=== PATIENT | female | born 1940 | race Caucasian/White ===

== ENCOUNTER 2023-03-16 21:27 | Emergency (ER) | payer MEDICARE, MEDICAID, SELFPAY ==
[2023-03-16] VITALS (7 sets, daily range): BP systolic 130–179; BP diastolic 75–108; PULSE 56–80; RESP 18–20; TEMP 36.8; O2SAT 93–97; BMI 26.4
--- NOTE | 2023-03-16 21:28 | ECG_ITS ---
APPROVED REPORT Exam: Resting ECG HR:82 bpm ECG Measurements Heart Rate 82 AXES QRSd 76 QRS 35 QT 356 T 69 QTc 394 Conclusion ATRIAL FIBRILLATION LOW QRS VOLTAGE IN PRECORDIAL LEADS [QRS DEFLECTION < 1.0 mV IN CHEST LEADS] ABNORMAL RHYTHM ECG UNCONFIRMED REPORT Electronically signed by : Miller Mcbride MD 03/17/2023 06:47:05
--- NOTE | 2023-03-16 21:43 | XR_ITS ---
PROCEDURE INFORMATION: Exam: XR Chest Exam date and time: 03/16/2023 10:01 PM Age: 82 years old Clinical indication: Pain; Chest pressure; Additional info: Chest pain TECHNIQUE: Imaging protocol: Radiologic exam of the chest. Views: 1 view. COMPARISON: No relevant prior studies available. FINDINGS: Lungs: Unremarkable. No consolidation. Pleural spaces: Unremarkable. No pleural effusion. No pneumothorax. Heart/Mediastinum: Unremarkable. No cardiomegaly. Vasculature: There are calcifications of the aortic arch. Bones/joints: There is diffuse degenerative disease of the visualized osseous structures. IMPRESSION: No dense parenchymal consolidation, pleural effusion, or pneumothorax.
[2023-03-16 21:53] LABS: Basophils # 0.1 K/mm3 (0-0.2); Basophils % 0.8 % (0.1-2.0); Eosinophils # 0.3 K/mm3 (0.0-0.4); Eosinophils % 4.7 % (0.1-12.0); Hematocrit 46.3 % (37.0-47.0); Hemoglobin 14.5 g/dL (12.2-16.2); Lymphocytes # 2.5 K/mm3 (0.7-4.5); Lymphocytes % 42.2 % (10-50); Mean Corpuscular HGB Conc 31.4 g/dL (31.8-35.4); Mean Corpuscular Hemoglobin 29.5 pg (27.0-31.2); Mean Platelet Volume 7.9 fl (7.4-10.4); Monocytes # 0.4 K/mm3 (0.1-1.0); Monocytes % 6.4 % (1.7-9.3); Neutrophils # 2.8 K/mm3 (1.8-7.8); Platelet Count 189 K/mm3 (142-424); Red Blood Count 4.93 M/mm3 (4.20-5.40)
[2023-03-16 21:54] LABS: Chloride 104 mmol/L (98-107); Sodium 139 mmol/L (136-145)
[2023-03-16 21:55] LABS: Potassium 4.2 mmoL/L (3.5-5.1)
[2023-03-16 21:57] LABS: Alanine Aminotransferase 24 U/L (12-78); Alkaline Phosphatase 106 U/L (38-126); Aspartate Amino Transferase 29 U/L (14-36); Bilirubin,Total 0.3 mg/dl (0.2-1.3); Blood Urea Nitrogen 21 mg/dl (7-17); Creatinine Clearance Estimated 49 mL/min (50-200); Estimated Glomerular Filt Rate 60 ml/min (>60); GFR (African American) 73 ML/MIN (>60)
[2023-03-16 21:58] LABS: Albumin Level 3.9 g/dl (3.5-5.0); Albumin/Globulin Ratio 1.3 (1.1-1.8); Anion Gap 12.2 mEq/L (5-15); Calcium 10.1 mg/dl (8.4-10.2); Carbon Dioxide 27 mmol/L (22.0-30.0); Globulin 2.9 g/dL (1.3-3.2); Glucose 81 mg/dl (74-100); Total Protein,Serum 6.8 g/dl (6.3-8.2)
[2023-03-16 22:11] LABS: Troponin I < 0.01 ng/ml (0.00-0.034)
--- NOTE | 2023-03-16 23:13 | PC.NURSE ---
Rounded on patient no issues at this time
--- NOTE | 2023-03-16 23:14 | HMH.EDGENADL ---
Discharge Plan Disposition Patient Disposition: Xfer SNF Condition: Good Prescriptions Prescriptions: No Action gabapentin 400 mg capsule 400 mg PO QID Qty: 120 2RF Referrals Follow up/Referrals: Yehuda Marcial MD [Primary Care Provider] - See instructions Activity Restrictions/Add. Instructions Additional Instructions/Restrictions: Please follow-up with your primary care provider. Please return to the emergency department if you develop any new or worsening symptoms or become concerned for your health. Clinical Impressions Clinical Impression: Chest pain Discharge ED Provider: Huan Dugan General Adult HPI <Huan Dugan MD - Last Filed: 03/17/23 00:43> General Chief complaint: Chest Pain Stated complaint: CP Time Seen by Provider: 03/16/23 22:55 Mode of Arrival: EMS Source of Information: Patient and EMS Limitations: No Limitations Description of Symptoms (Recalled from ER Triage Doc. by RN): Patient reports chest pain, epigastric pain, and jaw pain. Patient states hands and knees feel weak. patient has history of CVA and afib per care home this is patients baseline mentation. History of Present Illness HPI narrative: Patient presents for evaluation of epigastric, chest, substernal, nonradiating, nonpleuritic nonexertional chest pain in the history of CVA with expressive aphasia and known history of atrial fibrillation. Symptoms were gradual in onset starting today. No previous therapies. No head injury, no weakness or numbness. No sick contacts. No recent travel, no leg pain or leg swelling. No presyncope or syncope. History is, however, markedly limited by history of expressive aphasia after CVA. Patient is able to answer yes or no questions. Related Data Previous Rx's Medication Instructions Recorded gabapentin 400 mg capsule 400 mg PO QID #120 caps 12/19/22 Allergies Allergy/AdvReac Type Severity Reaction Status Date / Time Unable to Assess Allergy Verified 12/22/22 08:19 PFS <Huan Dugan MD - Last Filed: 03/17/23 00:43> [facility] Disclaimer: The information contained in this section may have been updated after the patient was seen, as this information can be updated by other users. Social History (Updated 01/05/23 @ 05:50 by Johnnie Penn APRN) Smoking Status: Never smoker alcohol intake: former substance use type: denies use current occupational status: retired Travel in the last 8 weeks: None household members: caregiver housing: care home lives independently: No <Huan Dugan MD - Last Filed: 03/17/23 00:43> ROS Obtained: Yes Systems reviewed as appropriate & no additional complaints except as documented Physical Exam <Huan Dugan MD - Last Filed: 03/17/23 00:43> General General appearance: alert and in no apparent distress Head Head exam: atraumatic and normocephalic Eye Eye exam: Present normal appearance Neck Neck exam: Present normal inspection and other (No appreciable neck pain) Chest Chest inspection: Present normal inspection and symmetric chest wall rise; Absent tenderness Respiratory Respiratory exam: Present normal lung sounds bilaterally; Absent respiratory distress or wheezes Cardiovascular Cardiovascular exam: Present other (Irregularly irregular rhythm) Abdominal Exam Abdominal exam: Present soft; Absent distention, tenderness or guarding Extremities Exam Extremities exam: Present normal inspection and normal capillary refill; Absent tenderness Neurological Exam Neurological exam: Present alert and other (At baseline with history of expressive aphasia after CVA, able to answer yes or no questions) Psychiatric Psychiatric exam: Present normal affect and normal mood Skin Skin exam: Present warm and dry Medical Decision Making <Huan Dugan MD - Last Filed: 03/17/23 00:43> Medical Records Medical records reviewed: Yes I reviewed the patient's medical records. Bal Almodovar Pt receiving controlled substance: No Vital Signs: 03/16/23 21:27 03/16/23 21:39 03/16/23 21:31 Temperature 98.2 F Temperature Source Oral Pulse Rate 71 80 Pulse Rate [Right Radial] 71 Respiratory Rate 20 Blood Pressure 139/88 Blood Pressure [Right Arm] 179/106 H Blood Pressure Mean [Right Arm] 130 Blood Pressure Source Blood Pressure Source [Right Arm] Automatic Cuff 02 Sat by Pulse Oximetry 97 96 Oxygen Delivery Method Room Air 03/16/23 22:01 03/16/23 22:30 03/16/23 23:01 Temperature Temperature Source Pulse Rate 67 56 L 77 Pulse Rate [Right Radial] Respiratory Rate Blood Pressure 134/75 130/83 167/92 H Blood Pressure [Right Arm] Blood Pressure Mean [Right Arm] Blood Pressure Source Blood Pressure Source [Right Arm] 02 Sat by Pulse Oximetry 95 93 L 96 Oxygen Delivery Method 03/16/23 23:54 03/17/23 02:12 Temperature 97.9 F Temperature Source Oral Pulse Rate 70 68 Pulse Rate [Right Radial] Respiratory Rate 18 16 Blood Pressure 156/108 H 147/87 H Blood Pressure [Right Arm] Blood Pressure Mean [Right Arm] Blood Pressure Source Manual Cuff/ Auscultation Blood Pressure Source [Right Arm] 02 Sat by Pulse Oximetry 97 Oxygen Delivery Method Room Air Lab Data Lab Results 03/16/23 21:31: WBC 6.0, RBC 4.93, Hgb 14.5, Hct 46.3, MCV 94.0, MCH 29.5, MCHC 31.4 L, RDW 13.0, Plt Count 189, MPV 7.9, Neut % (Auto) 46.0, Lymph % (Auto) 42.2, Anson % (Auto) 6.4, Eos % (Auto) 4.7, Baso % (Auto) 0.8, Neut # (Auto) 2.8, Lymph # (Auto) 2.5, Anson # (Auto) 0.4, Eos # (Auto) 0.3, Baso # (Auto) 0.1, Sodium 139, Potassium 4.2, Chloride 104, Carbon Dioxide 27, Anion Gap 12.2, BUN 21 H, Creatinine 0.90, Estimated Creat Clear 49, Estimated GFR 60, Est GFR ( Amer) 73, Glucose 81, Calcium 10.1, Total Bilirubin 0.3, AST 29, ALT 24, Alkaline Phosphatase 106, Troponin I < 0.01, Total Protein 6.8, Albumin 3.9, Globulin 2.9, Albumin/Globulin Ratio 1.3 03/17/23 00:31: Troponin I < 0.01 03/16/23 21:31 03/16/23 21:31 Orders (Tests/Meds): ED MEDICATIONS Discontinued Medications Generic Name Dose Route Start Last Admin Trade Name Freq PRN Reason Stop Dose Admin Belladonna Alkaloids 60 ml 03/17/23 00:43 03/17/23 01:31 Belladonna Alkaloids 60 Ml Ml PO 03/17/23 00:44 60 ml ONCE ONE Administration ORDERS Category Date Time Status XR chest portable Stat Exams 03/16/23 21:43 Completed Complete Blood Count Auto Diff Stat Lab 03/16/23 21:31 Completed Comprehensive Metabolic Panel Stat Lab 03/16/23 21:31 Completed Troponin I Q3H Lab 03/17/23 00:31 Completed Troponin I Stat Lab 03/16/23 21:31 Completed ECG initial Besson Routine Y 03/16/23 21:28 Completed Medical Decision Narrative: Patient with history and exam per above presenting for evaluation of chest pain, with known history of atrial fibrillation, as well as hiatal hernia per chart review HEART score is 4. Diagnoses considered include ACS, aortic dissection, pericarditis, PE, pneumothorax, pneumonia, GERD, costochondritis, referred pain ED workup included: CBC, CMP, chest x-ray, serial troponins Patient was treated with: GI cocktail x1 Labs were independently interpreted by me, significant for CBC with no anemia, creatinine within normal limits, no acute electrolyte abnormality, initial troponin undetectable, delta troponin pending Imaging was independently visualized and interpreted by me, significant for no acute finding. Care was transferred to Dr. Walton who will follow-up delta troponin, likely discharge if no significant delta <Deondre Walton MD - Last Filed: 03/17/23 04:44> Vital Signs: 03/16/23 21:27 03/16/23 21:39 03/16/23 21:31 Temperature 98.2 F Temperature Source Oral Pulse Rate 71 80 Pulse Rate [Right Radial] 71 Respiratory Rate 20 Blood Pressure 139/88 Blood Pressure [Right Arm] 179/106 H Blood Pressure Mean [Right Arm] 130 Blood Pressure Source Blood Pressure Source [Right Arm] Automatic Cuff 02 Sat by Pulse Oximetry 97 96 Oxygen Delivery Method Room Air 03/16/23 22:01 03/16/23 22:30 03/16/23 23:01 Temperature Temperature Source Pulse Rate 67 56 L 77 Pulse Rate [Right Radial] Respiratory Rate Blood Pressure 134/75 130/83 167/92 H Blood Pressure [Right Arm] Blood Pressure Mean [Right Arm] Blood Pressure Source Blood Pressure Source [Right Arm] 02 Sat by Pulse Oximetry 95 93 L 96 Oxygen Delivery Method 03/16/23 23:54 03/17/23 02:12 Temperature 97.9 F Temperature Source Oral Pulse Rate 70 68 Pulse Rate [Right Radial] Respiratory Rate 18 16 Blood Pressure 156/108 H 147/87 H Blood Pressure [Right Arm] Blood Pressure Mean [Right Arm] Blood Pressure Source Manual Cuff/ Auscultation Blood Pressure Source [Right Arm] 02 Sat by Pulse Oximetry 97 Oxygen Delivery Method Room Air Lab Data Lab Results 03/16/23 21:31: WBC 6.0, RBC 4.93, Hgb 14.5, Hct 46.3, MCV 94.0, MCH 29.5, MCHC 31.4 L, RDW 13.0, Plt Count 189, MPV 7.9, Neut % (Auto) 46.0, Lymph % (Auto) 42.2, Anson % (Auto) 6.4, Eos % (Auto) 4.7, Baso % (Auto) 0.8, Neut # (Auto) 2.8, Lymph # (Auto) 2.5, Anson # (Auto) 0.4, Eos # (Auto) 0.3, Baso # (Auto) 0.1, Sodium 139, Potassium 4.2, Chloride 104, Carbon Dioxide 27, Anion Gap 12.2, BUN 21 H, Creatinine 0.90, Estimated Creat Clear 49, Estimated GFR 60, Est GFR ( Amer) 73, Glucose 81, Calcium 10.1, Total Bilirubin 0.3, AST 29, ALT 24, Alkaline Phosphatase 106, Troponin I < 0.01, Total Protein 6.8, Albumin 3.9, Globulin 2.9, Albumin/Globulin Ratio 1.3 03/17/23 00:31: Troponin I < 0.01 Orders (Tests/Meds): ED MEDICATIONS Discontinued Medications Generic Name Dose Route Start Last Admin Trade Name Freq PRN Reason Stop Dose Admin Belladonna Alkaloids 60 ml 03/17/23 00:43 03/17/23 01:31 Belladonna Alkaloids 60 Ml Ml PO 03/17/23 00:44 60 ml ONCE ONE Administration ORDERS Category Date Time Status XR chest portable Stat Exams 03/16/23 21:43 Completed Complete Blood Count Auto Diff Stat Lab 03/16/23 21:31 Completed Comprehensive Metabolic Panel Stat Lab 03/16/23 21:31 Completed Troponin I Q3H Lab 03/17/23 00:31 Completed Troponin I Stat Lab 03/16/23 21:31 Completed ECG initial Besson Routine Y 03/16/23 21:28 Completed Medical Decision Narrative: Patient with history and exam per above presenting for evaluation of chest pain, with known history of atrial fibrillation, as well as hiatal hernia per chart review HEART score is 4. Diagnoses considered include ACS, aortic dissection, pericarditis, PE, pneumothorax, pneumonia, GERD, costochondritis, referred pain ED workup included: CBC, CMP, chest x-ray, serial troponins Patient was treated with: GI cocktail x1 Labs were independently interpreted by me, significant for CBC with no anemia, creatinine within normal limits, no acute electrolyte abnormality, initial troponin undetectable, delta troponin pending Imaging was independently visualized and interpreted by me, significant for no acute finding. Care was transferred to Dr. Walton who will follow-up delta troponin, likely discharge if no significant delta Anton MD: I assumed care of the patient at the time of handoff from the prior provider. On reevaluation patient reports symptomatic improvement. We were awaiting repeat troponin for discharge. It returned undetectably low. This was communicated with patient. She was discharged in stable condition. Return precautions given. Critical Care <Huan Dugan MD - Last Filed: 03/17/23 00:43> Critical Care Time Critical Care Time: No
--- NOTE | 2023-03-16 23:31 | INFXCTL.NOTE ---
COVID swab obtained and sent to lab
[2023-03-17 01:06] LABS: Troponin I < 0.01 ng/ml (0.00-0.034)
[2023-03-17] MEDS: BELLADONNA ALKALOIDS 60 ML ML PO (01:31)
--- NOTE | 2023-03-17 01:39 | PC.NURSE ---
Report called to [facility] at this time.
[2023-03-17 02:12] VITALS: BP 147/87; PULSE 68; RESP 16; TEMP 36.6
== END 2023-03-17 01:50 ==
PROVIDERS: Emergency Provider Emergency Medicine; PCP Emergency Medicine
DX: R07.9 Chest pain, unspecified (principal); R10.13 Epigastric pain; R68.84 Jaw pain
CPT/HCPCS: 71045; 80053; 84484; 85025; 93005; 99285

== ENCOUNTER 2023-03-21 21:20 | Emergency (ER) | payer MEDICARE, MEDICAID, SELFPAY ==
[2023-03-21 21:21] VITALS: BP 181/96; PULSE 77; RESP 19; TEMP 36.8; O2SAT 98; BMI 25.0
[2023-03-21 21:31] VITALS: BP 156/98; PULSE 80; RESP 18; O2SAT 97
--- NOTE | 2023-03-21 21:56 | XR_ITS ---
PROCEDURE INFORMATION: Exam: XR Pelvis Exam date and time: 03/21/2023 10:18 PM Age: 82 years old Clinical indication: Injury or trauma; Fall; Blunt trauma (contusions or hematomas); Does not apply; Pelvic region; Prior surgery; Surgery date: 6+ months; Surgery type: Replacement; Additional info: Fall, pain TECHNIQUE: Imaging protocol: Radiologic exam of the pelvis. Views: 1 or 2 view. COMPARISON: No relevant prior studies available. FINDINGS: Bones/joints: Osteopenia. Degenerative change involving the lumbar spine and left hip joint. Previous right hip arthroplasty. No hardware failure. No definite acute fracture or dislocation. Soft tissues: Unremarkable. IMPRESSION: Osteopenia without definite acute osseous abnormality. If clinical concern persists, CT may be considered.
--- NOTE | 2023-03-21 21:56 | XR_ITS ---
PROCEDURE INFORMATION: Exam: XR Chest Exam date and time: 03/21/2023 10:18 PM Age: 82 years old Clinical indication: Injury or trauma; Fall; Blunt trauma (contusions or hematomas); Additional info: Fall, pain TECHNIQUE: Imaging protocol: Radiologic exam of the chest. Views: 1 view. COMPARISON: CR XR CHEST PORTABLE 03/16/2023 10:01 PM FINDINGS: Lungs: No airspace consolidation. Pleural spaces: Unremarkable. No pleural effusion. No pneumothorax. Heart/Mediastinum: Cardiomegaly. Vasculature: Elongation of the thoracic aorta. Bones/joints: Osteopenia. Degenerative change involving the shoulders and spine. Organs: Previous cholecystectomy. IMPRESSION: No acute process.
--- NOTE | 2023-03-21 21:56 | CT_ITS ---
PROCEDURE INFORMATION: Exam: CT Lumbar Spine Without Contrast Exam date and time: 03/21/2023 10:21 PM Age: 82 years old Clinical indication: Injury or trauma; Additional info: Fall, pain TECHNIQUE: Imaging protocol: Computed tomography of the lumbar spine without contrast. Radiation optimization: All CT scans at this facility use at least one of these dose optimization techniques: automated exposure control; mA and/or kV adjustment per patient size (includes targeted exams where dose is matched to clinical indication); or iterative reconstruction. REPORTING DATA: Count of CT and Cardiac NM exams in prior 12 months: This patient has received 0 known CTs and 0 known cardiac nuclear medicine studies in the 12 months prior to the current study. COMPARISON: CT THORACIC SPINE WO CON 03/21/2023 10:19 PM FINDINGS: Bones/joints: Vertebral body height and AP alignment is preserved. Mild prevertebral osteophytosis. Bilateral facet joint degenerative change. No acute lumbar spine fracture. No definite high-grade central canal stenosis within limitations of technique. Gallbladder and bile ducts: Previous cholecystectomy. Kidneys and ureters: 6 mm left renal calculus. Vasculature: Vascular calcification. IVC filter is present. Soft tissues: Unremarkable. IMPRESSION: No acute lumbar spine fracture.
--- NOTE | 2023-03-21 21:56 | CT_ITS ---
PROCEDURE INFORMATION: Exam: CT Thoracic Spine Without Contrast Exam date and time: 03/21/2023 10:19 PM Age: 82 years old Clinical indication: Injury or trauma; Fall; Additional info: Fall, pain TECHNIQUE: Imaging protocol: Computed tomography of the thoracic spine without contrast. Radiation optimization: All CT scans at this facility use at least one of these dose optimization techniques: automated exposure control; mA and/or kV adjustment per patient size (includes targeted exams where dose is matched to clinical indication); or iterative reconstruction. REPORTING DATA: Count of CT and Cardiac NM exams in prior 12 months: This patient has received 0 known CTs and 0 known cardiac nuclear medicine studies in the 12 months prior to the current study. COMPARISON: CT CERVICAL SPINE WO CON 03/21/2023 10:13 PM FINDINGS: Bones/joints: Mild levoconvex curvature. Vertebral body height and AP alignment is preserved. Mild to moderate prevertebral osteophytosis. No acute thoracic spine fracture. No definite significant central canal stenosis within limitations of technique. Soft tissues: Unremarkable. Vasculature: Vascular calcification. Pleural spaces: No visible pneumothorax. Other findings: Moderate to large hiatal hernia. IMPRESSION: No acute thoracic spine fracture.
--- NOTE | 2023-03-21 21:56 | CT_ITS ---
PROCEDURE INFORMATION: Exam: CT Head Without Contrast Exam date and time: 03/21/2023 10:13 PM Age: 82 years old Clinical indication: Injury or trauma; Fall; Additional info: Fall, pain TECHNIQUE: Imaging protocol: Computed tomography of the head without contrast. Radiation optimization: All CT scans at this facility use at least one of these dose optimization techniques: automated exposure control; mA and/or kV adjustment per patient size (includes targeted exams where dose is matched to clinical indication); or iterative reconstruction. REPORTING DATA: Count of CT and Cardiac NM exams in prior 12 months: This patient has received 0 known CTs and 0 known cardiac nuclear medicine studies in the 12 months prior to the current study. COMPARISON: No relevant prior studies available. FINDINGS: Brain: Age-related volume loss. Decreased attenuation of the supratentorial white matter is likely secondary to chronic microvascular ischemia. Foci of left temporal and parietal encephalomalacia. No acute intracranial hemorrhage or significant intracranial mass effect. Cerebral ventricles: Ventriculomegaly is commensurate for degree of volume loss. Paranasal sinuses: Mild paranasal sinus disease. Mastoid air cells: Visualized mastoid air cells are well aerated. Bones/joints: Unremarkable. No acute fracture. Soft tissues: Unremarkable. IMPRESSION: No acute intracranial abnormality.
--- NOTE | 2023-03-21 21:56 | CT_ITS ---
PROCEDURE INFORMATION: Exam: CT Cervical Spine Without Contrast Exam date and time: 03/21/2023 10:13 PM Age: 82 years old Clinical indication: Injury or trauma; Additional info: Fall, pain TECHNIQUE: Imaging protocol: Computed tomography of the cervical spine without contrast. Radiation optimization: All CT scans at this facility use at least one of these dose optimization techniques: automated exposure control; mA and/or kV adjustment per patient size (includes targeted exams where dose is matched to clinical indication); or iterative reconstruction. REPORTING DATA: Count of CT and Cardiac NM exams in prior 12 months: This patient has received 0 known CTs and 0 known cardiac nuclear medicine studies in the 12 months prior to the current study. COMPARISON: CR XR CHEST PORTABLE 03/16/2023 10:01 PM FINDINGS: Bones/joints: [id number] dextroconvex curvature. Vertebral body height and AP alignment is preserved. [id number] degenerative change about the dens. Mild prevertebral osteophytosis. Low-level facet joint degenerative change. No acute cervical spine fracture. No definite significant central canal stenosis within limitations of technique. Lungs: Lung apices are normal. Pleural spaces: No visible pneumothorax. Soft tissues: Unremarkable. IMPRESSION: No acute cervical spine fracture.
[2023-03-21 22:00] VITALS: BP 161/91; PULSE 67; RESP 20; O2SAT 96
[2023-03-21 22:30] VITALS: BP 156/85; PULSE 71; RESP 20; O2SAT 97
[2023-03-21 23:00] VITALS: BP 173/91; PULSE 61; RESP 22; O2SAT 96
--- NOTE | 2023-03-21 23:12 | HMH.EDGENADL ---
Discharge Plan Disposition Condition: Good Chief Complaint: Fall Prescriptions Prescriptions: No Action quetiapine 25 mg tablet 12.5 mg PO HS atorvastatin 40 mg tablet 40 mg PO HS gabapentin 600 mg Tablet 600 mg PO BID metoprolol succinate 50 mg tablet extended release 24 hr 50 mg PO DAILY ondansetron HCl 4 mg tablet 4 mg PO TIDP PRN (Reason: Nausea And Vomiting) sertraline 100 mg tablet 100 mg PO HS amantadine HCl 100 mg capsule 100 mg PO DAILY lisinopril 5 mg tablet 5 mg PO DAILY Xarelto 15 mg tablet 15 mg PO DAILY Referrals Follow up/Referrals: Yehuda Marcial MD [Primary Care Provider] - See instructions Activity Restrictions/Add. Instructions Additional Instructions/Restrictions: You were evaluated in the emergency department today. Follow-up with your primary care provider over the next 3 days. Take Tylenol and ibuprofen as needed for pain. Return to the emergency department for new or worsening symptoms. Clinical Impressions Clinical Impression: Fall Instructions Patient Instructions: How to Prevent Falls Discharge ED Provider: Yue Bernal General Adult HPI General Chief complaint: Fall Stated complaint: fall Time Seen by Provider: 03/21/23 21:35 Mode of Arrival: EMS Source of Information: EMS Limitations: No Limitations Description of Symptoms (Recalled from ER Triage Doc. by RN): 82 F presents from [facility] after falling around 1300 today. [facility]IG[facility] Nur called report on this patient-- States, patient reported she tripped over the trashcan in her room and fell to the floor. Patient denies hitting her head, but does take blood thinners. Patient is unable to pinpoint exact pain areas. She reports she hurts all over and it's worse than her normal pain. Patient has c-collar in place by EMS. Patient is at her baseline per [facility]IG[facility] Nur. History of Present Illness HPI narrative: This patient is an 82-year-old female with history of CVA with resultant expressive aphasia presenting from [facility] after a fall that happened around 1:30 PM today. Patient reportedly had a mechanical fall in which she tripped over the trash can in her room and fell to the floor. She did not hit her head or lose consciousness, but she is on anticoagulation, being Xarelto. Since then, she is complained of nonspecific pain all over. She is still able to ambulate. she is at her baseline per EMS and per nursing facility. History is difficult to obtain from the patient, as she has expressive aphasia. She states that she hurts everywhere always. Related Data Home Medications Medication Instructions Recorded Confirmed amantadine HCl 100 mg capsule 100 mg PO DAILY Parkinson's disease 03/21/23 03/21/23 atorvastatin 40 mg tablet 40 mg PO HS High Cholesterol 03/21/23 03/21/23 gabapentin 600 mg tablet 600 mg PO BID Neuropathy 03/21/23 03/21/23 lisinopril 5 mg tablet 5 mg PO DAILY High Blood Pressure 03/21/23 03/21/23 metoprolol succinate 50 mg 50 mg PO DAILY Heart Rhythm 03/21/23 03/21/23 tablet,extended release 24 hr ondansetron HCl 4 mg tablet 4 mg PO TIDP PRN Nausea And 03/21/23 03/21/23 Vomiting quetiapine 25 mg tablet 12.5 mg PO HS Psych 03/21/23 03/21/23 rivaroxaban 15 mg tablet (Xarelto) 15 mg PO DAILY Antiplatelet 03/21/23 03/21/23 sertraline 100 mg tablet 100 mg PO HS Depression 03/21/23 03/21/23 Allergies Allergy/AdvReac Type Severity Reaction Status Date / Time Penicillins Allergy Hives Verified 03/21/23 21:28 [facility] Disclaimer: The information contained in this section may have been updated after the patient was seen, as this information can be updated by other users. Social History Smoking Status: Never smoker alcohol intake: former substance use type: denies use current occupational status: retired Travel in the last 8 weeks: None household members: car
--- NOTE | 2023-03-21 23:36 | PC.NURSE ---
Patient is ready for DC; however, EMS is currently out and unavailable. They're unable to advise a pick-up time. Patient updated and resting without concerns or needs at this time.
[2023-03-22 01:41] VITALS: BP 140/67; PULSE 79; RESP 16; TEMP 37.1; O2SAT 97
== END 2023-03-22 01:43 | disposition home or self-care (01) ==
PROVIDERS: Emergency Provider Emergency Medicine; PCP Emergency Medicine
DX: R52 Pain, unspecified (principal); I69.320 Aphasia following cerebral infarction; Z79.01 Long term (current) use of anticoagulants; W01.0XXA Fall on same level from slipping, tripping and stumbling without subsequent striking against object, initial encounter
CPT/HCPCS: 70450; 71045; 72125; 72128; 72131; 72170; 96374; 99285; J0131

== ENCOUNTER 2023-05-04 13:34 | Emergency (ER) | payer MEDICARE, MEDICAID, SELFPAY ==
[2023-05-04 13:36] VITALS: BP 157/99; PULSE 77; RESP 18; TEMP 36.7; O2SAT 94; BMI 28.1
--- NOTE | 2023-05-04 13:47 | CT_ITS ---
FINAL REPORT TECHNIQUE: Pre-and postcontrast images of the abdomen and pelvis were performed by computed tomography. Extensive 3-D reconstruction images were performed. A CTA was performed. This study was performed with techniques to keep radiation doses as low as reasonably achievable (ALARA). Individualized dose reduction techniques using automated exposure control or adjustment of mA and/or kV according to the patient''s size were employed. CLINICAL HISTORY: trauma, critical injury suspected FINDINGS: ABDOMEN: The patient is status post cholecystectomy. There is mild biliary ductal dilatation, likely post cholecystectomy change. There are small right renal cysts. An IVC filter is present.. Precontrast images demonstrate no evidence of nephrolithiasis. No adrenal masses are identified. The liver, spleen and pancreas are unremarkable. The patient is status post hysterectomy. There are postoperative changes from right hip arthroplasty. CTA: The abdominal aorta is proper caliber. The SMA, celiac axis, and RASHAWN are patent. There is no significant stenosis or calcification. The renal arteries are patent bilaterally. CTA PELVIS: The iliacs are unremarkable. IMPRESSION: No evidence of renal vascular hypertension or significant renal artery stenosis. Reviewed, Interpreted and Dictated by Malick Lucas III, MD Transcribed by Viky Alvarez Authenticated and [facility]
--- NOTE | 2023-05-04 13:47 | CT_ITS ---
FINAL REPORT CLINICAL HISTORY: trauma, critical injury suspected FINDINGS: Axial CT images of the thoracic spine were obtained without contrast. Sagittal and coronal reformatted images were also obtained. This study was performed with techniques to keep radiation doses as low as reasonably achievable (ALARA). Individualized dose reduction techniques using automated exposure control or adjustment of mA and/or kV according to the patient''s size were employed. There is no evidence of fracture. There are mild and moderate degenerative changes. Moderate thoracic kyphosis is identified. There is mild leftward curvature. The vertebral alignment is normal. There is no evidence of significant canal stenosis. No paraspinous soft tissue abnormality is identified. IMPRESSION: Degenerative changes without acute bony abnormality. Reviewed, Interpreted and Dictated by Malick Lucas III, MD Transcribed by Viky Alvarez Authenticated and [facility]
--- NOTE | 2023-05-04 13:47 | CT_ITS ---
FINAL REPORT CLINICAL HISTORY: trauma, critical injury suspected FINDINGS: Thin section axial CT images of the chest were obtained with contrast. 3D reformatted images were also obtained. This study was performed with techniques to keep radiation doses as low as reasonably achievable (ALARA). Individualized dose reduction techniques using automated exposure control or adjustment of mA and/or kV according to the patient's size were employed. There is wall thickening at the GE junction of uncertain significance, may be inflammatory or neoplastic. There is no evidence of pulmonary embolism. There is no evidence of thoracic aortic aneurysm or dissection. There is no evidence of mediastinal or hilar mass or adenopathy. There is no evidence of pulmonary mass or nodule. There is mild bibasilar atelectasis. Large hiatal hernia is identified. IMPRESSION: No evidence of pulmonary embolism. Wall thickening of the GE junction, may be inflammatory or neoplastic. Recommend correlation with upper endoscopy. Reviewed, Interpreted and Dictated by Malick Lucas III, MD Transcribed by Viky Alvarez Authenticated and [facility]
--- NOTE | 2023-05-04 13:47 | XR_ITS ---
FINAL REPORT CLINICAL HISTORY: fall FINDINGS: Left femur Two views were obtained. There is no acute fracture or dislocation. The patient is status post left knee arthroplasty. No soft tissue abnormality is identified. IMPRESSION: No acute process. Reviewed, Interpreted and Dictated by Malick Lucas III, MD Transcribed by Viky Alvarez Authenticated and . [facility]
--- NOTE | 2023-05-04 13:47 | XR_ITS ---
FINAL REPORT CLINICAL HISTORY: fall FINDINGS: Pelvis A single view was obtained. There is no acute fracture or dislocation. The patient is status post right hip arthroplasty. There are moderate degenerative changes of the left hip. No soft tissue abnormality is identified. IMPRESSION: No acute process. Reviewed, Interpreted and Dictated by Malick Lucas III, MD Transcribed by Viky Alvarez Authenticated and [facility]
--- NOTE | 2023-05-04 13:47 | XR_ITS ---
FINAL REPORT CLINICAL HISTORY: fall FINDINGS: Right femur Two views were obtained. There is no acute fracture or dislocation. The patient is status post right hip arthroplasty. There is sclerosis in the distal femur, favor bone infarct. There are moderate degenerative changes of the knee. No soft tissue abnormality is identified. IMPRESSION: No acute process. Reviewed, Interpreted and Dictated by Malick Lucas III, MD Transcribed by Viky Alvarez Authenticated and [facility]
--- NOTE | 2023-05-04 13:47 | CT_ITS ---
FINAL REPORT CLINICAL HISTORY: trauma, critical injury suspected COMPARISON: 03/21/2023 FINDINGS: Axial images of the head were obtained without contrast. Coronal reformatted images were also obtained.This study was performed with techniques to keep radiation doses as low as reasonably achievable (ALARA). Individualized dose reduction techniques using automated exposure control or adjustment of mA and/or kV according to the patient's size were employed. There is age-appropriate atrophy. There are left hemisphere areas of encephalomalacia, stable. There is no evidence of intracranial hemorrhage or mass. The ventricular size is within normal limits. There is no evidence of shift of the midline structures. No abnormal extra axial fluid collection is identified. No skull abnormality is seen on the bone window images. IMPRESSION: Age-appropriate atrophy and chronic appearing findings. No acute intracranial abnormality. Reviewed, Interpreted and Dictated by Malick Lucas III, MD Transcribed by Viky Alvarez Authenticated and [facility]
--- NOTE | 2023-05-04 13:47 | CT_ITS ---
FINAL REPORT TECHNIQUE: Thin section axial CT with IV contrast supplemented with multiplanar reconstruction under CT angiogram protocol. 3-D reconstructions were performed. This study was performed with techniques to keep radiation doses as low as reasonably achievable (ALARA). Individualized dose reduction techniques using automated exposure control or adjustment of mA and/or kV according to the patient''s size were employed. CLINICAL HISTORY: trauma, critical injury suspected FINDINGS: The distal vertebral, basilar and distal internal carotid arteries have an unremarkable appearance. No aneurysm is seen. Major intracranial vessels are patent without significant stenosis. IMPRESSION: No evidence of stenosis. Reviewed, Interpreted and Dictated by Malick Lucas III, MD Transcribed by Viky Alvarez Authenticated and [facility]
--- NOTE | 2023-05-04 13:47 | CT_ITS ---
FINAL REPORT TECHNIQUE: Thin section axial CT with IV contrast supplemented with multiplanar reconstruction under CT angiogram protocol. This study was performed with techniques to keep radiation doses as low as reasonably achievable (ALARA). Individualized dose reduction techniques using automated exposure control or adjustment of mA and/or kV according to the patient''s size were employed. NASCET criteria was utilized during interpretation. CLINICAL HISTORY: trauma, critical injury suspected FINDINGS: Aortic arch: Arch shows no significant narrowing. Great vessel origins are widely patent. Right carotid: There is no significant stenosis of the common carotid artery. There is calcified plaque of the proximal left internal carotid artery with 30% stenosis. Left carotid: No significant stenosis is seen of the cervical common or internal carotid artery. Vertebral: Left vertebral artery is dominant. No significant stenosis is present. IMPRESSION: 30% stenosis of the left internal carotid artery. Reviewed, Interpreted and Dictated by Malick Lucas III, MD Transcribed by Viky Alvarez Authenticated and [facility]
--- NOTE | 2023-05-04 13:47 | CT_ITS ---
FINAL REPORT TECHNIQUE: Axial images through the pelvis were performed by computed tomography. Sagittal and coronal reformatted images were obtained and reviewed. This study was performed with techniques to keep radiation doses as low as reasonably achievable (ALARA). Individualized dose reduction techniques using automated exposure control or adjustment of mA and/or kV according to the patient's size were employed. CLINICAL HISTORY: trauma, critical injury suspected FINDINGS: The patient is status post right hip arthroplasty. There are severe degenerative changes of the left hip. There is mild angulation of the mid sacrum, favor chronic. No acute fracture is identified. IMPRESSION: Degenerative changes without acute bony abnormality. Reviewed, Interpreted and Dictated by Malick Lucas III, MD Transcribed by Viky Alvarez Authenticated and [facility]
--- NOTE | 2023-05-04 13:47 | CT_ITS ---
FINAL REPORT CLINICAL HISTORY: trauma, critical injury suspected FINDINGS: Axial CT images of the cervical spine were obtained without contrast. Sagittal and coronal reformatted images were also obtained. This study was performed with techniques to keep radiation doses as low as reasonably achievable (ALARA). Individualized dose reduction techniques using automated exposure control or adjustment of mA and/or kV according to the patient's size were employed. There is no evidence of fracture or dislocation. The bony alignment is normal. There are mild and moderate degenerative changes. Rightward curvature is identified. There is no evidence of canal stenosis. No paraspinous soft tissue abnormality is seen. Limited images of the upper thorax are unremarkable. IMPRESSION: Degenerative changes without acute bony abnormality. Reviewed, Interpreted and Dictated by Malick Lucas III, MD Transcribed by Viky Alvarez Authenticated and [facility]
--- NOTE | 2023-05-04 13:47 | CT_ITS ---
FINAL REPORT TECHNIQUE: Axial imaging of the lumbar spine was obtained without contrast. Sagittal and coronal reformatted images were also obtained and reviewed. This study was performed with techniques to keep radiation doses as low as reasonably achievable (ALARA). Individualized dose reduction techniques using automated exposure control or adjustment of mA and/or kV according to the patient's size were employed. CLINICAL HISTORY: trauma, critical injury suspected FINDINGS: There is no fracture. The vertebral alignment is normal. There are mild degenerative changes. Mild rightward curvature is identified. An IVC filter is present.There is no evidence of significant central canal stenosis. There is a left renal stone measuring 6 mm. IMPRESSION: Mild degenerative changes without acute bony abnormality. Left renal stone. Reviewed, Interpreted and Dictated by Malick Lucas III, MD Transcribed by Viky Alvarez Authenticated and [facility]
[2023-05-04 14:03] VITALS: BP 138/71; PULSE 84; O2SAT 95
[2023-05-04 14:05] LABS: Chloride 107 mmol/L (98-107); Sodium 140 mmol/L (136-145)
[2023-05-04 14:08] LABS: Alanine Aminotransferase 25 U/L (12-78); Albumin Level 3.7 g/dl (3.5-5.0); Albumin/Globulin Ratio 1.5 (1.1-1.8); Alkaline Phosphatase 102 U/L (38-126); Aspartate Amino Transferase 30 U/L (14-36); Bilirubin,Total 0.2 mg/dl (0.2-1.3); Blood Urea Nitrogen 15 mg/dl (7-17); Carbon Dioxide 26 mmol/L (22.0-30.0); Estimated Glomerular Filt Rate 80 ml/min (>60); GFR (African American) 97 ML/MIN (>60); Globulin 2.5 g/dL (1.3-3.2); Total Protein,Serum 6.2 g/dl (6.3-8.2)
[2023-05-04 14:09] LABS: Calcium 8.3 mg/dl (8.4-10.2); Glucose 199 mg/dl (74-100)
--- NOTE | 2023-05-04 14:10 | HMH.EDGENADL ---
Discharge Plan Disposition Patient Disposition: Home, Self-Care Prescriptions Prescriptions: No Action tramadol 50 mg tablet 50 mg PO TID PRN (Reason: pain) Qty: 21 0RF gabapentin 600 mg tablet 600 mg PO BID Qty: 60 4RF quetiapine 25 mg tablet 12.5 mg PO HS atorvastatin 40 mg tablet 40 mg PO HS metoprolol succinate 50 mg tablet extended release 24 hr 50 mg PO DAILY ondansetron HCl 4 mg tablet 4 mg PO TIDP PRN (Reason: Nausea And Vomiting) sertraline 100 mg tablet 100 mg PO HS amantadine HCl 100 mg capsule 100 mg PO DAILY lisinopril 5 mg tablet 5 mg PO DAILY Xarelto 15 mg tablet 15 mg PO DAILY Referrals Follow up/Referrals: Bruce Carrizales DO [Staff Physician] - See instructions Provider,Referral, [Primary Care Provider] - See instructions Activity Restrictions/Add. Instructions Additional Instructions/Restrictions: At this time it was felt you are safe to be discharged home. If new or worsening symptoms please do not hesitate to return the emergency department. Please follow-up with your family doctor for thickening of your esophagus. Please call and schedule follow-up with Dr. Carrizales for your fractures in your hand and wrist as soon as you are able. Please keep your splint on until you are seen by Dr. Carrizales. Clinical Impressions Clinical Impression: Fall, Laceration of lip, Fracture of middle phalanx of finger, Fracture of metacarpal, Esophageal thickening Discharge ED Provider: James Clarke General Adult HPI <James Clarke MD - Last Filed: 05/04/23 16:48> General Chief complaint: Fall Stated complaint: fall Time Seen by Provider: 05/04/23 13:36 Mode of Arrival: EMS Limitations: No Limitations Description of Symptoms (Recalled from ER Triage Doc. by RN): Per EMS patient [facility]. Patient complaint of left hand pain, right hip pain and a laceration to lower lip. History of Present Illness HPI narrative: Patient is a 83-year-old female with past medical history of dementia, hypertension, hyperlipidemia, anticoagulation on Xarelto who presents emergency department for evaluation of traumatic injury sustained in a fall. Fall was unwitnessed, earlier this morning patient was found next to bed with trauma over her lip. Patient is complaining of diffuse body pain upon arrival. No other acute complaints at this time. Related Data Home Medications Medication Instructions Recorded Confirmed amantadine HCl 100 mg capsule 100 mg PO DAILY Parkinson's disease 03/21/23 03/21/23 atorvastatin 40 mg tablet 40 mg PO HS High Cholesterol 03/21/23 03/21/23 lisinopril 5 mg tablet 5 mg PO DAILY High Blood Pressure 03/21/23 03/21/23 metoprolol succinate 50 mg 50 mg PO DAILY Heart Rhythm 03/21/23 03/21/23 tablet,extended release 24 hr ondansetron HCl 4 mg tablet 4 mg PO TIDP PRN Nausea And 03/21/23 03/21/23 Vomiting quetiapine 25 mg tablet 12.5 mg PO HS Psych 03/21/23 03/21/23 rivaroxaban 15 mg tablet (Xarelto) 15 mg PO DAILY Antiplatelet 03/21/23 03/21/23 sertraline 100 mg tablet 100 mg PO HS Depression 03/21/23 03/21/23 Previous Rx's Medication Instructions Recorded tramadol 50 mg tablet 50 mg PO TID PRN pain #21 tabs 03/22/23 gabapentin 600 mg tablet 600 mg PO BID Neuropathy #60 tabs 03/30/23 Allergies Allergy/AdvReac Type Severity Reaction Status Date / Time Penicillins Allergy Hives Verified 03/21/23 21:28 [facility] <James Clarke MD - Last Filed: 05/04/23 16:48> [facility] Disclaimer: The information contained in this section may have been updated after the patient was seen, as this information can be updated by other users. Social History Smoking Status: Never smoker alcohol intake: former substance use type: denies use current occupational status: retired Travel in the last 8 weeks: None household members: caregiver housing: nursing
--- NOTE | 2023-05-04 14:11 | XR_ITS ---
FINAL REPORT CLINICAL HISTORY: fall FINDINGS: Left wrist Three views were obtained. There is no acute fracture or dislocation. The bones are osteopenic. There are moderate degenerative changes, greatest in the 1st carpometacarpal. No soft tissue abnormality is identified. IMPRESSION: Degenerative changes without acute bony abnormality. Reviewed, Interpreted and Dictated by Malick Lucas III, MD Transcribed by Viky Alvarez Authenticated and [facility]
[2023-05-04 14:12] LABS: Basophils % 0.4 % (0.1-2.0); Eosinophils # 0.3 K/mm3 (0.0-0.4); Eosinophils % 3.8 % (0.1-12.0); Hematocrit 39.8 % (37.0-47.0); Hemoglobin 13.4 g/dL (12.2-16.2); Lymphocytes # 1.8 K/mm3 (0.7-4.5); Lymphocytes % 26.8 % (10-50); Mean Corpuscular HGB Conc 33.7 g/dL (31.8-35.4); Mean Corpuscular Hemoglobin 31.9 pg (27.0-31.2); Mean Corpuscular Volume 94.4 fl (81-99); Monocytes # 0.3 K/mm3 (0.1-1.0); Monocytes % 4.4 % (1.7-9.3); Neutrophils # 4.4 K/mm3 (1.8-7.8); Neutrophils % 64.6 % (37.0-80.0); Platelet Count 181 K/mm3 (142-424); Red Blood Count 4.22 M/mm3 (4.20-5.40); Red Cell Distribution Width 12.7 % (11.5-17.5); White Blood Count 6.9 K/mm3 (4.8-10.8)
--- NOTE | 2023-05-04 14:12 | XR_ITS ---
FINAL REPORT CLINICAL HISTORY: fall FINDINGS: Left hand Three views were obtained. There is an oblique fracture of the proximal 4th metacarpal. There is dorsal subluxation of the 4th middle phalanx with a fracture at the proximal volar aspect. IMPRESSION: Fractures as above. Reviewed, Interpreted and Dictated by Malick Lucas III, MD Transcribed by Viky Alvarez Authenticated and [facility]
--- NOTE | 2023-05-04 14:14 | CT_ITS ---
FINAL REPORT TECHNIQUE: Axial CT images of the face were obtained without contrast. Coronal reformatted images were also obtained. This study was performed with techniques to keep radiation doses as low as reasonably achievable, (ALARA). Individualized dose reduction techniques using automated exposure control or adjustment of mA and/or kV according to the patient''s size were employed. CLINICAL HISTORY: fall FINDINGS: There is no evidence of fracture.The orbits are intact.The globes are intact. There is sinus mucosal thickening. No soft tissue mass is seen. IMPRESSION: No fracture or acute bony abnormality identified. Reviewed, Interpreted and Dictated by Malick Lucas III, MD Transcribed by Viky Alvarez Authenticated and [facility]
[2023-05-04 15:31] VITALS: BP 143/65; PULSE 87; O2SAT 96
[2023-05-04 16:01] VITALS: BP 123/71; PULSE 68; O2SAT 97
[2023-05-04 17:35] VITALS: BP 123/71; PULSE 68; RESP 18; TEMP 36.7; O2SAT 97
--- NOTE | 2023-05-04 17:48 | PC.NURSE ---
Report called to ABIGAIL Ramirez at [facility]. [facility] notified.
== END 2023-05-04 17:55 | disposition home or self-care (01) ==
PROVIDERS: Emergency Provider Emergency Medicine
DX: S62.325A Displaced fracture of shaft of fourth metacarpal bone, left hand, initial encounter for closed fracture (principal); S62.625A Displaced fracture of middle phalanx of left ring finger, initial encounter for closed fracture; S01.511A Laceration without foreign body of lip, initial encounter; K22.89 Other specified disease of esophagus; W19.XXXA Unspecified fall, initial encounter; Z23 Encounter for immunization
CPT/HCPCS: G0168; 70450; 70486; 70496; 70498; 71275; 72125; 72128; 72131; 72170; 72192; 73110; 73130; 73552; 74174; 80053; 85025; 90715; 96372; 96374; 96375; 99285; J0131; Q9967

== ENCOUNTER 2023-05-18 14:28 | Emergency (ER) | payer MEDICARE, MEDICAID, SELFPAY ==
[2023-05-18] VITALS (7 sets, daily range): BP systolic 115–152; BP diastolic 56–81; PULSE 62–81; RESP 16–20; TEMP 36.7–36.8; O2SAT 96–98; BMI 24.3
--- NOTE | 2023-05-18 14:30 | CT_ITS ---
FINAL REPORT TECHNIQUE: Thin section axial images were obtained from skull base to vertex without contrast. Coronal reconstruction images were obtained from the axial data. Exam was performed using dose reduction technique. CLINICAL HISTORY: fall, on AC, dizziness COMPARISON: 05/04/2023 FINDINGS: There is age-appropriate atrophy. There is no mass effect or midline shift. There is no intracranial hemorrhage. There is no hydrocephalus. There is left parietal and posterior temporal encephalomalacia, unchanged. The basilar cisterns are preserved. The posterior fossa is without acute abnormality. There is posterior scalp edema on the left with small subcutaneous hematoma. No skull fracture is identified. IMPRESSION: Chronic appearing findings without acute intracranial abnormality. Small subcutaneous hematoma without skull fracture. Reviewed, Interpreted and Dictated by Jennifer Day MD Transcribed by Viky Alvarez Authenticated and [facility]
[2023-05-18 14:45] LABS: Basophils % 0.4 % (0.1-2.0); Eosinophils # 0.2 K/mm3 (0.0-0.4); Eosinophils % 3.1 % (0.1-12.0); Hemoglobin 14.6 g/dL (12.2-16.2); Lymphocytes # 1.1 K/mm3 (0.7-4.5); Lymphocytes % 18.9 % (10-50); Mean Corpuscular HGB Conc 33.2 g/dL (31.8-35.4); Mean Corpuscular Hemoglobin 31.5 pg (27.0-31.2); Mean Corpuscular Volume 94.9 fl (81-99); Monocytes # 0.2 K/mm3 (0.1-1.0); Monocytes % 3.9 % (1.7-9.3); Neutrophils # 4.2 K/mm3 (1.8-7.8); Neutrophils % 73.8 % (37.0-80.0); Platelet Count 253 K/mm3 (142-424); Red Blood Count 4.63 M/mm3 (4.20-5.40); Red Cell Distribution Width 12.7 % (11.5-17.5); White Blood Count 5.7 K/mm3 (4.8-10.8)
--- NOTE | 2023-05-18 14:49 | XR_ITS ---
FINAL REPORT CLINICAL HISTORY: fall, left hip bruising COMPARISON: None FINDINGS: An AP view of the pelvis and a frog leg views of the left hip were obtained. There is no prior exam for comparison. There are postoperative changes from right hip arthroplasty. There is no acute fracture or dislocation of the left hip. There is degenerative joint disease. Remaining osseous pelvis is within normal limits. Soft tissues are within normal limits. IMPRESSION: No acute osseous abnormality of the left hip. If pain persists, consider MR. Reviewed, Interpreted and Dictated by Jennifer Day MD Transcribed by Joanna Pereira Authenticated and [facility]
--- NOTE | 2023-05-18 14:49 | HMH.EDGENADL ---
Discharge Plan Disposition Patient Disposition: Xfer SNF Condition: Good Prescriptions Prescriptions: No Action gabapentin 600 mg tablet 600 mg PO BID Qty: 60 4RF tramadol 50 mg tablet 50 mg PO TID PRN (Reason: pain) Qty: 90 0RF quetiapine 25 mg tablet 12.5 mg PO HS atorvastatin 40 mg tablet 40 mg PO HS metoprolol succinate 50 mg tablet extended release 24 hr 50 mg PO DAILY ondansetron HCl 4 mg tablet 4 mg PO TIDP PRN (Reason: Nausea And Vomiting) sertraline 100 mg tablet 100 mg PO HS amantadine HCl 100 mg capsule 100 mg PO DAILY lisinopril 5 mg tablet 5 mg PO DAILY Xarelto 15 mg tablet 15 mg PO DAILY Activity Restrictions/Add. Instructions Additional Instructions/Restrictions: You were evaluated in the emergency department today. You have an incidental finding of a bone lesion that is consistent with a bone infarction on x-ray, but no acute traumatic injuries from the fall. Otherwise, everything looks good. Please follow-up with your primary care provider over the next few days. Return to the emergency department for new or worsening symptoms. 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 Patient was unwitnessed fall. Found down at custodial. EMS was called. Due to patient aphasia, difficult to ascertain if she has pain or any further symptoms. Per custodial, patient does not have any further deficits. Related Data Home Medications Medication Instructions Recorded Confirmed amantadine HCl 100 mg capsule 100 mg PO DAILY Parkinson's disease 03/21/23 05/10/23 atorvastatin 40 mg tablet 40 mg PO HS High Cholesterol 03/21/23 05/10/23 lisinopril 5 mg tablet 5 mg PO DAILY High Blood Pressure 03/21/23 05/10/23 metoprolol succinate 50 mg 50 mg PO DAILY Heart Rhythm 03/21/23 05/10/23 tablet,extended release 24 hr ondansetron HCl 4 mg tablet 4 mg PO TIDP PRN Nausea And 03/21/23 05/10/23 Vomiting quetiapine 25 mg tablet 12.5 mg PO HS Psych 03/21/23 05/10/23 rivaroxaban 15 mg tablet (Xarelto) 15 mg PO DAILY Antiplatelet 03/21/23 05/10/23 sertraline 100 mg tablet 100 mg PO HS Depression 03/21/23 05/10/23 Previous Rx's Medication Instructions Recorded gabapentin 600 mg tablet 600 mg PO BID Neuropathy #60 tabs 03/30/23 tramadol 50 mg tablet 50 mg PO TID PRN pain #90 tabs 05/14/23 Allergies Allergy/AdvReac Type Severity Reaction Status Date / Time Penicillins Allergy Hives Verified 05/10/23 15:26 [facility] <Sadi Lewis MD - Last Filed: 05/18/23 15:17> [facility] Disclaimer: The information contained in this section may have been updated after the patient was seen, as this information can be updated by other users. Medical History Patient new to facility Social History Smoking Status: Never smoker alcohol intake: former substance use type: denies use current occupational status: retired Travel in the last 8 weeks: None household members: caregiver housing: custodial lives independently: No <Sadi Lewis MD - Last Filed: 05/18/23 15:17> ROS Obtained: Yes All systems reviewed & no additional complaints except as documented Physical Exam <Sadi Lewis MD - Last Filed: 05/18/23 15:17> General General appearance: alert and in no apparent distress Head Head exam: normocephalic and other (Resolving bruising left side of chin. Hematoma posterior occipital scalp
--- NOTE | 2023-05-18 14:50 | XR_ITS ---
FINAL REPORT CLINICAL HISTORY: right leg shortened, numerous falls COMPARISON: None FINDINGS: AP and frog leg views of the right hip were obtained. There is no prior exam for comparison. Prior right hip arthroplasty. The hardware is intact. No acute osseous abnormality. Soft tissues are within normal limits. IMPRESSION: No acute osseous abnormality of the right hip. If pain persists, MR is recommended. Reviewed, Interpreted and Dictated by Jennifer Day MD Transcribed by Joanna Pereira Authenticated and . [facility]
--- NOTE | 2023-05-18 14:52 | PC.NURSE ---
XR AT BEDSIDE
--- NOTE | 2023-05-18 14:54 | XR_ITS ---
FINAL REPORT CLINICAL HISTORY: Left lower extremity pain, numerous falls COMPARISON: 05/04/2023 FINDINGS: Two views of the left femur were obtained. There is no acute fracture or dislocation. There is degenerative disease at the hip. There are changes from left knee arthroplasty. The hardware is intact. There is no acute soft tissue abnormality. IMPRESSION: No acute abnormality identified. Reviewed, Interpreted and Dictated by Jennifer Day MD Transcribed by Joanna Pereira Authenticated and . [facility]
--- NOTE | 2023-05-18 14:54 | XR_ITS ---
FINAL REPORT CLINICAL HISTORY: RLE short, numerous falls COMPARISON: 05/04/2023 FINDINGS: Two views of the right femur were obtained. There are changes from right hip arthroplasty. The hardware is intact. There is no acute fracture. There is a lesion in the distal right femoral diaphysis and metaphysis with curvilinear sclerotic margin consistent with bone infarct. There is no acute soft tissue abnormality. IMPRESSION: No acute fracture. 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 Reviewed, Interpreted and Dictated by Jennifer Day MD Transcribed by Joanna Pereira Authenticated and [facility]
--- NOTE | 2023-05-18 15:00 | CT_ITS ---
FINAL REPORT TECHNIQUE: Thin section axial images were obtained through the cervical spine without contrast. Multiplanar reconstruction images were obtained from the axial data. Exam was performed using dose reduction techniques. CLINICAL HISTORY: fall, struck head COMPARISON: 05/04/2023 FINDINGS: There is no acute fracture or acute malalignment of the cervical spine. There is no evidence of unilateral or bilateral facet lock. Craniocervical junction is intact. There is multilevel degenerative disc disease which is unchanged from the prior study. No acute paraspinal abnormality is identified. IMPRESSION: No acute fracture. Multilevel degenerative disc disease. Reviewed, Interpreted and Dictated by Jennifer Day MD Transcribed by Joanna Pereira Authenticated and [facility]
[2023-05-18 15:01] LABS: Alanine Aminotransferase 24 U/L (12-78); Albumin Level 4.3 g/dl (3.5-5.0); Albumin/Globulin Ratio 1.3 (1.1-1.8); Alkaline Phosphatase 116 U/L (38-126); Anion Gap 14.1 mEq/L (5-15); Aspartate Amino Transferase 33 U/L (14-36); Bilirubin,Total 0.5 mg/dl (0.2-1.3); Blood Urea Nitrogen 18 mg/dl (7-17); Calcium 9.3 mg/dl (8.4-10.2); Carbon Dioxide 27 mmol/L (22.0-30.0); Chloride 103 mmol/L (98-107); Creatinine Clearance Estimated 51 mL/min (50-200); Estimated Glomerular Filt Rate 60 ml/min (>60); GFR (African American) 73 ML/MIN (>60); Globulin 3.3 g/dL (1.3-3.2); Glucose 128 mg/dl (74-100); Potassium 4.1 mmoL/L (3.5-5.1); Sodium 140 mmol/L (136-145); Total Protein,Serum 7.6 g/dl (6.3-8.2)
[2023-05-18 15:15] LABS: Troponin I < 0.01 ng/ml (0.00-0.034)
[2023-05-18 15:18] LABS: T4 (Thyroxine) 5.2 ug/dl (5.53-11.0)
[2023-05-18 15:32] LABS: Thyroid Stimulating Hormone 5.74 uIU/mL (0.465-4.68)
--- NOTE | 2023-05-18 15:40 | PC.NURSE ---
PT TO CT
--- NOTE | 2023-05-18 15:45 | PC.NURSE ---
SON CALLED TO CHECK ON PT, UPDATED AT THIS TIME
--- NOTE | 2023-05-18 15:46 | PC.NURSE ---
PT RETURNED FROM CT
--- NOTE | 2023-05-18 15:56 | ECG_ITS ---
APPROVED REPORT Exam: Resting ECG HR:70 bpm ECG Measurements Heart Rate 70 AXES QRSd 73 QRS 21 QT 386 T 46 QTc 408 Conclusion ATRIAL FIBRILLATION NONSPECIFIC T-WAVE ABNORMALITY ABNORMAL RHYTHM ECG UNCONFIRMED REPORT Electronically signed by : Miller Mcbride MD 05/20/2023 08:40:54
[2023-05-18 16:10] LABS: Microscopic, Urine URINE MICROSCOPIC (MICROSCOPIC)
[2023-05-18 16:18] LABS: Appearance,Urine CLEAR (Clear); Bilirubin,Urine Negative (Negative); Blood, Urine TRACE-I (Negative); Color,Urine YELLOW (Yellow); Glucose,Urine (UA) Negative (Negative); Ketones,Urine Negative (Negative); Leukocyte Esterase,Urine Negative (Negative); Nitrate,Urine Negative (Negative); Protein,Urine Negative (Negative); Specific Gravity, Urine >= 1.030 (1.005-1.030); Urobilinogen,Urine 0.2 EU/dl (0.2)
[2023-05-18 16:43] LABS: Calcium Oxalate Crystals,Urine 1+ /lpf; RBC,Urine Occasional #/hpf (0-3)
--- NOTE | 2023-05-18 17:17 | PC.NURSE ---
[facility] CALLED FOR TRANSPORT
--- NOTE | 2023-05-18 17:21 | PC.NURSE ---
[facility]
[2023-05-18 17:30] LABS: Troponin I < 0.01 ng/ml (0.00-0.034)
== END 2023-05-18 17:38 ==
PROVIDERS: Emergency Medicine; Emergency Provider Emergency Medicine
DX: S00.03XA Contusion of scalp, initial encounter (principal); S70.10XA Contusion of unspecified thigh, initial encounter; M87.051 Idiopathic aseptic necrosis of right femur; I48.0 Paroxysmal atrial fibrillation; I10 Essential (primary) hypertension; E78.5 Hyperlipidemia, unspecified; I69.320 Aphasia following cerebral infarction; Z79.01 Long term (current) use of anticoagulants; W19.XXXA Unspecified fall, initial encounter
CPT/HCPCS: 36415; 70450; 72125; 73502; 73552; 80053; 81001; 84436; 84443; 84484; 85025; 93005; 99285

== ENCOUNTER 2023-06-14 12:54 | Emergency (ER) | payer MEDICARE, MEDICAID, SELFPAY ==
[2023-06-14] VITALS (27 sets, daily range): BP systolic 121–204; BP diastolic 72–107; PULSE 60–109; RESP 13–100; TEMP 36.4–36.6; O2SAT 97–100; BMI 24.7
--- NOTE | 2023-06-14 | ECG_ITS ---
APPROVED REPORT Exam: Resting ECG HR:124 bpm ECG Measurements Heart Rate 124 AXES QRSd 82 QRS 13 QT 253 T 0 QTc 326 Conclusion ATRIAL FIBRILLATION WITH RAPID VENTRICULAR RESPONSE NONSPECIFIC ST & T-WAVE ABNORMALITY ABNORMAL RHYTHM ECG UNCONFIRMED REPORT Electronically signed by : Miller Mcbride MD 06/14/2023 17:11:22
--- NOTE | 2023-06-14 12:29 | CT_ITS ---
PROCEDURE INFORMATION: Exam: CT Head Without Contrast Exam date and time: 06/14/2023 1:13 PM Age: 83 years old Clinical indication: Injury or trauma; Other: Fall, unresponsive; Additional info: Fall, seizure, unresponsive, trauma TECHNIQUE: Imaging protocol: Computed tomography of the head without contrast. Radiation optimization: All CT scans at this facility use at least one of these dose optimization techniques: automated exposure control; mA and/or kV adjustment per patient size (includes targeted exams where dose is matched to clinical indication); or iterative reconstruction. REPORTING DATA: Count of CT and Cardiac NM exams in prior 12 months: This patient has received 16 known CTs and 0 known cardiac nuclear medicine studies in the 12 months prior to the current study. COMPARISON: CT HEAD/BRAIN WO CON 05/18/2023 3:47 PM FINDINGS: Brain: There appears to be a chronic infarct in the left middle cerebral artery distribution again seen. There is no evidence of acute parenchymal hemorrhage, extra-axial collection, or acute infarction. There is no mass effect, midline shift, or downward herniation. Cerebral ventricles: No ventriculomegaly. Paranasal sinuses: There is partial opacification of the paranasal sinuses. The patient is intubated. Mastoid air cells: Visualized mastoid air cells are well aerated. Bones/joints: Unremarkable. No acute fracture. Soft tissues: Unremarkable. IMPRESSION: 1. No evidence of acute intracranial process. 2. Chronic left middle cerebral artery infarct.
--- NOTE | 2023-06-14 12:29 | CT_ITS ---
PROCEDURE INFORMATION: Exam: CTA Abdomen and Pelvis With Contrast Exam date and time: 06/14/2023 1:38 PM Age: 83 years old Clinical indication: Injury or trauma; Other: Seizure, fall, unresponsive; Additional info: Fall, seizure, unresponsive, trauma TECHNIQUE: Imaging protocol: Computed tomographic angiography of the abdomen and pelvis with contrast. Exam focused on the arteries. 3D rendering (Not supervised by radiologist): MIP and/or 3D reconstructed images were created by the technologist. Radiation optimization: All CT scans at this facility use at least one of these dose optimization techniques: automated exposure control; mA and/or kV adjustment per patient size (includes targeted exams where dose is matched to clinical indication); or iterative reconstruction. Contrast material: ISOVUE 370; Contrast volume: 100 ml; Contrast route: INTRAVENOUS (IV); REPORTING DATA: Count of CT and Cardiac NM exams in prior 12 months: This patient has received 16 known CTs and 0 known cardiac nuclear medicine studies in the 12 months prior to the current study. COMPARISON: CT ANGIO ABDOMEN PELVIS 05/04/2023 3:01 PM FINDINGS: Diaphragm: Moderate hiatal hernia Aorta: Scattered regions of atherosclerotic vascular calcification within the abdominal aorta and common iliac arteries. Celiac trunk and mesenteric arteries: No occlusion or significant stenosis. Renal arteries: No occlusion or significant stenosis. Right iliac arteries: No occlusion or significant stenosis. Left iliac arteries: No occlusion or significant stenosis. Veins: IVC filter Liver: No mass. Gallbladder and bile ducts: Cholecystectomy Pancreas: Pancreas unremarkable Spleen: The spleen is unremarkable. Adrenal glands: Adrenal glands unremarkable. Kidneys and ureters: Small right renal cysts Stomach and bowel: Colonic diverticulosis. No evidence of diverticulitis. Moderate stool burden Appendix: Appendix unremarkable Intraperitoneal space: Unremarkable. No free air. No significant fluid collection. Lymph nodes: Unremarkable. No enlarged lymph nodes. Urinary bladder: Unremarkable. No mass. Reproductive: Hysterectomy Bones/joints: Artifact related to arthroplasty limits evaluation of the pelvis. Soft tissues: Unremarkable. IMPRESSION: No evidence of acute abnormality COMMENTS: For patients with an IVC filter, recommend assessment for a management plan for the patient's IVC filter. If there is no established management plan, recommend referral to an interventional clinician on a nonemergent basis for evaluation.
--- NOTE | 2023-06-14 12:29 | CT_ITS ---
PROCEDURE INFORMATION: Exam: CTA Head With Contrast, Arteriography Exam date and time: 06/14/2023 1:30 PM Age: 83 years old Clinical indication: Injury or trauma; Other: Fall, unresoponsive, seizure; Additional info: Fall, seizure, unresponsive, trauma TECHNIQUE: Imaging protocol: Computed tomographic angiography of the head with contrast. Exam focused on the arteries. 3D rendering (Not supervised by radiologist): MIP and/or 3D reconstructed images were created by the technologist. Radiation optimization: All CT scans at this facility use at least one of these dose optimization techniques: automated exposure control; mA and/or kV adjustment per patient size (includes targeted exams where dose is matched to clinical indication); or iterative reconstruction. Contrast material: ISOVUE 370; Contrast volume: 100 ml; Contrast route: INTRAVENOUS (IV); REPORTING DATA: Count of CT and Cardiac NM exams in prior 12 months: This patient has received 16 known CTs and 0 known cardiac nuclear medicine studies in the 12 months prior to the current study. COMPARISON: CT ANGIO HEAD 05/04/2023 2:51 PM FINDINGS: ANTERIOR CIRCULATION: Right internal carotid artery: Intracranial segment is patent with no significant stenosis. No aneurysm. Right middle cerebral artery: No occlusion or significant stenosis. No aneurysm. Right anterior cerebral artery: No occlusion or significant stenosis. No aneurysm. Left internal carotid artery: Intracranial segment is patent with no significant stenosis. No aneurysm. Left middle cerebral artery: No occlusion or significant stenosis. No aneurysm. Left anterior cerebral artery: No occlusion or significant stenosis. No aneurysm. POSTERIOR CIRCULATION: Right vertebral artery: No occlusion or significant stenosis. No aneurysm. Left vertebral artery: No occlusion or significant stenosis. No aneurysm. Basilar artery: No occlusion or significant stenosis. No aneurysm. Right posterior cerebral artery: No occlusion or significant stenosis. No aneurysm. Left posterior cerebral artery: No occlusion or significant stenosis. No aneurysm. Brain: No definite mass, mass effect, or midline shift. Cerebral ventricles: No ventriculomegaly. Bones/joints: Unremarkable. No acute fracture. Soft tissues: Unremarkable. IMPRESSION: No large vessel stenosis or occlusion.
--- NOTE | 2023-06-14 12:29 | CT_ITS ---
PROCEDURE INFORMATION: Exam: CTA Neck With Contrast Exam date and time: 06/14/2023 1:30 PM Age: 83 years old Clinical indication: Injury or trauma; Other: Fall, unresponsive, seizure; Additional info: Fall, seizure, unresponsive, trauma TECHNIQUE: Imaging protocol: Computed tomographic angiography of the neck with contrast. Exam focused on the cervical segments of the vasculature. 3D rendering (Not supervised by radiologist): MIP and/or 3D reconstructed images were created by the technologist. Radiation optimization: All CT scans at this facility use at least one of these dose optimization techniques: automated exposure control; mA and/or kV adjustment per patient size (includes targeted exams where dose is matched to clinical indication); or iterative reconstruction. Contrast material: ISOVUE 370; Contrast volume: 100 ml; Contrast route: INTRAVENOUS (IV); REPORTING DATA: Count of CT and Cardiac NM exams in prior 12 months: This patient has received 16 known CTs and 0 known cardiac nuclear medicine studies in the 12 months prior to the current study. COMPARISON: CT ANGIO NECK 05/04/2023 2:51 PM FINDINGS: Right common carotid artery: No stenosis. No dissection or occlusion. Right internal carotid artery: There is mild stenosis measuring less than 50% in the proximal right internal carotid artery secondary to soft and calcified plaque. The remainder of the right internal carotid artery is patent. Right external carotid artery: No occlusion or stenosis of the origin. Left common carotid artery: No stenosis. No dissection or occlusion. Left internal carotid artery: There is stenosis of the proximal and mid left internal carotid artery measuring up to 50% secondary to soft and calcified plaque. Left external carotid artery: No occlusion or stenosis of the origin. Right vertebral artery: No stenosis. No dissection or occlusion. Left vertebral artery: No stenosis. No dissection or occlusion. Soft tissues: Normal. No significant soft tissue swelling. Bones/joints: No acute fracture. IMPRESSION: 1. 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 2. Mild stenosis of the proximal right internal carotid artery. REFERENCES: NASCET CRITERIA. The degree of stenosis in the cervical segment of the internal carotid artery is based on NASCET criteria. Normal is no stenosis. Mild is less than 50% stenosis. Moderate is 50-69% stenosis. Severe is 70% to 99% stenosis. Total occlusion is no detectable patent lumen.
--- NOTE | 2023-06-14 12:29 | CT_ITS ---
PROCEDURE INFORMATION: Exam: CT Cervical Spine Without Contrast Exam date and time: 06/14/2023 1:15 PM Age: 83 years old Clinical indication: Injury or trauma; Other: Fall, seizure, unresponsive; Additional info: Fall, seizure, unresponsive, trauma TECHNIQUE: Imaging protocol: Computed tomography of the cervical spine without contrast. Radiation optimization: All CT scans at this facility use at least one of these dose optimization techniques: automated exposure control; mA and/or kV adjustment per patient size (includes targeted exams where dose is matched to clinical indication); or iterative reconstruction. REPORTING DATA: Count of CT and Cardiac NM exams in prior 12 months: This patient has received 16 known CTs and 0 known cardiac nuclear medicine studies in the 12 months prior to the current study. COMPARISON: CT CERVICAL SPINE WO CON 05/18/2023 4:43 PM FINDINGS: Bones/joints: No acute fracture. Normal alignment. There is [id number] multilevel degenerative disc disease and spondylosis. Lungs: Lung apices are normal. Soft tissues: Unremarkable. IMPRESSION: No acute findings.
--- NOTE | 2023-06-14 12:29 | CT_ITS ---
PROCEDURE INFORMATION: Exam: CTA Chest With Contrast Exam date and time: 06/14/2023 1:38 PM Age: 83 years old Clinical indication: Injury or trauma; Other: Fall, seizure, unresponsive; Additional info: Fall, seizure, unresponsive, trauma TECHNIQUE: Imaging protocol: Computed tomographic angiography of the chest with contrast. Exam focused on the arteries. 3D rendering (Not supervised by radiologist): MIP and/or 3D reconstructed images were created by the technologist. Radiation optimization: All CT scans at this facility use at least one of these dose optimization techniques: automated exposure control; mA and/or kV adjustment per patient size (includes targeted exams where dose is matched to clinical indication); or iterative reconstruction. Contrast material: ISOVUE 370; Contrast volume: 100 ml; Contrast route: INTRAVENOUS (IV); REPORTING DATA: Count of CT and Cardiac NM exams in prior 12 months: This patient has received 16 known CTs and 0 known cardiac nuclear medicine studies in the 12 months prior to the current study. COMPARISON: CR XR CHEST PORTABLE 03/21/2023 10:18 PM FINDINGS: Tubes, catheters and devices: The patient is intubated. The endotracheal tube appears to be a good position. There is mild tracheal secretion. Mild bilateral lower lobe infiltrates/atelectasis are identified. Pulmonary arteries: Normal. No pulmonary emboli. Aorta: Unremarkable. No aortic aneurysm. No aortic dissection. Lungs: See Tubes, catheters and devices finding. Pleural spaces: Unremarkable. No pneumothorax. No pleural effusion. Heart: There is no pericardial effusion. Coronary arteries: Mild coronary artery calcifications are identified. Lymph nodes: Unremarkable. No enlarged lymph nodes. Diaphragm: There is a moderate-sized hiatal hernia. Stomach and bowel: There is diverticulosis noted. There is a large amount of stool seen throughout the colon. Bones/joints: Unremarkable. No acute fracture. Soft tissues: Unremarkable. IMPRESSION: 1. No evidence of pulmonary embolism or aortic dissection. 2. Mild bilateral lower lobe infiltrates/atelectasis.
--- NOTE | 2023-06-14 12:29 | CT_ITS ---
PROCEDURE INFORMATION: Exam: CT Pelvis Without Contrast; Skeletal Exam date and time: 06/14/2023 1:26 PM Age: 83 years old Clinical indication: Injury or trauma; Other: Fall, seizure, unresponsive; Additional info: Fall, seizure, unresponsive, trauma TECHNIQUE: Imaging protocol: Computed tomography of the pelvis without contrast. Exam focused on the skeleton. Radiation optimization: All CT scans at this facility use at least one of these dose optimization techniques: automated exposure control; mA and/or kV adjustment per patient size (includes targeted exams where dose is matched to clinical indication); or iterative reconstruction. REPORTING DATA: Count of CT and Cardiac NM exams in prior 12 months: This patient has received 16 known CTs and 0 known cardiac nuclear medicine studies in the 12 months prior to the current study. COMPARISON: CT ANGIO ABDOMEN PELVIS 05/04/2023 3:01 PM FINDINGS: Bones/joints: There is no evidence of acute fracture. The patient is status post right hip arthroplasty. There is [id number] left hip osteoarthritis. Soft tissues: Unremarkable. IMPRESSION: No evidence of acute fracture.
[2023-06-14] MEDS: 0.9 % SODIUM CHLORIDE 1000ML 1,000 ML 999 ML IV (12:30)
--- NOTE | 2023-06-14 12:30 | CT_ITS ---
PROCEDURE INFORMATION: Exam: CT Thoracic Spine Without Contrast Exam date and time: 06/14/2023 1:19 PM Age: 83 years old Clinical indication: Injury or trauma; Other: Fall, seizure, unresponsive; Additional info: Fall, seizure, unresponsive, trauma TECHNIQUE: Imaging protocol: Computed tomography of the thoracic spine without contrast. Radiation optimization: All CT scans at this facility use at least one of these dose optimization techniques: automated exposure control; mA and/or kV adjustment per patient size (includes targeted exams where dose is matched to clinical indication); or iterative reconstruction. REPORTING DATA: Count of CT and Cardiac NM exams in prior 12 months: This patient has received 16 known CTs and 0 known cardiac nuclear medicine studies in the 12 months prior to the current study. COMPARISON: CT THORACIC SPINE WO CON 05/04/2023 2:40 PM FINDINGS: Bones/joints: No acute fracture. Normal alignment. There is thoracic kyphosis present. There is [id number] multilevel degenerative disease. The spinal canal appears patent. IMPRESSION: No evidence of acute fracture.
--- NOTE | 2023-06-14 12:30 | CT_ITS ---
PROCEDURE INFORMATION: Exam: CT Lumbar Spine Without Contrast Exam date and time: 06/14/2023 1:23 PM Age: 83 years old Clinical indication: Injury or trauma; Other: Fall, seizure, unresponsive; Additional info: Fall, seizure, unresponsive, trauma TECHNIQUE: Imaging protocol: Computed tomography of the lumbar spine without contrast. Radiation optimization: All CT scans at this facility use at least one of these dose optimization techniques: automated exposure control; mA and/or kV adjustment per patient size (includes targeted exams where dose is matched to clinical indication); or iterative reconstruction. REPORTING DATA: Count of CT and Cardiac NM exams in prior 12 months: This patient has received 16 known CTs and 0 known cardiac nuclear medicine studies in the 12 months prior to the current study. COMPARISON: CT THORACIC SPINE WO CON 06/14/2023 1:19 PM FINDINGS: Bones/joints: The vertebral body heights and alignment are maintained. There is slight grade 1 anterolisthesis of L5 on S1. The disc spaces are preserved. The spinal canal appears to be grossly patent. Kidneys and ureters: There is a nonobstructing 7 mm left kidney stone. Soft tissues: Unremarkable. IMPRESSION: 1. No evidence of acute fracture. 2. Nonobstructing left kidney stone.
--- NOTE | 2023-06-14 12:40 | PC.NURSE ---
RESPIRATORY CARE NOTE: SPUTUM SPECIMEN TAKEN TO LAB AT THIS TIME
[2023-06-14 12:41] LABS: Basophils % 0.6 % (0.1-2.0); Eosinophils # 0.1 K/mm3 (0.0-0.4); Eosinophils % 1.6 % (0.1-12.0); Hematocrit 41.7 % (37.0-47.0); Hemoglobin 14.1 g/dL (12.2-16.2); Lymphocytes # 2.7 K/mm3 (0.7-4.5); Lymphocytes % 45.4 % (10-50); Mean Corpuscular HGB Conc 33.7 g/dL (31.8-35.4); Mean Corpuscular Hemoglobin 32.8 pg (27.0-31.2); Mean Corpuscular Volume 97.2 fl (81-99); Mean Platelet Volume 8.1 fl (7.4-10.4); Monocytes # 0.3 K/mm3 (0.1-1.0); Monocytes % 4.1 % (1.7-9.3); Neutrophils # 2.9 K/mm3 (1.8-7.8); Neutrophils % 48.2 % (37.0-80.0); Platelet Count 188 K/mm3 (142-424); Red Blood Count 4.29 M/mm3 (4.20-5.40); Red Cell Distribution Width 12.1 % (11.5-17.5)
[2023-06-14] MEDS: propofoL 100 ML 8 MG IV (12:45)
[2023-06-14 12:51] LABS: Chloride 105 mmol/L (98-107); Sodium 140 mmol/L (136-145)
[2023-06-14 12:52] LABS: Activated Partial Thrombo Time 28.8 seconds (22.8-30.6); INR 1.07 (0.9-1.1); Prothrombin Time 11.5 seconds (10.1-12.5)
[2023-06-14 12:53] LABS: Alanine Aminotransferase 38 U/L (12-78); Blood Urea Nitrogen 15 mg/dl (7-17); Estimated Glomerular Filt Rate 60 ml/min (>60); GFR (African American) 73 ML/MIN (>60)
[2023-06-14 12:54] LABS: Albumin Level 4.3 g/dl (3.5-5.0); Albumin/Globulin Ratio 1.7 (1.1-1.8); Alkaline Phosphatase 125 U/L (38-126); Aspartate Amino Transferase 40 U/L (14-36); Bilirubin,Total 0.5 mg/dl (0.2-1.3); Calcium 8.9 mg/dl (8.4-10.2); Carbon Dioxide 22 mmol/L (22.0-30.0); Creatine Kinase 50 U/L (30-135); Globulin 2.6 g/dL (1.3-3.2); Glucose 109 mg/dl (74-100); Total Protein,Serum 6.9 g/dl (6.3-8.2)
[2023-06-14 12:55] LABS: Acetaminophen < 10 ug/ml (10-30); Salicylate < 1.0 mg/dL (2.0-20.0)
[2023-06-14 13:07] LABS: Troponin I < 0.01 ng/ml (0.00-0.034)
--- NOTE | 2023-06-14 13:19 | HMH.EDGENADL ---
Discharge Plan Disposition Chief Complaint: Neuro Symptoms/Deficit Prescriptions Prescriptions: No Action gabapentin 600 mg tablet 600 mg PO BID Qty: 60 4RF tramadol 50 mg tablet 50 mg PO TID PRN (Reason: pain) Qty: 90 0RF venlafaxine 75 mg Tablet 75 mg PO BID trazodone 50 mg Tablet 50 mg PO HS ferrous sulfate 325 mg (65 mg iron) Tablet 325 mg PO DAILY lactulose 10 gram/15 mL Solution 10 g PO DAILY PRN (Reason: Constipation) quetiapine 25 mg tablet 12.5 mg PO HS atorvastatin 40 mg tablet 40 mg PO HS metoprolol succinate 50 mg tablet extended release 24 hr 50 mg PO DAILY ondansetron HCl 4 mg tablet 4 mg PO TIDP PRN (Reason: Nausea And Vomiting) sertraline 100 mg tablet 100 mg PO HS amantadine HCl 100 mg capsule 100 mg PO DAILY lisinopril 5 mg tablet 5 mg PO DAILY Xarelto 15 mg tablet 15 mg PO DAILY Clinical Impressions Clinical Impression: Fall, Seizure, Acute respiratory failure with hypoxia and hypercapnia, Encephalopathy Discharge ED Provider: Yue Bernal General Adult HPI General Chief complaint: Neuro Symptoms/Deficit Stated complaint: Fall, R sided pain Time Seen by Provider: 06/14/23 12:55 Source of Information: EMS History of Present Illness HPI narrative: This patient is an 83-year-old female with a history of CVA with residual expressive aphasia, hypertension, hypothyroidism, anxiety, and frequent falls presenting for evaluation after a fall. According to the nursing facility, the patient had an unwitnessed fall. They believe she fell into a trash can. They called EMS initially because she was holding her side, and upon EMS arrival, EMS notes that she began seizing. According to EMS and the nursing facility, the patient has no history of seizure disorder or seizure-like activity. She seized for approximately 45 seconds prior to stopping. After stopping, she was minimally responsive but was breathing and maintaining normal vital signs on cardiac telemetry per EMS. As they were pulling in, the patient became apneic with agonal respirations, breathing approximately 4 times a minute. They assisted her breath with [id number] ventilation. Patient does not contribute to history given acuity of condition. Of note, the patient is on Xarelto. Related Data Home Medications Medication Instructions Recorded Confirmed amantadine HCl 100 mg capsule 100 mg PO DAILY Parkinson's disease 03/21/23 06/14/23 atorvastatin 40 mg tablet 40 mg PO HS High Cholesterol 03/21/23 06/14/23 lisinopril 5 mg tablet 5 mg PO DAILY High Blood Pressure 03/21/23 06/14/23 metoprolol succinate 50 mg 50 mg PO DAILY Heart Rhythm 03/21/23 06/14/23 tablet,extended release 24 hr ondansetron HCl 4 mg tablet 4 mg PO TIDP PRN Nausea And 03/21/23 06/14/23 Vomiting quetiapine 25 mg tablet 12.5 mg PO HS Psych 03/21/23 06/14/23 rivaroxaban 15 mg tablet (Xarelto) 15 mg PO DAILY Antiplatelet 03/21/23 06/14/23 sertraline 100 mg tablet 100 mg PO HS Depression 03/21/23 06/14/23 ferrous sulfate 325 mg (65 mg 325 mg PO DAILY 06/14/23 06/14/23 iron) tablet lactulose 10 gram/15 mL oral 10 g PO DAILY PRN Constipation 06/14/23 06/14/23 solution trazodone 50 mg tablet 50 mg PO HS 06/14/23 06/14/23 venlafaxine 75 mg tablet 75 mg PO BID 06/14/23 06/14/23 Previous Rx's Medication Instructions Recorded gabapentin 600 mg tablet 600 mg PO BID Neuropathy #60 tabs 03/30/23 tramadol 50 mg tablet 50 mg PO TID PRN pain #90 tabs 05/14/23 Allergies Allergy/AdvReac Type Severity Reaction Status Date / Time Penicillins Allergy Hives Verified 05/10/23 15:26 [facility] Disclaimer: The information contained in this section may have been updated after the patient was seen, as this information can be updated by other users. Medical History Patient new to facility Social History Smoking Status: Never smoker alcohol intake: former substance use type: denies use current occupational status: retired Travel in the last 8 weeks: None household members: caregiver housing: senior living lives independently: No ROS Obtained: Yes unobtainable due to mental status Physical Exam General General appearance: lethargic and in distress Comment: Sonorous respirations Head Head exam: atraumatic and normocephalic Eye Eye exam: Present PERRL and other (Rhythmic eye movements from left to right) ENT ENT exam: Present normal exam, normal oropharynx and mucous membranes moist Neck Neck exam: Present normal inspection, trachea midline and other (C-collar applied upon arrival) Chest Chest inspection: Present normal inspection, symmetric chest wall rise and other (No palpable crepitus) Respiratory Respiratory exam: Present respiratory distress (Sonorous respirations with intermittent pauses) Cardiovascular Cardiovascular exam: Present tachycardia and irregular rhythm (Atrial fibrillation with a ventricular rate in the 90s to low 100s) Abdominal Exam Abdominal exam: Present soft; Absent distention, tenderness or guarding Extremities Exam Extremities exam: Present normal inspection Back Exam Back exam: Present normal inspection Neurological Exam Neurological exam: Absent alert Expanded Neurological Exam Coma scale eye opening: Spontaneous Coma scale motor response: Abnormal flexion Coma scale verbal response: None Coma scale total: 8 Skin Skin exam: Present warm and dry Medical Decision Making Medical Records Medical records reviewed: Yes I reviewed the patient's medical records. Bal Inquiry Pt receiving controlled substance: No Vital Signs: 06/14/23 13:58 06/14/23 12:54 06/14/23 12:50 Temperature 97.8 F Temperature Source Axillary Pulse Rate 109 H Pulse Rate [Right] 105 H Respiratory Rate 100 H 16 22 Blood Pressure 141/87 H Blood Pressure [Right Arm] 136/86 Blood Pressure Mean 105 Blood Pressure Mean [Right Arm] 102 Blood Pressure Source [Right Arm] Automatic Cuff 02 Sat by Pulse Oximetry 100 97 100 Oxygen Delivery Method Ambu-Bag 06/14/23 12:55 06/14/23 13:50 06/14/23 13:55 Temperature Temperature Source Pulse Rate 72 74 77 Pulse Rate [Right] Respiratory Rate 13 20 20 Blood Pressure 152/91 H 204/91 H 168/78 H Blood Pressure [Right Arm] Blood Pressure Mean 108 112 108 Blood Pressure Mean [Right Arm] Blood Pressure Source [Right Arm] 02 Sat by Pulse Oximetry 100 100 100 Oxygen Delivery Method 06/14/23 14:00 06/14/23 14:05 06/14/23 14:10 Temperature Temperature Source Pulse Rate 77 Pulse Rate [Right] Respiratory Rate 20 20 Blood Pressure 180/81 H 180/90 H 173/97 H Blood Pressure [Right Arm] Blood Pressure Mean 108 120 111 Blood Pressure Mean [Right Arm] Blood Pressure Source [Right Arm] 02 Sat by Pulse Oximetry 100 100 100 Oxygen Delivery Method Lab Data Lab Results 06/14/23 12:20: WBC 6.0, RBC 4.29, Hgb 14.1, Hct 41.7, MCV 97.2, MCH 32.8 H, MCHC 33.7, RDW 12.1, Plt Count 188, MPV 8.1, Neut % (Auto) 48.2, Lymph % (Auto) 45.4, [place] % (Auto) 4.1, Eos % (Auto) 1.6, Baso % (Auto) 0.6, Neut # (Auto) 2.9, Lymph # (Auto) 2.7, [place] # (Auto) 0.3, Eos # (Auto) 0.1, Baso # (Auto) 0.0, PT 11.5, INR 1.07, APTT 28.8, Sodium 140, Potassium 4.0, Chloride 105, Carbon Dioxide 22, Anion Gap 17.0 H, BUN 15, Creatinine 0.90, Estimated GFR 60, Est GFR ( Amer) 73, Glucose 109 H, Calcium 8.9, Total Bilirubin 0.5, AST 40 H, ALT 38, Alkaline Phosphatase 125, Total Creatine Kinase 50, Troponin I < 0.01, Total Protein 6.9, Albumin 4.3, Globulin 2.6, Albumin/Globulin Ratio 1.7, Salicylates < 1.0 L, Acetaminophen < 10 L 06/14/23 12:30: VBG pH 7.11 L, VBG pCO2 54.7 H, VBG pO2 65.6 H, VBG HCO3 16.8 L, VBG Total CO2 18.5 L, VBG O2 Saturation 88.2 H, VBG Base Excess -12.8 L 06/14/23 14:17: Specimen Source Left radial artline, O2 % 40%, ABG pH 7.53 H, ABG pCO2 23.3 L, ABG pO2 142.3 H, ABG HCO3 19.2 L, ABG Total CO2 19.9 L, ABG O2 Saturation 99, ABG Base Excess -3.4 L, Agustin Test Patient unable, Vent Rate 20, Tidal Volume 420, PEEP 5 06/14/23 12:20 06/14/23 12:20 Orders (Tests/Meds): ED MEDICATIONS Generic Name Dose Route Start Last Admin Trade Name Suze PRN Reason Stop Dose Admin Levetiracetam 2,000 mg/ Sodium 120 mls @ 240 mls/hr 06/14/23 14:50 Chloride IV 06/14/23 14:51 ONCE ONE Discontinued Medications Generic Name Dose Route Start Last Admin Trade Name Suze PRN Reason Stop Dose Admin Sodium Chloride 1,000 mls @ 999 mls/hr 06/14/23 12:30 Sod Chlor 0.9% 1000ml Bag IV 06/14/23 13:30 .Q1H1M ONE Iopamidol 100 ml 06/14/23 14:02 06/14/23 14:07 Iopamidol-370 (76%);100ml Bottle IV 06/14/23 14:03 100 ml ONCE ONE Administration Iopamidol 40 ml 06/14/23 14:02 06/14/23 14:07 Iopamidol-300 (61%) 50ml Vial IV 06/14/23 14:03 40 ml ONCE ONE Administration Protocol Iopamidol 90 ml 06/14/23 14:03 06/14/23 14:08 Iopamidol-370 (76%);100ml Bottle IV 06/14/23 14:04 90 ml ONCE ONE Administration Sodium Chloride 10 ml 06/14/23 14:02 06/14/23 14:07 Sodium Chloride 0.9% 10ml Syr (Rad Only) IV 06/14/23 14:03 10 ml ONCE ONE Administration Sodium Chloride 40 ml 06/14/23 14:03 06/14/23 14:08 0.9 % Sodium Chloride 50 Ml Vial IV 06/14/23 14:04 40 ml ONCE ONE Administration ORDERS Category Date Time Status CT angio abdomen pelvis Stat Cat Scan 06/14/23 12:[address] angio chest - dissection Stat Cat Scan 06/14/23 12:[address] angio head Stat Cat Scan 06/14/23 12:[address] angio neck Stat Cat Scan 06/14/23 12:[address] bony pelvis Stat Cat Scan 06/14/23 12:[address] cervical spine wo con Stat Cat Scan 06/14/23 12:[address] head/brain wo con Stat Cat Scan 06/14/23 12:[address] lumbar spine wo con Stat Cat Scan 06/14/23 12:[address] thoracic spine wo con Stat Cat Scan 06/14/23 12:30 Completed XR chest portable Stat Exams 06/14/23 14:32 Ordered Acetaminophen Stat Lab 06/14/23 12:20 Completed Activated Partial Thrombo Time Stat Lab 06/14/23 12:20 Completed Complete Blood Count Auto Diff Stat Lab 06/14/23 12:20 Completed Comprehensive Metabolic Panel Stat Lab 06/14/23 12:20 Completed Creatine Kinase Stat Lab 06/14/23 12:20 Completed Drug Screen,Urine Stat Lab 06/14/23 14:37 Received Lactic Acid Stat Lab 06/14/23 12:30 Ordered Prothrombin Time INR Stat Lab 06/14/23 12:20 Completed Salicylate Stat Lab 06/14/23 12:20 Completed Troponin I Q3H Lab 06/14/23 15:45 Ordered Troponin I Q3H Lab 06/14/23 18:45 Ordered Troponin I Stat Lab 06/14/23 12:20 Completed UA [Urinalysis and Microscopic] Stat Lab 06/14/23 14:37 Received Sputum Culture & Gram Stain Stat Micro 06/14/23 12:34 Received Arterial Blood Gas Stat RT 06/14/23 14:17 Completed Venous Blood Gas Stat RT 06/14/23 12:30 Completed ECG Data Tracing #1: I reviewed this ECG and interpreted as documented below: Atrial fibrillation with a ventricular rate of [address] changes concerning for ischemia. ECG initial impression date: 06/14/23 ECG initial impression time: 12:36 Medical Decision Narrative: In summary, this patient is a 83-year-old female presenting to the Emergency Department for evaluation of seizure-like activity and altered mental status after an unwitnessed fall. Differential diagnoses considered include but are not limited to head trauma, CVA, hypoglycemia, hyponatremia, polytrauma. Ruling out the most morbid conditions drove assessment. It should be noted patient's history includes atrial fibrillation on Xarelto, hypertension, hypothyroidism, and prior CVA which may or may not be at goal therapy. This complicates all aspects of care by increasing patient's risk for morbidity. I reviewed patient's past medical records and noted multiple previous evaluations over the last several weeks for falls. Fingerstick blood glucose noted by EMS was greater than 100. Patient arrives in acute distress with sonorous respirations and intermittent pauses. She was being assisted with BVM ventilation upon arrival. GCS is 8. It is possible the patient is postictal, however I have significant concern that she is not protecting her airway given intermittent need for BVM ventilation. Per nursing facility paperwork, she is a full code. The decision was made to intubate her to protect her airway in the setting of acute distress. She tolerated this well. Arterial line was placed after intubation for close hemodynamic monitoring, as we were not getting accurate cuff pressures. Workup included emergent trauma scans and stroke scans, broad lab evaluation, and EKG. On initial VBG, patient had metabolic and respiratory acidosis with pH of 7.1. This was prior to intubation. She was taken to scanner emergently, which did not demonstrate any obvious acute concerns on my independent interpretation prior to radiology read. I note her chronic intracranial changes related to her prior CVA, but no acute concerns at this moment. She does have consolidation in her left lower lung. ET tube was situated at the madalyn, so it was retracted 2 cm and repeat x-ray was ordered. Please see radiology read for final interpretation. Labs otherwise demonstrate a mildly elevated anion gap of 17 but no other acutely concerning abnormalities. Repeat VBG was obtained after patient had been situated on ventilator with settings of FiO2 of 40%, respiratory rate of 20, PEEP of 5, and tidal volume of 420. VBG demonstrated a mild respiratory alkalosis with a CO2 of 23.3 and a pH of 7.5. Her pO2 was also 142. Her FiO2 was then dropped to 28% and her respiratory rate was dropped from 20-16. On multiple subsequent reassessments, patient is hypertensive on her arterial line with systolics that were increasingly more hypertensive ranging from 170s to low 200s. Her propofol drip was titrated upward to assess for improvement. Ultimately, I do not know why the patient had a seizure and subsequent became apneic and had respiratory failure, as she has no notable history of seizures per medical record review or per her son, who I spoke with over the phone. I called and had an interactive discussion with Dr. hTurman and the transfer center at [facility] who graciously excepted the patient for transport to [facility]. She is to be loaded with Keppra prior to transfer. EMS transport was arranged, and the patient was transported in stable condition. Procedures Intubation Time out performed: Yes sedative: Etomidate paralytic: Rocuronium Laryngoscope: other (hyperangulated glidescope 3 blade) ET Tube Size: 7.5 Tube Secured Depth (cm): 22 Tube Secured Location: lips Tube Placement Confirmation: visualized tube passing through cords, equal breath sounds bilaterally, no breath sounds over epigastrium and confirmation by capnometry Patient Tolerated Procedure: well and no complications Intubation Complications: difficult intubation Additional Comments: Difficult intubation requiring 2 attempts. Initial attempt with a regular Mac 3 blade demonstrated a very anterior airway with very narrow airway opening. Intubation was also limited by C-spine immobilization. Patient did not desaturate or have any other acute complications. Arterial Line Time Out Performed: Yes Size (Gauge): 20 Technique Used: direct puncture technique Post-Procedure: line sutured into place and dry sterile dressing placed Patient Tolerated Procedure: well and no complications Complications: none Site: left and radial Additional Comments: Sterile technique performed. Ultrasound guidance used. Critical Care Critical Care Time Critical Care Time: Yes Attestation: On 06/14/23, the high probability of a clinically significant, sudden or life threatening deterioration of the following system(s) (respiratory, neurologic, cardiovascular) required my full and direct attention, intervention and personal management. The time I documented below is in addition to time spent performing reported procedures but includes the following listed in this critical care notation. Total Time Total Critical Care Time: 60
[2023-06-14] MEDS: IOPAMIDOL 40 ML IV (14:07)
[2023-06-14] MEDS: IOPAMIDOL-370 (76%);100ML BOTTLE 100 ML IV (14:07)
[2023-06-14] MEDS: SODIUM CHLORIDE 0.9% 10ML SYR (RAD ONLY) 10 ML IV (14:07)
[2023-06-14] MEDS: 0.9 % SODIUM CHLORIDE 50 ML VIAL 40 ML IV (14:08)
[2023-06-14] MEDS: IOPAMIDOL-370 (76%);100ML BOTTLE 90 ML IV (14:08)
[2023-06-14 14:13] LABS: VBG Base Excess -12.8 mmol/L (-2.4-2.3); VBG HCO3 16.8 mmol/L (23-30); VBG Oxygen Saturation 88.2 % (50-70); VBG PO2 65.6 mmol/L (28-40); VBG Total CO2 18.5 mmol/L (23-27)
[2023-06-14 14:16] LABS: VBG PCO2 54.7 mmol/L (35-51); VBG PH 7.11 mmol/L (7.31-7.41)
--- NOTE | 2023-06-14 14:24 | PC.NURSE ---
Dr. Bernal notified of VBG. She also requesting to ETT pulled back 2cm.
--- NOTE | 2023-06-14 14:32 | XR_ITS ---
FINAL REPORT CLINICAL HISTORY: ETT retraction, NG PLACEMENT COMPARISON: None FINDINGS: A single portable view of the chest was obtained. ET tube is present with the tip approximately 2 cm above the madalyn. NG tube is probably coiled in the distal esophagus. The heart size and pulmonary vascularity are within normal limits. The mediastinum is within normal limits. There is mild bibasilar atelectasis. The bony thorax is intact. IMPRESSION: ET tube tip approximately 2 cm above the madalyn. NG tube malpositioned. Mild bibasilar atelectasis. Reviewed, Interpreted and Dictated by Malick Lucas III, MD Transcribed by Joanna Pereira Authenticated and . [facility]
--- NOTE | 2023-06-14 14:38 | PC.NURSE ---
IMAGES POWERSHARED WITH [facility]
--- NOTE | 2023-06-14 14:39 | PC.NURSE ---
Called [facility] for Dr Bernal about transferring this Pt to [facility].. Dr Bernal is speaking with Dr Thurman from [facility]
--- NOTE | 2023-06-14 14:42 | PC.NURSE ---
DR RAMIREZ SPEAKING WITH FOR TRANSFER
[2023-06-14 14:44] LABS: Microscopic, Urine URINE MICROSCOPIC (MICROSCOPIC)
[2023-06-14 14:49] LABS: ABG Base Excess -3.4 mmol/L (-2.4-2.3); ABG HCO3 19.2 mmhg (22.0-26.0); ABG Oxygen Saturation 99 % (90-100); ABG PCO2 23.3 mmhg (35.0-45.0); ABG PH 7.53 mmol/L (7.35-7.45); ABG PO2 142.3 mmhg (80-100); ABG TCO2 19.9 mmhg (23-27)
[2023-06-14 14:51] LABS: Allen's Test Patient Unable; Oxygen 40% %; PEEP 5; Tidal Volume 420; Vent Rate 20
[2023-06-14 14:52] LABS: Appearance,Urine CLEAR (Clear); Bilirubin,Urine Negative (Negative); Blood, Urine TRACE-I (Negative); Color,Urine YELLOW (Yellow); Glucose,Urine (UA) Negative (Negative); Ketones,Urine Negative (Negative); Leukocyte Esterase,Urine Negative (Negative); Nitrate,Urine Negative (Negative); Protein,Urine Negative (Negative); Urobilinogen,Urine 0.2 EU/dl (0.2)
--- NOTE | 2023-06-14 15:03 | PC.NURSE ---
Laboratory Tests 06/14/23 06/14/23 06/14/23 12:20 12:30 14:17 WBC 6.0 RBC 4.29 Hgb 14.1 Hct 41.7 MCV 97.2 MCH 32.8 H MCHC 33.7 RDW 12.1 Plt Count 188 MPV 8.1 Neut % (Auto) 48.2 Lymph % (Auto) 45.4 [place] % (Auto) 4.1 Eos % (Auto) 1.6 Baso % (Auto) 0.6 Neut # (Auto) 2.9 Lymph # (Auto) 2.7 [place] # (Auto) 0.3 Eos # (Auto) 0.1 Baso # (Auto) 0.0 PT 11.5 INR 1.07 APTT 28.8 Specimen Source Left radial artline O2 % 40% ABG pH 7.53 H ABG pCO2 23.3 L ABG pO2 142.3 H ABG HCO3 19.2 L ABG Total CO2 19.9 L ABG O2 Saturation 99 ABG Base Excess -3.4 L Agustin Test Patient unable VBG pH 7.11 L VBG pCO2 54.7 H VBG pO2 65.6 H VBG HCO3 16.8 L VBG Total CO2 18.5 L VBG O2 Saturation 88.2 H VBG Base Excess -12.8 L Vent Rate 20 Tidal Volume 420 PEEP 5 Sodium 140 Potassium 4.0 Chloride 105 Carbon Dioxide 22 Anion Gap 17.0 H BUN 15 Creatinine 0.90 Estimated GFR 60 Est GFR ( Amer) 73 Glucose 109 H Calcium 8.9 Total Bilirubin 0.5 AST 40 H ALT 38 Alkaline Phosphatase 125 Total Creatine Kinase 50 Troponin I < 0.01 Total Protein 6.9 Albumin 4.3 Globulin 2.6 Albumin/Globulin Ratio 1.7 Urine Color Urine Appearance Urine pH Ur Specific [place] Urine Protein Urine Glucose (UA) Urine Ketones Urine Blood Urine Nitrate Urine Bilirubin Urine Urobilinogen Ur Leukocyte Esterase Salicylates < 1.0 L Acetaminophen < 10 L 06/14/23 14:37 WBC RBC Hgb Hct MCV MCH MCHC RDW Plt Count MPV Neut % (Auto) Lymph % (Auto) [place] % (Auto) Eos % (Auto) Baso % (Auto) Neut # (Auto) Lymph # (Auto) [place] # (Auto) Eos # (Auto) Baso # (Auto) PT INR APTT Specimen Source O2 % ABG pH ABG pCO2 ABG pO2 ABG HCO3 ABG Total CO2 ABG O2 Saturation ABG Base Excess Agustin Test VBG pH VBG pCO2 VBG pO2 VBG HCO3 VBG Total CO2 VBG O2 Saturation VBG Base Excess Vent Rate Tidal Volume PEEP Sodium Potassium Chloride Carbon Dioxide Anion Gap BUN Creatinine Estimated GFR Est GFR ( Amer) Glucose Calcium Total Bilirubin AST ALT Alkaline Phosphatase Total Creatine Kinase Troponin I Total Protein Albumin Globulin Albumin/Globulin Ratio Urine Color Yellow Urine Appearance Clear Urine pH 7.0 Ur Specific [place] 1.010 Urine Protein Negative Urine Glucose (UA) Negative Urine Ketones Negative Urine Blood Trace-i Urine Nitrate Negative Urine Bilirubin Negative Urine Urobilinogen 0.2 Ur Leukocyte Esterase Negative Salicylates Acetaminophen
[2023-06-14 15:04] LABS: Barbiturates Screen,Urine Negative ng/ml (<200)
[2023-06-14 15:05] LABS: Benzodiazepines Screen,Urine Negative ng/ml (<200)
[2023-06-14 15:06] LABS: Cannabinoid Screen,Urine Negative ng/ml (<50)
[2023-06-14 15:07] LABS: Methadone Screen,Urine Negative ng/ml (<300)
[2023-06-14 15:08] LABS: Opiate Screen,Urine Negative ng/ml (<300); Phencyclidine Screen,Urine Negative ng/ml (<25)
--- NOTE | 2023-06-14 15:10 | PC.NURSE ---
16 FR NGT placed to R nare- 63 cm. It appears to be curled in the stomach, pulled back to 55 cm. Awaiting CXR read. 16 FR Erazo cath placed and secured to R thigh.
[2023-06-14 15:11] LABS: Amphetamine/Metha Screen,Urine Negative ng/ml (<1000); Cocaine Screen,Urine Negative ng/ml (<300)
--- NOTE | 2023-06-14 15:18 | PC.NURSE ---
Dr. Bernal states for transport via [facility]. Called [facility] and [place] [facility] did accept and will have a 22 min flight. Will call when in route.
[2023-06-14] MEDS: levETIRAcetam 2,000 MG in 0.9 % SODIUM CHLORIDE 100 ML 240 MG IV (15:26)
[2023-06-14 15:30] LABS: RBC,Urine Occasional #/hpf (0-3)
--- NOTE | 2023-06-14 15:30 | PC.NURSE ---
called report to [facility], floor 9, rm 131. Gave report to Dolly
--- NOTE | 2023-06-14 15:33 | PC.NURSE ---
800MLS URINE OUT PUT
--- NOTE | 2023-06-14 15:34 | PC.NURSE ---
1222 122/88, HR 110, 12 ASSISTED RESPIRATIONS, 99% 1223 ETOMIDATE 30 1224 NELSON 100 1227 ET TUBE PLACED BY DR RAMIREZ, 7.5 TUBE, 20 AT THE TEETH 1228 #20 TO RAC
--- NOTE | 2023-06-14 16:35 | PC.NURSE ---
pt loaded into helicopter, in route to [facility]
--- NOTE | 2023-06-17 16:25 | PC.NURSE ---
sputum culture few WBC, epithelial, no further action per
== END 2023-06-14 16:21 | disposition short-term general hospital (02) ==
PROVIDERS: Emergency Provider Emergency Medicine
DX: J96.01 Acute respiratory failure with hypoxia (principal); J96.02 Acute respiratory failure with hypercapnia; G40.909 Epilepsy, unspecified, not intractable, without status epilepticus; G93.40 Encephalopathy, unspecified; I69.320 Aphasia following cerebral infarction; I10 Essential (primary) hypertension; E03.9 Hypothyroidism, unspecified; R29.6 Repeated falls; W19.XXXA Unspecified fall, initial encounter; I48.91 Unspecified atrial fibrillation
CPT/HCPCS: 31500; 51702; 70450; 70496; 70498; 71045; 71275; 72125; 72128; 72131; 72192; 74174; 80053; 80307; 80329; 81001; 82550; 82803; 84484; 85025; 85610; 85730; 87070; 87205; 93005; 94002; 96361; 96374; 99291; J1953; J2704; Q9967

== ENCOUNTER 2023-08-14 14:17 | Outpatient (CLI) | payer MEDICARE, MEDICAID, SELFPAY ==
--- NOTE | 2023-08-14 14:25 | MM_ITS ---
PROCEDURE INFORMATION: Exam: Bilateral Diagnostic Breast Tomosynthesis Exam date and time: 08/14/2023 2:34 PM Age: 83 years old Clinical indication: Bilateral breast pain. TECHNIQUE: Imaging protocol: Bilateral Diagnostic tomosynthesis and 2D mammography including computer-aided detection (CAD) when performed. Unilateral or bilateral exam. COMPARISON: No relevant prior studies available. FINDINGS: MAMMOGRAPHY: The breast tissue is almost entirely fatty. There is no stellate mass, architectural distortion or suspicious microcalcifications in either breast to suggest malignancy. No skin thickening or axillary adenopathy.Prepectoral saline breast implants are present. IMPRESSION: No mammographic evidence of malignancy. If the breast pain is new and/or focal, patient should return for ultrasound evaluation. In the absence of suspicious clinical findings,annual bilateral mammographic screening is recommended unless otherwise clinically indicated. ASSESSMENT: BI-RADS Category 1: Negative
== END 2023-08-14 23:59 ==
LOC: RAD 14:17
PROVIDERS: PCP Internal Medicine; Visit Provider Internal Medicine
DX: N64.4 Mastodynia
CPT/HCPCS: 77062; 77066; G0279

== ENCOUNTER 2023-08-31 17:51 | Inpatient (IN) | payer MEDICARE, OTHER, MEDICAID, SELFPAY ==
[2023-08-31] VITALS (7 sets, daily range): BP systolic 109–137; BP diastolic 66–110; PULSE 67–98; RESP 15–97; TEMP 36.6–36.9; O2SAT 84–98; BMI 22.7; BMI 22.6
--- NOTE | 2023-08-31 17:57 | ECG_ITS ---
APPROVED REPORT Exam: Resting ECG HR:84 bpm ECG Measurements Heart Rate 84 AXES QRSd 93 QRS 18 QT 394 T -19 QTc 435 Conclusion ATRIAL FIBRILLATION NONSPECIFIC ST & T-WAVE ABNORMALITY ABNORMAL RHYTHM ECG UNCONFIRMED REPORT Electronically signed by : Miller Mcbride MD 09/01/2023 12:35:15
--- NOTE | 2023-08-31 18:02 | PC.NURSE ---
stroke alert called
--- NOTE | 2023-08-31 18:06 | CT_ITS ---
PROCEDURE INFORMATION: Exam: CTA Head With Contrast, Arteriography Exam date and time: 08/31/2023 6:11 PM Age: 83 years old Clinical indication: Stroke-like symptoms; Speech disturbance; Additional info: Stroke alert TECHNIQUE: Imaging protocol: Computed tomographic angiography of the head with contrast. Exam focused on the arteries. 3D rendering (Not supervised by radiologist): MIP and/or 3D reconstructed images were created by the technologist. Radiation optimization: All CT scans at this facility use at least one of these dose optimization techniques: automated exposure control; mA and/or kV adjustment per patient size (includes targeted exams where dose is matched to clinical indication); or iterative reconstruction. Contrast material: ISOVUE 370; Contrast volume: 100 ml; Contrast route: INTRAVENOUS (IV); COMPARISON: CT ANGIO HEAD 06/14/2023 1:30 PM FINDINGS: ANTERIOR CIRCULATION: Right internal carotid artery: Intracranial segment is patent with no significant stenosis. No aneurysm. Right middle cerebral artery: No occlusion or significant stenosis. No aneurysm. Right anterior cerebral artery: No occlusion or significant stenosis. No aneurysm. Left internal carotid artery: Intracranial segment is patent with no significant stenosis. No aneurysm. Left middle cerebral artery: Moderate left MCA M2 stenosis, stable. Left anterior cerebral artery: Hypoplastic left A1 segment. POSTERIOR CIRCULATION: Right vertebral artery: No occlusion or significant stenosis. No aneurysm. Left vertebral artery: Left vertebral artery is dominant. Basilar artery: No occlusion or significant stenosis. No aneurysm. Right posterior cerebral artery: No occlusion or significant stenosis. No aneurysm. Left posterior cerebral artery: No occlusion or significant stenosis. No aneurysm. IMPRESSION: 1. Moderate left MCA M2 stenosis, stable. 2. No large vessel occlusion.
--- NOTE | 2023-08-31 18:06 | CT_ITS ---
PROCEDURE INFORMATION: Exam: CTA Neck With Contrast Exam date and time: 08/31/2023 6:11 PM Age: 83 years old Clinical indication: Stroke-like symptoms; Speech disturbance; Additional info: Stroke alert TECHNIQUE: Imaging protocol: Computed tomographic angiography of the neck with contrast. Exam focused on the cervical segments of the vasculature. 3D rendering (Not supervised by radiologist): MIP and/or 3D reconstructed images were created by the technologist. Radiation optimization: All CT scans at this facility use at least one of these dose optimization techniques: automated exposure control; mA and/or kV adjustment per patient size (includes targeted exams where dose is matched to clinical indication); or iterative reconstruction. Contrast material: ISOVUE 370; Contrast volume: 100 ml; Contrast route: INTRAVENOUS (IV); COMPARISON: CT ANGIO NECK 06/14/2023 1:30 PM FINDINGS: Limitations: Limited by artifact arising from metallic dental hardware/dental amalgam. Right common carotid artery: No stenosis. No dissection or occlusion. Right internal carotid artery: Calcification of the proximal right ICA without significant stenosis. Right external carotid artery: No occlusion or stenosis of the origin. Left common carotid artery: No stenosis. No dissection or occlusion. Left internal carotid artery: There is calcification of the proximal left ICA. Stenosis measures less than 50%. Left external carotid artery: No occlusion or stenosis of the origin. Right vertebral artery: No stenosis. No dissection or occlusion. Left vertebral artery: Left vertebral artery is dominant. Lymph nodes: Nonenlarged to mildly enlarged mediastinal lymph nodes. Soft tissues: Bilateral breast implants. Bones/joints: Degenerative change involving the spine. Lungs: There is bilateral airspace disease. Pleural spaces: Bilateral pleural effusions are incompletely visualized. IMPRESSION: 1. Stenosis of the proximal left ICA measures less than 50%. 2. Bilateral airspace disease, edema versus pneumonia. 3. At least small bilateral pleural effusions, incompletely visualized. REFERENCES: NASCET CRITERIA. The degree of stenosis in the cervical segment of the internal carotid artery is based on NASCET criteria. Normal is no stenosis. Mild is less than 50% stenosis. Moderate is 50-69% stenosis. Severe is 70% to 99% stenosis. Total occlusion is no detectable patent lumen.
--- NOTE | 2023-08-31 18:08 | CT_ITS ---
PROCEDURE INFORMATION: Exam: CT Head Without Contrast Exam date and time: 08/31/2023 6:06 PM Age: 83 years old Clinical indication: Stroke-like symptoms; Speech disturbance; Additional info: Stroke alert TECHNIQUE: Imaging protocol: Computed tomography of the head without contrast. Radiation optimization: All CT scans at this facility use at least one of these dose optimization techniques: automated exposure control; mA and/or kV adjustment per patient size (includes targeted exams where dose is matched to clinical indication); or iterative reconstruction. Other technique: STROKE PROTOCOL was implemented. COMPARISON: CT ANGIO HEAD 06/14/2023 1:30 PM FINDINGS: Brain: Intracranial vascular calcification. Decreased attenuation of the supratentorial white matter is likely secondary to chronic microvascular ischemia. No acute intracranial hemorrhage. Chronic left temporoparietal infarct. Cerebral ventricles: Ventricular and subarachnoid spaces are age appropriate. Paranasal sinuses: Visualized sinuses are unremarkable. No fluid levels. Mastoid air cells: Visualized mastoid air cells are well aerated. Bones/joints: Unremarkable. No acute fracture. Soft tissues: Unremarkable. IMPRESSION: No acute intracranial abnormality. ASSESSMENT: ASPECTS ([place] Stroke Program Early CT Score) is 10.
[2023-08-31] MEDS: SODIUM CHLORIDE 0.9% 10ML SYR (RAD ONLY) 10 ML IV (18:19)
[2023-08-31] MEDS: 0.9 % SODIUM CHLORIDE 50 ML VIAL IV (18:19)
[2023-08-31] MEDS: IOPAMIDOL-370 (76%);100ML BOTTLE 100 ML IV (18:19)
--- NOTE | 2023-08-31 18:21 | PC.NURSE ---
informed of CT scan results from [facility]. LVO present
--- NOTE | 2023-08-31 18:27 | XR_ITS ---
PROCEDURE INFORMATION: Exam: XR Chest Exam date and time: 08/31/2023 7:18 PM Age: 83 years old Clinical indication: Other: Stroke TECHNIQUE: Imaging protocol: Radiologic exam of the chest. Views: 1 view. COMPARISON: CR XR CHEST PORTABLE 03/21/2023 10:18 PM FINDINGS: Lungs: There is bilateral airspace disease greatest at the right upper lobe. Pleural spaces: Unremarkable. No pleural effusion. No pneumothorax. Heart/Mediastinum: Stable cardiac silhouette. Vasculature: Elongation of the thoracic aorta with calcification. Bones/joints: Osteopenia. Degenerative change involving the shoulders and spine. IMPRESSION: Bilateral airspace disease greatest at the right upper lobe.
--- NOTE | 2023-08-31 18:30 | PC.NURSE ---
Vrad on with Dr Hicks
[2023-08-31 18:40] LABS: Basophils % 0.2 % (0.1-2.0); Eosinophils # 0.2 K/mm3 (0.0-0.4); Hematocrit 33.5 % (37.0-47.0); Hemoglobin 10.5 g/dL (12.2-16.2); Lymphocytes # 1.5 K/mm3 (0.7-4.5); Lymphocytes % 15.4 % (10-50); Mean Corpuscular HGB Conc 31.3 g/dL (31.8-35.4); Mean Corpuscular Hemoglobin 29.1 pg (27.0-31.2); Mean Platelet Volume 8.4 fl (7.4-10.4); Monocytes # 0.4 K/mm3 (0.1-1.0); Monocytes % 4.1 % (1.7-9.3); Neutrophils # 7.4 K/mm3 (1.8-7.8); Neutrophils % 78.3 % (37.0-80.0); Platelet Count 385 K/mm3 (142-424); Red Blood Count 3.61 M/mm3 (4.20-5.40); Red Cell Distribution Width 14.5 % (11.5-17.5); White Blood Count 9.5 K/mm3 (4.8-10.8)
[2023-08-31 18:42] LABS: Activated Partial Thrombo Time 25.5 seconds (22.8-30.6); INR 1.23 (0.9-1.1); Prothrombin Time 13.1 seconds (10.1-12.5)
[2023-08-31 18:55] LABS: Microscopic, Urine URINE MICROSCOPIC (MICROSCOPIC)
[2023-08-31 18:57] LABS: Appearance,Urine SL CLOUDY (Clear); Bilirubin,Urine 1+ (Negative); Blood, Urine 2+ (Negative); Color,Urine YELLOW (Yellow); Glucose,Urine (UA) Negative (Negative); Ketones,Urine TRACE (Negative); Leukocyte Esterase,Urine Negative (Negative); Nitrate,Urine Negative (Negative); PH,Urine 5.5 (5.0-8.5); Protein,Urine 1+ (Negative); Specific Gravity, Urine >= 1.030 (1.005-1.030)
[2023-08-31 19:06] LABS: WBC,Urine Occasional #/hpf (0-3)
[2023-08-31 19:07] LABS: Bacteria,Urine Trace /lpf; Calcium Oxalate Crystals,Urine 2+ /lpf
[2023-08-31 19:48] LABS: Alanine Aminotransferase 64 U/L (12-78); Albumin Level 3.2 g/dl (3.5-5.0); Albumin/Globulin Ratio 0.9 (1.1-1.8); Alkaline Phosphatase 151 U/L (38-126); Anion Gap 14.3 mEq/L (5-15); Aspartate Amino Transferase 74 U/L (14-36); Bilirubin,Total 0.5 mg/dl (0.2-1.3); Blood Urea Nitrogen 39 mg/dl (7-17); Carbon Dioxide 22 mmol/L (22.0-30.0); Chloride 105 mmol/L (98-107); Creatinine Clearance Estimated 32 mL/min (50-200); Estimated Glomerular Filt Rate 36 ml/min (>60); GFR (African American) 44 ML/MIN (>60); Globulin 3.6 g/dL (1.3-3.2); Glucose 114 mg/dl (74-100); Potassium 4.3 mmoL/L (3.5-5.1); Sodium 137 mmol/L (136-145); Total Protein,Serum 6.8 g/dl (6.3-8.2)
--- NOTE | 2023-08-31 19:53 | PC.NURSE ---
Pt placed on RA. O2 sat on RA is 84%. Pt placed back on 3.5L O2 sat now 95%
--- NOTE | 2023-08-31 19:59 | EXP.HP ---
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 Patient poor historian. Data collected from ED report. EMS and nursing staff. 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 On arrival stroke alert was called. Later on, patient's son stated that patient had been found to have an oxygen saturation of 84% in the intermediate so was brought to the emergency department for evaluation for hypoxia. He also noted that she had been weaker and quieter than usual for the past few days. At the time of this interview, patient alert and oriented by person only. Unclear baseline, however, appears to be close to her baseline. No focal neuro deficit. Patient follow command. denied any others symptoms. Admitted for treatment and management. [facility] Disclaimer: The information contained in this section may have been updated after the patient was seen, as this information can be updated by other users. Medical History Acute respiratory failure with hypoxia and hypercapnia Anemia Atherosclerotic heart disease of [place] coronary artery without angina pectoris Chest pain Depression Esophageal thickening Fall Fracture of metacarpal Fracture of middle phalanx of finger Hematoma of scalp Hematoma of thigh Hyperlipidemia Infarction of distal end of right femur Insomnia Laceration of lip Limitation of activities due to disability Other abnormalities of gait and mobility Other chronic pain Pain in unspecified hip Patient new to facility Seizure Unspecified dementia, unspecified severity, without behavioral disturbance, psychotic disturbance, mood disturbance, and anxiety Xerosis cutis Social History Smoking Status: Never smoker alcohol intake: former substance use type: denies use current occupational status: retired Travel in the last 8 weeks: None household members: caregiver housing: intermediate lives independently: No Review of Systems Review of Systems Review of systems:: unable to obtain Meds Home Medications and Allergies Home Medications Medication Instructions Recorded Confirmed Type amantadine HCl 100 mg capsule 100 mg PO 0800,1200 Parkinson's 03/21/23 09/01/23 History disease atorvastatin 40 mg tablet 40 mg PO HS High Cholesterol 03/21/23 09/01/23 History lisinopril 5 mg tablet 5 mg PO DAILY High Blood Pressure 03/21/23 09/01/23 History rivaroxaban 15 mg tablet (Xarelto) 15 mg PO DAILY Blood Thinner/Afib 03/21/23 09/01/23 History gabapentin 600 mg tablet 600 mg PO BID Neuropathy #60 tabs 03/30/23 09/01/23 Rx acetaminophen 500 mg tablet 500 mg PO Q4HP PRN Mild Pain 06/18/23 09/01/23 History (Scale Score 1-4) lactulose 10 gram/15 mL oral 20 g PO DAILYP PRN Constipation 06/18/23 09/01/23 History solution quetiapine 25 mg tablet 25 mg PO BID 06/18/23 09/01/23 History trazodone 50 mg tablet 25 mg PO HS 06/18/23 08/31/23 History amiodarone 200 mg tablet 200 mg PO DAILY Heart Rate 08/31/23 09/01/23 History levetiracetam 750 mg tablet 750 mg PO BID 08/31/23 09/01/23 History (Keppra) loperamide 2 mg capsule 2 mg PO QIDP PRN Diarrhea 08/31/23 09/01/23 History metoprolol tartrate 75 mg tablet 75 mg PO BID 08/31/23 09/01/23 History promethazine 12.5 mg tablet 12.5 mg PO Q4HP PRN nausea/vomiting 08/31/23 09/01/23 History sennosides 8.6 mg tablet (Senokot) 8.6 mg PO DAILYP PRN Constipation 08/31/23 09/01/23 History sertraline 150 mg capsule 150 mg PO DAILY 08/31/23 08/31/23 History New Prescriptions to Start Prescriptions: Allergies Allergy/AdvReac Type Severity Reaction Status Date / Time Penicillins Allergy Hives Verified 07/20/23 15:50 Exam Data for Last 24 hours Vital signs and Labs for Last 24 Hours: Temp Pulse Resp BP Pulse Ox O2 Del Method O2 Flow Rate 97.9 F 71 15 114/72 84 L Room Air 3 08/31/23 17:52 08/31/23 19:45 08/31/23 17:52 08/31/23 19:45 08/31/23 19:45 08/31/23 19:45 08/31/23 17:52 Laboratory Results - last 24 hr 08/31/23 17:58: WBC 9.5, RBC 3.61 L, Hgb 10.5 L, Hct 33.5 L, MCV 93.0, MCH 29.1, MCHC 31.3 L, RDW 14.5, Plt Count 385, MPV 8.4, Neut % (Auto) 78.3, Lymph % (Auto) 15.4, [place] % (Auto) 4.1, Eos % (Auto) 2.0, Baso % (Auto) 0.2, Neut # (Auto) 7.4, Lymph # (Auto) 1.5, [place] # (Auto) 0.4, Eos # (Auto) 0.2, Baso # (Auto) 0.0, PT 13.1 H, INR 1.23 H, APTT 25.5, Sodium 137, Potassium 4.3, Chloride 105, Carbon Dioxide 22, Anion Gap 14.3, BUN 39 H, Creatinine 1.40 H, Estimated Creat Clear 32, Estimated GFR 36 L, Est GFR ( Amer) 44 L, Glucose 114 H, Calcium 9.0, Total Bilirubin 0.5, AST 74 H, ALT 64, Alkaline Phosphatase 151 H, Total Protein 6.8, Albumin 3.2 L, Globulin 3.6 H, Albumin/Globulin Ratio 0.9 L 08/31/23 18:50: Urine Color Yellow, Urine Appearance Sl cloudy, Urine pH 5.5, Ur Specific [place] >= 1.030, Urine Protein 1+, Urine Glucose (UA) Negative, Urine Ketones Trace, Urine Blood 2+, Urine Nitrate Negative, Urine Bilirubin 1+ A, Urine Urobilinogen 1.0, Ur Leukocyte Esterase Negative, Urine RBC 10-20, Urine WBC Occasional, Ur Squamous Epith Cells None, Calcium Oxalate Crystal 2+, Urine Bacteria Trace I & O for Last 24 hours: Intake & Output 08/28/23 08/29/23 08/30/23 08/31/23 23:59 23:59 23:59 23:59 Weight 63.503 kg Constitutional Constitutional: mild distress, chronically ill appearing and cooperative *Routine HEENT Exam Head: Present normocephalic and atraumatic Eye: Present EOMI, PERRL and normal accommodation ENT: Present mucous membranes moist *Routine Neck Exam Neck: Present supple and trachea midline *Routine Respiratory Exam Respiratory: Present CTA bilaterally, distant breath sounds, normal respiratory effort and symmetric chest movement; Absent respiratory distress *Routine Cardiovascular Exam Cardiovascular: Present RRR, Normal S1 and Normal S2 *Routine Abdominal Exam Abdominal: Present soft and normoactive bowel sounds; Absent organomegaly *Routine Rectal Exam Rectal:: deferred *Routine Genitalia Exam Genitalia:: deferred *Routine Extremities Exam Extremities: Present pulses intact; Absent cyanosis, clubbing or edema *Routine Skin Exam Skin: Present intact, dry and warm *Routine Neurological Exam Neurological: Present alert, normal reflexes and altered mental status; Absent oriented X3 or normal speech Routine Psychiatric Exam Psychiatric: Present unable to assess H&P: Result Imaging and Cardiology EKG: Status: image reviewed by me and Preliminary report Chest x-ray: Status: image reviewed by me, Preliminary report and final report CT scan - head: Status: image reviewed by me, Preliminary report and final report Assessment and Plan *Assessment and plan (1) Encephalopathy: Status: Acute Category: Medical Code(s): G93.40 - Encephalopathy, unspecified (2) Pneumonia: Status: Acute Qualifiers: Laterality: unspecified laterality Lung location: unspecified part of lung Pneumonia type: due to unspecified organism Qualified Code(s): J18.9 - Pneumonia, unspecified organism Category: Medical Code(s): J18.9 - Pneumonia, unspecified organism (3) Acute kidney injury: Status: Acute Category: Medical Code(s): N17.9 - Acute kidney failure, unspecified (4) CVA (cerebral vascular accident): Status: Acute Qualifiers: CVA mechanism: embolism Laterality of affected vessel: left Precerebral and cerebral artery: middle cerebral artery Qualified Code(s): I63.412 - Cerebral infarction due to embolism of left middle cerebral artery Category: Medical Code(s): I63.9 - Cerebral infarction, unspecified (5) HTN (hypertension), benign: Status: Acute Category: Medical Code(s): I10 - Essential (primary) hypertension (6) Unspecified dementia, unspecified severity, without behavioral disturbance, psychotic disturbance, mood disturbance, and anxiety: Status: Acute Qualifiers: Dementia severity: unspecified severity Dementia type: unspecified type Qualified Code(s): F03.90 - Unspecified dementia, unspecified severity, without behavioral disturbance, psychotic disturbance, mood disturbance, and anxiety Category: Medical Code(s): F03.90 - Unspecified dementia, unspecified severity, without behavioral disturbance, psychotic disturbance, mood disturbance, and anxiety Plan 83-year-old female intermediate resident with PMHx with 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 initial ER stroke work up is negative. Patient on arrival found hypoxic, on 3L NC apparently as a new oxygen requirement. CXR and neck CTA, concerning for air space disease. labs are grossly unremarkable. Findings discussed with ER for admission. In the setting of new oxygen demand and lung opacity, concerned for pneumonia. Plan as follow: -Encephalopathy: Unclear baseline. Improved Pneumonia with hypoxia: To rule out aspiration pneumonia: Admit patient to medical services. Dispo MedSurg Patient on continuous monitoring. Monitor for O2 saturation Levaquin 750 mg daily Aspiration precaution Speech therapy to eval Chest x-ray reviewed. Review and monitor for morning labs -NORMA: likely prerenal , secondary to dehydration: IV hydration. monitor renal out put avoid nephrotoxic medication repeat CMP in the morning -Hx of CVA with right-sided deficits and aphasia: CT of the head and neck ruled out acute stroke. Condition stable. Ischemic changes Patient on Xarelto. Resumed PT/OT/SP to eval and treat. Concern for aspiration. -History of hypertension Stable. Resume her home medication On aspirin and statin -History of unspecified dementia: Patient on home and amantadine. Resumed Sertraline and trazodone SCD for DVT prophylaxis. On Xarelto. Protonix for GI protection Full code Rounded on patient after nurse practitioner. Personally examined and interviewed patient. Agree with exam findings and care plan as documented.
--- NOTE | 2023-08-31 20:01 | PC.NURSE ---
hospitalist contact/ camp housekeeper contacted for bed assignment
--- NOTE | 2023-08-31 20:07 | PC.NURSE ---
Called report to Joyce Rasmussen RN at this time
--- NOTE | 2023-08-31 20:31 | PC.NURSE ---
pt arrived to floor at this time
[2023-08-31 21:30] LABS: Lactic Acid 0.9 mmol/L (0.7-2.1)
[2023-08-31] MEDS: 0.9 % SODIUM CHLORIDE 1000ML 1,000 ML 75 ML IV (22:26)
[2023-08-31] MEDS: LEVOFLOXACIN/D5W 750 MG/150 ML 750 MG/150 ML PIGGYBACK 100 MG IV (22:27)
[2023-09-01] VITALS (9 sets, daily range): BP systolic 110–143; BP diastolic 63–76; PULSE 72–118; RESP 18–24; TEMP 36.7–37.3; O2SAT 85–94; BMI 23.3
--- NOTE | 2023-09-01 01:03 | HMH.EDGENADL ---
Discharge Plan Disposition Patient Disposition: Still a Patient Condition: Serious Clinical Impressions Clinical Impression: Pneumonia Discharge ED Provider: Mariluz Hicks General Adult HPI General Chief complaint: Neuro Symptoms/Deficit Stated complaint: weakness Time Seen by Provider: 08/31/23 18:03 Mode of Arrival: EMS Source of Information: EMS Limitations: No Limitations Description of Symptoms (Recalled from ER Triage Doc. by RN): pt presents to ED via EMS for possible stroke. group home staff reports aproxx 1600 this afternoon they went to check on the pt and her speech was garbled. 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 This was initially concerning for stroke so stroke alert was called. Later spoke with patient's son who stated that patient had been found to have an oxygen saturation of 84% in the group home so was brought to the emergency department for evaluation for hypoxia. He also noted that she had been weaker and quieter than usual for the past few days. Related Data Home Medications Medication Instructions Recorded Confirmed amantadine HCl 100 mg capsule 100 mg PO DAILY Parkinson's disease 03/21/23 08/31/23 atorvastatin 40 mg tablet 40 mg PO HS High Cholesterol 03/21/23 08/31/23 lisinopril 5 mg tablet 5 mg PO DAILY High Blood Pressure 03/21/23 08/31/23 rivaroxaban 15 mg tablet (Xarelto) 15 mg PO DAILY Antiplatelet 03/21/23 08/31/23 acetaminophen 500 mg tablet 500 mg PO Q4H PRN pain/fever 06/18/23 08/31/23 lactulose 10 gram/15 mL oral 20 g PO DAILY PRN Constipation 06/18/23 08/31/23 solution quetiapine 25 mg tablet 25 mg PO BID 06/18/23 08/31/23 trazodone 50 mg tablet 25 mg PO HS 06/18/23 08/31/23 amiodarone 200 mg tablet 200 mg PO DAILY 08/31/23 08/31/23 levetiracetam 750 mg tablet 750 mg PO BID 08/31/23 08/31/23 (Keppra) loperamide 2 mg capsule 2 mg PO Q6H PRN Diarrhea 08/31/23 08/31/23 metoprolol tartrate 75 mg tablet 75 mg PO BID 08/31/23 08/31/23 promethazine 12.5 mg tablet 12.5 mg PO Q6H PRN nausea/vomiting 08/31/23 08/31/23 sennosides 8.6 mg tablet (Senokot) 8.6 mg PO DAILY PRN Constipation 08/31/23 08/31/23 sertraline 150 mg capsule 150 mg PO DAILY 08/31/23 08/31/23 Previous Rx's Medication Instructions Recorded gabapentin 600 mg tablet 600 mg PO BID Neuropathy #60 tabs 03/30/23 Allergies Allergy/AdvReac Type Severity Reaction Status Date / Time Penicillins Allergy Hives Verified 07/20/23 15:50 [facility] Disclaimer: The information contained in this section may have been updated after the patient was seen, as this information can be updated by other users. Medical History Acute respiratory failure with hypoxia and hypercapnia Anemia Atherosclerotic heart disease of [place] coronary artery without angina pectoris Chest pain Depression Esophageal thickening Fall Fracture of metacarpal Fracture of middle phalanx of finger Hematoma of scalp Hematoma of thigh Hyperlipidemia Infarction of distal end of right femur Insomnia Laceration of lip Limitation of activities due to disability Other abnormalities of gait and mobility Other chronic pain Pain in unspecified hip Patient new to facility Seizure Unspecified dementia, unspecified severity, without behavioral disturbance, psychotic disturbance, mood disturbance, and anxiety Xerosis cutis Social History Smoking Status: Never smoker alcohol intake: former substance use type: denies use current occupational status: retired Travel in the last 8 weeks: None household members: caregiver housing: group home lives independently: No ROS Obtained: Yes All systems reviewed & no additional complaints except as documented Physical Exam General General appearance: alert and in no apparent distress Head Head exam: atraumatic, normocephalic and normal inspection Eye Eye exam: Present normal appearance, PERRL and EOMI ENT ENT exam: Present normal exam, normal oropharynx, mucous membranes moist, TM's normal bilaterally and normal external ear exam Neck Neck exam: Present normal inspection, full ROM and trachea midline; Absent meningismus or lymphadenopathy Chest Chest inspection: Present normal inspection and symmetric chest wall rise; Absent tenderness Respiratory Respiratory exam: Present normal lung sounds bilaterally; Absent respiratory distress Cardiovascular Cardiovascular exam: Present regular rate and normal rhythm; Absent JVD Abdominal Exam Abdominal exam: Present soft and normal bowel sounds; Absent distention, tenderness or guarding Extremities Exam Extremities exam: Present normal inspection, full ROM and normal capillary refill; Absent calf tenderness Back Exam Back exam: Present normal inspection; Absent tenderness Neurological Exam Neurological exam: Present alert and oriented X3 Psychiatric Psychiatric exam: Present normal affect and normal mood Skin Skin exam: Present warm, dry, intact and normal color Lymphatic Lymphatic Findings: no adenopathy Medical Decision Making Bal Inquiry Pt receiving controlled substance: No Vital Signs: 08/31/23 17:52 08/31/23 18:17 08/31/23 18:31 Temperature 97.9 F Temperature Source Oral Pulse Rate 98 H 81 Pulse Rate [Left Radial] 68 Respiratory Rate 15 Blood Pressure 128/68 137/110 H Blood Pressure [Right Arm] 128/68 Blood Pressure Mean [Right Arm] 88 Blood Pressure Position 02 Sat by Pulse Oximetry 93 L 94 L 94 L Oxygen Delivery Method Nasal Cannula Nasal Cannula Nasal Cannula Oxygen Flow Rate (LPM) 3 08/31/23 19:01 08/31/23 19:45 08/31/23 20:08 Temperature 98.4 F Temperature Source Oral Pulse Rate 83 71 67 Pulse Rate [Left Radial] Respiratory Rate 97 H Blood Pressure 117/66 114/72 109/82 L Blood Pressure [Right Arm] Blood Pressure Mean [Right Arm] Blood Pressure Position Supine 02 Sat by Pulse Oximetry 98 84 L Oxygen Delivery Method Room Air Nasal Cannula Oxygen Flow Rate (LPM) 3.5 Lab Data Lab Results 08/31/23 17:58: WBC 9.5, RBC 3.61 L, Hgb 10.5 L, Hct 33.5 L, MCV 93.0, MCH 29.1, MCHC 31.3 L, RDW 14.5, Plt Count 385, MPV 8.4, Neut % (Auto) 78.3, Lymph % (Auto) 15.4, Ray % (Auto) 4.1, Eos % (Auto) 2.0, Baso % (Auto) 0.2, Neut # (Auto) 7.4, Lymph # (Auto) 1.5, Ray # (Auto) 0.4, Eos # (Auto) 0.2, Baso # (Auto) 0.0, PT 13.1 H, INR 1.23 H, APTT 25.5, Sodium 137, Potassium 4.3, Chloride 105, Carbon Dioxide 22, Anion Gap 14.3, BUN 39 H, Creatinine 1.40 H, Estimated Creat Clear 32, Estimated GFR 36 L, Est GFR ( Amer) 44 L, Glucose 114 H, Calcium 9.0, Total Bilirubin 0.5, AST 74 H, ALT 64, Alkaline Phosphatase 151 H, Total Protein 6.8, Albumin 3.2 L, Globulin 3.6 H, Albumin/Globulin Ratio 0.9 L 08/31/23 18:50: Urine Color Yellow, Urine Appearance Sl cloudy, Urine pH 5.5, Ur Specific [place] >= 1.030, Urine Protein 1+, Urine Glucose (UA) Negative, Urine Ketones Trace, Urine Blood 2+, Urine Nitrate Negative, Urine Bilirubin 1+ A, Urine Urobilinogen 1.0, Ur Leukocyte Esterase Negative, Urine RBC 10-20, Urine WBC Occasional, Ur Squamous Epith Cells None, Calcium Oxalate Crystal 2+, Urine Bacteria Trace 08/31/23 17:58 08/31/23 17:58 Orders (Tests/Meds): ED MEDICATIONS Generic Name Dose Route Start Last Admin Trade Name Freq PRN Reason Stop Dose Admin Acetaminophen 650 mg 08/31/23 19:55 Acetaminophen 325mg Tab PO 09/30/23 19:54 Q4HP PRN Fever or Mild Pain (1-3) Docusate Sodium 100 mg 08/31/23 20:00 08/31/23 22:27 Docusate Sodium 100 Mg Capsule PO 09/30/23 19:59 Not Given DAILY ALEXANDER Sodium Chloride 1,000 mls @ 75 mls/hr 08/31/23 20:00 08/31/23 22:26 Sod Chlor 0.9% 1000ml Bag IV 09/30/23 19:59 75 mls/hr .[id number] ALEXANDER Administration Levofloxacin/Dextrose 750 mg in 150 mls @ 100 mls/hr 08/31/23 20:00 08/31/23 22:27 Levofloxacin 750mg/150ml Premix IV 09/10/23 19:59 100 mls/hr Q24H ALEXANDER Administration Morphine Sulfate 2 mg 08/31/23 19:55 Morphine 2mg/Ml Syringe IV 09/30/23 19:54 Q2HP PRN Severe Pain (7-10) Ondansetron HCl 4 mg 08/31/23 19:55 Ondansetron 4mg/2ml Vial IV 09/30/23 19:54 Q8HP PRN Nausea Pantoprazole Sodium 40 mg 08/31/23 20:00 08/31/23 22:27 Pantoprazole 40mg Tablet PO 09/30/23 19:59 Not Given DAILY ALEXANDER Sodium Chloride 10 ml 08/31/23 19:55 Sodium Chloride 0.9% 10ml Flush Syringe IV 09/30/23 19:54 NEEDED PRN Maintain IV Site Discontinued Medications Generic Name Dose Route Start Last Admin Trade Name Freq PRN Reason Stop Dose Admin Iopamidol 100 ml 08/31/23 18:17 08/31/23 18:19 Iopamidol-370 (76%);100ml Bottle IV 08/31/23 18:18 100 ml ONCE ONE Administration Sodium Chloride 10 ml 08/31/23 18:17 08/31/23 18:19 Sodium Chloride 0.9% 10ml Syr (Rad Only) IV 08/31/23 18:18 10 ml ONCE ONE Administration Sodium Chloride 50 ml 08/31/23 18:17 08/31/23 18:19 0.9 % Sodium Chloride 50 Ml Vial IV 08/31/23 18:18 50 ml ONCE ONE Administration ORDERS Category Date Time Status CT angio head Stat Cat Scan 08/31/23 18:[address] angio neck Stat Cat Scan 08/31/23 18:[address] head/brain wo con Stat Cat Scan 08/31/23 18:08 Completed Chest XR -- portable [XR chest portable] Stat Exams 08/31/23 18:27 Completed CBC [Complete Blood Count Auto Diff] Stat Lab 08/31/23 17:58 Completed CMP [Comprehensive Metabolic Panel] Stat Lab 08/31/23 17:58 Completed Complete Blood Count Auto Diff AMLAB Lab 09/01/23 06:00 Ordered Comprehensive Metabolic Panel AMLAB Lab 09/01/23 06:00 Ordered Lactic Acid Timed Lab 08/31/23 21:10 Completed Magnesium AMLAB Lab 09/01/23 06:00 Ordered PT/PTT Stat Lab 08/31/23 17:58 Completed Urinalysis and Microscopic Stat Lab 08/31/23 18:50 Completed ECG initial [place] Routine Y 08/31/23 17:57 Completed ECG Data Tracing #1: Normal rate, regular rhythm, no significant ST segment elevations, consistent with atrial fibrillation without RVR. Medical Decision Narrative: On arrival patient was hypoxic on room air still requiring 3 L nasal cannula. Care was complicated by unknown last known normal and unknown history of present illness on arrival. Considered multiple causes of the patient's reported acute worsening of aphasia including that patient symptoms may be due to a stroke. Given her unknown baseline on arrival, called a stroke alert and patient had emergent CT head without, CTA head and neck and these were emergently reviewed by radiologist and myself and were concerning for old left MCA infarct but no acute stroke. Ordered chest x-ray and labs to evaluate for other causes of patient's worsening weakness and hypoxia and this was significant for right upper lobe pneumonia on chest x-ray per my independent review and interpretation. Otherwise labs did not indicate any specific cause of her altered mental status. Consulted hospital medicine with interactive discussion and they agreed to admit patient for pneumonia causing new oxygen requirement and altered mental status. Critical Care Critical Care Time Critical Care Time: No
--- NOTE | 2023-09-01 05:35 | PC.NURSE ---
Patient is a new admit from emergency department. Patient admitted with diagnosis of pneumonia with requiring o2, and acute renal failure. Patient is a resident at [facility], patient typically does not use oxygen. Per report from shelter they became concerned for worsening aphasia. Patient has history of aphasia. Since admission patient remains on 3.5LNC, no acute changes. Patient has purewick in place with adequate urinary output. Patient has been turned and repositioned every two hours. Call chowdary with in reach. Plan of care is ongoing
--- NOTE | 2023-09-01 05:40 | PC.NURSE ---
Patient has history of seizures. Seizure precautions have been implemented
--- NOTE | 2023-09-01 07:55 | EXP.ACUTE.PN ---
Subjective *Date: 09/01/23 *Time: 15:28 Interval history: Difficult to understand patient, she appears to understand when spoken to as receptive language but expressive language appears to be affected, concern this is a chronic deficit from previous CVA. No acute stroke noted on admission. Stable on 2 L nasal cannula with sats in the low 90s. Denies any nausea or vomiting. Tolerated pills well this morning without coughing or choking. Afebrile. Medical Exam Vital signs and Labs for Last 24 Hours: Vital Signs Temp Pulse Pulse Resp BP BP Pulse Ox 09/01/23 04:00 98.6 F 106 H 20 143/63 H 91 L 09/01/23 00:00 99.1 F 103 H 20 121/76 91 L 08/31/23 21:00 08/31/23 20:35 98.1 F 93 H 18 127/72 93 L 08/31/23 20:08 98.4 F 67 97 H 109/82 L 08/31/23 19:45 71 114/72 84 L 08/31/23 19:01 83 117/66 98 08/31/23 18:31 81 137/110 H 94 L 08/31/23 18:17 98 H 128/68 94 L 08/31/23 17:52 97.9 F 68 15 128/68 93 L O2 Del Method O2 Flow Rate 09/01/23 04:00 Nasal Cannula 3.5 09/01/23 00:00 Nasal Cannula 3.5 08/31/23 21:00 Nasal Cannula 08/31/23 20:35 Nasal Cannula 3.5 08/31/23 20:08 Nasal Cannula 3.5 08/31/23 19:45 Room Air 08/31/23 19:01 08/31/23 18:31 Nasal Cannula 08/31/23 18:17 Nasal Cannula 08/31/23 17:52 Nasal Cannula 3 Intake and Output 08/31/23 08/31/23 09/01/23 15:59 23:59 07:59 Intake Total 150 / 150 510 / 510 Output Total 200 / 200 Balance 150 / 150 310 / 310 Intake: Intake, Oral Amount 60 / 60 Intake, Total IV Amount 150 / 150 450 / 450 0.9 % Sodium Chloride 1000ML 1, 450 / 450 000 ml @ 75 mls/hr IV .[id number] [facility] Rx#:[id number] Levofloxacin/D5w 750 mg/150 ml 150 / 150 750 mg In 150 ml @ 100 mls/hr IV Q24H [facility] Rx#:[id number] Output: Output, Urine Amount 200 / 200 Other: Weight 63.503 kg 65.941 kg Patient Weight 09/01/23 23:59 Weight 65.941 kg Laboratory Results - last 24 hr 08/31/23 17:58: WBC 9.5, RBC 3.61 L, Hgb 10.5 L, Hct 33.5 L, MCV 93.0, MCH 29.1, MCHC 31.3 L, RDW 14.5, Plt Count 385, MPV 8.4, Neut % (Auto) 78.3, Lymph % (Auto) 15.4, [place] % (Auto) 4.1, Eos % (Auto) 2.0, Baso % (Auto) 0.2, Neut # (Auto) 7.4, Lymph # (Auto) 1.5, [place] # (Auto) 0.4, Eos # (Auto) 0.2, Baso # (Auto) 0.0, PT 13.1 H, INR 1.23 H, APTT 25.5, Sodium 137, Potassium 4.3, Chloride 105, Carbon Dioxide 22, Anion Gap 14.3, BUN 39 H, Creatinine 1.40 H, Estimated Creat Clear 32, Estimated GFR 36 L, Est GFR ( Amer) 44 L, Glucose 114 H, Calcium 9.0, Total Bilirubin 0.5, AST 74 H, ALT 64, Alkaline Phosphatase 151 H, Total Protein 6.8, Albumin 3.2 L, Globulin 3.6 H, Albumin/Globulin Ratio 0.9 L 08/31/23 18:50: Urine Color Yellow, Urine Appearance Sl cloudy, Urine pH 5.5, Ur Specific [place] >= 1.030, Urine Protein 1+, Urine Glucose (UA) Negative, Urine Ketones Trace, Urine Blood 2+, Urine Nitrate Negative, Urine Bilirubin 1+ A, Urine Urobilinogen 1.0, Ur Leukocyte Esterase Negative, Urine RBC 10-20, Urine WBC Occasional, Ur Squamous Epith Cells None, Calcium Oxalate Crystal 2+, Urine Bacteria Trace 08/31/23 21:10: Lactate 0.9 I & O for Labs for Last 24 Hours: Intake & Output 08/29/23 08/30/23 08/31/23 02/24/24 23:59 23:59 23:59 23:59 Intake Total 150 / 150 510 / 510 Output Total 200 / 200 Balance 150 / 150 310 / 310 Weight 63.503 kg 65.941 kg Constitutional: Present no acute distress, average body habitus, chronically ill appearing and cooperative Head: Present atraumatic and normocephalic ENT: Present normal exam Neck: Present normal inspection Respiratory: Present crackles (right lung field) and normal respiratory effort; Absent rhonchi or wheezes Cardiac: Present Irregularly Regular GI: Present soft and normal bowel sounds; Absent distention or tenderness Extremities: Present normal inspection and full ROM Skin: Present intact; Absent erythema Neuro: Present Grossly Intact, alert, awake and moves all extremities (Does have spontaneous movement and moves both feet equally.) Comment:: Inability to assess orientation due to dysarthria. Appears to have right-sided deficits and right upper extremity. Assessment and Plan *Assessment and plan (1) Encephalopathy: Status: Acute Category: Medical Code(s): G93.40 - Encephalopathy, unspecified (2) Pneumonia: Status: Acute Qualifiers: Laterality: unspecified laterality Lung location: unspecified part of lung Pneumonia type: due to unspecified organism Qualified Code(s): J18.9 - Pneumonia, unspecified organism Category: Medical Code(s): J18.9 - Pneumonia, unspecified organism (3) Acute kidney injury: Status: Acute Category: Medical Code(s): N17.9 - Acute kidney failure, unspecified (4) Afib: Status: Acute Category: Medical Code(s): I48.91 - Unspecified atrial fibrillation (5) CVA (cerebral vascular accident): Status: Acute Qualifiers: CVA mechanism: embolism Laterality of affected vessel: left Precerebral and cerebral artery: middle cerebral artery Qualified Code(s): I63.412 - Cerebral infarction due to embolism of left middle cerebral artery Category: Medical Code(s): I63.9 - Cerebral infarction, unspecified (6) HTN (hypertension), benign: Status: Acute Category: Medical Code(s): I10 - Essential (primary) hypertension (7) Unspecified dementia, unspecified severity, without behavioral disturbance, psychotic disturbance, mood disturbance, and anxiety: Status: Acute Qualifiers: Dementia severity: unspecified severity Dementia type: unspecified type Qualified Code(s): F03.90 - Unspecified dementia, unspecified severity, without behavioral disturbance, psychotic disturbance, mood disturbance, and anxiety Category: Medical Code(s): F03.90 - Unspecified dementia, unspecified severity, without behavioral disturbance, psychotic disturbance, mood disturbance, and anxiety (8) CHF (congestive heart failure): Status: Acute Qualifiers: Heart failure type: unspecified Category: Medical Code(s): I50.9 - Heart failure, unspecified Plan 83-year-old female prison resident with PMHx with 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 initial ER stroke work up is negative. Patient on arrival found hypoxic, on 3L NC apparently as a new oxygen requirement. CXR and neck CTA, concerning for air space disease. labs are grossly unremarkable. Findings discussed with ER for admission. In the setting of new oxygen demand and lung opacity, concerned for pneumonia. Patient continues to require admission today. Continuing antibiotics and IV fluids. Continues to necessitate oxygen. Problems addressed as follows: -Encephalopathy: Unclear baseline. Improved Pneumonia with hypoxia Continue supplemental oxygen for goal saturation greater than 90%. Currently on 2 L. Continue levofloxacin 750 mg daily Aspiration precaution Speech therapy to eval Chest x-ray reviewed with bilateral patchy airspace disease, heart enlarged. BNP elevated at 1700. Caution with fluids as patient may have a component of CHF as well. No echo in our system, will consider echocardiogram Sunday to evaluate for CHF. -NORMA: likely prerenal , secondary to dehydration: Creatinine 1.4 on admission, 1.1 this morning. Improving with IV fluids. Continue gentle hydration with maintenance IV fluids. repeat CMP, CBC, Mg in the morning Hypertension Atrial fibrillation Hyperlipidemia -Blood pressure heart rate elevated this morning. Missed her metoprolol dose yesterday. Resume Toprol also milligrams twice daily. Monitor for improvement rate troll. Metoprolol tartrate 5 mg IV x 1 with goal rate less than 100. Continue last prophy grams daily, Xarelto 15 mg daily, amiodarone 200 mg daily -Continue Lipitor 40 mg nightly History of unspecified dementia: History of seizure disorder History of CVA with right-sided deficits and aphasia History of Parkinson's disease -CT of head and neck ruled out acute stroke, unsure of patient's baseline. Will reach out to family and prison to evaluate baseline. -Speech eval pending. Tolerating p.o. meds without coughing or choking however. -Continue home amantadine 100 mg twice daily, can home Keppra 750 mg p.o. bid -PT OT and speech consulted to evaluate patient History of depression/anxiety as result of CVA - continue Seroquel 25 mg twice daily, continue trazodone 25 mg nightly, continue Zoloft 150 g daily Neuropathy: Continue gabapentin decrease dose to 400 mg twice daily due to concern for sedation Full code Tamar
--- NOTE | 2023-09-01 08:13 | ECG_ITS ---
APPROVED REPORT Exam: Resting ECG HR:108 bpm ECG Measurements Heart Rate 108 AXES QRSd 90 QRS 0 QT 362 T 27 QTc 425 Conclusion ATRIAL FIBRILLATION WITH RAPID VENTRICULAR RESPONSE WITH ABERRANT CONDUCTION OR VENTRICULAR PREMATURE COMPLEXES NONSPECIFIC ST & T-WAVE ABNORMALITY ABNORMAL RHYTHM ECG UNCONFIRMED REPORT Electronically signed by : Miller Mcbride MD 09/01/2023 12:33:03
--- NOTE | 2023-09-01 08:16 | PC.NURSE ---
Patients room air was 85 at rest
[2023-09-01] MEDS: METOPROLOL TARTRATE 5MG/5ML VIAL 5 MG IV (08:25)
--- NOTE | 2023-09-01 08:28 | PC.NURSE ---
Patient complained of pain in hands and legs, tech was getting vital signs, patient's heart rate between 105-130's. Heart monitor placed, patient appears to be in a fib, ekg ordered. a fib with rvr confirmed on ekg, Dr. Arellnao notified. metoprolol iv ordered and told to give am meds.
[2023-09-01] MEDS: AMIODARONE 200MG TABLET 200 MG PO (08:33)
[2023-09-01] MEDS: QUETIAPINE 25MG TABLET 25 MG PO ×2 (08:33→20:01)
[2023-09-01] MEDS: SERTRALINE 100MG TABLET 150 MG PO (08:34)
[2023-09-01] MEDS: AMANTADINE 100MG CAPSULE 100 MG PO (08:35)
[2023-09-01] MEDS: GABAPENTIN 400MG CAPSULE 400 MG PO ×2 (08:35→20:02)
[2023-09-01] MEDS: METOPROLOL TARTRATE 50MG TABLET 75 MG PO ×2 (08:35→20:02)
[2023-09-01] MEDS: levETIRAcetam 500 MG TABLET 750 MG PO ×2 (08:38→20:00)
[2023-09-01] MEDS: LISINOPRIL 5MG TABLET 5 MG PO (08:42)
[2023-09-01 09:09] LABS: Basophils % 0.1 % (0.1-2.0); Eosinophils # 0.2 K/mm3 (0.0-0.4); Eosinophils % 1.7 % (0.1-12.0); Hemoglobin 9.5 g/dL (12.2-16.2); Lymphocytes # 0.8 K/mm3 (0.7-4.5); Lymphocytes % 8.9 % (10-50); Mean Corpuscular HGB Conc 31.5 g/dL (31.8-35.4); Mean Corpuscular Hemoglobin 29.9 pg (27.0-31.2); Mean Corpuscular Volume 94.8 fl (81-99); Mean Platelet Volume 8.3 fl (7.4-10.4); Monocytes # 0.4 K/mm3 (0.1-1.0); Monocytes % 3.8 % (1.7-9.3); Neutrophils # 7.9 K/mm3 (1.8-7.8); Neutrophils % 85.5 % (37.0-80.0); Platelet Count 416 K/mm3 (142-424); Red Blood Count 3.16 M/mm3 (4.20-5.40); White Blood Count 9.3 K/mm3 (4.8-10.8)
[2023-09-01 09:11] LABS: Chloride 109 mmol/L (98-107)
[2023-09-01 09:12] LABS: Potassium 4.1 mmoL/L (3.5-5.1); Sodium 136 mmol/L (136-145)
[2023-09-01 09:14] LABS: Alanine Aminotransferase 50 U/L (12-78); Aspartate Amino Transferase 44 U/L (14-36); Blood Urea Nitrogen 32 mg/dl (7-17); Creatinine Clearance Estimated 42 mL/min (50-200); Estimated Glomerular Filt Rate 48 ml/min (>60); GFR (African American) 58 ML/MIN (>60); MANUAL DIFFERENTIAL MANUAL DIFFERENTIAL (MANUAL DIFF)
[2023-09-01 09:15] LABS: Albumin Level 2.8 g/dl (3.5-5.0); Albumin/Globulin Ratio 0.8 (1.1-1.8); Alkaline Phosphatase 152 U/L (38-126); Anion Gap 7.1 mEq/L (5-15); Bilirubin,Total 0.4 mg/dl (0.2-1.3); Calcium 8.5 mg/dl (8.4-10.2); Carbon Dioxide 24 mmol/L (22.0-30.0); Globulin 3.4 g/dL (1.3-3.2); Glucose 110 mg/dl (74-100); Magnesium 2.1 mg/dl (1.6-2.3); Total Protein,Serum 6.2 g/dl (6.3-8.2)
[2023-09-01 09:24] LABS: NT Pro Brain Natriuretic Pep. 1710 pg/mL (0-450)
[2023-09-01 10:20] LABS: Eosinophils % 1 % (0-3); Lymphocytes % 7 % (10-50); Monocytes % 3 % (2-9); Neutrophils % 89 % (42-76); Platelet Estimate Normal; RBC Morphology Normal; Total Cells Counted 100
[2023-09-01] MEDS: DOCUSATE SODIUM 100 MG CAPSULE PO (10:21)
[2023-09-01] MEDS: PANTOPRAZOLE 40MG TABLET 40 MG PO (10:21)
--- NOTE | 2023-09-01 13:18 | P.CONPHA_ITS ---
Pharmacy Intervention Comments: MEDICATION RECONCILIATION COMPLETED ON PATIENT USING MAR FROM [facility]. -MARIBETH BAIRD, DORITAD
--- NOTE | 2023-09-01 13:18 | HMH.PHAINT1 ---
Pharmacy Intervention Comments: MEDICATION RECONCILIATION COMPLETED ON PATIENT USING MAR FROM [facility]. -MARIBETH BAIRD, DORITAD
--- NOTE | 2023-09-01 14:05 | HMH.PTEV ---
Physical Therapy Evaluation Rehab PT IP Evaluation Start: 09/01/23 03:49 Freq: ONCE Status: Active Protocol: Document 09/01/23 13:56 JORDYN (Rec: 09/01/23 14:05 JORDYN [id number]) Subjective/History History History Patient is an 83-year-old female correction resident admitted to [facility] 08/31/23. 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 Patient poor historian. Data collected from ED report. EMS and nursing staff. 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 On arrival stroke alert was called. Later on, patient's son stated that patient had been found to have an oxygen saturation of 84% in the correction so was brought to the emergency department for evaluation for hypoxia. He also noted that she had been weaker and quieter than usual for the past few days. Unclear baseline, however, appears to be close to her baseline. No focal neuro deficit. Patient follows command. Denies any others symptoms. Admitted for treatment and management. Patient reports that she was previous non-ambulatory and requires assistance with all ADL's. Subjective Subjective I can't stand up. New diagnosis of cancer in past 12 No months? Rehab PT IP Eval Objective Appearance Patient Behavior Confused Patient Orientation Person Difficulty following instructions moderate Speech Pattern Mumbled Ambulation Patient Able to Ambulate No Balance Sitting Balance Steady, safe Dynamic Sitting Balance Ability Good Transfers Bed Transfer Ability Moderate x 1 (50% assist) ROM RUE PT ROM Status ABN Abnormal ROM Comment Limited secondary to CVA RLE PT ROM Status ABN Abnormal ROM Comment Limited secondary to CVA MMT All Extremities PT MMT ABN Abnormal MMT Grade L 3+/5 R3-/5 grossly Rehab PT IP prob,goals,plan Problems Date of Evaluation: 09/01/23 PT IP Problems Bed Mobility,Transfers,Gait, Balance,Self care,Safety Rehab Potential Rehab Potential Fair Plan PT Intervention Plan Bed Mobility,Transfers,Gait, Balance,Self care,Safety, Therapeutic Exercise PT Plan Frequency Daily Duration LOS Discharge Goals Bed Transfer Ability Minimal x 1 (25% assist) Discharge Plan PT Discharge Plan PT suggest patient is a candidate for discharge back to SNF for further rehab once found medically stable by MD. Eval Complexity Eval Charge Codes 16711 - High Complexity PHYSICIAN CERTIFICATION: I certify the specified therapy services for Latesha Carinjone Morales are required, authorized, and reviewed every 30 days.
--- NOTE | 2023-09-01 16:18 | PC.NURSE ---
pt has been resting throughout shift. pt c/o pain in hands this a.m. while tech was doing vitals, pt's HR was jumping from 100-130. EKG confirmed a-fib w/ RVR. Eileen was notified and instructed to give metoprolol and a.m. meds. pt has been satting low 90s on 2L of 02 via NC. pt's room air sat was 85% this a.m. pt has had no complaints throughout the shift except this a.m.
[2023-09-01] MEDS: RIVAROXABAN 15MG TABLET 15 MG PO (17:21)
[2023-09-01] MEDS: TRAZODONE 50MG TABLET 25 MG PO (20:01)
[2023-09-01] MEDS: ATORVASTATIN 40MG TABLET 40 MG PO (20:01)
[2023-09-02] VITALS: BP 128/63; PULSE 100; PULSE 107; RESP 18; TEMP 36.7; O2SAT 90
[2023-09-02 04:00] VITALS: BP 126/64; PULSE 101; PULSE 86; RESP 18; TEMP 36.8; O2SAT 91; BMI 23.3
--- NOTE | 2023-09-02 05:11 | PC.NURSE ---
Pt is alert to self. Pt has gotten up to the bedside commode. Pt cannot always voice needs, very slow to get words out, most of words is mumbled, garbled, different languages mixed. Pt did voice her mouth was dry, gave pt water, tolerated well with no coughing or choking, took medications whole with no problems. Pt has rested well. Pt is now on 4L NC due to decrease in O2 sat to low 80s after getting up to the bedside, pt could not recover on 2L NC, remains on 4L NC, O2 sat 90%. Pt lung sounds diminished. Bowel sounds active. Call light in reach. Bed alarm on.
[2023-09-02 08:00] VITALS: BP 137/81; PULSE 112; PULSE 120; RESP 18; TEMP 36.7; O2SAT 86; O2SAT 90
[2023-09-02] MEDS: LISINOPRIL 5MG TABLET 5 MG PO (08:14)
[2023-09-02] MEDS: METOPROLOL TARTRATE 50MG TABLET 75 MG PO ×2 (08:14→20:31)
[2023-09-02] MEDS: GABAPENTIN 400MG CAPSULE 400 MG PO ×2 (08:14→20:29)
[2023-09-02] MEDS: AMIODARONE 200MG TABLET 200 MG PO (08:14)
[2023-09-02] MEDS: DOCUSATE SODIUM 100 MG CAPSULE PO (08:14)
[2023-09-02] MEDS: AMANTADINE 100MG CAPSULE 100 MG PO ×2 (08:14→12:31)
[2023-09-02] MEDS: levETIRAcetam 500 MG TABLET 750 MG PO ×2 (08:14→20:30)
[2023-09-02] MEDS: QUETIAPINE 25MG TABLET 25 MG PO ×2 (08:15→20:31)
[2023-09-02] MEDS: SERTRALINE 100MG TABLET 150 MG PO (08:15)
[2023-09-02] MEDS: PANTOPRAZOLE 40MG TABLET 40 MG PO (08:15)
[2023-09-02 08:20] LABS: Basophils % 0.2 % (0.1-2.0); Eosinophils # 0.2 K/mm3 (0.0-0.4); Eosinophils % 1.8 % (0.1-12.0); Hematocrit 29.8 % (37.0-47.0); Hemoglobin 9.6 g/dL (12.2-16.2); Lymphocytes % 11.9 % (10-50); Mean Corpuscular HGB Conc 32.3 g/dL (31.8-35.4); Mean Corpuscular Hemoglobin 30.6 pg (27.0-31.2); Mean Corpuscular Volume 94.6 fl (81-99); Mean Platelet Volume 8.2 fl (7.4-10.4); Monocytes # 0.4 K/mm3 (0.1-1.0); Monocytes % 4.6 % (1.7-9.3); Neutrophils # 6.9 K/mm3 (1.8-7.8); Neutrophils % 81.6 % (37.0-80.0); Platelet Count 351 K/mm3 (142-424); Red Blood Count 3.14 M/mm3 (4.20-5.40); Red Cell Distribution Width 14.7 % (11.5-17.5); White Blood Count 8.5 K/mm3 (4.8-10.8)
[2023-09-02 09:10] LABS: Chloride 108 mmol/L (98-107); Sodium 134 mmol/L (136-145)
[2023-09-02 09:11] LABS: Potassium 3.9 mmoL/L (3.5-5.1)
[2023-09-02 09:13] LABS: Alanine Aminotransferase 48 U/L (12-78); Albumin Level 2.9 g/dl (3.5-5.0); Albumin/Globulin Ratio 0.9 (1.1-1.8); Alkaline Phosphatase 159 U/L (38-126); Anion Gap 5.9 mEq/L (5-15); Aspartate Amino Transferase 48 U/L (14-36); Bilirubin,Total 0.5 mg/dl (0.2-1.3); Blood Urea Nitrogen 29 mg/dl (7-17); Calcium 8.7 mg/dl (8.4-10.2); Carbon Dioxide 24 mmol/L (22.0-30.0); Creatinine Clearance Estimated 46 mL/min (50-200); Estimated Glomerular Filt Rate 69 ml/min (>60); GFR (African American) 83 ML/MIN (>60); Globulin 3.4 g/dL (1.3-3.2); Glucose 150 mg/dl (74-100); Total Protein,Serum 6.3 g/dl (6.3-8.2)
[2023-09-02 09:14] LABS: Magnesium 2.1 mg/dl (1.6-2.3)
--- NOTE | 2023-09-02 11:05 | EXP.ACUTE.PN ---
Subjective *Date: 09/02/23 *Time: 13:34 Interval history: Patient no acute distress this morning. Weaned to 2 L, required 4 L while sleeping. Afebrile overnight. No nausea or vomiting. Doing okay eating. Answer simple questions with yes and no, word salad with more extensive questions. Appears to have good understanding with receptive language. Expressive language deficit noted. Hemodynamically stable. Medical Exam Vital signs and Labs for Last 24 Hours: Vital Signs Temp Pulse Pulse Resp BP Pulse Ox O2 Del Method 09/02/23 08:10 Nasal Cannula 09/02/23 09:20 Nasal Cannula 09/02/23 08:00 120 H 09/02/23 08:00 98.0 F 112 H 18 137/81 90 L Nasal Cannula 09/02/23 08:00 86 L Room Air 09/02/23 07:00 Nasal Cannula 09/02/23 04:00 86 09/02/23 05:00 Nasal Cannula 09/02/23 04:00 98.2 F 101 H 18 126/64 91 L Nasal Cannula 09/02/23 03:00 Nasal Cannula 09/02/23 00:00 100 H 09/01/23 20:00 80 09/02/23 00:00 98.0 F 107 H 18 128/63 90 L Nasal Cannula 09/02/23 00:54 Nasal Cannula 09/01/23 23:00 Nasal Cannula 09/01/23 21:00 Nasal Cannula 09/01/23 20:00 Nasal Cannula 09/01/23 20:00 98.1 F 110 H 22 110/68 89 L Nasal Cannula 09/01/23 18:55 Nasal Cannula 09/01/23 16:00 100 H 09/01/23 17:00 Nasal Cannula 09/01/23 16:00 98.1 F 99 H 24 133/76 90 L Nasal Cannula 09/01/23 14:46 Nasal Cannula 09/01/23 12:30 80 09/01/23 12:44 Nasal Cannula 09/01/23 11:50 98.3 F 92 H 22 125/64 90 L Nasal Cannula O2 Flow Rate 09/02/23 08:10 2 09/02/23 09:20 3 09/02/23 08:00 09/02/23 08:00 2.5 09/02/23 08:00 09/02/23 07:00 4 09/02/23 04:00 09/02/23 05:00 4 09/02/23 04:00 4 09/02/23 03:00 4 09/02/23 00:00 09/01/23 20:00 09/02/23 00:00 4 09/02/23 00:54 4 09/01/23 23:00 2 09/01/23 21:00 2 09/01/23 20:00 2 09/01/23 20:00 2 09/01/23 18:55 2 09/01/23 16:00 09/01/23 17:00 2 09/01/23 16:00 2 09/01/23 14:46 2 09/01/23 12:30 09/01/23 12:44 2 09/01/23 11:50 3 Intake and Output 09/01/23 09/02/23 09/02/23 23:59 07:59 15:59 Intake Total 135 / 993 Output Total 0 / 200 0 / 0 Balance 135 / 793 0 / 0 Intake: Intake, Oral Amount 135 / 195 Output: Output, Urine Amount 0 / 200 0 / 0 Other: Number of Unmeasured Voids 1 1 1 Number of Bowel Movements 1 Weight 65.941 kg Patient Weight 09/02/23 23:59 Weight 65.941 kg Laboratory Results - last 24 hr 09/02/23 07:17: WBC 8.5, RBC 3.14 L, Hgb 9.6 L, Hct 29.8 L, MCV 94.6, MCH 30.6, MCHC 32.3, RDW 14.7, Plt Count 351, MPV 8.2, Neut % (Auto) 81.6 H, Lymph % (Auto) 11.9, Calvert % (Auto) 4.6, Eos % (Auto) 1.8, Baso % (Auto) 0.2, Neut # (Auto) 6.9, Lymph # (Auto) 1.0, Calvert # (Auto) 0.4, Eos # (Auto) 0.2, Baso # (Auto) 0.0 09/02/23 08:50: Sodium 134 L, Potassium 3.9, Chloride 108 H, Carbon Dioxide 24, Anion Gap 5.9, BUN 29 H, Creatinine 0.80 D, Estimated Creat Clear 46, Estimated GFR 69, Est GFR ( Amer) 83 D, Glucose 150 H D, Calcium 8.7, Magnesium 2.1, Total Bilirubin 0.5, AST 48 H, ALT 48, Alkaline Phosphatase 159 H, Total Protein 6.3, Albumin 2.9 L, Globulin 3.4 H, Albumin/Globulin Ratio 0.9 L I & O for Labs for Last 24 Hours: Intake & Output 08/30/23 08/31/23 09/01/23 09/02/23 23:59 23:59 23:59 23:59 Intake Total 150 / 150 993 / 993 Output Total 200 / 200 0 / 0 Balance 150 / 150 793 / 793 0 / 0 Weight 63.503 kg 65.941 kg 65.941 kg Constitutional: Present no acute distress, average body habitus, chronically ill appearing and cooperative Head: Present atraumatic and normocephalic ENT: Present normal exam Neck: Present normal inspection Respiratory: Present crackles (right lung field) and normal respiratory effort; Absent rhonchi or wheezes Cardiac: Present Irregularly Regular GI: Present soft and normal bowel sounds; Absent distention or tenderness Extremities: Present normal inspection and full ROM Skin: Present intact; Absent erythema Neuro: Present Grossly Intact, alert, awake and moves all extremities (Does have spontaneous movement and moves both feet equally.) Comment:: Inability to assess orientation due to dysarthria. Appears to have right-sided deficits and right upper extremity. Assessment and Plan *Assessment and plan (1) Pneumonia: Status: Acute Qualifiers: Laterality: unspecified laterality Lung location: unspecified part of lung Pneumonia type: due to unspecified organism Qualified Code(s): J18.9 - Pneumonia, unspecified organism Category: Medical Code(s): J18.9 - Pneumonia, unspecified organism (2) Encephalopathy: Status: Acute Category: Medical Code(s): G93.40 - Encephalopathy, unspecified (3) Acute kidney injury: Status: Acute Category: Medical Code(s): N17.9 - Acute kidney failure, unspecified (4) Afib: Status: Acute Category: Medical Code(s): I48.91 - Unspecified atrial fibrillation (5) CVA (cerebral vascular accident): Status: Acute Qualifiers: CVA mechanism: embolism Laterality of affected vessel: left Precerebral and cerebral artery: middle cerebral artery Qualified Code(s): I63.412 - Cerebral infarction due to embolism of left middle cerebral artery Category: Medical Code(s): I63.9 - Cerebral infarction, unspecified (6) HTN (hypertension), benign: Status: Acute Category: Medical Code(s): I10 - Essential (primary) hypertension (7) Unspecified dementia, unspecified severity, without behavioral disturbance, psychotic disturbance, mood disturbance, and anxiety: Status: Acute Qualifiers: Dementia severity: unspecified severity Dementia type: unspecified type Qualified Code(s): F03.90 - Unspecified dementia, unspecified severity, without behavioral disturbance, psychotic disturbance, mood disturbance, and anxiety Category: Medical Code(s): F03.90 - Unspecified dementia, unspecified severity, without behavioral disturbance, psychotic disturbance, mood disturbance, and anxiety (8) CHF (congestive heart failure): Status: Acute Qualifiers: Heart failure type: unspecified Category: Medical Code(s): I50.9 - Heart failure, unspecified Plan 83-year-old female skilled nursing resident with PMHx with 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 initial ER stroke work up is negative. Patient on arrival found hypoxic, on 3L NC apparently as a new oxygen requirement. CXR and neck CTA, concerning for air space disease. labs are grossly unremarkable. Findings discussed with ER for admission. In the setting of new oxygen demand and lung opacity, concerned for pneumonia. Patient continues to require admission for treatment of pneumonia. Continuing IV antibiotics. Continues to necessitate oxygen. Problems addressed as follows: -Encephalopathy: Unclear baseline. Improved Pneumonia with hypoxia Continue supplemental oxygen for goal saturation greater than 90%. Currently on 2 L. Continue levofloxacin 750 mg daily Aspiration precaution Speech therapy to eval Elevated BNP on admission -Given elevated BNP of 1700, will diurese x 1 since kidney function is normalized. Lasix 40 mg IV x 1. Monitor for electrolytes with morning labs. CBC, CMP, magnesium ordered for the morning. -NORMA: likely prerenal , secondary to dehydration: Creatinine 1.4 on admission, 0.8 this morning. Discontinue IV fluids. Diuresis x 1. Hypertension Atrial fibrillation Hyperlipidemia -Improvement in pressure and rate control. Continue metoprolol tartrate 75 mg twice daily, continue lisinopril 5 mg daily, Xarelto 15 mg daily, amiodarone 200 mg daily, Lipitor 40 mg nightly History of unspecified dementia: History of seizure disorder History of CVA with right-sided deficits and aphasia History of Parkinson's disease -CT of head and neck ruled out acute stroke, unsure of patient's baseline. Will reach out to family and skilled nursing to evaluate baseline. -Speech eval pending. Tolerating p.o. meds without coughing or choking however. -Continue home amantadine 100 mg twice daily, can home Keppra 750 mg p.o. bid -PT OT and speech consulted to evaluate patient History of depression/anxiety as result of CVA - continue Seroquel 25 mg twice daily, continue trazodone 25 mg nightly, continue Zoloft 150 g daily Neuropathy: Continue gabapentin decrease dose to 400 mg twice daily due to concern for sedation Full code Xarelto Mechanical diet
[2023-09-02 12:00] VITALS: PULSE 90
[2023-09-02] MEDS: FUROSEMIDE 40MG/4ML VIAL 40 MG IV (14:28)
[2023-09-02 16:00] VITALS: BP 117/66; PULSE 90; PULSE 93; RESP 20; TEMP 36.3; O2SAT 90
[2023-09-02] MEDS: RIVAROXABAN 15MG TABLET 15 MG PO (16:58)
--- NOTE | 2023-09-02 18:47 | PC.NURSE ---
VS stable and patient on 3LNC. Patient very anxious and upset if door is closed. Lung sounds crackles, incentive spirometer given and patient educated on how to use.
[2023-09-02 20:00] VITALS: BP 114/67; PULSE 100; PULSE 106; RESP 16; TEMP 36.4; O2SAT 91
[2023-09-02] MEDS: ATORVASTATIN 40MG TABLET 40 MG PO (20:29)
[2023-09-02] MEDS: TRAZODONE 50MG TABLET 25 MG PO (20:30)
[2023-09-02] MEDS: LEVOFLOXACIN/D5W 750 MG/150 ML 750 MG/150 ML PIGGYBACK 100 MG IV (20:33)
[2023-09-03] VITALS (9 sets, daily range): BP systolic 101–127; BP diastolic 63–88; PULSE 62–110; RESP 16–22; TEMP 36.2–36.8; O2SAT 88–93; BMI 23.6
--- NOTE | 2023-09-03 05:40 | PC.NURSE ---
Pt is alert to self. No complaints this shift. Remains on 3L NC, O2 sat >90%. Lung sounds diminished. Has been incontinent this shift. Bed alarm on. Call light in reach.
[2023-09-03 06:26] LABS: Basophils % 0.1 % (0.1-2.0); Eosinophils # 0.2 K/mm3 (0.0-0.4); Eosinophils % 1.5 % (0.1-12.0); Hematocrit 30.8 % (37.0-47.0); Hemoglobin 9.5 g/dL (12.2-16.2); Lymphocytes % 9.8 % (10-50); Mean Corpuscular HGB Conc 30.9 g/dL (31.8-35.4); Mean Corpuscular Hemoglobin 28.6 pg (27.0-31.2); Mean Corpuscular Volume 92.4 fl (81-99); Mean Platelet Volume 8.1 fl (7.4-10.4); Monocytes # 0.4 K/mm3 (0.1-1.0); Monocytes % 3.9 % (1.7-9.3); Neutrophils # 8.3 K/mm3 (1.8-7.8); Neutrophils % 84.6 % (37.0-80.0); Platelet Count 404 K/mm3 (142-424); Red Blood Count 3.33 M/mm3 (4.20-5.40); Red Cell Distribution Width 15.1 % (11.5-17.5); White Blood Count 9.8 K/mm3 (4.8-10.8)
[2023-09-03 06:31] LABS: Chloride 106 mmol/L (98-107); Potassium 3.7 mmoL/L (3.5-5.1); Sodium 134 mmol/L (136-145)
[2023-09-03 06:33] LABS: Blood Urea Nitrogen 28 mg/dl (7-17); Creatinine Clearance Estimated 47 mL/min (50-200); Estimated Glomerular Filt Rate 69 ml/min (>60); GFR (African American) 83 ML/MIN (>60)
[2023-09-03 06:34] LABS: Alanine Aminotransferase 41 U/L (12-78); Albumin Level 2.8 g/dl (3.5-5.0); Albumin/Globulin Ratio 0.8 (1.1-1.8); Alkaline Phosphatase 156 U/L (38-126); Anion Gap 6.7 mEq/L (5-15); Aspartate Amino Transferase 49 U/L (14-36); Bilirubin,Total 0.5 mg/dl (0.2-1.3); Calcium 8.5 mg/dl (8.4-10.2); Carbon Dioxide 25 mmol/L (22.0-30.0); Globulin 3.3 g/dL (1.3-3.2); Glucose 108 mg/dl (74-100); Total Protein,Serum 6.1 g/dl (6.3-8.2)
[2023-09-03 06:35] LABS: Magnesium 1.9 mg/dl (1.6-2.3)
--- NOTE | 2023-09-03 07:18 | XR_ITS ---
FINAL REPORT TECHNIQUE: Single view chest CLINICAL HISTORY: persistent dyspnea COMPARISON: 08/31/2022 FINDINGS: A single view of the chest was obtained. The heart and mediastinum are within normal limits. ET tube and NG tube are no longer present. There is new diffuse right lung opacity and patchy left upper lobe opacity consistent with bilateral pneumonia. There are small bilateral pleural effusions. There is no pneumothorax. Osseous structures are unremarkable. IMPRESSION: New right lung opacity and patchy left lung opacity consistent with bilateral pneumonia with small pleural effusions. Reviewed, Interpreted and Dictated by Jennifer Day MD Transcribed by Cindy Argueta Authenticated and [facility]
--- NOTE | 2023-09-03 07:56 | SW/DCPLANNER ---
Addendum entered by Lakeisha [place] 09/14/23 14:42: Ro bryant/ Hospice is going to re-evaluate patient for [facility] per MD request. Addendum entered by Lakeisha [place] 09/14/23 10:46: I have updated Antonia bryant/ [facility] and Louise bryant/ [facility] that patient will discharge today. Addendum entered by Lakeishajimy Hamilton 09/13/23 14:02: I have updated Antonia b[facility]/ [facility] and [facility]/ Hosp[facility] that patient will not discharge till tomorrow. Addendum entered by Karissa Cristobal RN 09/13/23 13:01: Patient's family was asking about changing facilities at discharge so that the patient would be in [place] close to her son. We discussed how referrals can be made, but it can be lengthy process due to being a Medicaid bed. Patient's son states he will talk to Antonia at [facility] to see if she can help with the transition. Patient will not be discharged until tomorrow. ABIGAIL Ruano Addendum entered by Lakeisha [place] 09/13/23 12:32: I have updated Antonia bry[facility]/ [facility] that patient will return today [facility] level of care. I have also updated Louise bryant/ Hospice to please follow up w/ the family as they are unsure if they are interested in services at this time. Addendum entered by Kimberly Voss RN 09/12/23 07:20: Patient was not transferred, has now declined hospice. Addendum entered by Karissa Cristobal RN 09/11/23 16:22: Hospice nurse evaluated and spoke with family. Patient will be discharged to the Hospice care center in [place]. ABIGAIL Ruano Addendum entered by Lakeishajimy Hamilton 09/11/23 09:06: Per Louise bryant/ [facility] the plan is for Hospice nurse and son to meet at bedside today at 3PM. Addendum entered by Lakeisha [place] 09/11/23 07:50: Per patient's family is requesting comfort care. Patient information will be faxed to [facility] this AM. Addendum entered by Lakeisha Hamilton 09/10/23 08:10: Updated patient information has been faxed to Antonia bryant/ [facility]. Addendum entered by Lakeisha Hamilton 09/05/23 10:25: I have updated Antonia w/ [facility] that patient is not ready for discharge today. Updated patient information will be faxed. Addendum entered by Lakeisha Hamilton 09/03/23 08:18: CORRECTION: patient is currently SNF level of care at [facility]. Original Note: This patient currently resides at [facility] level of care. I will continue to follow up w/ Antonia at [facility] until patient is medically stable for discharge. Updated patient information has been faxed.
[2023-09-03] MEDS: METOPROLOL TARTRATE 50MG TABLET 75 MG PO ×2 (09:14→21:26)
[2023-09-03] MEDS: QUETIAPINE 25MG TABLET 25 MG PO ×2 (09:14→21:25)
[2023-09-03] MEDS: LISINOPRIL 5MG TABLET 5 MG PO (09:14)
[2023-09-03] MEDS: DOCUSATE SODIUM 100 MG CAPSULE PO (09:14)
[2023-09-03] MEDS: GABAPENTIN 400MG CAPSULE 400 MG PO ×2 (09:15→21:25)
[2023-09-03] MEDS: AMIODARONE 200MG TABLET 200 MG PO (09:15)
[2023-09-03] MEDS: SERTRALINE 100MG TABLET 150 MG PO (09:15)
[2023-09-03] MEDS: PANTOPRAZOLE 40MG TABLET 40 MG PO (09:15)
[2023-09-03] MEDS: AMANTADINE 100MG CAPSULE 100 MG PO ×2 (09:15→12:34)
[2023-09-03] MEDS: POTASSIUM CHLORIDE 20MEQ TAB 40 MEQ PO ×2 (09:16→21:25)
[2023-09-03] MEDS: levETIRAcetam 500 MG TABLET 750 MG PO ×2 (09:18→21:26)
--- NOTE | 2023-09-03 09:28 | HMH.SLDYSPHA ---
Speech & Language Evaluation Speech/Language Dysphagia Evaluation Start: 09/03/23 09:08 Freq: ONCE Status: Active Protocol: Document 09/03/23 09:08 MAURO (Rec: 09/03/23 09:28 [facility] [id number]) Dysphagia Assess/Goals/Plan Assessment Date of Evaluation: 09/03/23 Evaluation Type Initial Certification Assessment/Problems aphasia, rule out aspiration Does Patient Qualify for Service Yes Qualify/Failure Comment Based on clinical observations made throughout aphasia assessment and clinical bedside swallow evaluation, pt would benefit from skilled speech therapy services to address fluent aphasia and language deficits, but mastication/manipulation of bolus and swallowing appear to be WFL. Recommendations PHYSICIAN CERTIFICATION: The specified therapy services are required, authorized, and reviewed every 30 days. Pt will be seen # times/week 3 for # weeks 4 Diet Recommendations Normal Liquid Type Recommendations Normal/Thin SL Swallow Guidelines Alt bite w/sip thru meal, Standard Aspiration Prec. Dysphagia Swallow Precautions/Strategies Sitting Upright (90 deg),Small Bites and Sips,Alternate Liquids/Solids Place Food on Either side of Mouth Plan Anticipate reaching STG in # weeks 2 Anticipate reaching LTG in # weeks 4 Pt/Guardian verbally ack understanding Yes of dx/prognosis/goals G -code Required No STG-Other Comment/Non-Specific The patient will name common household objects at 60% accuracy given frequent maximum verbal and frequent maximum phonemic cues. The patient will identify the correct word given 2 choices at 70% accuracy given frequent maximal visual cues. The patient will answer simple biographical yes/no questions presented auditorily at 70% accuracy given frequent maximal visual cues. The patient will complete an automatic speech task with 70% accuracy when given max multiimodalic prompts/cues. Regulatory Administrator Goals Diet regular with Liquids Thin Liquids Education Instructions provided Discussed results of assessments given, POC, and goals with pt, nursing, and care management all of which expressed understanding. 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 CXR: New right lung opacity and patchy left lung opacity consistent with bilateral pneumonia with small pleural effusions. Head CTA: Moderate left MCA M2 stenosis, stable. No large vessel occlusion. Per nursing report, family states aphasia is somewhat baseline. General Information General Current Food Consistancy Regular,Thin Liquids Dentition Upper & Lower Dentures Oxygen Status Nasal Cannula Ability to Follow Directions Fair Communication Ability Severe Impairment Dysphagia:Food Presentation Evaluation Food Type Pureed,Mechanical Soft,Regular ,Liquid,Pudding Dysphagia Evaluation Summary Pt was seen sitting upright in the bed this AM for both a CSE and aphasia assessment. 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 She was observed to overgeneralize her speech, as well as use multiple paraphasias and neologisms. When FORENSIC STRUCTURAL ENGINEER prompted for further convergent/ divergent naming tasks to assess pt became upset and noncompliant. Based on observations made during aphasia assessment and limited intelligibility, pt would benefit from skilled speech therapy services to address these deficits. She was then presented with various bolus consistencies for a CSE, only one trial of each was given 2' pt being noncompliant and requiring significant prompting to accept trials. Nursing reported she did well with breakfast however. Pt was given the following with no overt s/sxs of aspiration and mastication/manipulation of bolus and swallowing appear to be WFL at bedside. She was given thin liquids (via ice chip, spoonful of water, and straw sip (pt refused open cup and consecutive sips)), pudding, puree (via applesauce ), mechanical soft (via nutrigrain bar), and regular solid (via shira cracker.) Based on results of CSE, swallowing appears to be WFL and aphasia is the only deficit needing to be targeted at this time with skilled speech therapy services. Stroke Dysphagia Assessment PHYSICIAN CERTIFICATION: I certify the specified therapy services for Latesha Morales are required, authorized, and reviewed every 30 days.
--- NOTE | 2023-09-03 10:05 | P.CONS_ITS ---
History of Present Illness History of present illness: Ms. 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 [facility] Disclaimer: The information contained in this section may have been updated after the patient was seen, as this information can be updated by other users. Medical History (Updated 09/03/23 @ 14:54 by Tiara Ramirez MD) Acute respiratory failure with hypoxia Acute respiratory failure with hypoxia and hypercapnia Anemia Atherosclerotic heart disease of [place] coronary artery without angina pectoris Chest pain Depression Esophageal thickening Fall Fracture of metacarpal Fracture of middle phalanx of finger Hematoma of scalp Hematoma of thigh Hyperlipidemia Infarction of distal end of right femur Insomnia Laceration of lip Limitation of activities due to disability Other abnormalities of gait and mobility Other chronic pain Pain in unspecified hip Patient new to facility Seizure Unspecified dementia, unspecified severity, without behavioral disturbance, psychotic disturbance, mood disturbance, and anxiety Xerosis cutis Social History Smoking Status: Never smoker alcohol intake: former substance use type: denies use current occupational status: retired Travel in the last 8 weeks: None household members: caregiver housing: [facility] lives independently: No Review of Systems Review of Systems Review of systems (narrative): Limited, patient better responding to yes or no question Constitutional Constitutional: Denies anorexia and Denies body ache(s) *Cardiovascular Cardiovascular: Reports dyspnea on exertion *Respiratory Respiratory: Reports chest congestion, Reports cough, Reports dyspnea on exertion and Denies excessive phlegm production *Gastrointestinal Gastrointestinal: Denies abdominal pain, Denies belching and Denies cramping *Musculoskeletal Musculoskeletal: Reports back pain Psychiatric Psychiatric: Denies homicidal ideation and Denies suicidal ideation Pulmonology Exam Inpatient Vital signs and Labs for Last 24 Hours: Temp Pulse Resp BP Pulse Ox O2 Del Method O2 Flow Rate 98.2 F 90 18 112/63 90 L Nasal Cannula 3 09/03/23 07:59 09/03/23 08:00 09/03/23 07:59 09/03/23 07:59 09/03/23 07:59 09/03/23 09:08 09/03/23 07:59 FiO2 28 09/02/23 18:48 Laboratory Results - last 24 hr 09/03/23 05:34: WBC 9.8, RBC 3.33 L, Hgb 9.5 L, Hct 30.8 L, MCV 92.4, MCH 28.6, MCHC 30.9 L, RDW 15.1, Plt Count 404, MPV 8.1, Neut % (Auto) 84.6 H, Lymph % (Auto) 9.8 L, [place] % (Auto) 3.9, Eos % (Auto) 1.5, Baso % (Auto) 0.1, Neut # (Auto) 8.3 H, Lymph # (Auto) 1.0, [place] # (Auto) 0.4, Eos # (Auto) 0.2, Baso # (Auto) 0.0, Sodium 134 L, Potassium 3.7, Chloride 106, Carbon Dioxide 25, Anion Gap 6.7, BUN 28 H, Creatinine 0.80, Estimated Creat Clear 47, Estimated GFR 69, Est GFR ( Amer) 83, Glucose 108 H D, Calcium 8.5, Magnesium 1.9, Total Bilirubin 0.5, AST 49 H, ALT 41, Alkaline Phosphatase 156 H, Total Protein 6.1 L , Albumin 2.8 L, Globulin 3.3 H, Albumin/Globulin Ratio 0.8 L I & O for Labs for Last 24 Hours: Intake & Output 08/31/23 09/01/23 09/02/23 09/03/23 23:59 23:59 23:59 23:59 Intake Total 150 / 150 993 / 993 100 / 100 290 / 290 Output Total 200 / 200 0 / 0 0 / 0 Balance 150 / 150 793 / 793 100 / 100 290 / 290 Weight 140 lb 145 lb 6 oz 145 lb 6 oz 147 lb 5 oz Constitutional: Present moderate distress Head: Present normocephalic and atraumatic ENT: Present normal exam, normal oropharynx and mucous membranes moist Neck: Present normal inspection and full ROM Respiratory: Present respiratory distress, rhonchi, diminished air movement and able to speak in complete sentences; Absent wheezes Cardiac: Present S1/S2, Tachycardia and radial pulses present GI: Present soft and distention; Absent tenderness or guarding Rectal (female): Present deferred (female): Present deferred Skin: Present intact; Absent cyanosis or jaundice Neuro: Present alert and awake Extremities: Present normal inspection; Absent clubbing or cyanosis Psychiatric: Present normal affect and cooperative Meds Home Medications and Allergies Home Medications Medication Instructions Recorded Confirmed Type amantadine HCl 100 mg capsule 100 mg PO 0800,1200 Parkinson's 03/21/23 09/01/23 History disease atorvastatin 40 mg tablet 40 mg PO HS High Cholesterol 03/21/23 09/01/23 History lisinopril 5 mg tablet 5 mg PO DAILY High Blood Pressure 03/21/23 09/01/23 History rivaroxaban 15 mg tablet (Xarelto) 15 mg PO DAILY Blood Thinner/Afib 03/21/23 09/01/23 History gabapentin 600 mg tablet 600 mg PO BID Neuropathy #60 tabs 03/30/23 09/01/23 Rx acetaminophen 500 mg tablet 500 mg PO Q4HP PRN Mild Pain 06/18/23 09/01/23 History (Scale Score 1-4) lactulose 10 gram/15 mL oral 20 g PO DAILYP PRN Constipation 06/18/23 09/01/23 History solution quetiapine 25 mg tablet 25 mg PO BID 06/18/23 09/01/23 History trazodone 50 mg tablet 25 mg PO HS 06/18/23 08/31/23 History amiodarone 200 mg tablet 200 mg PO DAILY Heart Rate 08/31/23 09/01/23 History levetiracetam 750 mg tablet 750 mg PO BID 08/31/23 09/01/23 History (Keppra) loperamide 2 mg capsule 2 mg PO QIDP PRN Diarrhea 08/31/23 09/01/23 History metoprolol tartrate 75 mg tablet 75 mg PO BID 08/31/23 09/01/23 History promethazine 12.5 mg tablet 12.5 mg PO Q4HP PRN nausea/vomiting 08/31/23 09/01/23 History sennosides 8.6 mg tablet (Senokot) 8.6 mg PO DAILYP PRN Constipation 08/31/23 09/01/23 History sertraline 150 mg capsule 150 mg PO DAILY 08/31/23 08/31/23 History New Prescriptions to Start Prescriptions: Allergies Allergy/AdvReac Type Severity Reaction Status Date / Time Penicillins Allergy Hives Verified 01/12/24 15:50 Results Laboratory Findings 09/03/23 05:34 09/03/23 05:34 PT/INR, D-dimer PT 13.1 seconds (10.1-12.5) H 08/31/23 17:58 INR 1.23 (0.9-1.1) H 08/31/23 17:58 Abnormal lab findings: Abnormal Labs 08/31/23 08/31/23 09/01/23 17:58 18:50 08:50 RBC 3.61 L 3.16 L Hgb 10.5 L 9.5 L Hct 33.5 L 30.0 L MCHC 31.3 L 31.5 L Neut % (Auto) 85.5 H Lymph % (Auto) 8.9 L Neut # (Auto) 7.9 H Neutrophils % (Manual) 89 H Lymphocytes % (Manual) 7 L PT 13.1 H INR 1.23 H Sodium Chloride 109 H BUN 39 H 32 H Creatinine 1.40 H 1.10 H D Estimated GFR 36 L 48 L Est GFR ( Amer) 44 L 58 L D Glucose 114 H 110 H AST 74 H 44 H D Alkaline Phosphatase 151 H 152 H NT-Pro-B Natriuret Pep 1710 H Total Protein 6.2 L Albumin 3.2 L 2.8 L D Globulin 3.6 H 3.4 H Albumin/Globulin Ratio 0.9 L 0.8 L Urine Bilirubin 1+ A 09/02/23 09/02/23 09/03/23 07:17 08:50 05:34 RBC 3.14 L 3.33 L Hgb 9.6 L 9.5 L Hct 29.8 L 30.8 L MCHC 30.9 L Neut % (Auto) 81.6 H 84.6 H Lymph % (Auto) 9.8 L Neut # (Auto) 8.3 H Neutrophils % (Manual) Lymphocytes % (Manual) PT INR Sodium 134 L 134 L Chloride 108 H BUN 29 H 28 H Creatinine Estimated GFR Est GFR ( Amer) Glucose 150 H D 108 H D AST 48 H 49 H Alkaline Phosphatase 159 H 156 H NT-Pro-B Natriuret Pep Total Protein 6.1 L Albumin 2.9 L 2.8 L Globulin 3.4 H 3.3 H Albumin/Globulin Ratio 0.9 L 0.8 L Urine Bilirubin Assessment and Plan *Assessment and plan (1) Acute respiratory failure with hypoxia: Status: Acute Category: Medical Code(s): J96.01 - Acute respiratory failure with hypoxia (2) Pneumonia: Status: Acute Qualifiers: Pneumonia type: due to unspecified organism Laterality: unspecified lat erality Lung location: unspecified part of lung Qualified Code(s): J18.9 - Pneumonia, unspecified organism Category: Medical Code(s): J18.9 - Pneumonia, unspecified organism Plan Ms. 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 Patient on admission along with evaluation for possible stroke was initiated levofloxacin for possible aspiration pneumonia. Febrile upon admission. Mild neutrophilic leukocytosis. ABG upon admission 40% FiO2 did not change in the hypoxic and hypercarbic respiratory failure. Respiratory alkalosis noted. Chest x-ray upon admission concerning for bilateral extensive patchy airspace disease along with nodular component of the left upper lobe. Chest x-ray from this and personally reviewed, worsening right airspace disease. Improving left lower lobe airspace disease per left upper lobe remained stable. No Microbiology results available for review. Plan: Recommend change antibiotics to cefepime pending nasal MRSA PCR and sputum culture results DuoNebs every 6 hours on scheduled basis Continue oxygen supplementation to maintain O2 saturation goal of 90% above, increased to 5 L this morning as patient only saturating 87% on 3 L nasal cannula. Will follow the echocardiogram report and response to diuretics. # Thank you for involving pulmonary in this patient care. Will continue to follow.
--- NOTE | 2023-09-03 10:11 | HMH.OTEV ---
OT Inpatient Evaluation Rehab OT IP Evaluation Start: 09/01/23 03:49 Freq: ONCE Status: Active Protocol: [facility]03[facility]23 10[facility] (Rec: 09/03/23 10:11 [facility] [id number]) Rehab OT IP Assessment Subjective History Patient is an 83-year-old female skilled nursing resident admitted to [facility] 08/31/23. PMHx with prior left MCA stroke with residual right-sided deficits and aphasia, Dementia , HTN, HLD, brought in by EMS after skilled nursing staff was concerning for possible acute stroke. Patient poor historian. Data collected from ED report. EMS and nursing staff. 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 On arrival stroke alert was called. Later on, patient's son stated that patient had been found to have an oxygen saturation of 84% in the skilled nursing so was brought to the emergency department for evaluation for hypoxia. He also noted that she had been weaker and quieter than usual for the past few days. Unclear baseline, however, appears to be close to her baseline. No focal neuro deficit. Patient follows command. Denies any others symptoms. Admitted for treatment and management. Patient reports that she was previous non-ambulatory and requires assistance with all ADL's. Subjective Leave. Pt very frustrated upon entering. She attempts to talk to therapist but has significant difficulty with word finding only increasing frustration. Max verbal cues for encouragement required to engage in evaluation. Objective Patient Orientation Person Right Upper Extremity Gross ROM Min Limitation <25% Left Upper Extremity Gross ROM Min Limitation <25% Shoulder ROM Limitations Muscle Weakness Elbow ROM Limitations Muscle Weakness Wrist Limitations of Range of Motion Muscle Weakness Bed Mobility bed mobility-scooting,bed mobility - supine/sit Assist Level Moderate x 1 (50% assist) Rehab OT IP prob,goals,plan Problems Date of Evaluation: 09/03/23 OT IP Problems Bed Mobility,Transfers,Balance ,Self care,Safety Rehab Potential Rehab Potential Fair Equipment Needs Assistive Devices Rolling / Wheeled Walker Plan OT intervention Plan Bed Mobility,Transfers,Balance ,Self care,Safety,Therapeutic Exercise OT Plan Frequency Daily Duration LOS Discharge Goals Bed Mobility Ability Assistance x1 Sit to Stand Chair Transfer Ability Minimal x 1 (25% assist) Chair Transfer Ability Moderate x 1 (50% assist) Chair Transfer Technique Stand Step Pivot Chair Transfer Assistive Devices Rolling Walker Feeding Ability Assist with Tray Set Up Lower Body Dressing Ability Moderate Assistance Upper Body Dressing Ability Minimal Assistance Bathing Ability Moderate Assistance Performing Toilet Hygiene Ability Moderate Assistance Overall Commode/Toilet Transfer Ability Moderate Assistance Commode/Toilet Transfer Technique Sit to/from Ambulatory Commode/Toilet Transfer Assistive Grab Bars Devices Oral Care Assist Contact Guard Decrease in Endurance Yes Discharge Plan OT Discharge Plan Pt will continue to be seen for OT services while at [facility]. Pt would benefit from skilled therapy at [facility]. Continued skilled therapy is important in order for patient to improve strength, safety, endurance, ADL independence, and functional transfers to reach PLOF. Eval Complexity Eval Charge Codes 21914 - Moderate Complexity PHYSICIAN CERTIFICATION: I certify the specified therapy services for Latesha Morales are required, authorized, and reviewed every 30 days.
--- NOTE | 2023-09-03 10:15 | CA_ITS ---
APPROVED REPORT EXAM: Comprehensive 2D, Doppler, and color-flow Echocardiogram Land Clearer: Colleen Mathews RDCS Ht: 5 ft 6 in Wt: 147lbs BSA: 1.75 BP: 112/63 mmHg Indications: CHF CAD CVA AF M-Mode Dimensions RVDd 2.94 cm (0.9-2.6) LA Diam 2.97 cm (1.9-4.0) LVDd 4.81 cm (3.5-5.7) LVDs 3.96 cm (3.5-5.7) IVSd 0.79 cm (0.6-1.1) PWd 0.61 cm (0.6-1.1) EF (Teich) 36.80% FS 17.70% EDV (Teich) 108.00 mL ESV (Teich) 68.30 mL LV Diastology E Decel Time 253 (160-240 msec) E/A Ratio 3.8 Mitral Valve MV E Max Toby. 73.0 (40-130 cm/s) MV A Velocity 19.0 (40-130 cm/s) E/A Ratio 3.78 MV PHT 74.0 ms Tricuspid Valve TR P. Velocity 350.00 cm/s RAP Estimate 10.00 mmHg RVSP 58.90 mmHg Left Ventricle The left ventricle is normal size. The left ventricular systolic function is normal. The left ventricular ejection fraction is within the normal range. There is increased LV wall thickness. There is normal LV segmental wall motion. Systolic function is indeterminate due to atrial fibrillation. LVEF is 55%. Right Ventricle The right ventricle is severely dilated. Right ventricle is mildly hypokinetic. Atria The left atrium is moderately dilated. Right atrium is severely dilated. There is no Doppler evidence of interatrial shunt. Aortic Valve The aortic valve is mildly thickened. There is no aortic valvular stenosis. Mild aortic regurgitation. Mitral Valve The mitral valve leaflets are mildly thickened. No evidence of mitral valve stenosis. Mild mitral regurgitation. Tricuspid Valve The tricuspid valve leaflets are thin and pliable. Moderate tricuspid regurgitation. RVSP is 40-45 mmHg. Pulmonic Valve The pulmonary valve is normal in structure. Trace pulmonic regurgitation. Great Vessels The aortic root is normal in size. The ascending aorta is not well-visualized. IVC is normal in size and collapses >50% with inspiration. Pericardium There is no pericardial effusion. Other Information Study Quality: Technically Difficult Conclusion Technically difficult study due to poor acoustic windows. Normal LV systolic function. Severe RV dilation with mild reduction in RV function. Biatrial dilation. Of note, the patient Mild AI. Mild MR. Moderate TR. Elevated RVSP 40-45 mmHg. Of note, the patient was in atrial fibrillation during the acquisition of the study images. Electronically signed by : Tessa Samuels MD 09/04/2023 22:54:29
[2023-09-03] MEDS: BUMETANIDE 1MG/4ML VIAL 1 MG IV (10:43)
[2023-09-03] MEDS: SODIUM CHLORIDE 3% 15ML NEB 3 ML IH (11:38)
[2023-09-03] MEDS: IPRATROPIUM/ALBUTEROL 3 ML NEB IH ×2 (11:38→18:56)
--- NOTE | 2023-09-03 13:28 | P.PN_ITS ---
Subjective *Date: 09/03/23 *Time: 13:41 Interval history: Patient stable this morning, on 3 L oxygen. No nausea or vomiting. Needing help with eating, not eating very much due to displeasure with food, not from inability. Taking medications fine. No fever overnight. Pulmonology evalua ting patient today. Labs continue to show improvement. Repeat chest x-ray obtained this morning, somewhat worsening airspace disease Medical Exam Vital signs and Labs for Last 24 Hours: Vital Signs Temp Pulse Pulse Resp BP BP Pulse Ox 09/03/23 12:38 09/03/23 12:00 97.8 F 95 H 22 116/66 88 L 09/03/23 11:40 77 18 09/03/23 11:40 80 09/03/23 11:40 77 09/03/23 11:40 93 L 09/03/23 11:00 09/03/23 08:00 09/03/23 09:00 09/03/23 09:08 09/03/23 08:00 90 09/03/23 07:59 98.2 F 106 H 18 112/63 90 L 09/03/23 06:51 09/03/23 04:00 100 H 09/03/23 05:00 09/03/23 04:00 98.1 F 71 18 127/73 91 L 09/03/23 03:00 09/03/23 00:00 80 09/02/23 20:00 100 H 09/03/23 00:56 09/03/23 00:00 97.2 F L 76 22 114/63 92 L 09/02/23 23:00 09/02/23 21:00 09/02/23 20:00 09/02/23 20:00 97.5 F L 106 H 16 114/67 91 L 09/02/23 18:48 09/02/23 18:46 09/02/23 17:06 09/02/23 16:00 90 09/02/23 16:00 97.4 F L 93 H 20 117/66 90 L 09/02/23 15:05 O2 Del Method O2 Flow Rate FiO2 09/03/23 12:38 Nasal Cannula 3 09/03/23 12:00 Nasal Cannula 09/03/23 11:40 09/03/23 11:40 09/03/23 11:40 09/03/23 11:40 Nasal Cannula 4 09/03/23 11:00 Nasal Cannula 3 09/03/23 08:00 Nasal Cannula 3 09/03/23 09:00 Nasal Cannula 3 09/03/23 09:08 Nasal Cannula 09/03/23 08:00 09/03/23 07:59 Nasal Cannula 3 09/03/23 06:51 Nasal Cannula 3 09/03/23 04:00 09/03/23 05:00 Nasal Cannula 3 09/03/23 04:00 Nasal Cannula 3 09/03/23 03:00 Nasal Cannula 3 09/03/23 00:00 09/02/23 20:00 09/03/23 00:56 Nasal Cannula 3 09/03/23 00:00 Nasal Cannula 3 09/02/23 23:00 Nasal Cannula 3 09/02/23 21:00 Nasal Cannula 3 09/02/23 20:00 Nasal Cannula 3 09/02/23 20:00 Nasal Cannula 3 09/02/23 18:48 Nasal Cannula 2 28 09/02/23 18:46 Nasal Cannula 3 09/02/23 17:06 Nasal Cannula 3 09/02/23 16:00 09/02/23 16:00 Nasal Cannula 3 09/02/23 15:05 Nasal Cannula 2 Intake and Output 09/02/23 09/03/23 09/03/23 23:59 07:59 15:59 Intake Total 0 / 100 290 / 540 250 / 540 Output Total 0 / 0 0 / 0 0 / 0 Balance 0 / 100 290 / 540 250 / 540 Intake: Intake, Oral Amount 0 / 100 140 / 390 250 / 390 Intake, Total IV Amount 150 / 150 Levofloxacin/D5w 750 mg/150 ml 150 / 150 750 mg In 150 ml @ 100 mls/hr IV Q24H [facility] Rx#:[id number] Output: Output, Urine Amount 0 / 0 0 / 0 0 / 0 Other: Number of Unmeasured Voids 1 1 1 Number of Bowel Movements 0 Weight 66.82 kg 66.82 kg Patient Weight 09/03/23 23:59 Weight 66.82 kg Laboratory Results - last 24 hr 09/03/23 05:34: WBC 9.8, RBC 3.33 L, Hgb 9.5 L, Hct 30.8 L, MCV 92.4, MCH 28.6, MCHC 30.9 L, RDW 15.1, Plt Count 404, MPV 8.1, Neut % (Auto) 84.6 H, Lymph % (Au to) 9.8 L, [place] % (Auto) 3.9, Eos % (Auto) 1.5, Baso % (Auto) 0.1, Neut # (Auto) 8.3 H, Lymph # (Auto) 1.0, [place] # (Auto) 0.4, Eos # (Auto) 0.2, Baso # (Auto) 0.0, Sodium 134 L, Potassium 3.7, Chloride 106, Carbon Dioxide 25, Anion Gap 6.7, BUN 28 H, Creatinine 0.80, Estimated Creat Clear 47, Estimated GFR 69, Est GFR ( Amer) 83, Glucose 108 H D, Calcium 8.5, Magnesium 1.9, Total Bilirubin 0.5, AST 49 H, ALT 41, Alkaline Phosphatase 156 H, Total Protein 6.1 L , Albumin 2.8 L, Globulin 3.3 H, Albumin/Globulin Ratio 0.8 L I & O for Labs for Last 24 Hours: Intake & Output 08/31/23 09/01/23 09/02/23 09/03/23 23:59 23:59 23:59 23:59 Intake Total 150 / 150 993 / 993 100 / 100 540 / 540 Output Total 200 / 200 0 / 0 0 / 0 Balance 150 / 150 793 / 793 100 / 100 540 / 540 Weight 63.503 kg 65.941 kg 65.941 kg 66.82 kg Constitutional: Present no acute distress, average body habitus, chronically ill appearing and cooperative Head: Present atraumatic and normocephalic ENT: Present normal exam Neck: Present normal inspection Respiratory: Present crackles (Bilateral today) and normal respiratory effort; Absent rhonchi or wheezes Cardiac: Present Irregularly Regular GI: Present soft and normal bowel sounds; Absent distention or tenderness Extremities: Present normal inspection and full ROM Skin: Present intact; Absent erythema Neuro: Present Grossly Intact, alert, awake and moves all extremities (Does have spontaneous movement and moves both feet equally.) Comment:: Inability to assess orientation due to dysarthria. Appears to have right-sided deficits and right upper extremity. Assessment and Plan *Assessment and plan (1) Pneumonia: Status: Acute Qualifiers: Laterality: unspecified laterality Lung location: unspecified part of lung Pneumonia type: due to unspecified organism Qualified Code(s): J18.9 - Pneumonia, unspecified organism Category: Medical Code(s): J18.9 - Pneumonia, unspecified organism (2) Encephalopathy: Status: Acute Category: Medical Code(s): G93.40 - Encephalopathy, unspecified (3) Acute kidney injury: Status: Acute Category: Medical Code(s): N17.9 - Acute kidney failure, unspecified (4) Afib: Status: Acute Category: Medical Code(s): I48.91 - Unspecified atrial fibrillation (5) CVA (cerebral vascular accident): Status: Acute Qualifiers: CVA mechanism: embolism Laterality of affected vessel: left Precerebral and cerebral artery: middle cerebral artery Qualified Code(s): I63.412 - Cerebral infarction due to embolism of left middle cerebral artery Category: Medical Code(s): I63.9 - Cerebral infarction, unspecified (6) HTN (hypertension), benign: Status: Acute Category: Medical Code(s): I10 - Essential (primary) hypertension (7) Unspecified dementia, unspecified severity, without behavioral disturbance, psychotic disturbance, mood disturbance, and anxiety: Status: Acute Qualifiers: Dementia severity: unspecified severity Dementia type: unspecified type Qualified Code(s): F03.90 - Unspecified dementia, unspecified severity, without behavioral disturbance, psychotic disturbance, mood disturbance, and anxiety Category: Medical Code(s): F03.90 - Unspecified dementia, unspecified severity, without behavioral di sturbance, psychotic disturbance, mood disturbance, and anxiety (8) CHF (congestive heart failure): Status: Acute Qualifiers: Heart failure type: unspecified Category: Medical Code(s): I50.9 - Heart failure, unspecified Plan 83-year-old female shelter resident with PMHx with prior left MCA stroke with residual right-sided deficits and aphasia, Dementia, HTN, HLD, brought in by EMS after shelter staff was concerning for possible acute stroke. initial ER stroke work up is negative. Patient on arrival found hypoxic, on 3L NC apparently as a new oxygen requirement. CXR and neck CTA, concerning for air space disease. labs are grossly unremarkable. Findings discussed with ER for admission. In the setting of new oxygen demand and lung opacity, concerned for pneumonia. Patient continues to require admission for treatment of pneumonia. Continuing IV antibiotics. Pulmonology consulted today. Continues to necessitate oxygen. Problems addressed as follows: -Encephalopathy: Unclear baseline. Improved Pneumonia with hypoxia Continue supplemental oxygen for goal saturation greater than 90%. Currently on 3 L. Speech therapy evaluated, patient within functional limits. Chest x-ray concerning for extensive bilateral patchy airspace disease. Broaden antibiotics with levofloxacin and addition of cefepime. Discussed case with pulmonology, recommend broadening antibiotics as previously stated. Awaiting cultures. Will trial diuresis x 1 for volume component of her crackles today Elevated BNP on admission -Given elevated BNP of 1700, will diurese x 1 since kidney function is normalized. Bumex 1 mg daily. Potassium 3.7, replace orally with 40 mEq daily. Creatinine 0.8, BUN 28. Close monitoring with diuresis. CBC, CMP, magnesium ordered for the morning. -NORMA: likely prerenal , secondary to dehydration: Creatinine 1.4 on admission, 0.8 this morning. Daily diuresis as above Hypertension Atrial fibrillation Hyperlipidemia -Improvement in pressure and rate control. Continue metoprolol tartrate 75 mg twice daily, continue lisinopril 5 mg daily, Xarelto 15 mg daily, amiodarone 200 mg daily, Lipitor 40 mg nightly History of unspecified dementia: History of seizure disorder History of CVA with right-sided deficits and aphasia History of Parkinson's disease -CT of head and neck ruled out acute stroke, unsure of patient's baseline. Will reach out to family and shelter to evaluate baseline. -Speech eval pending. Tolerating p.o. meds without coughing or choking however. -Continue home amantadine 100 mg twice daily, can home Keppra 750 mg p.o. bid -PT OT and speech consulted to evaluate patient History of depression/anxiety as result of CVA - continue Seroquel 25 mg twice daily, continue trazodone 25 mg nightly, continue Zoloft 150 g daily Neuropathy: Continue gabapentin decrease dose to 400 mg twice daily due to concern for sedation Full code Xarelto Mechanical diet
[2023-09-03] MEDS: CEFEPIME HCL 2 GM in 0.9 % SODIUM CHLORIDE 100 ML IV ×2 (13:59→22:39)
--- NOTE | 2023-09-03 14:00 | DIET.NUTRFU ---
meal intake has been poor, refusing most meals until today ate 15% at breakfast and a few bites plus more than 1/2 of the ensure for lunch. Will add supplement on breakfast tray also. Based on meal intake, wt loss of 3kg in the past 4month and BMI of 23 her MNA is 9 which puts her at risk for malnutrition
--- NOTE | 2023-09-03 14:18 | PC.NURSE ---
PT IS RESTING IN BED. ALERT TO SELF ONLY. OTHER THAN SIMPLE YES OR NO ANSWERS PT'S SPEECH IS VERY RAMBLED. PT WILL FOLLOW SIMPLE COMMANDS. LUNG SOUNDS DIMINISHED WITH BILATERAL CRACKLES. ABDOMEN SOFT/NON TENDER WITH ACTIVE BOWEL SOUNDS. PT HAS BEEN GETTING UP WITH 1 ASSIST TO THE BSC. MILD SWELLING NOTED TO BLE. WILL CONTINUE TO MONITOR.
[2023-09-03] MEDS: RIVAROXABAN 15MG TABLET 15 MG PO (16:36)
[2023-09-03] MEDS: ACETAMINOPHEN 325MG TAB 650 MG PO (17:35)
[2023-09-03] MEDS: ONDANSETRON 4MG/2ML VIAL 4 MG IV (18:17)
[2023-09-03] MEDS: POLYETHYLENE GLYCOL 3350 17 GM PACKET PO (18:30)
[2023-09-03] MEDS: TRAZODONE 50MG TABLET 25 MG PO (21:26)
[2023-09-03] MEDS: ATORVASTATIN 40MG TABLET 40 MG PO (21:44)
[2023-09-04] VITALS (16 sets, daily range): BP systolic 87–108; BP diastolic 44–70; PULSE 60–115; RESP 17–26; TEMP 36.4–37.2; O2SAT 88–95; BMI 23.6
[2023-09-04] MEDS: IPRATROPIUM/ALBUTEROL 3 ML NEB IH ×5 (00:22→23:23)
[2023-09-04 07:16] LABS: Basophils % 0.1 % (0.1-2.0); Eosinophils # 0.2 K/mm3 (0.0-0.4); Eosinophils % 1.5 % (0.1-12.0); Hematocrit 31.1 % (37.0-47.0); Hemoglobin 9.7 g/dL (12.2-16.2); Lymphocytes # 0.7 K/mm3 (0.7-4.5); Lymphocytes % 7.6 % (10-50); Mean Corpuscular HGB Conc 31.1 g/dL (31.8-35.4); Mean Corpuscular Hemoglobin 29.3 pg (27.0-31.2); Mean Platelet Volume 7.9 fl (7.4-10.4); Monocytes # 0.4 K/mm3 (0.1-1.0); Monocytes % 4.4 % (1.7-9.3); Neutrophils # 8.5 K/mm3 (1.8-7.8); Neutrophils % 86.3 % (37.0-80.0); Platelet Count 370 K/mm3 (142-424); Red Blood Count 3.31 M/mm3 (4.20-5.40); Red Cell Distribution Width 15.1 % (11.5-17.5); White Blood Count 9.8 K/mm3 (4.8-10.8)
[2023-09-04 07:20] LABS: MANUAL DIFFERENTIAL MANUAL DIFFERENTIAL (MANUAL DIFF)
[2023-09-04 07:29] LABS: Chloride 108 mmol/L (98-107); Potassium 4.7 mmoL/L (3.5-5.1); Sodium 136 mmol/L (136-145)
[2023-09-04 07:31] LABS: Blood Urea Nitrogen 29 mg/dl (7-17); Creatinine Clearance Estimated 47 mL/min (50-200); Estimated Glomerular Filt Rate 53 ml/min (>60); GFR (African American) 64 ML/MIN (>60)
[2023-09-04 07:32] LABS: Alanine Aminotransferase 45 U/L (12-78); Albumin Level 2.7 g/dl (3.5-5.0); Albumin/Globulin Ratio 0.8 (1.1-1.8); Alkaline Phosphatase 153 U/L (38-126); Anion Gap 5.7 mEq/L (5-15); Aspartate Amino Transferase 54 U/L (14-36); Bilirubin,Total 0.4 mg/dl (0.2-1.3); Calcium 8.3 mg/dl (8.4-10.2); Carbon Dioxide 27 mmol/L (22.0-30.0); Globulin 3.4 g/dL (1.3-3.2); Glucose 119 mg/dl (74-100); Total Protein,Serum 6.1 g/dl (6.3-8.2)
[2023-09-04] MEDS: AMIODARONE 200MG TABLET 200 MG PO (08:00)
[2023-09-04] MEDS: GABAPENTIN 400MG CAPSULE 400 MG PO (08:00)
[2023-09-04] MEDS: QUETIAPINE 25MG TABLET 25 MG PO (08:00)
[2023-09-04] MEDS: DOCUSATE SODIUM 100 MG CAPSULE PO (08:00)
[2023-09-04] MEDS: PANTOPRAZOLE 40MG TABLET 40 MG PO (08:00)
[2023-09-04] MEDS: AMANTADINE 100MG CAPSULE 100 MG PO ×2 (08:00→10:49)
[2023-09-04] MEDS: SERTRALINE 100MG TABLET 150 MG PO (08:01)
[2023-09-04] MEDS: METOPROLOL TARTRATE 50MG TABLET 75 MG PO ×2 (08:01→20:10)
[2023-09-04] MEDS: levETIRAcetam 500 MG TABLET 750 MG PO ×2 (08:02→20:10)
[2023-09-04] MEDS: POTASSIUM CHLORIDE 20MEQ TAB 40 MEQ PO ×2 (08:02→20:10)
[2023-09-04] MEDS: BUMETANIDE 1MG/4ML VIAL 1 MG IV (08:07)
[2023-09-04 08:25] LABS: Eosinophils % 1 % (0-3); Lymphocytes % 11 % (10-50); Monocytes % 4 % (2-9); Neutrophils % 84 % (42-76); Platelet Estimate Normal; RBC Morphology Normal; Total Cells Counted 100
--- NOTE | 2023-09-04 09:12 | XR_ITS ---
FINAL REPORT CLINICAL HISTORY: PNA COMPARISON: 09/03/2023 FINDINGS: A portable view of the chest was obtained. Cardiac and mediastinal silhouettes are within normal limits. There is no significant change in the right greater than left bilateral opacities, favor pneumonia. There is no pleural effusion or pneumothorax. IMPRESSION: No significant change in the right greater than left bilateral opacities, favor pneumonia. Reviewed, Interpreted and Dictated by Jennifer Day MD Transcribed by Laurel Esparza Authenticated and [facility]
[2023-09-04] MEDS: ACETAMINOPHEN 325MG TAB 650 MG PO (09:56)
[2023-09-04] MEDS: CEFEPIME HCL 2 GM in 0.9 % SODIUM CHLORIDE 100 ML IV ×2 (09:56→22:09)
--- NOTE | 2023-09-04 10:54 | P.PN_ITS ---
Subjective *Date: 09/04/23 *Time: 10:54 Interval history: No acute respiratory events overnight. Stable oxygen requirements. No significant improvement. Pulmonology Exam Inpatient Vital signs and Labs for Last 24 Hours: Temp Pulse Resp BP Pulse Ox O2 Del Method O2 Flow Rate 98.7 F 115 H 24 108/58 L 92 L Nasal Cannula 5 09/04/23 07:38 09/04/23 08:00 09/04/23 07:38 09/04/23 07:38 09/04/23 08:00 09/04/23 08:11 09/04/23 08:11 FiO2 28 09/02/23 18:48 Laboratory Results - last 24 hr 09/04/23 06:28: WBC 9.8, RBC 3.31 L, Hgb 9.7 L, Hct 31.1 L, MCV 94.0, MCH 29.3, MCHC 31.1 L, RDW 15.1, Plt Count 370, MPV 7.9, Neut % (Auto) 86.3 H, Lymph % (Auto) 7.6 L, [place] % (Auto) 4.4, Eos % (Auto) 1.5, Baso % (Auto) 0.1, Neut # (Auto) 8.5 H, Lymph # (Auto) 0.7, [place] # (Auto) 0.4, Eos # (Auto) 0.2, Baso # (Auto) 0.0, Total Counted 100, Neutrophils % (Manual) 84 H, Lymphocytes % (Manual) 11, Monocytes % (Manual) 4, Eosinophils % (Manual) 1, Platelet Estimate Normal, RBC Morphology Normal, Sodium 136, Potassium 4.7 D, Chloride 108 H, Carbon Dioxide 27, Anion Gap 5.7, BUN 29 H, Creatinine 1.00 D, Estimated Creat Clear 47, Estimated GFR 53 L, Est GFR ( Amer) 64 D, Glucose 119 H, Calcium 8.3 L, Magnesium 2.0, Total Bilirubin 0.4, AST 54 H, ALT 45, Alkaline Phosphatase 153 H, Total Protein 6.1 L, Albumin 2.7 L, Globulin 3.4 H, Albumin/Globulin Ratio 0.8 L I & O for Labs for Last 24 Hours: Intake & Output 09/01/23 09/02/23 09/03/23 09/04/23 23:59 23:59 23:59 23:59 Intake Total 993 / 993 100 / 100 835 / 835 240 / 240 Output Total 200 / 200 0 / 0 0 / 0 0 / 0 Balance 793 / 793 100 / 100 835 / 835 240 / 240 Weight 145 lb 6 oz 145 lb 6 oz 147 lb 5.006 oz 147 lb 5.359 oz Constitutional: Present moderate distress Head: Present normocephalic and atraumatic ENT: Present normal exam, normal oropharynx and mucous membranes moist Neck: Present normal inspection and full ROM Respiratory: Present respiratory distress, rhonchi and able to speak in complete sentences; Absent wheezes or crackles Cardiac: Present S1/S2, Tachycardia and radial pulses present GI: Present soft and distention; Absent tenderness or guarding Rectal (female): Present deferred (female): Present deferred Skin: Present intact; Absent cyanosis or jaundice Neuro: Present alert and awake Extremities: Present normal inspection; Absent clubbing or cyanosis Psychiatric: Present normal affect and cooperative Assessment and Plan *Assessment and plan (1) Acute respiratory failure with hypoxia: Status: Acute Category: Medical Code(s): J96.01 - Acute respiratory failure with hypoxia (2) Pneumonia: Status: Acute Qualifiers: Pneumonia type: due to unspecified organism Laterality: unspecified la terality Lung location: unspecified part of lung Qualified Code(s): J18.9 - Pneumonia, unspecified organism Category: Medical Code(s): J18.9 - Pneumonia, unspecified organism Plan Ms. 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 Patient on admission along with evaluation for possible stroke was initiated levofloxacin for possible aspiration pneumonia. Febrile upon admission. Mild neutrophilic leukocytosis. ABG upon admission 40% FiO2 did not change in the hypoxic and hypercarbic respiratory failure. Respiratory alkalosis noted. Chest x-ray upon admission concerning for bilateral extensive patchy airspace disease along with nodular component of the left upper lobe. Chest x-ray from this and personally reviewed, worsening right airspace disease. Improving left lower lobe airspace disease per left upper lobe remained stable. Interval update: Antibiotics were escalated to cefepime yesterday. No significant improvement in oxygen requirements status post diuresis. This morning on 4 L saturating 87%, increased to 5 L. Plan: Continue cefepime pending nasal MRSA PCR and sputum culture results DuoNebs every 6 hours on scheduled basis Continue oxygen supplementation to maintain O2 saturation goal of 90% above, increased to 5 L this morning as patient only saturating 87% on 3 L nasal cannula. Will follow the echocardiogram report # Thank you for involving pulmonary in this patient care. Will continue to follow.
--- NOTE | 2023-09-04 11:14 | P.PN_ITS ---
Subjective *Date: 09/04/23 *Time: 11:18 Interval history: seen at bedside, appears weak and frail. Sitting in chair, mentions her breathing is not better, Denied CP, N/V Abdominal pain Exam Data for Last 24 hours Vital signs and Labs for Last 24 Hours: Temp Pulse Resp BP Pulse Ox O2 Del Method O2 Flow Rate 98.7 F 80 24 108/58 L 92 L Nasal Cannula 5 09/04/23 07:38 09/04/23 11:00 09/04/23 07:38 09/04/23 07:38 09/04/23 08:00 09/04/23 08:11 09/04/23 08:11 FiO2 28 09/02/23 18:48 Laboratory Results - last 24 hr 09/04/23 06:28: WBC 9.8, RBC 3.31 L, Hgb 9.7 L, Hct 31.1 L, MCV 94.0, MCH 29.3, MCHC 31.1 L, RDW 15.1, Plt Count 370, MPV 7.9, Neut % (Auto) 86.3 H, Lymph % (Auto) 7.6 L, [place] % (Auto) 4.4, Eos % (Auto) 1.5, Baso % (Auto) 0.1, Neut # (Auto) 8.5 H, Lymph # (Auto) 0.7, [place] # (Auto) 0.4, Eos # (Auto) 0.2, Baso # (Auto) 0.0, Total Counted 100, Neutrophils % (Manual) 84 H, Lymphocytes % (Manual) 11, Monocytes % (Manual) 4, Eosinophils % (Manual) 1, Platelet Estimate Normal, RBC Morphology Normal, Sodium 136, Potassium 4.7 D, Chloride 108 H, Car bon Dioxide 27, Anion Gap 5.7, BUN 29 H, Creatinine 1.00 D, Estimated Creat Clear 47, Estimated GFR 53 L, Est GFR ( Amer) 64 D, Glucose 119 H, Calcium 8.3 L, Magnesium 2.0, Total Bilirubin 0.4, AST 54 H, ALT 45, Alkaline Phosphatase 153 H, Total Protein 6.1 L, Albumin 2.7 L, Globulin 3.4 H, Albumin/Globulin Ratio 0.8 L I & O for Last 24 hours: Intake & Output 09/01/23 09/02/23 09/03/23 09/04/23 23:59 23:59 23:59 23:59 Intake Total 993 / 993 100 / 100 835 / 835 240 / 240 Output Total 200 / 200 0 / 0 0 / 0 0 / 0 Balance 793 / 793 100 / 100 835 / 835 240 / 240 Weight 65.941 kg 65.941 kg 66.82 kg 66.83 kg Constitutional Constitutional: no acute distress *Routine HEENT Exam Head: Present normocephalic Eye: Present EOMI and PERRL ENT: Present mucous membranes moist *Routine Neck Exam Neck: Present supple; Absent lymphadenopathy *Routine Respiratory Exam Respiratory: Present rhonchi and diminished air movement *Routine Cardiovascular Exam Cardiovascular: Present RRR *Routine Abdominal Exam Abdominal: Present soft and normoactive bowel sounds; Absent tenderness *Routine Extremities Exam Extremities: Absent cyanosis, clubbing or edema *Routine Skin Exam Skin: Present warm; Absent rash *Routine Neurological Exam Neurological: Present alert and oriented X3 Assessment and Plan *Assessment and plan (1) Pneumonia: Status: Acute Qualifiers: Laterality: unspecified laterality Lung location: unspecified part of lung Pneumonia type: due to unspecified organism Qualified Code(s): J18.9 - Pneumonia, unspecified organism Category: Medical Code(s): J18.9 - Pneumonia, unspecified organism (2) Encephalopathy: Status: Acute Category: Medical Code(s): G93.40 - Encephalopathy, unspecified (3) Acute kidney injury: Status: Acute Category: Medical Code(s): N17.9 - Acute kidney failure, unspecified (4) Afib: Status: Acute Category: Medical Code(s): I48.91 - Unspecified atrial fibrillation (5) CVA (cerebral vascular accident): Status: Acute Qualifiers: CVA mechanism: embolism Laterality of affected vessel: left Precerebral and cerebral artery: middle cerebral artery Qualified Code(s): I63.412 - Cerebral infarction due to embolism of left middle cerebral artery Category: Medical Code(s): I63.9 - Cerebral infarction, unspecified (6) HTN (hypertension), benign: Status: Acute Category: Medical Code(s): I10 - Essential (primary) hypertension (7) Unspecified dementia, unspecified severity, without behavioral disturbance, psychotic disturbance, mood disturbance, and anxiety: Status: Acute Qualifiers: Dementia severity: unspecified severity Dementia type: unspecified type Qualified Code(s): F03.90 - Unspecified dementia, unspecified severity, without behavioral disturbance, psychotic disturbance, mood disturbance, and anxiety Category: Medical Code(s): F03.90 - Unspecified dementia, unspecified severity, without behavioral disturbance, psychotic disturbance, mood disturbance, and anxiety (8) CHF (congestive heart failure): Status: Acute Qualifiers: Heart failure type: unspecified Category: Medical Code(s): I50.9 - Heart failure, unspecified Plan 83-year-old female care home resident with PMHx with prior left MCA stroke with residual right-sided deficits and aphasia, Dementia, HTN, HLD, brought in by EMS after care home staff was concerning for possible acute stroke. initial ER stroke work up is negative. Patient on arrival found hypoxic, on 3L NC apparently as a new oxygen requirement. CXR and neck CTA, concerning for air space disease. labs are grossly unremarkable. Findings discussed with ER for admission. In the setting of new oxygen demand and lung opacity, concerned for pneumonia. Patient continues to require admission for treatment of pneumonia. Continuing IV antibiotics. Pulmonology consulted today. Continues to necessitate oxygen. Problems addressed as follows: -Encephalopathy: Unclear baseline. Improved - Pneumonia with hypoxia Continue supplemental oxygen for goal saturation greater than 90%. Currently on 4 L. Chest x-ray concerning for extensive bilateral patchy airspace disease. Broaden antibiotics with levofloxacin and addition of cefepime. Discussed case with pulmonology, recommend broadening antibiotics as previously stated. Awaiting cultures. Will trial diuresis x 1 for volume component of her crackles today Echo pending results Elevated BNP on admission status post lasix yesterday, f/u on echo today -NORMA: likely prerenal , secondary to dehydration - improved Hypertension Atrial fibrillation Hyperlipidemia Continue metoprolol tartrate 75 mg twice daily, continue lisinopril 5 mg daily, Xarelto 15 mg daily, amiodarone 200 mg daily, Lipitor 40 mg nightly History of unspecified dementia: History of seizure disorder History of CVA with right-sided deficits and aphasia History of Parkinson's disease -CT of head and neck ruled out acute stroke, unsure of patient's baseline. Will reach out to family and care home to evaluate baseline. -Speech eval pending. Tolerating p.o. meds without coughing or choking however. -Continue home amantadine 100 mg twice daily, can home Keppra 750 mg p.o. bid -PT OT and speech consulted to evaluate patient History of depression/anxiety as result of CVA - continue Seroquel 25 mg twice daily, continue trazodone 25 mg nightly, continue Zoloft 150 g daily Neuropathy: Continue gabapentin decrease dose to 400 mg twice daily due to concern for sedation Full code Xarelto Mechanical diet
--- NOTE | 2023-09-04 14:01 | PC.NURSE ---
. called to see if we could get something for pain that will not low her bp... no answer, will try again.
[2023-09-04] MEDS: TRAMADOL 50MG TABLET 25 MG PO (15:57)
[2023-09-04] MEDS: RIVAROXABAN 15MG TABLET 15 MG PO (15:57)
--- NOTE | 2023-09-04 17:06 | PC.NURSE ---
Pt is alert times one, has had pain twice this shift. Remains on 5L NC, O2 sat >90%. Lung sounds diminished. Has been incontinent this shift. Bed alarm on. Call light in reach.
--- NOTE | 2023-09-04 20:00 | PC.NURSE ---
Patient desat to 82% on 5L NC increased to 6L with no improvement called RT increased to 7L NC increased to 84% changed to Venti 15L 50% increased to 91%.
[2023-09-04] MEDS: LEVOFLOXACIN/D5W 750 MG/150 ML 750 MG/150 ML PIGGYBACK 100 MG IV (20:10)
[2023-09-04] MEDS: ATORVASTATIN 40MG TABLET 40 MG PO (20:11)
[2023-09-05] VITALS (18 sets, daily range): BP systolic 96–147; BP diastolic 39–78; PULSE 77–111; RESP 19–32; TEMP 37–37.7; O2SAT 85–96; BMI 23.2
--- NOTE | 2023-09-05 01:46 | PC.NURSE ---
Patient continues to desat when transfers to [facility] to low 80's high 70's. Patient BP continues to be low and provider has held any sedating medications at this time as patient is being given diuretics also.
[2023-09-05] MEDS: IPRATROPIUM/ALBUTEROL 3 ML NEB IH ×3 (06:16→18:29)
--- NOTE | 2023-09-05 06:41 | PC.NURSE ---
Patient continues to desat very quickly without Venti mask on. Patient has taken it offi multiple times and is unable to tolerate it. Patient BP remains low with an elevated HR; provider continues to hold meds r/t decrease in pressure. Patient has slept very little this past shift.
--- NOTE | 2023-09-05 08:11 | EXP.PHA.PN ---
Subjective *Date: 09/05/23 *Time: 08:11 Medical Exam Vital signs and Labs for Last 24 Hours: Vital Signs Temp Pulse Pulse Resp BP BP Pulse Ox 09/05/23 06:34 09/05/23 06:16 108 H 09/05/23 06:16 110 H 09/05/23 06:16 90 L 09/05/23 05:00 09/05/23 04:00 98.9 F 107 H 24 119/64 92 L 09/05/23 04:00 94 H 09/05/23 03:00 09/05/23 01:00 09/05/23 00:00 100 H 09/04/23 20:00 102 H 09/04/23 23:57 97.6 F 94 H 26 H 103/58 L 90 L 09/04/23 23:23 98 H 09/04/23 23:23 98 H 09/04/23 23:23 92 L 09/04/23 22:58 09/04/23 21:00 09/04/23 20:00 105 H 90 L 09/04/23 20:00 97.7 F 110 H 26 H 91/56 L 88 L 09/04/23 17:38 09/04/23 17:30 75 09/04/23 17:30 75 09/04/23 17:30 91 L 09/04/23 16:37 09/04/23 16:00 87 09/04/23 15:11 98.2 F 68 23 93/64 L 94 L 09/04/23 14:00 09/04/23 12:00 82 09/04/23 13:37 90 91/60 L 09/04/23 13:00 09/04/23 11:00 09/04/23 11:41 77 87/44 L 09/04/23 11:22 98.5 F 91 H 22 90/59 L 91 L 09/04/23 11:00 80 09/04/23 11:00 77 O2 Del Method O2 Flow Rate FiO2 09/05/23 06:34 Venturi Mask 15 09/05/23 06:16 09/05/23 06:16 09/05/23 06:16 Venturi Mask 15 50 09/05/23 05:00 Room Air 09/05/23 04:00 Simple Mask 09/05/23 04:00 09/05/23 03:00 Venturi Mask 15 09/05/23 01:00 Venturi Mask 15 09/05/23 00:00 09/04/23 20:00 09/04/23 23:57 09/04/23 23:23 09/04/23 23:23 09/04/23 23:23 Venturi Mask 15 50 09/04/23 22:58 Venturi Mask 15 09/04/23 21:00 Venturi Mask 15 09/04/23 20:00 Venturi Mask 15 50 09/04/23 20:00 Nasal Cannula 09/04/23 17:38 Nasal Cannula 5 09/04/23 17:30 09/04/23 17:30 09/04/23 17:30 Nasal Cannula 5 09/04/23 16:37 Nasal Cannula 5 09/04/23 16:00 09/04/23 15:11 Nasal Cannula 5 09/04/23 14:00 Nasal Cannula 5 09/04/23 12:00 09/04/23 13:37 09/04/23 13:00 Nasal Cannula 5 09/04/23 11:00 Nasal Cannula 5 09/04/23 11:41 09/04/23 11:22 Nasal Cannula 5 09/04/23 11:00 09/04/23 11:00 Intake and Output 09/04/23 09/05/23 09/05/23 23:59 07:59 15:59 Output Total 200 / 400 Balance -200 / 180 Output: Output, Urine Amount 200 / 400 Other: Weight 65.544 kg Patient Weight 09/05/23 23:59 Weight 65.544 kg Laboratory Results - last 24 hr 09/04/23 06:28: Total Counted 100, Neutrophils % (Manual) 84 H, Lymphocytes % (Manual) 11, Monocytes % (Manual) 4, Eosinophils % (Manual) 1, Platelet Estimate Normal, RBC Morphology Normal I & O for Labs for Last 24 Hours: Intake & Output 09/02/23 09/03/23 09/04/23 09/05/23 23:59 23:59 23:59 23:59 Intake Total 100 / 100 835 / 835 580 / 580 Output Total 0 / 0 0 / 0 400 / 400 Balance 100 / 100 835 / 835 180 / 180 Weight 65.941 kg 66.82 kg 66.83 kg 65.544 kg Microbiology Reports for the Last 24 Hours: Microbiology 09/03/23 11:30 Sputum - Nasotracheal Suction Gram Stain - Final The patient's infection will respond to the chosen ABx?: Yes (SPUTUM CULTURE PENDING, AFEBRILE OVER 24 HRS) Is the patient receiving the right drug, dose, and route?: Yes Could a more targeted ABx be ordered?: No
--- NOTE | 2023-09-05 08:47 | XR_ITS ---
FINAL REPORT CLINICAL HISTORY: SOB, Hypoxia COMPARISON: 09/04/2023 FINDINGS: SINGLE-VIEW CHEST The heart size is stable. The mediastinum is normal. There is interval worsening of bilateral opacities and bilateral effusions, favor worsening pneumonia. There is no pneumothorax. IMPRESSION: Worsening pneumonia. Reviewed, Interpreted and Dictated by Jennifer Day MD Transcribed by Viky Alvarez Authenticated and [facility]
[2023-09-05] MEDS: BUMETANIDE 1MG/4ML VIAL 1 MG IV ×2 (09:45→17:44)
[2023-09-05] MEDS: METOPROLOL TARTRATE 5MG/5ML VIAL 5 MG IV (09:45)
--- NOTE | 2023-09-05 09:53 | EXP.PULM.PN ---
Subjective *Date: 09/05/23 *Time: 11:13 Interval history: Admits worsening respiratory distress and pain. Increasing oxygen requirements. Pulmonology Exam Inpatient Vital signs and Labs for Last 24 Hours: Temp Pulse Resp BP Pulse Ox O2 Del Method O2 Flow Rate 99.9 F H 111 H 22 131/78 96 Non-Rebreather 15 09/05/23 08:00 09/05/23 08:00 09/05/23 08:00 09/05/23 08:00 09/05/23 08:00 09/05/23 08:00 09/05/23 06:34 FiO2 50 09/05/23 06:16 I & O for Labs for Last 24 Hours: Intake & Output 09/02/23 09/03/23 09/04/23 09/05/23 23:59 23:59 23:59 23:59 Intake Total 100 / 100 835 / 835 580 / 580 0 / 0 Output Total 0 / 0 0 / 0 400 / 400 0 / 0 Balance 100 / 100 835 / 835 180 / 180 0 / 0 Weight 145 lb 6 oz 147 lb 5.006 oz 147 lb 5.359 oz 144 lb 8 oz Microbiology Reports for the Last 24 Hours: Microbiology 09/03/23 11:30 Sputum - Nasotracheal Suction Gram Stain - Final Constitutional: Present severe distress Head: Present normocephalic and atraumatic ENT: Present normal exam, normal oropharynx and mucous membranes moist Neck: Present normal inspection and full ROM Respiratory: Present respiratory distress, rhonchi and able to speak in complete sentences; Absent wheezes or crackles Cardiac: Present S1/S2, Tachycardia and radial pulses present GI: Present soft and distention; Absent tenderness or guarding Rectal (female): Present deferred (female): Present deferred Skin: Present intact; Absent cyanosis or jaundice Neuro: Present alert and awake Extremities: Present normal inspection; Absent clubbing or cyanosis Psychiatric: Present normal affect and cooperative Assessment and Plan *Assessment and plan (1) Acute respiratory failure with hypoxia: Status: Acute Category: Medical Code(s): J96.01 - Acute respiratory failure with hypoxia (2) Pneumonia: Status: Acute Qualifiers: Laterality: unspecified laterality Lung location: unspecified part of lung Pneumonia type: due to unspecified organism Qualified Code(s): J18.9 - Pneumonia, unspecified organism Category: Medical Code(s): J18.9 - Pneumonia, unspecified organism Plan Ms. 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 Patient on admission along with evaluation for possible stroke was initiated levofloxacin for possible aspiration pneumonia. Febrile upon admission. Mild neutrophilic leukocytosis. ABG upon admission 40% FiO2 did not change in the hypoxic and hypercarbic respiratory failure. Respiratory alkalosis noted. Chest x-ray upon admission concerning for bilateral extensive patchy airspace disease along with nodular component of the left upper lobe. Chest x-ray from this and personally reviewed, worsening right airspace disease. Improving left lower lobe airspace disease per left upper lobe remained stable. Interval update: Continue to receive cefepime and levofloxacin. Worsening oxygen requirements. Chest x-ray from this morning stable right send worsening left-sided pulmonary infiltrates. Sputum culture gram-positive cocci and rods. Nasal MRSA PCR pending. Echocardiogram EF estimated 55%. Systolic function indeterminate secondary to atrial fibrillation. Continue to receive amiodarone. Mild TR with RVSP at 40-45. Cardiology consulted, following. Continue to receive IV Bumex ABG from this morning on VM 50% reviewed, no evidence of hypercarbic respiratory failure. No evidence of hypoxic respiratory failure with PaO2 of 92.8. pH is 7.36. Lactate within normal limits at 1.58. Patient had a significant desaturation with minimal exertion on Ventimask needing MRM 100% FiO2. Plan: Continue oxygen supplementation to maintain O2 saturation goal of 90 to 90% and above, currently on high flow nasal cannula. Add linezolid and continue cefepime pending nasal MRSA PCR and sputum culture results Follow with CTA PE protocol DuoNebs every 6 hours on scheduled basis Total critical care time spent on this patient is 35 minutes managing acute hypoxic respiratory failure needing HFNCventilation. This time spent include reviewing test results including interpreting chest x-rays, labs and arterial blood gas, optimizing the HFNC settings,formulating plan of care, discussing the plan of care with the team and the nursing staff.
--- NOTE | 2023-09-05 10:08 | P.CONCA_ITS ---
History of Present Illness History of Present Illness Consult date: 09/05/23 Requesting physician: Peg Dang Consult reason: atrial fibrillation Chief complaint: SOA, A. fib with RVr Additional Medical History:: 1. 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 Dementia 3. Hypertension 4. Hyperlipidemia 5. History of atrial fibrillation 6. History of seizure disorder 7. 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 Patient poor historian. Data collected from ED report. EMS and nursing staff. 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 On arrival stroke alert was called. Later on, patient's son stated that patient had been found to have an oxygen saturation of 84% in the custodial so was brought to the emergency department for evaluation for hypoxia. He also noted that she had been weaker and quieter than usual for the past few days. At the time of this interview, patient alert and oriented by person only. Unclear baseline, however, appears to be close to her baseline. No focal neuro deficit. Patient follow command. denied any others symptoms. Admitted for treatment and management. The above per Dr. Arellano's admission H&P. CT of the head and neck ruled out acute stroke. Cardiology consulted for atrial fibrillation with rapid ventricular response. Patient is a poor historian so information is gleaned from the chart. Pulmonary has been consulted for pneumonia with possible aspiration etiology. Patient is on antibiotics and supplemental oxygen. Review of home medications reveals use of amiodarone 200 mg daily and Xarelto 15 mg daily along with metoprolol tartrate 75 mg twice daily which has been continued. [facility] Disclaimer: The information contained in this section may have been updated after the patient was seen, as this information can be updated by other users. 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 Insomnia Laceration of lip Limitation of activities due to disability Other abnormalities of gait and mobility Other chronic pain Pain in unspecified hip Patient new to facility Seizure Unspecified dementia, unspecified severity, without behavioral disturbance, psychotic disturbance, mood disturbance, and anxiety Xerosis cutis Social History Smoking Status: Never smoker alcohol intake: former substance use type: denies use current occupational status: retired Travel in the last 8 weeks: None household members: caregiver housing: custodial lives independently: No Review of Systems Review of Systems Review of systems:: unable to obtain Exam Data for Last 24 hours Vital signs and Labs for Last 24 Hours: Temp Pulse Resp BP Pulse Ox O2 Del Method O2 Flow Rate 99.9 F H 111 H 22 131/78 96 Non-Rebreather 15 09/05/23 08:00 09/05/23 08:00 09/05/23 08:00 09/05/23 08:00 09/05/23 08:00 09/05/23 08:00 09/05/23 06:34 FiO2 50 09/05/23 06:16 I & O for Last 24 hours: Intake & Output 09/02/23 09/03/23 09/04/23 09/05/23 11:59 11:59 11:59 11:59 Intake Total 135 / 135 390 / 390 785 / 785 340 / 340 Output Total 0 / 0 0 / 0 0 / 0 400 / 400 Balance 135 / 135 390 / 390 785 / 785 -60 / -60 Weight 145 lb 6 oz 147 lb 5.006 oz 147 lb 5.359 oz 144 lb 8 oz Microbiology Reports for the Last 24 Hours: Microbiology 09/03/23 11:30 Sputum - Nasotracheal Suction Gram Stain - Final *Routine Respiratory Exam Respiratory: Present rhonchi, crackles and diminished air movement *Routine Cardiovascular Exam Cardiovascular: Present irregularly irregular *Routine Neurological Exam Neurological: Present alert; Absent oriented X3 Meds Home Medications and Allergies Home Medications Medication Instructions Recorded Confirmed Type amantadine HCl 100 mg capsule 100 mg PO 0800,1200 Parkinson's 03/21/23 09/01/23 History disease atorvastatin 40 mg tablet 40 mg PO HS High Cholesterol 03/21/23 09/01/23 History lisinopril 5 mg tablet 5 mg PO DAILY High Blood Pressure 03/21/23 09/01/23 His tory rivaroxaban 15 mg tablet (Xarelto) 15 mg PO DAILY Blood Thinner/Afib 03/21/23 09/01/23 History gabapentin 600 mg tablet 600 mg PO BID Neuropathy #60 tabs 03/30/23 09/01/23 Rx acetaminophen 500 mg tablet 500 mg PO Q4HP PRN Mild Pain 06/18/23 09/01/23 History (Scale Score 1-4) lactulose 10 gram/15 mL oral 20 g PO DAILYP PRN Constipation 06/18/23 09/01/23 History solution quetiapine 25 mg tablet 25 mg PO BID 06/18/23 09/01/23 History trazodone 50 mg tablet 25 mg PO HS 06/18/23 08/31/23 History amiodarone 200 mg tablet 200 mg PO DAILY Heart Rate 08/31/23 09/01/23 History levetiracetam 750 mg tablet 750 mg PO BID 08/31/23 09/01/23 History (Kejeaniera) loperamide 2 mg capsule 2 mg PO QIDP PRN Diarrhea 08/31/23 09/01/23 History metoprolol tartrate 75 mg tablet 75 mg PO BID 08/31/23 09/01/23 History promethazine 12.5 mg tablet 12.5 mg PO Q4HP PRN nausea/vomiting 08/31/23 09/01/23 History sennosides 8.6 mg tablet (Senokot) 8.6 mg PO DAILYP PRN Constipation 08/31/23 09/01/23 History sertraline 150 mg capsule 150 mg PO DAILY 08/31/23 08/31/23 History New Prescriptions to Start Prescriptions: Allergies Allergy/AdvReac Type Severity Reaction Status Date / Time Penicillins Allergy Hives Verified 07/20/23 15:50 Assessment and Plan *Assessment and plan (1) Afib: Status: Acute Qualifiers: Atrial fibrillation type: unspecified Qualified Code(s): I48.91 - Unspecified atrial fibrillation Category: Medical Code(s): I48.91 - Unspecified atrial fibrillation (2) Acute respiratory failure with hypoxia: Status: Acute Category: Medical Code(s): J96.01 - Acute respiratory failure with hypoxia (3) CHF (congestive heart failure): Status: Acute Qualifiers: Heart failure chronicity: acute on chronic Heart failure type: unspecified Qualified Code(s): I50.9 - Heart failure, unspecified Category: Medical Code(s): I50.9 - Heart failure, unspecified (4) Pneumonia: Status: Acute Qualifiers: Laterality: unspecified laterality Lung location: unspecified part of lung Pneumonia type: due to unspecified organism Qualified Code(s): J18.9 - Pneumonia, unspecified organism Category: Medical Code(s): J18.9 - Pneumonia, unspecified organism (5) Unspecified dementia, unspecified severity, without behavioral disturbance, psychotic disturbance, mood disturbance, and anxiety: Status: Acute Qualifiers: Dementia severity: unspecified severity Dementia type: unspecified type Qualified Code(s): F03.90 - Unspecified dementia, unspecified severity, without behavioral disturbance, psychotic disturbance, mood disturbance, and anxiety Category: Medical Code(s): F03.90 - Unspecified dementia, unspecified severity, without behavioral disturbance, psychotic disturbance, mood disturbance, and anxiety (6) Anemia: Status: Acute Qualifiers: Anemia type: unspecified type Qualified Code(s): D64.9 - Anemia, unspecified Category: Medical Code(s): D64.9 - Anemia, unspecified (7) Hyperlipidemia: Status: Acute Qualifiers: Hyperlipidemia type: mixed hyperlipidemia Qualified Code(s): E78.2 - Mixed hyperlipidemia Category: Medical Code(s): E78.5 - Hyperlipidemia, unspecified (8) CVA, old, cognitive deficits: Status: Acute Category: Medical Code(s): I69.319 - Unspecified symptoms and signs involving cognitive functions following cerebral infarction Plan 1. A. fib with RVR -on amiodarone, Xarelto and metoprolol chronically but refusing meds at this time -switch to amiodarone IV with loading dose -use lopressor 5 mg IV d3embda as needed for rate control until taking oral meds -use lovenox 1 mg/kg subcutaneously BID 2. Bilateral pneumonia with resp failure and hypoxia -on cefepime and levofloxacin -Pulmonary following 3. Anemia with hemoglobin in the 9-10 range 4. HFpEF -BNP 1710 with edema/bilateral pneumonia on chest x-ray -Echo, 09/03/2023, EF 55%, severe RVE and mildly reduced RV function. Mild AI/MR, moderate TR, RVSP of 40-45 mmHg -Continue IV Bumex but increase to BID 5. Prior CVA with dementia/encephalopathy with unknown baseline Patient refusing oral meds: Switch oral amio to IV for now Switch Xarelto to lovenox Use PRN metoprolol IV for rate control until pt taking oral meds again
--- NOTE | 2023-09-05 10:19 | ECG_ITS ---
APPROVED REPORT Exam: Resting ECG HR:102 bpm ECG Measurements Heart Rate 102 AXES QRSd 81 QRS 0 QT 327 T 22 QTc 386 Conclusion ATRIAL FIBRILLATION WITH RAPID VENTRICULAR RESPONSE MINIMAL ST DEPRESSION [0.025+ mV ST DEPRESSION] ABNORMAL RHYTHM ECG UNCONFIRMED REPORT Electronically signed by : Miller Mcbride MD 09/06/2023 20:04:22
[2023-09-05 10:21] LABS: ABG Base Excess -5.9 mmol/L (-2.4-2.3); ABG HCO3 19.5 mmhg (22.0-26.0); ABG Oxygen Saturation 97 % (90-100); ABG PCO2 35.1 mmhg (35.0-45.0); ABG PH 7.36 mmol/L (7.35-7.45); ABG PO2 92.8 mmhg (80-100); ABG TCO2 20.6 mmhg (23-27)
[2023-09-05 10:25] LABS: Allen's Test ACCEPTABLE; Oxygen 100 %
[2023-09-05 10:26] LABS: Basophils % 0.1 % (0.1-2.0); Eosinophils # 0.2 K/mm3 (0.0-0.4); Eosinophils % 1.6 % (0.1-12.0); Hematocrit 31.3 % (37.0-47.0); Hemoglobin 10.1 g/dL (12.2-16.2); Lymphocytes # 0.6 K/mm3 (0.7-4.5); Lymphocytes % 5.1 % (10-50); Mean Corpuscular HGB Conc 32.3 g/dL (31.8-35.4); Mean Corpuscular Hemoglobin 30.6 pg (27.0-31.2); Mean Corpuscular Volume 94.6 fl (81-99); Mean Platelet Volume 7.4 fl (7.4-10.4); Monocytes # 0.3 K/mm3 (0.1-1.0); Monocytes % 2.5 % (1.7-9.3); Neutrophils # 11.4 K/mm3 (1.8-7.8); Neutrophils % 90.7 % (37.0-80.0); Platelet Count 368 K/mm3 (142-424); Red Blood Count 3.31 M/mm3 (4.20-5.40); Red Cell Distribution Width 15.2 % (11.5-17.5); White Blood Count 12.6 K/mm3 (4.8-10.8)
[2023-09-05 10:26] LABS: Source Left Radial
[2023-09-05 10:36] LABS: MANUAL DIFFERENTIAL MANUAL DIFFERENTIAL (MANUAL DIFF)
--- NOTE | 2023-09-05 10:40 | DIET.NUTRFU ---
diet was downgraded today, it was discussed during rounds she is having increased problems breathing and had a hard time with breakfast this morning. Diet was changed to help increase intake, easier to consume. Patient also refuses to except help with meals, she will only allow staff to setup tray.She is noted to have BM on 09/[address]. PO intake has been poor, will continue to monitor.
[2023-09-05 10:48] LABS: Chloride 109 mmol/L (98-107); Sodium 136 mmol/L (136-145)
[2023-09-05 10:51] LABS: Blood Urea Nitrogen 28 mg/dl (7-17); Calcium 8.7 mg/dl (8.4-10.2); Carbon Dioxide 22 mmol/L (22.0-30.0); Creatinine Clearance Estimated 46 mL/min (50-200); Estimated Glomerular Filt Rate 53 ml/min (>60); GFR (African American) 64 ML/MIN (>60); Glucose 128 mg/dl (74-100)
--- NOTE | 2023-09-05 10:52 | CT_ITS ---
FINAL REPORT TECHNIQUE: Axial imaging of the chest is obtained after the administration of contrast. 3-D MIP reformatted images were also obtained and reviewed per PE protocol. CLINICAL HISTORY: Hypoxia COMPARISON: 06/14/2023 FINDINGS: The pulmonary arteries are well filled. There is no evidence of pulmonary embolus. There is no aortic dissection or intimal flap. The heart is enlarged. There are small mediastinal nodes present, stable since the prior exam. There are no hilar or axillary lymphadenopathy. There are new patchy bilateral ground glass opacities identified as well as bilateral lower lobe airspace disease. Favor pneumonia, although edema cannot be excluded. There are larger bilateral pleural effusions noted when compared to the prior exam.. A large hiatal hernia is once again noted.. No acute osseous abnormality. IMPRESSION: No evidence of pulmonary embolism or aortic dissection. New patchy bilateral ground glass opacities with bilateral lower lobe airspace disease, favor pneumonia although edema cannot be excluded. Enlarged pleural effusions when compared to the prior exam. Cardiomegaly. Reviewed, Interpreted and Dictated by Jennifer Day MD Transcribed by Laurel Esparza Authenticated and [facility]
[2023-09-05] MEDS: AMIODARONE HCL 150 MG in DEXTROSE 5 % IN WATER 100 ML 600 MG IV (11:00)
[2023-09-05] MEDS: CEFEPIME HCL 2 GM in 0.9 % SODIUM CHLORIDE 100 ML IV ×2 (11:00→22:52)
--- NOTE | 2023-09-05 11:17 | PC.NURSE ---
pt admitted to 216 from 204, pt on vapotherm 30L 80%FIO2, amio bolus given, starting amio drip started at 1mg/min, pt restless and moaning with incoherent, garbled, and repetitive speech, pt alert but does not follow commands, pt shaking/jerking (notified MD Dang and asked if could switch am dose of keppra to IV route as pt unable to swallow pills at this time and pt did not take any am meds), radiology just called this RN and stated needed CT, will transport pt to ct scan per protocol
[2023-09-05] MEDS: AMIODARONE HCL 900 MG in DEXTROSE 5 % IN WATER 500 ML 33.3 MG IV (11:30)
[2023-09-05] MEDS: MORPHINE 2MG/ML SYRINGE 2 MG IV ×2 (11:30→18:40)
--- NOTE | 2023-09-05 11:42 | CT_ITS ---
FINAL REPORT TECHNIQUE: Thin section axial images were obtained from skull base to vertex without contrast. Coronal reconstruction images were obtained from the axial data. Exam was performed using dose reduction technique. CLINICAL HISTORY: AMS COMPARISON: 06/14/2023 FINDINGS: There is no mass effect or midline shift. There is evidence of old left parietal and posterior temporal infarct. There is no intracranial hemorrhage. The soft tissues are without acute abnormality. No acute osseous abnormality is identified. IMPRESSION: No acute hemorrhage or acute large cortical infarct. Evidence of old left-sided infarct. Reviewed, Interpreted and Dictated by Jennifer Day MD Transcribed by Joanna Pereira Authenticated and [facility]
[2023-09-05] MEDS: IOPAMIDOL-370 (76%);100ML BOTTLE 70 ML IV (12:04)
[2023-09-05] MEDS: 0.9 % SODIUM CHLORIDE 50 ML VIAL IV (12:04)
[2023-09-05] MEDS: SODIUM CHLORIDE 0.9% 10ML SYR (RAD ONLY) 10 ML IV (12:04)
[2023-09-05 12:05] LABS: Eosinophils % 1 % (0-3); Hypochromasia 1+; Lymphocytes % 6 % (10-50); Monocytes % 2 % (2-9); Neutrophils % 91 % (42-76); Platelet Estimate Normal; Total Cells Counted 100
[2023-09-05] MEDS: ENOXAPARIN 80MG/0.8ML SYRINGE 65 MG SQ ×2 (12:05→22:20)
[2023-09-05] MEDS: LINEZOLID 600 MG/300 ML IV.SOLN 300 MG IV (12:05)
[2023-09-05] MEDS: levETIRAcetam 750 MG in 0.9 % SODIUM CHLORIDE 100 ML 215 MG IV ×2 (12:05→23:20)
[2023-09-05 12:29] LABS: Adenovirus,PCR Not Detected (NotDetected); Coronavirus 19, PCR Not Detected (NotDetected); Coronavirus 229E Not Detected (NotDetected); Coronavirus NL63 Not Detected (NotDetected); Coronavirus OC43 Not Detected (NotDetected); Coronovirus HKU1,PCR Not Detected (NotDetected); Human Metapneumovirus Not Detected (NotDetected); Influenza A, PCR Not Detected (NotDetected); Influenza AH1, 2009 Not Detected (NotDetected); Influenza AH1, PCR Not Detected (NotDetected); Influenza AH3,PCR Not Detected (NotDetected); Influenza B, PCR Not Detected (NotDetected); Parainfluenza 1, PCR Not Detected (NotDetected); Parainfluenza 2, PCR Not Detected (NotDetected); Parainfluenza 3, PCR Not Detected (NotDetected); Parainfluenza 4, PCR Not Detected (NotDetected); Respiratory Syncytial Virus Not Detected (NotDetected); Rhinovirus/Enterovirus Not Detected (NotDetected)
[2023-09-05 12:46] LABS: C-Reactive Protein 219.3 mg/L (0-4)
[2023-09-05] MEDS: METHYLPREDNISOLONE SOD SUCC 40MG VIAL 40 MG IV (12:57)
--- NOTE | 2023-09-05 13:36 | DIET.NUTRFU ---
only few bites of sherbert today for lunch. She refused anything else. Patient is at increased risk for malnutrition based on poor po intake. Will continue to monitor po intake
--- NOTE | 2023-09-05 16:52 | EXP.PN ---
Subjective *Date: 09/05/23 *Time: 16:52 Interval history: patient is seen at bedside, appears confused, on high flow NC, O2 sats dropped overnight Exam Data for Last 24 hours Vital signs and Labs for Last 24 Hours: Temp Pulse Resp BP Pulse Ox O2 Del Method O2 Flow Rate 98.6 F 77 19 96/60 L 96 Vapotherm 30 09/05/23 15:55 09/05/23 16:00 09/05/23 16:00 09/05/23 16:00 09/05/23 16:00 09/05/23 16:00 09/05/23 16:00 FiO2 80 09/05/23 16:00 Laboratory Results - last 24 hr 09/05/23 08:43: Specimen Source Left radial, O2 % 100, ABG pH 7.36, ABG pCO2 35.1, ABG pO2 92.8, ABG HCO3 19.5 L, ABG Total CO2 20.6 L, ABG O2 Saturation 97, ABG Base Excess -5.9 L, Agustin Test Acceptable 09/05/23 10:11: WBC 12.6 H D, RBC 3.31 L, Hgb 10.1 L, Hct 31.3 L, MCV 94.6, MCH 30.6, MCHC 32.3, RDW 15.2, Plt Count 368, MPV 7.4, Neut % (Auto) 90.7 H, Lymph % (Auto) 5.1 L, [place] % (Auto) 2.5, Eos % (Auto) 1.6, Baso % (Auto) 0.1, Neut # (Auto) 11.4 H, Lymph # (Auto) 0.6 L, [place] # (Auto) 0.3, Eos # (Auto) 0.2, Baso # (Auto) 0.0, Total Counted 100, Neutrophils % (Manual) 91 H, Lymphocytes % (Manual) 6 L, Monocytes % (Manual) 2, Eosinophils % (Manual) 1, Platelet Estimate Normal, Hypochromasia 1+, Sodium 136, Potassium 5.0, Chloride 109 H, Carbon Dioxide 22, Anion Gap 10.0, BUN 28 H, Creatinine 1.00, Estimated Creat Clear 46, Estimated GFR 53 L, Est GFR ( Amer) 64, Glucose 128 H, Calcium 8.7, C-Reactive Protein 219.3 H 09/05/23 12:25: Chlamy pneumoniae PCR TNP, Adenovirus (PCR) Not detected, B. pertussis DNA (PCR) TNP, Coronavirus OC43 (PCR) Not detected, Coronavirus HKU1 (PCR) Not detected, Coronavirus 229E (PCR) Not detected, SARS-CoV-2 (PCR) Not detected, Coronavirus NL63 (PCR) Not detected, Human Metapneumovir PCR Not detected, Influenza A (H1) PCR Not detected, Influ A (H1N1/09) PCR Not detected, Influenza A (H3) PCR Not detected, Influenza Type A (PCR) Not detected, Influenza Type B (PCR) Not detected, M. pneumoniae (PCR) TNP, Parainfluenza 1 (PCR) Not detected, Parainfluenza 2 (PCR) Not detected, Parainfluenza 3 (PCR) Not detected, Parainfluenza 4 (PCR) Not detected, RSV (PCR) Not detected, Entero/Rhino (PCR) Not detected I & O for Last 24 hours: Intake & Output 09/02/23 09/03/23 09/04/23 09/05/23 23:59 23:59 23:59 23:59 Intake Total 100 / 100 835 / 835 580 / 580 390 / 390 Output Total 0 / 0 0 / 0 400 / 400 0 / 0 Balance 100 / 100 835 / 835 180 / 180 390 / 390 Weight 65.941 kg 66.82 kg 66.83 kg 65.544 kg Microbiology Reports for the Last 24 Hours: Microbiology 09/03/23 11:30 Sputum - Nasotracheal Suction Gram Stain - Final Constitutional Constitutional: mild distress Comments: appears confused *Routine HEENT Exam Head: Present normocephalic Eye: Present EOMI and PERRL ENT: Present mucous membranes moist *Routine Neck Exam Neck: Present supple; Absent lymphadenopathy *Routine Respiratory Exam Respiratory: Present rhonchi and diminished air movement *Routine Cardiovascular Exam Cardiovascular: Present RRR *Routine Abdominal Exam Abdominal: Present soft and normoactive bowel sounds; Absent tenderness *Routine Extremities Exam Extremities: Absent cyanosis, clubbing or edema *Routine Skin Exam Skin: Present warm; Absent rash *Routine Neurological Exam Neurological: Present alert Assessment and Plan *Assessment and plan (1) Pneumonia: Status: Acute Qualifiers: Pneumonia type: due to unspecified organism Laterality: unspecified laterality Lung location: unspecified part of lung Qualified Code(s): J18.9 - Pneumonia, unspecified organism Category: Medical Code(s): J18.9 - Pneumonia, unspecified organism (2) Encephalopathy: Status: Acute Category: Medical Code(s): G93.40 - Encephalopathy, unspecified (3) Acute kidney injury: Status: Acute Category: Medical Code(s): N17.9 - Acute kidney failure, unspecified (4) Afib: Status: Acute Qualifiers: Atrial fibrillation type: unspecified Qualified Code(s): I48.91 - Unspecified atrial fibrillation Category: Medical Code(s): I48.91 - Unspecified atrial fibrillation (5) CVA (cerebral vascular accident): Status: Acute Qualifiers: CVA mechanism: embolism Precerebral and cerebral artery: middle cerebral artery Laterality of affected vessel: left Qualified Code(s): I63.412 - Cerebral infarction due to embolism of left middle cerebral artery Category: Medical Code(s): I63.9 - Cerebral infarction, unspecified (6) HTN (hypertension), benign: Status: Acute Category: Medical Code(s): I10 - Essential (primary) hypertension (7) Unspecified dementia, unspecified severity, without behavioral disturbance, psychotic disturbance, mood disturbance, and anxiety: Status: Acute Qualifiers: Dementia type: unspecified type Dementia severity: unspecified severity Qualified Code(s): F03.90 - Unspecified dementia, unspecified severity, without behavioral disturbance, psychotic disturbance, mood disturbance, and anxiety Category: Medical Code(s): F03.90 - Unspecified dementia, unspecified severity, without behavioral disturbance, psychotic disturbance, mood disturbance, and anxiety (8) CHF (congestive heart failure): Status: Acute Qualifiers: Heart failure type: unspecified Heart failure chronicity: acute on chronic Qualified Code(s): I50.9 - Heart failure, unspecified Category: Medical Code(s): I50.9 - Heart failure, unspecified Plan 83-year-old female longterm resident with PMHx with prior left MCA stroke with residual right-sided deficits and aphasia, Dementia, HTN, HLD, brought in by EMS after longterm staff was concerning for possible acute stroke. initial ER stroke work up is negative. Patient on arrival found hypoxic, on 3L NC apparently as a new oxygen requirement. CXR and neck CTA, concerning for air space disease. labs are grossly unremarkable. Findings discussed with ER for admission. In the setting of new oxygen demand and lung opacity, concerned for pneumonia. Patient continues to require admission for treatment of pneumonia. Continuing IV antibiotics. Pulmonology consulted today. Continues to necessitate oxygen. Problems addressed as follows: -Encephalopathy: Unclear baseline. - Pneumonia with hypoxia - worsening currently on venti mask, continue O2 support Chest x-ray concerning for extensive bilateral patchy airspace disease. Broaden antibiotics with levofloxacin and addition of cefepime. Discussed case with pulmonology, recommend broadening antibiotics as previously stated. Awaiting cultures. Echo results - Normal LV systolic function. Severe RV dilation with mild reduction in RV function. Biatrial dilation. Elevated BNP on admission status post lasix yesterday -NORMA: likely prerenal , secondary to dehydration - improved Hypertension Atrial fibrillation with RVR - started on IV amio - Lovenox therpautic dosing Switch PO to IV meds until able to swallow/ patient is refusing to take PO Hyperlipidemia Continue metoprolol tartrate 75 mg twice daily, continue lisinopril 5 mg daily, Xarelto 15 mg daily, amiodarone 200 mg daily, Lipitor 40 mg nightly History of unspecified dementia: History of seizure disorder History of CVA with right-sided deficits and aphasia History of Parkinson's disease -CT of head and neck ruled out acute stroke, unsure of patient's baseline. Will reach out to family and longterm to evaluate baseline. -PT OT and speech consulted to evaluate patient History of depression/anxiety as result of CVA - continue Seroquel 25 mg twice daily, continue trazodone 25 mg nightly, continue Zoloft 150 g daily Neuropathy: Continue gabapentin decrease dose to 400 mg twice daily due to concern for sedation Full code Xarelto Mechanical diet Continue IV abx, moved to ICU for worsening O2 needs
--- NOTE | 2023-09-05 17:44 | PC.NURSE ---
putting amio drip to 0.5mg/min per protocol
[2023-09-05] MEDS: GABAPENTIN 400MG CAPSULE 400 MG PO (22:14)
[2023-09-05] MEDS: TRAZODONE 50MG TABLET 25 MG PO (22:15)
[2023-09-05] MEDS: QUETIAPINE 25MG TABLET 25 MG PO (22:16)
[2023-09-05] MEDS: PANTOPRAZOLE 40MG VIAL 40 MG IV (22:16)
[2023-09-05] MEDS: METOPROLOL TARTRATE 50MG TABLET 75 MG PO (22:16)
[2023-09-05] MEDS: POTASSIUM CHLORIDE 20MEQ TAB 40 MEQ PO (22:17)
[2023-09-05] MEDS: ATORVASTATIN 40MG TABLET 40 MG PO (22:38)
[2023-09-05] MEDS: 0.9 % SODIUM CHLORIDE 500 ML IV (23:45)
[2023-09-06] VITALS (27 sets, daily range): BP systolic 81–135; BP diastolic 40–73; PULSE 65–107; RESP 16–30; TEMP 36.6–37.1; O2SAT 86–100; BMI 23.2
[2023-09-06] MEDS: LINEZOLID 600 MG/300 ML IV.SOLN 300 MG IV ×3 (00:19→22:33)
[2023-09-06] MEDS: MORPHINE 2MG/ML SYRINGE 2 MG IV ×5 (00:44→22:47)
[2023-09-06] MEDS: IPRATROPIUM/ALBUTEROL 3 ML NEB IH ×5 (00:51→23:03)
[2023-09-06] MEDS: NOREPINEPHRINE BITARTRATE/D5W 8 MG/250 ML PLAST..BAG 15 MG IV (02:06)
[2023-09-06] MEDS: BUMETANIDE 1MG/4ML VIAL 1 MG IV ×2 (09:40→15:37)
[2023-09-06] MEDS: DOCUSATE SODIUM 100 MG CAPSULE PO (09:40)
[2023-09-06] MEDS: AMANTADINE 100MG CAPSULE 100 MG PO ×2 (09:40→12:57)
[2023-09-06] MEDS: GABAPENTIN 400MG CAPSULE 400 MG PO (09:41)
[2023-09-06] MEDS: METOPROLOL TARTRATE 50MG TABLET 75 MG PO (09:42)
--- NOTE | 2023-09-06 09:53 | EXP.PULM.PN ---
Subjective *Date: 09/06/23 *Time: 12:17 Interval history: Continued worsening ox requirements. Patient complains of respiratory distress and pain. Pulmonology Exam Inpatient Vital signs and Labs for Last 24 Hours: Temp Pulse Resp BP Pulse Ox O2 Del Method O2 Flow Rate 97.8 F 96 H 16 105/69 L 100 Vapotherm 40 09/06/23 08:00 09/06/23 08:00 09/06/23 08:00 09/06/23 08:00 09/06/23 08:00 09/06/23 08:10 09/06/23 08:10 FiO2 70 09/06/23 08:10 Laboratory Results - last 24 hr 09/05/23 08:43: Specimen Source Left radial, O2 % 100, ABG pH 7.36, ABG pCO2 35.1, ABG pO2 92.8, ABG HCO3 19.5 L, ABG Total CO2 20.6 L, ABG O2 Saturation 97, ABG Base Excess -5.9 L, Agustin Test Acceptable 09/05/23 10:11: WBC 12.6 H D, RBC 3.31 L, Hgb 10.1 L, Hct 31.3 L, MCV 94.6, MCH 30.6, MCHC 32.3, RDW 15.2, Plt Count 368, MPV 7.4, Neut % (Auto) 90.7 H, Lymph % (Auto) 5.1 L, [place] % (Auto) 2.5, Eos % (Auto) 1.6, Baso % (Auto) 0.1, Neut # (Auto) 11.4 H, Lymph # (Auto) 0.6 L, [place] # (Auto) 0.3, Eos # (Auto) 0.2, Baso # (Auto) 0.0, Total Counted 100, Neutrophils % (Manual) 91 H, Lymphocytes % (Manual) 6 L, Monocytes % (Manual) 2, Eosinophils % (Manual) 1, Platelet Estimate Normal, Hypochromasia 1+, Sodium 136, Potassium 5.0, Chloride 109 H, Carbon Dioxide 22, Anion Gap 10.0, BUN 28 H, Creatinine 1.00, Estimated Creat Clear 46, Estimated GFR 53 L, Est GFR ( Amer) 64, Glucose 128 H, Calcium 8.7, C-Reactive Protein 219.3 H 09/05/23 12:25: Chlamy pneumoniae PCR TNP, Adenovirus (PCR) Not detected, B. pertussis DNA (PCR) TNP, Coronavirus OC43 (PCR) Not detected, Coronavirus HKU1 (PCR) Not detected, Coronavirus 229E (PCR) Not detected, SARS-CoV-2 (PCR) Not detected, Coronavirus NL63 (PCR) Not detected, Human Metapneumovir PCR Not detected, Influenza A (H1) PCR Not detected, Influ A (H1N1/09) PCR Not detected, Influenza A (H3) PCR Not detected, Influenza Type A (PCR) Not detected, Influenza Type B (PCR) Not detected, M. pneumoniae (PCR) TNP, Parainfluenza 1 (PCR) Not detected, Parainfluenza 2 (PCR) Not detected, Parainfluenza 3 (PCR) Not detected, Parainfluenza 4 (PCR) Not detected, RSV (PCR) Not detected, Entero/Rhino (PCR) Not detected I & O for Labs for Last 24 Hours: Intake & Output 09/03/23 09/04/23 09/05/23 09/06/23 23:59 23:59 23:59 23:59 Intake Total 835 / 835 580 / 580 570 / 570 1520.25 / 1520.25 Output Total 0 / 0 400 / 400 0 / 0 0 / 0 Balance 835 / 835 180 / 180 570 / 570 1520.25 / 1520.25 Weight 147 lb 5.006 oz 147 lb 5.359 oz 144 lb 8 oz 144 lb 8.384 oz Microbiology Reports for the Last 24 Hours: Microbiology 09/03/23 11:30 Sputum - Nasotracheal Suction Gram Stain - Final 09/03/23 11:30 Sputum - Nasotracheal Suction Sputum Culture - Preliminary 09/03/23 14:05 Nose - Nasal MRSA Culture - Final Constitutional: Present severe distress Head: Present normocephalic and atraumatic ENT: Present normal exam, normal oropharynx and mucous membranes moist Neck: Present normal inspection and full ROM Respiratory: Present respiratory distress and rhonchi; Absent wheezes or able to speak in complete sentences Cardiac: Present S1/S2, Tachycardia and radial pulses present GI: Present soft and distention; Absent tenderness or guarding Rectal (female): Present deferred (female): Present deferred Skin: Present intact; Absent cyanosis or jaundice Neuro: Present alert and awake Extremities: Present normal inspection; Absent clubbing or cyanosis Psychiatric: Present normal affect and cooperative Assessment and Plan *Assessment and plan (1) Acute respiratory failure with hypoxia: Status: Acute Category: Medical Code(s): J96.01 - Acute respiratory failure with hypoxia (2) Pneumonia: Status: Acute Qualifiers: Laterality: unspecified laterality Lung location: unspecified part of lung Pneumonia type: due to unspecified organism Qualified Code(s): J18.9 - Pneumonia, unspecified organism Category: Medical Code(s): J18.9 - Pneumonia, unspecified organism Plan Ms. 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 Patient on admission along with evaluation for possible stroke was initiated levofloxacin for possible aspiration pneumonia. Febrile upon admission. Mild neutrophilic leukocytosis. ABG upon admission 40% FiO2 did not change in the hypoxic and hypercarbic respiratory failure. Respiratory alkalosis noted. Chest x-ray upon admission concerning for bilateral extensive patchy airspace disease along with nodular component of the left upper lobe. Chest x-ray from this and personally reviewed, worsening right airspace disease. Improving left lower lobe airspace disease per left upper lobe remained stable. Interval update: Continue to receive linezolid and cefepime pending culture results CTA no evidence of pulmonary embolism. Bilateral diffuse groundglass opacities. Cardiology following increased Bumex to twice daily. Comprehensive respiratory viral PCR panel negative. Nasal MRSA PCR negative. Sputum cultures finalized normal respiratory victorino Plan: Aspiration precautions Continue oxygen supplementation to maintain O2 saturation goal of 90 to 90% and above, currently on high flow nasal cannula 40L, 100%. Will escalate to CPAP therapy if continued to have desaturations on high flow nasal cannula. Continue linezolid and cefepime pending clinical improvement. Add azithromycin. Follow urine strep and Legionella antigen DuoNebs every 6 hours on scheduled basis Total critical care time spent on this patient is 35 minutes managing acute hypoxic respiratory failure needing HFNCventilation. This time spent include reviewing test results including interpreting chest x-rays, labs optimizing the HFNC settings,formulating plan of care, discussing the plan of care with the team and the nursing staff.
[2023-09-06] MEDS: METHYLPREDNISOLONE SOD SUCC 40MG VIAL 40 MG IV (10:33)
[2023-09-06] MEDS: AZITHROMYCIN 500 MG in 0.9 % SODIUM CHLORIDE 250 ML 250 MG IV (10:33)
[2023-09-06] MEDS: ENOXAPARIN 80MG/0.8ML SYRINGE 65 MG SQ ×2 (10:34→21:39)
--- NOTE | 2023-09-06 10:35 | EXP.CARD.PN ---
Subjective Subjective Date: 09/06/23 Time: 10:35 Interval history: 83 yo WF in bed. Awake but not really responding to questions. On norepi gtt due to low BP after taking metoprolol this AM. At low dose with BP 105 systolic, weaning off. Still on high flow oxygen with sat at 100% IV amiodarone Tele a. fib with rate around 100 bpm Reportedly taking oral meds now Exam Data for Last 24 hours Vital signs and Labs for Last 24 Hours: Temp Pulse Resp BP Pulse Ox O2 Del Method O2 Flow Rate 97.8 F 96 H 16 105/69 L 100 Vapotherm 30 09/06/23 08:00 09/06/23 08:00 09/06/23 08:00 09/06/23 08:00 09/06/23 08:00 09/06/23 09:00 09/06/23 09:00 FiO2 70 09/06/23 08:10 Laboratory Results - last 24 hr 09/05/23 10:11: WBC 12.6 H D, RBC 3.31 L, Hgb 10.1 L, Hct 31.3 L, MCV 94.6, MCH 30.6, MCHC 32.3, RDW 15.2, Plt Count 368, MPV 7.4, Neut % (Auto) 90.7 H, Lymph % (Auto) 5.1 L, [place] % (Auto) 2.5, Eos % (Auto) 1.6, Baso % (Auto) 0.1, Neut # (Auto) 11.4 H, Lymph # (Auto) 0.6 L, [place] # (Auto) 0.3, Eos # (Auto) 0.2, Baso # (Auto) 0.0, Total Counted 100, Neutrophils % (Manual) 91 H, Lymphocytes % (Manual) 6 L, Monocytes % (Manual) 2, Eosinophils % (Manual) 1, Platelet Estimate Normal, Hypochromasia 1+, Sodium 136, Potassium 5.0, Chloride 109 H, Carbon Dioxide 22, Anion Gap 10.0, BUN 28 H, Creatinine 1.00, Estimated Creat Clear 46, Estimated GFR 53 L, Est GFR ( Amer) 64, Glucose 128 H, Calcium 8.7, C-Reactive Protein 219.3 H 09/05/23 12:25: Chlamy pneumoniae PCR TNP, Adenovirus (PCR) Not detected, B. pertussis DNA (PCR) TNP, Coronavirus OC43 (PCR) Not detected, Coronavirus HKU1 (PCR) Not detected, Coronavirus 229E (PCR) Not detected, SARS-CoV-2 (PCR) Not detected, Coronavirus NL63 (PCR) Not detected, Human Metapneumovir PCR Not detected, Influenza A (H1) PCR Not detected, Influ A (H1N1/09) PCR Not detected, Influenza A (H3) PCR Not detected, Influenza Type A (PCR) Not detected, Influenza Type B (PCR) Not detected, M. pneumoniae (PCR) TNP, Parainfluenza 1 (PCR) Not detected, Parainfluenza 2 (PCR) Not detected, Parainfluenza 3 (PCR) Not detected, Parainfluenza 4 (PCR) Not detected, RSV (PCR) Not detected, Entero/Rhino (PCR) Not detected I & O for Last 24 hours: Intake & Output 09/03/23 09/04/23 09/05/23 09/06/23 11:59 11:59 11:59 11:59 Intake Total 390 / 390 785 / 785 340 / 340 2090.25 / 0.25 Output Total 0 / 0 0 / 0 400 / 400 0 / 0 Balance 390 / 390 785 / 785 -60 / -60 2089.25 / 2089.25 Weight 147 lb 5.006 oz 147 lb 5.359 oz 144 lb 8 oz 144 lb 8.384 oz Microbiology Reports for the Last 24 Hours: Microbiology 09/03/23 11:30 Sputum - Nasotracheal Suction Gram Stain - Final 09/03/23 11:30 Sputum - Nasotracheal Suction Sputum Culture - Preliminary 09/03/23 14:05 Nose - Nasal MRSA Culture - Final *Routine Respiratory Exam Respiratory: Present decreased breath sounds, rhonchi and diminished air movement *Routine Cardiovascular Exam Cardiovascular: Present irregularly irregular Progress Note: A&P Assessment and plan (1) Acute respiratory failure with hypoxia: Status: Acute (2) Pneumonia: Status: Acute (3) Afib: Status: Acute (4) Acute on chronic heart failure with preserved ejection fraction (HFpEF): Status: Acute Assessment and Plan Assessment and Plan for All Diagnoses:: 1. A. fib with RVR -on amiodarone, Xarelto and metoprolol chronically -stop amiodarone gtt once completed and resume oral amiodarone at increased dose of 400 mg BID for one week then 400 mg daily. If she fails to convert then consider discontinue amiodarone and opt for rate control in light of pulmonary issues. -resume metoprolol 75 mg BID and use lopressor 5 mg IV [id number] as needed for rate control -use lovenox 1 mg/kg subcutaneously BID while inpatient and switch back to Xarelto at discharge 2. Bilateral pneumonia with resp failure and hypoxia -on cefepime and levofloxacin -Pulmonary following 3. Anemia -hemoglobin in the 9-10 range 4. HFpEF -BNP 1710 with edema/bilateral pneumonia on chest x-ray -Echo, 09/03/2023, EF 55%, severe RVE and mildly reduced RV function. Mild AI/MR, moderate TR, RVSP of 40-45 mmHg -Continue IV Bumex but increase to BID 5. Prior CVA with dementia/encephalopathy with unknown baseline -Head CT this admission shows no acute process. Old infarct noted on left side 6. Hypotension last night -received IVF and norepi gtt (now weaning off)
--- NOTE | 2023-09-06 11:05 | PC.NURSE ---
RESP CARE NOTE: Pt vapotherm 40L/100% per Dr Ramirez.
--- NOTE | 2023-09-06 11:07 | DIET.NUTRFU ---
during rounds, RD expressed concern for poor po intake. Nursing only noted ice cream yesterday and sherbert last night. INTEGRITY MANAGER report patient is not participating in cognitive exercising She also has not had BM since 09/01 possibly d/t poor po intake. She is also having trouble some days taking oral meds-colace in place. According to provider her pulmonary status is worse.
[2023-09-06] MEDS: CEFEPIME HCL 2 GM in 0.9 % SODIUM CHLORIDE 100 ML IV ×2 (11:44→22:33)
[2023-09-06] MEDS: levETIRAcetam 750 MG in 0.9 % SODIUM CHLORIDE 100 ML 215 MG IV ×2 (12:48→23:14)
[2023-09-06] MEDS: AMIODARONE 200MG TABLET 400 MG PO (12:57)
--- NOTE | 2023-09-06 15:16 | PC.NURSE ---
Pt resting better. She is off amiodarone gtt. PO amio administered with applesauce. Levophed is currently on standby. BP currently 100/57. F/C placed this AM for urinary retention after bladder scan of 560 ml. Midline placed this PM. Some blood noted to DSG site. Notified Syeda Dixon of increased bleeding to IV sites. Labs drawn from midline. Awaiting on results.
[2023-09-06 15:29] LABS: Basophils % 0.1 % (0.1-2.0); Eosinophils # 0.1 K/mm3 (0.0-0.4); Eosinophils % 0.6 % (0.1-12.0); Hematocrit 31.2 % (37.0-47.0); Hemoglobin 9.4 g/dL (12.2-16.2); Lymphocytes # 0.7 K/mm3 (0.7-4.5); Lymphocytes % 4.2 % (10-50); Mean Corpuscular HGB Conc 30.3 g/dL (31.8-35.4); Mean Corpuscular Hemoglobin 28.8 pg (27.0-31.2); Mean Corpuscular Volume 95.1 fl (81-99); Monocytes # 0.2 K/mm3 (0.1-1.0); Monocytes % 1.5 % (1.7-9.3); Neutrophils # 15.3 K/mm3 (1.8-7.8); Neutrophils % 93.6 % (37.0-80.0); Platelet Count 371 K/mm3 (142-424); Red Blood Count 3.28 M/mm3 (4.20-5.40); Red Cell Distribution Width 15.3 % (11.5-17.5); White Blood Count 16.3 K/mm3 (4.8-10.8)
[2023-09-06 15:39] LABS: Chloride 108 mmol/L (98-107); Sodium 135 mmol/L (136-145)
[2023-09-06 15:40] LABS: Potassium 5.1 mmoL/L (3.5-5.1)
[2023-09-06 15:42] LABS: Blood Urea Nitrogen 32 mg/dl (7-17); Creatinine Clearance Estimated 38 mL/min (50-200); Estimated Glomerular Filt Rate 43 ml/min (>60); GFR (African American) 52 ML/MIN (>60)
[2023-09-06 15:43] LABS: Anion Gap 8.1 mEq/L (5-15); Calcium 8.4 mg/dl (8.4-10.2); Carbon Dioxide 24 mmol/L (22.0-30.0); Glucose 170 mg/dl (74-100)
[2023-09-06 15:52] LABS: MANUAL DIFFERENTIAL MANUAL DIFFERENTIAL (MANUAL DIFF)
--- NOTE | 2023-09-06 16:46 | EXP.PN ---
Subjective *Date: 09/06/23 *Time: 16:46 Interval history: patient is seen at bedside, appears confused, on vapotherm, is having respiratory distress Exam Data for Last 24 hours Vital signs and Labs for Last 24 Hours: Temp Pulse Resp BP Pulse Ox O2 Del Method O2 Flow Rate 98.0 F 83 24 109/49 L 98 Vapotherm 40 09/06/23 15:43 09/06/23 14:00 09/06/23 14:00 09/06/23 14:00 09/06/23 14:00 09/06/23 15:43 09/06/23 15:43 FiO2 90 09/06/23 15:43 Laboratory Results - last 24 hr 09/06/23 15:10: WBC 16.3 H D, RBC 3.28 L, Hgb 9.4 L, Hct 31.2 L, MCV 95.1, MCH 28.8, MCHC 30.3 L, RDW 15.3, Plt Count 371, MPV 8.0, Neut % (Auto) 93.6 H, Lymph % (Auto) 4.2 L, [place] % (Auto) 1.5 L, Eos % (Auto) 0.6, Baso % (Auto) 0.1, Neut # (Auto) 15.3 H, Lymph # (Auto) 0.7, [place] # (Auto) 0.2, Eos # (Auto) 0.1, Baso # (Auto) 0.0, Sodium 135 L, Potassium 5.1, Chloride 108 H, Carbon Dioxide 24, Anion Gap 8.1, BUN 32 H, Creatinine 1.20 H, Estimated Creat Clear 38, Estimated GFR 43 L, Est GFR ( Amer) 52 L, Glucose 170 H, Calcium 8.4 I & O for Last 24 hours: Intake & Output 09/03/23 09/04/23 09/05/23 09/06/23 23:59 23:59 23:59 23:59 Intake Total 835 / 835 580 / 580 570 / 570 2303.25 / 2303.25 Output Total 0 / 0 400 / 400 0 / 0 100 / 100 Balance 835 / 835 180 / 180 570 / 570 2203.25 / 2203.25 Weight 66.82 kg 66.83 kg 65.544 kg 65.555 kg Microbiology Reports for the Last 24 Hours: Microbiology 09/03/23 11:30 Sputum - Nasotracheal Suction Gram Stain - Final 09/03/23 11:30 Sputum - Nasotracheal Suction Sputum Culture - Preliminary 09/03/23 14:05 Nose - Nasal MRSA Culture - Final Constitutional Constitutional: no acute distress *Routine HEENT Exam Head: Present normocephalic Eye: Present EOMI and PERRL ENT: Present mucous membranes moist *Routine Neck Exam Neck: Present supple; Absent lymphadenopathy *Routine Respiratory Exam Respiratory: Present CTA bilaterally *Routine Cardiovascular Exam Cardiovascular: Present RRR *Routine Abdominal Exam Abdominal: Present soft and normoactive bowel sounds; Absent tenderness *Routine Extremities Exam Extremities: Absent cyanosis, clubbing or edema *Routine Skin Exam Skin: Present warm; Absent rash *Routine Neurological Exam Neurological: Present alert and oriented X3 Assessment and Plan *Assessment and plan (1) Pneumonia: Status: Acute Qualifiers: Pneumonia type: due to unspecified organism Laterality: unspecified laterality Lung location: unspecified part of lung Qualified Code(s): J18.9 - Pneumonia, unspecified organism Category: Medical Code(s): J18.9 - Pneumonia, unspecified organism (2) Encephalopathy: Status: Acute Category: Medical Code(s): G93.40 - Encephalopathy, unspecified (3) Acute kidney injury: Status: Acute Category: Medical Code(s): N17.9 - Acute kidney failure, unspecified (4) Afib: Status: Acute Qualifiers: Atrial fibrillation type: unspecified Qualified Code(s): I48.91 - Unspecified atrial fibrillation Category: Medical Code(s): I48.91 - Unspecified atrial fibrillation (5) CVA (cerebral vascular accident): Status: Acute Qualifiers: CVA mechanism: embolism Precerebral and cerebral artery: middle cerebral artery Laterality of affected vessel: left Qualified Code(s): I63.412 - Cerebral infarction due to embolism of left middle cerebral artery Category: Medical Code(s): I63.9 - Cerebral infarction, unspecified (6) HTN (hypertension), benign: Status: Acute Category: Medical Code(s): I10 - Essential (primary) hypertension (7) Unspecified dementia, unspecified severity, without behavioral disturbance, psychotic disturbance, mood disturbance, and anxiety: Status: Acute Qualifiers: Dementia type: unspecified type Dementia severity: unspecified severity Qualified Code(s): F03.90 - Unspecified dementia, unspecified severity, without behavioral disturbance, psychotic disturbance, mood disturbance, and anxiety Category: Medical Code(s): F03.90 - Unspecified dementia, unspecified severity, without behavioral disturbance, psychotic disturbance, mood disturbance, and anxiety (8) CHF (congestive heart failure): Status: Acute Qualifiers: Heart failure type: unspecified Heart failure chronicity: acute on chronic Qualified Code(s): I50.9 - Heart failure, unspecified Category: Medical Code(s): I50.9 - Heart failure, unspecified Plan 83-year-old female long-term resident with PMHx with 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 initial ER stroke work up is negative. Patient on arrival found hypoxic, on 3L NC apparently as a new oxygen requirement. CXR and neck CTA, concerning for air space disease. labs are grossly unremarkable. Findings discussed with ER for admission. In the setting of new oxygen demand and lung opacity, concerned for pneumonia. Patient continues to require admission for treatment of pneumonia. Continuing IV antibiotics. Pulmonology consulted today. Continues to necessitate oxygen. Problems addressed as follows: -Encephalopathy: Unclear baseline. - Pneumonia with hypoxia - worsening currently on vaportherm, continue O2 support Chest x-ray concerning for extensive bilateral patchy airspace disease. on Azithromycin and cefepime Echo results - Normal LV systolic function. Severe RV dilation with mild reduction in RV function. Biatrial dilation. Of note, the patient Mild AI. Mild MR. Moderate TR. Elevated RVSP 40-45 mmHg. EF 55% Normal LV systolic function. Severe RV dilation with mild reduction in RV function. Biatrial dilation. Elevated BNP on admission status post lasix yesterday -NORMA: likely prerenal , secondary to dehydration - improved Hypertension Atrial fibrillation with RVR - started on IV amio - Lovenox therpautic dosing Switch PO to IV meds until able to swallow/ patient is refusing to take PO start on PO amiodarone Hyperlipidemia Continue metoprolol tartrate 75 mg twice daily, continue lisinopril 5 mg daily, Xarelto 15 mg daily, amiodarone 200 mg daily, Lipitor 40 mg nightly History of unspecified dementia: History of seizure disorder History of CVA with right-sided deficits and aphasia History of Parkinson's disease -CT of head and neck ruled out acute stroke, unsure of patient's baseline. Will reach out to family and long-term to evaluate baseline. -PT OT and speech consulted to evaluate patient History of depression/anxiety as result of CVA - continue Seroquel 25 mg twice daily, continue trazodone 25 mg nightly, continue Zoloft 150 g daily Neuropathy: Continue gabapentin decrease dose to 400 mg twice daily due to concern for sedation Full code Xarelto Mechanical diet Continue IV abx, continue on vapotherm, gaurded prognosis
[2023-09-06 17:10] LABS: Anisocytosis 1+; Hypochromasia 2+; Lymphocytes % 8 % (10-50); Monocytes % 2 % (2-9); Neutrophils % 90 % (42-76); Platelet Estimate Normal; Total Cells Counted 100
[2023-09-06] MEDS: PANTOPRAZOLE 40MG VIAL 40 MG IV (20:53)
--- NOTE | 2023-09-06 21:45 | PC.NURSE ---
PT COOPERATIVE ON ASSESSMENT, AGREEABLE TO TAKE PO MEDICATIONS. MEDS WERE OPENED AND ATTEMPTED TO ADMINISTER TO PT IN PUDDING. PT BECAME VERY TEARFUL AND GUARDED. PT REFUSING TO TAKE MEDS OR SIP OF WATER. YELLING GO AWAY AND GET OUT TO STAFF. PT WAS GIVEN TIME TO COOL DOWN. MULTIPLE RNS ATTEMPTED TO ADMINISTER AND ENCOURAGE PT TO TAKE MEDS. PT CONTINUES TO REFUSE AT THIS TIME. Sofia ZAVALA MADE AWARE PT IS NOT TAKING HS MEDS INCLUDING AMIODARONE AND METOPROLOL. MILITARY EDUCATION COORDINATOR STATES TO GIVE PRN IV METOPROLOL IF HR >110. NO OTHER NEW ORDERS AT THIS TIME.
[2023-09-07] VITALS (34 sets, daily range): BP systolic 81–139; BP diastolic 30–72; PULSE 69–112; RESP 14–26; TEMP 36.1–37.4; O2SAT 90–95; BMI 23.2
[2023-09-07] MEDS: 0.9 % SODIUM CHLORIDE 500 ML IV (01:46)
--- NOTE | 2023-09-07 01:51 | PC.NURSE ---
0137 PT BP 85/37 0142 NOTIFIED E ZAVALA OF CURRENT BP AND PT URINE OUTPUT IS 10ML/HR THIS LAST HOUR. PIN MACHINE TENDER STATES HE WILL ORDER 500ML NS BOLUS BEFORE RESTARTING LEVOPHED GTT.
--- NOTE | 2023-09-07 02:50 | PC.NURSE ---
LEVO GTT RESTARTED @ 2MCG/MIN - BP 89/31 AFTER 500ML BOLUS
[2023-09-07] MEDS: MORPHINE 2MG/ML SYRINGE 2 MG IV ×5 (04:27→19:58)
[2023-09-07] MEDS: IPRATROPIUM/ALBUTEROL 3 ML NEB IH ×4 (06:24→23:15)
--- NOTE | 2023-09-07 06:24 | XR_ITS ---
PROCEDURE INFORMATION: Exam: XR Chest Exam date and time: 09/07/2023 5:58 AM Age: 83 years old Clinical indication: Shortness of breath; Additional info: SOB TECHNIQUE: Imaging protocol: Radiologic exam of the chest. Views: 1 view. COMPARISON: CT ANGIO CHEST PE PROTOCOL 09/05/2023 11:42 AM FINDINGS: Limitations: Multiple EKG leads are superimposed on the chest. Tubes, catheters and devices: Right midline catheter is seen reaching the axilla. Lungs: Bilateral pulmonary infiltrates continuewith ground-glass pattern on CT persisting since at least 09/03/2023. The possibility of COVID or other atypical pathogen is raised. Pleural spaces: There are no pleural effusions present. Heart/Mediastinum: Unremarkable. No cardiomegaly. Bones/joints: There is severe degenerative change of the shoulders bilaterally. IMPRESSION: 1. Bilateral pulmonary infiltrates continuewith ground-glass pattern on CT persisting since at least 09/03/2023. The possibility of COVID or other atypical pathogen is raised. 2. There are no pleural effusions present.
[2023-09-07 07:09] LABS: Basophils % 0.2 % (0.1-2.0); Eosinophils # 0.2 K/mm3 (0.0-0.4); Eosinophils % 1.2 % (0.1-12.0); Hemoglobin 9.5 g/dL (12.2-16.2); Lymphocytes # 1.5 K/mm3 (0.7-4.5); Lymphocytes % 9.4 % (10-50); Mean Corpuscular HGB Conc 29.6 g/dL (31.8-35.4); Mean Corpuscular Hemoglobin 28.6 pg (27.0-31.2); Mean Corpuscular Volume 96.4 fl (81-99); Mean Platelet Volume 7.7 fl (7.4-10.4); Monocytes # 0.3 K/mm3 (0.1-1.0); Monocytes % 1.9 % (1.7-9.3); Neutrophils # 14.3 K/mm3 (1.8-7.8); Neutrophils % 87.3 % (37.0-80.0); Platelet Count 411 K/mm3 (142-424); Red Blood Count 3.32 M/mm3 (4.20-5.40); Red Cell Distribution Width 15.7 % (11.5-17.5); White Blood Count 16.4 K/mm3 (4.8-10.8)
[2023-09-07 07:11] LABS: MANUAL DIFFERENTIAL MANUAL DIFFERENTIAL (MANUAL DIFF)
[2023-09-07 07:18] LABS: Anion Gap 9.1 mEq/L (5-15); Blood Urea Nitrogen 34 mg/dl (7-17); Calcium 8.5 mg/dl (8.4-10.2); Carbon Dioxide 23 mmol/L (22.0-30.0); Chloride 109 mmol/L (98-107); Creatinine Clearance Estimated 42 mL/min (50-200); Estimated Glomerular Filt Rate 48 ml/min (>60); GFR (African American) 58 ML/MIN (>60); Glucose 108 mg/dl (74-100); Potassium 4.1 mmoL/L (3.5-5.1); Sodium 137 mmol/L (136-145)
[2023-09-07 07:41] LABS: Lymphocytes % 8 % (10-50); Monocytes % 3 % (2-9); Neutrophils % 89 % (42-76); Total Cells Counted 100
[2023-09-07 07:42] LABS: Anisocytosis 1+; Hypochromasia 1+; Platelet Estimate Slight Increase
[2023-09-07] MEDS: AMIODARONE 200MG TABLET 400 MG PO ×2 (08:32→20:03)
[2023-09-07] MEDS: AMANTADINE 100MG CAPSULE 100 MG PO (08:32)
[2023-09-07] MEDS: BUMETANIDE 1MG/4ML VIAL 1 MG IV (08:32)
[2023-09-07] MEDS: ENOXAPARIN 80MG/0.8ML SYRINGE 65 MG SQ ×2 (08:33→20:04)
[2023-09-07] MEDS: METOPROLOL TARTRATE 50MG TABLET 75 MG PO ×2 (08:33→20:03)
[2023-09-07] MEDS: GABAPENTIN 400MG CAPSULE 400 MG PO ×2 (08:33→20:03)
[2023-09-07] MEDS: DOCUSATE SODIUM 100 MG CAPSULE PO (08:33)
[2023-09-07] MEDS: METHYLPREDNISOLONE SOD SUCC 40MG VIAL 40 MG IV (08:33)
[2023-09-07] MEDS: POTASSIUM CHLORIDE 20MEQ TAB 40 MEQ PO (08:34)
--- NOTE | 2023-09-07 09:57 | P.PN_ITS ---
Subjective *Date: 09/07/23 *Time: 12:18 Interval history: No acute respiratory events overnight. Pulmonology Exam Inpatient Vital signs and Labs for Last 24 Hours: Temp Pulse Resp BP Pulse Ox O2 Del Method O2 Flow Rate 97.6 F 81 22 100/39 L 94 L Vapotherm 40 09/07/23 08:12 09/07/23 08:00 09/07/23 08:00 09/07/23 08:00 09/07/23 08:00 09/07/23 09:00 09/07/23 09:00 FiO2 65 09/07/23 08:00 Laboratory Results - last 24 hr 09/06/23 15:10: WBC 16.3 H D, RBC 3.28 L, Hgb 9.4 L, Hct 31.2 L, MCV 95.1, MCH 28.8, MCHC 30.3 L, RDW 15.3, Plt Count 371, MPV 8.0, Neut % (Auto) 93.6 H, Lymph % (Auto) 4.2 L, [place] % (Auto) 1.5 L, Eos % (Auto) 0.6, Baso % (Auto) 0.1, Neut # (Auto) 15.3 H, Lymph # (Auto) 0.7, [place] # (Auto) 0.2, Eos # (Auto) 0.1, Baso # (Auto) 0.0, Total Counted 100, Neutrophils % (Manual) 90 H, Lymphocytes % (Manual) 8 L, Monocytes % (Manual) 2, Platelet Estimate Normal, Hypochromasia 2+, Anisocytosis 1+, Sodium 135 L, Potassium 5.1, Chloride 108 H, Carbon Dioxide 24, Anion Gap 8.1, BUN 32 H, Creatinine 1.20 H, Estimated Creat Clear 38, Estimated GFR 43 L, Est GFR ( Amer) 52 L, Glucose 170 H, Calcium 8.4 09/07/23 06:00: Sodium 137, Potassium 4.1, Chloride 109 H, Carbon Dioxide 23, Anion Gap 9.1, BUN 34 H, Creatinine 1.10 H, Estimated Creat Clear 42, Estimated GFR 48 L, Est GFR ( Amer) 58 L, Glucose 108 H D, Calcium 8.5 09/07/23 06:58: WBC 16.4 H, RBC 3.32 L, Hgb 9.5 L, Hct 32.0 L, MCV 96.4, MCH 28.6, MCHC 29.6 L, RDW 15.7, Plt Count 411, MPV 7.7, Neut % (Auto) 87.3 H, Lymph % (Auto) 9.4 L, [place] % (Auto) 1.9, Eos % (Auto) 1.2, Baso % (Auto) 0.2, Neut # (Auto) 14.3 H, Lymph # (Auto) 1.5, [place] # (Auto) 0.3, Eos # (Auto) 0.2, Baso # (Auto) 0.0, Total Counted 100, Neutrophils % (Manual) 89 H, Lymphocytes % (Manual) 8 L, Monocytes % (Manual) 3, Platelet Estimate Slight increase, Hypochromasia 1+, Anisocytosis 1+ I & O for Labs for Last 24 Hours: Intake & Output 09/04/23 09/05/23 09/06/23 09/07/23 23:59 23:59 23:59 23:59 Intake Total 580 / 580 570 / 570 2773.25 / 3281.25 1183.500 / 1183.500 Output Total 400 / 400 0 / 0 950 / 990 170 / 170 Balance 180 / 180 570 / 570 1823.25 / 2291.25 1013.500 / 1013.500 Weight 147 lb 5.359 oz 144 lb 8 oz 144 lb 8.384 oz 144 lb 8.384 oz Microbiology Reports for the Last 24 Hours: Microbiology 09/03/23 11:30 Sputum - Nasotracheal Suction Gram Stain - Final 09/03/23 11:30 Sputum - Nasotracheal Suction Sputum Culture - Final Constitutional: Present severe distress Head: Present normocephalic and atraumatic ENT: Present normal exam, normal oropharynx and mucous membranes moist Neck: Present normal inspection and full ROM Respiratory: Present respiratory distress and rhonchi; Absent wheezes or able to speak in complete sentences Cardiac: Present S1/S2, Tachycardia and radial pulses present GI: Present soft and distention; Absent tenderness or guarding Rectal (female): Present deferred (female): Present deferred Skin: Present intact; Absent cyanosis or jaundice Neuro: Present alert and awake Extremities: Present normal inspection; Absent clubbing or cyanosis Psychiatric: Present normal affect and cooperative Assessment and Plan *Assessment and plan (1) Acute respiratory failure with hypoxia: Status: Acute Category: Medical Code(s): J96.01 - Acute respiratory failure with hypoxia (2) Pneumonia: Status: Acute Qualifiers: Laterality: unspecified laterality Lung location: unspecified part of lung Pneumonia type: due to unspecified organism Qualified Code(s): J18.9 - Pneumonia, unspecified organism Category: Medical Code(s): J18.9 - Pneumonia, unspecified organism Plan Ms. 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 Patient on admission along with evaluation for possible stroke was initiated levofloxacin for possible aspiration pneumonia. Febrile upon admission. Mild neutrophilic leukocytosis. ABG upon admission 40% FiO2 did not change in the hypoxic and hypercarbic respiratory failure. Respiratory alkalosis noted. Chest x-ray upon admission concerning for bilateral extensive patchy airspace disease along with nodular component of the left upper lobe. Chest x-ray from this and personally reviewed, worsening right airspace disease. Improving left lower lobe airspace disease per left upper lobe remained stable. CTA no evidence of pulmonary embolism. Bilateral diffuse groundglass opacities. Comprehensive respiratory viral PCR panel negative. Nasal MRSA PCR negative. Sputum cultures finalized normal respiratory victorino. SAMIRA Screen Negative. Interval update: Chest x-ray from this morning no significant improvement. No acute respiratory events overnight. Continued remain on high flow nasal c annula, slight improvement in her oxygen requirements, currently on 40 L 65%. Down from 100% yesterday. Afebrile. Hemodynamically stable. Slight worsening leukocytosis. Will repeat blood cultures and urine cultures today. Continue to receive linezolid, Azithromycin and cefepime. Continue to receive methylprednisolone 40 mg IV daily. Sputum cultures and nasal MRSA PCR negative so far. Cardiology following continue to receive diuretics. Renal function stable. Plan: Aspiration precautions Continue oxygen supplementation to maintain O2 saturation goal of 90 to 90% and above, currently on high flow nasal cannula 40L, 65%. Continue linezolid, Azithromycin and cefepime pending clinical improvement and repeat culture results and urine strep and Legionella antigen DuoNebs every 6 hours on scheduled basis Total critical care time spent on this patient is 35 minutes managing acute hypoxic respiratory failure needing HFNCventilation. This time spent include reviewing test results including interpreting chest x-rays, labs optimizing the HFNC settings,formulating plan of care, discussing the plan of care with the team and the nursing staff.
[2023-09-07 10:34] LABS: Antinuclear Antibodies (ANA) Negative
[2023-09-07] MEDS: AZITHROMYCIN 500 MG in 0.9 % SODIUM CHLORIDE 250 ML 250 MG IV (10:44)
--- NOTE | 2023-09-07 10:47 | DIET.NUTRFU ---
Patient now triggers for severe PCM secondary to poor intake and now wt is down 5kg since June 2023. Meal intake was fair at 50% for lunch and 75% for dinner but refused breakfast along with therapy. She is on Vapotherm. Reviewed labs. Also reported in rounds she has not had BM since 09/01, colace is in place. Provider will continue to monitor. Continues on MSOFT with supplements in place.
[2023-09-07 11:17] LABS: Microscopic, Urine URINE MICROSCOPIC (MICROSCOPIC)
[2023-09-07] MEDS: CEFEPIME HCL 2 GM in 0.9 % SODIUM CHLORIDE 100 ML IV ×2 (11:41→22:05)
[2023-09-07] MEDS: LINEZOLID 600 MG/300 ML IV.SOLN 300 MG IV ×2 (11:53→22:05)
[2023-09-07] MEDS: levETIRAcetam 750 MG in 0.9 % SODIUM CHLORIDE 100 ML 215 MG IV ×2 (11:56→22:49)
[2023-09-07 12:05] LABS: Appearance,Urine CLEAR (Clear); Bilirubin,Urine Negative (Negative); Blood, Urine TRACE-L (Negative); Color,Urine YELLOW (Yellow); Glucose,Urine (UA) Negative (Negative); Ketones,Urine Negative (Negative); Leukocyte Esterase,Urine Negative (Negative); Nitrate,Urine Negative (Negative); PH,Urine 5.5 (5.0-8.5); Protein,Urine Negative (Negative); Urobilinogen,Urine 0.2 EU/dl (0.2)
[2023-09-07 12:28] LABS: Bacteria,Urine Trace /lpf; Hyaline Casts,Urine Occasional #/lpf (0); Squamous Epithelial Cell,Urine Occasional #/hpf (0-5); WBC,Urine Occasional #/hpf (0-3)
[2023-09-07 13:22] LABS: Procalcitonin 0.203 ng/mL (0.0-2.0)
--- NOTE | 2023-09-07 15:08 | EXP.CARD.PN ---
Subjective Subjective Date: 09/07/23 Time: 15:08 Principal diagnosis: Pneumonia, A. fib Interval history: Awake but minimally responsive Telemetry shows A-fib with controlled rate Exam Data for Last 24 hours Vital signs and Labs for Last 24 Hours: Temp Pulse Resp BP Pulse Ox O2 Del Method O2 Flow Rate 98.0 F 83 22 115/61 92 L Vapotherm 40 09/07/23 11:30 09/07/23 15:00 09/07/23 15:00 09/07/23 15:00 09/07/23 15:00 09/07/23 15:00 09/07/23 15:00 FiO2 65 09/07/23 15:00 Laboratory Results - last 24 hr 09/05/23 10:11: SAMIRA Screen Negative 09/06/23 15:10: WBC 16.3 H D, RBC 3.28 L, Hgb 9.4 L, Hct 31.2 L, MCV 95.1, MCH 28.8, MCHC 30.3 L, RDW 15.3, Plt Count 371, MPV 8.0, Neut % (Auto) 93.6 H, Lymph % (Auto) 4.2 L, [place] % (Auto) 1.5 L, Eos % (Auto) 0.6, Baso % (Auto) 0.1, Neut # (Auto) 15.3 H, Lymph # (Auto) 0.7, [place] # (Auto) 0.2, Eos # (Auto) 0.1, Baso # (Auto) 0.0, Total Counted 100, Neutrophils % (Manual) 90 H, Lymphocytes % (Manual) 8 L, Monocytes % (Manual) 2, Platelet Estimate Normal, Hypochromasia 2+, Anisocytosis 1+, Sodium 135 L, Potassium 5.1, Chloride 108 H, Carbon Dioxide 24, Anion Gap 8.1, BUN 32 H, Creatinine 1.20 H, Estimated Creat Clear 38, Estimated GFR 43 L, Est GFR ( Amer) 52 L, Glucose 170 H, Calcium 8.4 09/07/23 06:00: Sodium 137, Potassium 4.1, Chloride 109 H, Carbon Dioxide 23, Anion Gap 9.1, BUN 34 H, Creatinine 1.10 H, Estimated Creat Clear 42, Estimated GFR 48 L, Est GFR ( Amer) 58 L, Glucose 108 H D, Calcium 8.5 09/07/23 06:58: WBC 16.4 H, RBC 3.32 L, Hgb 9.5 L, Hct 32.0 L, MCV 96.4, MCH 28.6, MCHC 29.6 L, RDW 15.7, Plt Count 411, MPV 7.7, Neut % (Auto) 87.3 H, Lymph % (Auto) 9.4 L, [place] % (Auto) 1.9, Eos % (Auto) 1.2, Baso % (Auto) 0.2, Neut # (Auto) 14.3 H, Lymph # (Auto) 1.5, [place] # (Auto) 0.3, Eos # (Auto) 0.2, Baso # (Auto) 0.0, Total Counted 100, Neutrophils % (Manual) 89 H, Lymphocytes % (Manual) 8 L, Monocytes % (Manual) 3, Platelet Estimate Slight increase, Hypochromasia 1+, Anisocytosis 1+ 09/07/23 11:00: Urine Color Yellow, Urine Appearance Clear, Urine pH 5.5, Ur Specific [place] 1.010, Urine Protein Negative, Urine Glucose (UA) Negative, Urine Ketones Negative, Urine Blood Trace-l, Urine Nitrate Negative, Urine Bilirubin Negative, Urine Urobilinogen 0.2, Ur Leukocyte Esterase Negative, Urine RBC None, Urine WBC Occasional, Ur Squamous Epith Cells Occasional, Urine Bacteria Trace, Hyaline Casts Occasional 09/07/23 12:35: Procalcitonin 0.203 I & O for Last 24 hours: Intake & Output 09/05/23 09/06/23 09/07/23 09/08/23 11:59 11:59 11:59 11:59 Intake Total 340 / 340 2101.2202. 2427.688 / 2427.688 757 / 757 Output Total 400 / 400 0 / 0 1470 / 1720 350 / 350 Balance -60 / -60 210. / 2202. 957.688 / 707.688 407 / 407 Weight 144 lb 8 oz 144 lb 8.384 oz 144 lb 8.384 oz Microbiology Reports for the Last 24 Hours: Microbiology 09/03/23 11:30 Sputum - Nasotracheal Suction Gram Stain - Final 09/03/23 11:30 Sputum - Nasotracheal Suction Sputum Culture - Final *Routine Respiratory Exam Respiratory: Present decreased breath sounds and rhonchi *Routine Cardiovascular Exam Cardiovascular: Present irregularly irregular Progress Note: A&P Assessment and plan (1) Acute respiratory failure with hypoxia: Status: Acute (2) Pneumonia: Status: Acute (3) Afib: Status: Acute (4) Acute on chronic heart failure with preserved ejection fraction (HFpEF): Status: Acute Assessment and Plan Assessment and Plan for All Diagnoses:: 1. A. fib with RVR -on amiodarone, Xarelto and metoprolol chronically -amiodarone 400 mg BID for one week then 400 mg daily. If she fails to convert then consider discontinue amiodarone and opt for rate control in light of pulmonary issues. -metoprolol 75 mg BID and use lopressor 5 mg IV [id number] as needed for rate control -use lovenox 1 mg/kg subcutaneously BID while inpatient and switch back to Xarelto at discharge 2. Bilateral pneumonia with resp failure and hypoxia -on linezolid, azithromycin and cefepime along with methylprednisolone -Pulmonary following -Repeat blood and urine cultures ordered 3. Anemia -hemoglobin in the 9-10 range 4. HFpEF -BNP 1710 on admission with edema/bilateral pneumonia on chest x-ray -Echo, 09/03/2023, EF 55%, severe RVE and mildly reduced RV function. Mild AI/MR, moderate TR, RVSP of 40-45 mmHg -Hold Bumex due to evidence of NORMA/dehydration 5. Prior CVA with dementia/encephalopathy with unknown baseline -Head CT this admission shows no acute process. Old infarct noted on left side 6. Hypotension, resolved -off norepi drip Discontinue Bumex and potassium for now. Restart if needed for evidence of recurrent CHF and hypokalemia Continue amiodarone and metoprolol for A-fib and rate control
--- NOTE | 2023-09-07 15:17 | PC.NURSE ---
per Rodrigue Dixon, hold 1600 dose of bumex, possibly restart on Sunday
--- NOTE | 2023-09-07 16:45 | PC.NURSE ---
Sarah RT weaned vapo to 30L/50% at this time
--- NOTE | 2023-09-07 18:02 | EXP.PN ---
Subjective *Date: 09/07/23 *Time: 18:02 Interval history: patient is seen at bedside, appears confused, she is not actively following commands, on vapotherm, is having respiratory distress Exam Data for Last 24 hours Vital signs and Labs for Last 24 Hours: Temp Pulse Resp BP Pulse Ox O2 Del Method O2 Flow Rate 97.0 F L 82 20 103/46 L 91 L Vapotherm 30 09/07/23 15:27 09/07/23 17:00 09/07/23 17:00 09/07/23 17:00 09/07/23 17:00 09/07/23 17:00 09/07/23 17:00 FiO2 50 09/07/23 17:00 Laboratory Results - last 24 hr 09/05/23 10:11: SAMIRA Screen Negative 09/07/23 06:00: Sodium 137, Potassium 4.1, Chloride 109 H, Carbon Dioxide 23, Anion Gap 9.1, BUN 34 H, Creatinine 1.10 H, Estimated Creat Clear 42, Estimated GFR 48 L, Est GFR ( Amer) 58 L, Glucose 108 H D, Calcium 8.5 09/07/23 06:58: WBC 16.4 H, RBC 3.32 L, Hgb 9.5 L, Hct 32.0 L, MCV 96.4, MCH 28.6, MCHC 29.6 L, RDW 15.7, Plt Count 411, MPV 7.7, Neut % (Auto) 87.3 H, Lymph % (Auto) 9.4 L, [place] % (Auto) 1.9, Eos % (Auto) 1.2, Baso % (Auto) 0.2, Neut # (Auto) 14.3 H, Lymph # (Auto) 1.5, [place] # (Auto) 0.3, Eos # (Auto) 0.2, Baso # (Auto) 0.0, Total Counted 100, Neutrophils % (Manual) 89 H, Lymphocytes % (Manual) 8 L, Monocytes % (Manual) 3, Platelet Estimate Slight increase, Hypochromasia 1+, Anisocytosis 1+ 09/07/23 11:00: Urine Color Yellow, Urine Appearance Clear, Urine pH 5.5, Ur Specific [place] 1.010, Urine Protein Negative, Urine Glucose (UA) Negative, Urine Ketones Negative, Urine Blood Trace-l, Urine Nitrate Negative, Urine Bilirubin Negative, Urine Urobilinogen 0.2, Ur Leukocyte Esterase Negative, Urine RBC None, Urine WBC Occasional, Ur Squamous Epith Cells Occasional, Urine Bacteria Trace, Hyaline Casts Occasional 09/07/23 12:35: Procalcitonin 0.203 I & O for Last 24 hours: Intake & Output 09/04/23 09/05/23 09/06/23 09/07/23 23:59 23:59 23:59 23:59 Intake Total 580 / 580 570 / 570 2773.25 / 3281.25 1943.688 / 1943.688 Output Total 400 / 400 0 / 0 950 / 990 920 / 920 Balance 180 / 180 570 / 570 1823.25 / 2291.25 1023.688 / 1023.688 Weight 66.83 kg 65.544 kg 65.555 kg 65.555 kg Microbiology Reports for the Last 24 Hours: Microbiology 09/03/23 11:30 Sputum - Nasotracheal Suction Gram Stain - Final 09/03/23 11:30 Sputum - Nasotracheal Suction Sputum Culture - Final Constitutional Constitutional: no acute distress *Routine HEENT Exam Head: Present normocephalic Eye: Present EOMI and PERRL ENT: Present mucous membranes moist *Routine Neck Exam Neck: Present supple; Absent lymphadenopathy *Routine Respiratory Exam Respiratory: Present respiratory distress, rhonchi, distant breath sounds and diminished air movement *Routine Cardiovascular Exam Cardiovascular: Present RRR *Routine Abdominal Exam Abdominal: Present soft and normoactive bowel sounds; Absent tenderness *Routine Extremities Exam Extremities: Absent cyanosis, clubbing or edema *Routine Skin Exam Skin: Present warm; Absent rash *Routine Neurological Exam Neurological: Present alert and oriented X3 Assessment and Plan *Assessment and plan (1) Pneumonia: Status: Acute Qualifiers: Pneumonia type: due to unspecified organism Laterality: unspecified laterality Lung location: unspecified part of lung Qualified Code(s): J18.9 - Pneumonia, unspecified organism Category: Medical Code(s): J18.9 - Pneumonia, unspecified organism (2) Encephalopathy: Status: Acute Category: Medical Code(s): G93.40 - Encephalopathy, unspecified (3) Acute kidney injury: Status: Acute Category: Medical Code(s): N17.9 - Acute kidney failure, unspecified (4) Afib: Status: Acute Qualifiers: Atrial fibrillation type: unspecified Qualified Code(s): I48.91 - Unspecified atrial fibrillation Category: Medical Code(s): I48.91 - Unspecified atrial fibrillation (5) CVA (cerebral vascular accident): Status: Acute Qualifiers: CVA mechanism: embolism Precerebral and cerebral artery: middle cerebral artery Laterality of affected vessel: left Qualified Code(s): I63.412 - Cerebral infarction due to embolism of left middle cerebral artery Category: Medical Code(s): I63.9 - Cerebral infarction, unspecified (6) HTN (hypertension), benign: Status: Acute Category: Medical Code(s): I10 - Essential (primary) hypertension (7) Unspecified dementia, unspecified severity, without behavioral disturbance, psychotic disturbance, mood disturbance, and anxiety: Status: Acute Qualifiers: Dementia type: unspecified type Dementia severity: unspecified severity Qualified Code(s): F03.90 - Unspecified dementia, unspecified severity, without behavioral disturbance, psychotic disturbance, mood disturbance, and anxiety Category: Medical Code(s): F03.90 - Unspecified dementia, unspecified severity, without behavioral disturbance, psychotic disturbance, mood disturbance, and anxiety (8) CHF (congestive heart failure): Status: Acute Qualifiers: Heart failure type: unspecified Heart failure chronicity: acute on chronic Qualified Code(s): I50.9 - Heart failure, unspecified Category: Medical Code(s): I50.9 - Heart failure, unspecified Plan 83-year-old female halfway resident with PMHx with 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 initial ER stroke work up is negative. Patient on arrival found hypoxic, on 3L NC apparently as a new oxygen requirement. CXR and neck CTA, concerning for air space disease. labs are grossly unremarkable. Findings discussed with ER for admission. In the setting of new oxygen demand and lung opacity, concerned for pneumonia. Patient continues to require admission for treatment of pneumonia. Continuing IV antibiotics. Pulmonology consulted today. Continues to necessitate oxygen. Problems addressed as follows: -Encephalopathy: Unclear baseline. - Pneumonia with hypoxia - worsening currently on vaportherm, continue O2 support Chest x-ray concerning for extensive bilateral patchy airspace disease. on Azithromycin and cefepime Echo results - Normal LV systolic function. Severe RV dilation with mild reduction in RV function. Biatrial dilation. Of note, the patient Mild AI. Mild MR. Moderate TR. Elevated RVSP 40-45 mmHg, EF 55% Normal LV systolic function Severe RV dilation with mild reduction in RV function. Biatrial dilation. Elevated BNP on admission status post lasix yesterday -NORMA: likely prerenal , secondary to dehydration - improved Hypertension Atrial fibrillation with RVR - started on IV amio - Lovenox therpautic dosing Switch PO to IV meds until able to swallow/ patient is refusing to take PO start on PO amiodarone Hyperlipidemia Continue metoprolol tartrate 75 mg twice daily, continue lisinopril 5 mg daily, Xarelto 15 mg daily, amiodarone 200 mg daily, Lipitor 40 mg nightly History of unspecified dementia: History of seizure disorder History of CVA with right-sided deficits and aphasia History of Parkinson's disease -CT of head and neck ruled out acute stroke, unsure of patient's baseline. Will reach out to family and halfway to evaluate baseline. -PT OT and speech consulted to evaluate patient History of depression/anxiety as result of CVA - continue Seroquel 25 mg twice daily, continue trazodone 25 mg nightly, continue Zoloft 150 g daily Neuropathy: Continue gabapentin decrease dose to 400 mg twice daily due to concern for sedation Full code Xarelto Mechanical diet Continue IV abx, continue on vapotherm, added on linezolid, wean o2 as tolerated
--- NOTE | 2023-09-07 18:15 | PC.NURSE ---
Sarah RT weaned vapotherm to 30L/45% at this time
[2023-09-07] MEDS: ONDANSETRON 4MG/2ML VIAL 4 MG IV (19:58)
[2023-09-07] MEDS: SODIUM CHLORIDE 0.9% 10ML FLUSH SYRINGE 10 ML IV ×2 (19:58→20:04)
[2023-09-07] MEDS: TRAZODONE 50MG TABLET 25 MG PO (20:02)
[2023-09-07] MEDS: PANTOPRAZOLE 40MG VIAL 40 MG IV (20:02)
[2023-09-07] MEDS: QUETIAPINE 25MG TABLET 25 MG PO (20:03)
[2023-09-07] MEDS: ATORVASTATIN 40MG TABLET 40 MG PO (20:03)
[2023-09-08] VITALS (30 sets, daily range): BP systolic 83–113; BP diastolic 38–68; PULSE 66–94; RESP 14–23; TEMP 36.4–37.2; O2SAT 89–99; BMI 23.2
--- NOTE | 2023-09-08 05:08 | PC.NURSE ---
Patient remained stable throughout shift. She has decreased PO intake and it was difficult to get her PO medications down even crushed with apple sauce. Patient has been quite somnolent, but easily arouses when you say her name. Remains in Afib on tele, and hypotensive when sleeping. Her oxygen saturations remain sporadic on Vapotherm. At best she is in the mid 90's, but that is with her current settings of 30L/60% FiO2. SILK [employer]ER and documenting RN attempted to titrate down on oxygen requirement, but will steadily decrease her saturations into the 80's. Low urinary output via brand. Medicated per SEP for acute pain earlier in shift. NAD, VSS otherwise.
[2023-09-08] MEDS: IPRATROPIUM/ALBUTEROL 3 ML NEB IH ×3 (06:35→18:15)
[2023-09-08 06:39] LABS: Basophils % 0.1 % (0.1-2.0); Eosinophils % 0.2 % (0.1-12.0); Hematocrit 30.3 % (37.0-47.0); Hemoglobin 9.2 g/dL (12.2-16.2); Lymphocytes # 1.1 K/mm3 (0.7-4.5); Lymphocytes % 9.6 % (10-50); Mean Corpuscular HGB Conc 30.3 g/dL (31.8-35.4); Mean Corpuscular Hemoglobin 28.5 pg (27.0-31.2); Mean Platelet Volume 8.1 fl (7.4-10.4); Monocytes # 0.3 K/mm3 (0.1-1.0); Monocytes % 2.6 % (1.7-9.3); Neutrophils # 10.4 K/mm3 (1.8-7.8); Neutrophils % 87.5 % (37.0-80.0); Platelet Count 355 K/mm3 (142-424); Red Blood Count 3.22 M/mm3 (4.20-5.40); Red Cell Distribution Width 15.7 % (11.5-17.5); White Blood Count 11.9 K/mm3 (4.8-10.8)
[2023-09-08 06:46] LABS: MANUAL DIFFERENTIAL MANUAL DIFFERENTIAL (MANUAL DIFF)
[2023-09-08 07:02] LABS: Anion Gap 8.8 mEq/L (5-15); Blood Urea Nitrogen 37 mg/dl (7-17); Calcium 8.8 mg/dl (8.4-10.2); Carbon Dioxide 24 mmol/L (22.0-30.0); Chloride 110 mmol/L (98-107); Creatinine Clearance Estimated 46 mL/min (50-200); Estimated Glomerular Filt Rate 53 ml/min (>60); GFR (African American) 64 ML/MIN (>60); Glucose 103 mg/dl (74-100); Potassium 3.8 mmoL/L (3.5-5.1); Sodium 139 mmol/L (136-145)
[2023-09-08 07:09] LABS: C-Reactive Protein 102.8 mg/L (0-4)
[2023-09-08] MEDS: MORPHINE 2MG/ML SYRINGE 2 MG IV ×2 (09:48→22:02)
[2023-09-08] MEDS: AMIODARONE 200MG TABLET 400 MG PO ×2 (09:49→21:38)
[2023-09-08] MEDS: AMANTADINE 100MG CAPSULE 100 MG PO (09:49)
[2023-09-08] MEDS: GABAPENTIN 400MG CAPSULE 400 MG PO ×2 (09:50→21:38)
[2023-09-08] MEDS: ENOXAPARIN 80MG/0.8ML SYRINGE 65 MG SQ ×2 (09:50→21:39)
[2023-09-08] MEDS: DOCUSATE SODIUM 100 MG CAPSULE PO (09:50)
[2023-09-08] MEDS: METOPROLOL TARTRATE 50MG TABLET 75 MG PO ×2 (09:50→21:40)
[2023-09-08] MEDS: METHYLPREDNISOLONE SOD SUCC 40MG VIAL 40 MG IV (09:50)
[2023-09-08] MEDS: QUETIAPINE 25MG TABLET 25 MG PO ×2 (09:51→21:40)
[2023-09-08] MEDS: AZITHROMYCIN 500 MG in 0.9 % SODIUM CHLORIDE 250 ML 250 MG IV (10:14)
[2023-09-08] MEDS: CEFEPIME HCL 2 GM in 0.9 % SODIUM CHLORIDE 100 ML IV ×2 (10:25→22:03)
--- NOTE | 2023-09-08 10:59 | EXP.PHA.PN ---
Subjective *Date: 09/08/23 *Time: 10:59 Medical Exam Vital signs and Labs for Last 24 Hours: Vital Signs Temp Pulse Pulse Resp BP Pulse Ox O2 Del Method 09/08/23 08:00 98.4 F 09/08/23 08:00 94 H 91 L Vapotherm 09/08/23 08:00 94 H 23 99/50 L 91 L Vapotherm 09/08/23 07:00 82 18 93/45 L 96 Vapotherm 09/08/23 06:35 Vapotherm 09/08/23 06:00 88 20 106/56 L 93 L Vapotherm 09/08/23 05:00 98.3 F 74 20 94/46 L 96 Vapotherm 09/08/23 05:00 Vapotherm 09/08/23 04:00 70 09/08/23 04:00 80 20 91/50 L 94 L Vapotherm 09/08/23 03:00 80 17 100/49 L 96 Vapotherm 09/07/23 18:00 94 L Vapotherm 09/08/23 02:00 66 14 83/53 L 95 Vapotherm 09/08/23 00:00 70 09/08/23 01:00 Vapotherm 09/07/23 23:00 73 15 92/51 L 93 L Vapotherm 09/08/23 00:00 98.5 F 69 15 91/49 L 89 L Vapotherm 09/07/23 23:00 Vapotherm 09/08/23 01:00 74 15 112/43 L 90 L Vapotherm 09/07/23 23:15 69 09/07/23 23:15 71 09/07/23 20:00 80 09/07/23 21:00 Vapotherm 09/07/23 20:00 70 92 L Vapotherm 09/07/23 22:00 69 14 81/43 L 90 L Vapotherm 09/07/23 21:00 73 15 113/60 90 L Vapotherm 09/07/23 20:00 98.1 F 70 15 123/64 93 L Vapotherm 09/07/23 19:00 83 16 106/56 L 91 L Vapotherm 09/07/23 18:53 Vapotherm 09/07/23 18:00 73 17 109/47 L 91 L Vapotherm 03/01/24 18:07 80 09/07/23 18:07 83 09/07/23 17:00 82 20 103/46 L 91 L Vapotherm 09/07/23 17:00 Vapotherm 09/07/23 16:00 90 09/07/23 12:00 90 09/07/23 16:00 82 93 L Vapotherm 09/07/23 16:00 89 22 105/57 L 93 L Vapotherm 09/07/23 15:27 97.0 F L 09/07/23 15:00 83 22 115/61 92 L Vapotherm 09/07/23 15:00 Vapotherm 09/07/23 14:00 81 21 98/52 L 95 Vapotherm 09/07/23 11:15 98 H 09/07/23 11:15 112 H 09/07/23 13:00 Vapotherm 09/07/23 13:00 89 20 117/54 L 95 Vapotherm 09/07/23 12:00 89 94 L Vapotherm 09/07/23 12:00 89 22 96/55 L 94 L Vapotherm 09/07/23 11:00 89 19 96/62 L 93 L Vapotherm 09/07/23 11:00 Vapotherm 09/07/23 11:30 98.0 F O2 Flow Rate FiO2 09/08/23 08:00 09/08/23 08:00 30 60 09/08/23 08:00 30 60 09/08/23 07:00 30 60 09/08/23 06:35 09/08/23 06:00 30 60 09/08/23 05:00 30 60 09/08/23 05:00 30 09/08/23 04:00 09/08/23 04:00 30 60 09/08/23 03:00 30 50 09/07/23 18:00 30 45 09/08/23 02:00 30 50 09/08/23 00:00 09/08/23 01:00 30 09/07/23 23:00 25 40 09/08/23 00:00 25 40 09/07/23 23:00 09/08/23 01:00 30 45 09/07/23 23:15 09/07/23 23:15 09/07/23 20:00 09/07/23 21:00 30 09/07/23 20:00 30 45 09/07/23 22:00 30 45 09/07/23 21:00 30 45 09/07/23 20:00 30 45 09/07/23 19:00 30 45 09/07/23 18:53 30 09/07/23 18:00 30 50 09/07/23 18:07 09/07/23 18:07 09/07/23 17:00 30 50 09/07/23 17:00 30 09/07/23 16:00 09/07/23 12:00 09/07/23 16:00 40 65 09/07/23 16:00 40 65 09/07/23 15:27 09/07/23 15:00 40 65 09/07/23 15:00 40 09/07/23 14:00 40 65 09/07/23 11:15 09/07/23 11:15 09/07/23 13:00 40 09/07/23 13:00 40 65 09/07/23 12:00 40 65 09/07/23 12:00 09/07/23 11:00 09/07/23 11:00 40 09/07/23 11:30 Intake and Output 09/07/23 09/08/23 09/08/23 23:59 07:59 15:59 Intake Total 825 / 2768.688 0 / 335 335 / 335 Output Total 550 / 1520 200 / 200 0 / 200 Balance 275 / 1248.688 -200 / 135 335 / 135 Intake: Intake, Oral Amount 10 / 10 0 / 335 335 / 335 Intake, Total IV Amount 515 / 2280 Cefepime HCl 2 gm In 0.9 % 100 / 300 Sodium Chloride 100 ml @ 200 mls/hr IV 1100,2300 ALEXANDER Rx#: [id number] Linezolid 600 mg In 300 ml @ 300 / 900 300 mls/hr IV Q12H ALEXANDER Rx#: [id number] levETIRAcetam 750 mg In 0.9 % 115 / 330 Sodium Chloride 100 ml @ 215 mls/hr IV Q12H ALEXANDER Rx#:[id number] Infusion Intake 300 / 300 Linezolid 600 mg In 300 ml @ 300 / 300 300 mls/hr IV Q12H ALEXANDER Rx#: [id number] Output: Output, Urine Amount 0 / 100 100 / 100 0 / 100 Output, Urine Amount (Catheter) 550 / 1420 100 / 100 Erazo 550 / 1420 100 / 100 Other: Number of Unmeasured Voids 0 0 Weight 65.5 kg Patient Weight 09/08/23 23:59 Weight 65.5 kg Laboratory Results - last 24 hr 09/07/23 11:00: Urine Color Yellow, Urine Appearance Clear, Urine pH 5.5, Ur Specific [place] 1.010, Urine Protein Negative, Urine Glucose (UA) Negative, Urine Ketones Negative, Urine Blood Trace-l, Urine Nitrate Negative, Urine Bilirubin Negative, Urine Urobilinogen 0.2, Ur Leukocyte Esterase Negative, Urine RBC None, Urine WBC Occasional, Ur Squamous Epith Cells Occasional, Urine Bacteria Trace, Hyaline Casts Occasional 09/07/23 12:35: Procalcitonin 0.203 09/08/23 06:23: WBC 11.9 H D, RBC 3.22 L, Hgb 9.2 L, Hct 30.3 L, MCV 94.0, MCH 28.5, MCHC 30.3 L, RDW 15.7, Plt Count 355, MPV 8.1, Neut % (Auto) 87.5 H, Lymph % (Auto) 9.6 L, [place] % (Auto) 2.6, Eos % (Auto) 0.2, Baso % (Auto) 0.1, Neut # (Auto) 10.4 H, Lymph # (Auto) 1.1, [place] # (Auto) 0.3, Eos # (Auto) 0.0, Baso # (Auto) 0.0, Sodium 139, Potassium 3.8, Chloride 110 H, Carbon Dioxide 24, Anion Gap 8.8, BUN 37 H, Creatinine 1.00, Estimated Creat Clear 46, Estimated GFR 53 L, Est GFR ( Amer) 64, Glucose 103 H, Calcium 8.8, C-Reactive Protein 102.8 H I & O for Labs for Last 24 Hours: Intake & Output 09/05/23 09/06/23 09/07/23 09/08/23 23:59 23:59 23:59 23:59 Intake Total 570 / 570 2773.25 / 3281.25 2768.688 / 2768.688 335 / 335 Output Total 0 / 0 950 / 990 1420 / 1520 200 / 200 Balance 570 / 570 1823.25 / 2291.25 1348.688 / 1248.688 135 / 135 Weight 65.544 kg 65.555 kg 65.555 kg 65.5 kg The patient's infection will respond to the chosen ABx?: Yes Is the patient receiving the right drug, dose, and route?: Yes Could a more targeted ABx be ordered?: No (STILL W/ VAPOTHERM, WBC DECREASED, STILL CONFUSED, AFEBRILE)
[2023-09-08 11:21] LABS: Lymphocytes % 12 % (10-50); Monocytes % 3 % (2-9); Neutrophils % 85 % (42-76); Total Cells Counted 100
[2023-09-08] MEDS: LINEZOLID 600 MG/300 ML IV.SOLN 300 MG IV ×2 (11:21→22:03)
[2023-09-08 11:23] LABS: Anisocytosis 1+; Hypochromasia 1+; Platelet Estimate Normal; Poikilocytosis 1+
[2023-09-08] MEDS: levETIRAcetam 750 MG in 0.9 % SODIUM CHLORIDE 100 ML 215 MG IV (12:16)
--- NOTE | 2023-09-08 17:56 | P.PN_ITS ---
Subjective *Date: 09/08/23 *Time: 17:56 Interval history: patient is seen at bedside, appears confused, not actively following commands, on vapotherm, is having respiratory distress Exam Data for Last 24 hours Vital signs and Labs for Last 24 Hours: Temp Pulse Resp BP Pulse Ox O2 Del Method O2 Flow Rate 97.6 F 66 21 94/53 L 97 Vapotherm 30 09/08/23 15:37 09/08/23 17:00 09/08/23 17:00 09/08/23 17:00 09/08/23 17:00 09/08/23 17:00 09/08/23 17:00 FiO2 50 09/08/23 17:00 Laboratory Results - last 24 hr 09/08/23 06:23: WBC 11.9 H D, RBC 3.22 L, Hgb 9.2 L, Hct 30.3 L, MCV 94.0, MCH 28.5, MCHC 30.3 L, RDW 15.7, Plt Count 355, MPV 8.1, Neut % (Auto) 87.5 H, Lymph % (Auto) 9.6 L, [place] % (Auto) 2.6, Eos % (Auto) 0.2, Baso % (Auto) 0.1, Neut # (Auto) 10.4 H, Lymph # (Auto) 1.1, [place] # (Auto) 0.3, Eos # (Auto) 0.0, Baso # (Auto) 0.0, Total Counted 100, Neutrophils % (Manual) 85 H, Lymphocytes % (Manual) 12, Monocytes % (Manual) 3, Platelet Estimate Normal, Hypochromasia 1+, Poikilocytosis 1+, Anisocytosis 1+, Sodium 139, Potassium 3.8, Chloride 110 H, Carbon Dioxide 24, Anion Gap 8.8, BUN 37 H, Creatinine 1.00, Estimated Creat Clear 46, Estimated GFR 53 L, Est GFR ( Amer) 64, Glucose 103 H, Calcium 8.8, C-Reactive Protein 102.8 H I & O for Last 24 hours: Intake & Output 09/05/23 09/06/23 09/07/23 09/08/23 23:59 23:59 23:59 23:59 Intake Total 570 / 570 2773.25 / 3281.25 2768.688 / 2768.688 1092 / 1092 Output Total 0 / 0 950 / 990 1420 / 1520 500 / 500 Balance 570 / 570 1823.25 / 2291.25 1348.688 / 1248.688 592 / 592 Weight 65.544 kg 65.555 kg 65.555 kg 65.5 kg Constitutional Constitutional: no acute distress *Routine HEENT Exam Head: Present normocephalic Eye: Present EOMI and PERRL ENT: Present mucous membranes moist *Routine Neck Exam Neck: Present supple; Absent lymphadenopathy *Routine Respiratory Exam Respiratory: Present respiratory distress, rhonchi, distant breath sounds and diminished air movement *Routine Cardiovascular Exam Cardiovascular: Present RRR *Routine Abdominal Exam Abdominal: Present soft and normoactive bowel sounds; Absent tenderness *Routine Extremities Exam Extremities: Absent cyanosis, clubbing or edema *Routine Skin Exam Skin: Present warm; Absent rash *Routine Neurological Exam Neurological: Present alert and oriented X3 Assessment and Plan *Assessment and plan (1) Pneumonia: Status: Acute Qualifiers: Pneumonia type: due to unspecified organism Laterality: unspecified laterality Lung location: unspecified part of lung Qualified Code(s): J18.9 - Pneumonia, unspecified organism Category: Medical Code(s): J18.9 - Pneumonia, unspecified organism (2) Encephalopathy: Status: Acute Category: Medical Code(s): G93.40 - Encephalopathy, unspecified (3) Acute kidney injury: Status: Acute Category: Medical Code(s): N17.9 - Acute kidney failure, unspecified (4) Afib: Status: Acute Qualifiers: Atrial fibrillation type: unspecified Qualified Code(s): I48.91 - Unspecified atrial fibrillation Category: Medical Code(s): I48.91 - Unspecified atrial fibrillation (5) CVA (cerebral vascular accident): Status: Acute Qualifiers: CVA mechanism: embolism Precerebral and cerebral artery: middle cerebral artery Laterality of affected vessel: left Qualified Code(s): I63.412 - Cerebral infarction due to embolism of left middle cerebral artery Category: Medical Code(s): I63.9 - Cerebral infarction, unspecified (6) HTN (hypertension), benign: Status: Acute Category: Medical Code(s): I10 - Essential (primary) hypertension (7) Unspecified dementia, unspecified severity, without behavioral disturbance, psychotic disturbance, mood disturbance, and anxiety: Status: Acute Qualifiers: Dementia type: unspecified type Dementia severity: unspecified severity Qualified Code(s): F03.90 - Unspecified dementia, unspecified severity, without behavioral disturbance, psychotic disturbance, mood disturbance, and anxiety Category: Medical Code(s): F03.90 - Unspecified dementia, unspecified severity, without behavioral disturbance, psychotic disturbance, mood disturbance, and anxiety (8) CHF (congestive heart failure): Status: Acute Qualifiers: Heart failure type: unspecified Heart failure chronicity: acute on chronic Qualified Code(s): I50.9 - Heart failure, unspecified Category: Medical Code(s): I50.9 - Heart failure, unspecified Plan 83-year-old female senior living resident with PMHx with 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 initial ER stroke work up is negative. Patient on arrival found hypoxic, on 3L NC apparently as a new oxygen requirement. CXR and neck CTA, concerning for air space disease. labs are grossly unremarkable. Findings discussed with ER for ad mission. In the setting of new oxygen demand and lung opacity, concerned for pneumonia. Patient continues to require admission for treatment of pneumonia. Continuing IV antibiotics. Pulmonology consulted today. Continues to necessitate oxygen. Problems addressed as follows: -Encephalopathy: Unclear baseline - Pneumonia with hypoxia - worsening - currently on vaportherm, continue O2 support - Chest x-ray concerning for extensive bilateral patchy airspace disease - on Azithromycin and cefepime Echo results - Normal LV systolic function. Severe RV dilation with mild reduction in RV function. Biatrial dilation. Of note, the patient Mild AI. Mild MR. Moderate TR. Elevated RVSP 40-45 mmHg, EF 55% Normal LV systolic function Severe RV dilation with mild reduction in RV function. Biatrial dilation. Elevated BNP on admission status post lasix yesterday -NORMA: likely prerenal , secondary to dehydration - improved Hypertension Atrial fibrillation with RVR - started on IV amio - Lovenox therpautic dosing Switch PO to IV meds until able to swallow/ patient is refusing to take PO start on PO amiodarone Hyperlipidemia Continue metoprolol tartrate 75 mg twice daily, continue lisinopril 5 mg daily, Xarelto 15 mg daily, amiodarone 200 mg daily, Lipitor 40 mg nightly History of unspecified dementia: History of seizure disorder History of CVA with right-sided deficits and aphasia History of Parkinson's disease -CT of head and neck ruled out acute stroke, unsure of patient's baseline. Will reach out to family and senior living to evaluate baseline. -PT OT and speech consulted to evaluate patient History of depression/anxiety as result of CVA - continue Seroquel 25 mg twice daily, continue trazodone 25 mg nightly, rylan nue Zoloft 150 g daily Neuropathy: Continue gabapentin decrease dose to 400 mg twice daily due to concern for sedation Full code Xarelto Mechanical diet Continue IV abx, continue on vapotherm, added on linezolid, wean o2 as tolerated , gaurded prognosis, patient chart was reviewed in detail, discussed with ABIGAIL
--- NOTE | 2023-09-08 18:11 | EXP.PN ---
Subjective *Date: 09/09/23 *Time: 17:01 Interval history: patient is seen at bedside, not actively following commands, on vapotherm, is having respiratory distress, appears confused Exam Data for Last 24 hours Vital signs and Labs for Last 24 Hours: Temp Pulse Resp BP Pulse Ox O2 Del Method O2 Flow Rate 97.6 F 66 21 94/53 L 97 Vapotherm 30 09/08/23 15:37 09/08/23 17:00 09/08/23 17:00 09/08/23 17:00 09/08/23 17:00 09/08/23 17:00 09/08/23 17:00 FiO2 50 09/08/23 17:00 Laboratory Results - last 24 hr 09/08/23 06:23: WBC 11.9 H D, RBC 3.22 L, Hgb 9.2 L, Hct 30.3 L, MCV 94.0, MCH 28.5, MCHC 30.3 L, RDW 15.7, Plt Count 355, MPV 8.1, Neut % (Auto) 87.5 H, Lymph % (Auto) 9.6 L, [place] % (Auto) 2.6, Eos % (Auto) 0.2, Baso % (Auto) 0.1, Neut # (Auto) 10.4 H, Lymph # (Auto) 1.1, [place] # (Auto) 0.3, Eos # (Auto) 0.0, Baso # (Auto) 0.0, Total Counted 100, Neutrophils % (Manual) 85 H, Lymphocytes % (Manual) 12, Monocytes % (Manual) 3, Platelet Estimate Normal, Hypochromasia 1+, Poikilocytosis 1+, Anisocytosis 1+, Sodium 139, Potassium 3.8, Chloride 110 H, Carbon Dioxide 24, Anion Gap 8.8, BUN 37 H, Creatinine 1.00, Estimated Creat Clear 46, Estimated GFR 53 L, Est GFR ( Amer) 64, Glucose 103 H, Calcium 8.8, C-Reactive Protein 102.8 H I & O for Last 24 hours: Intake & Output 09/05/23 09/06/23 09/07/23 09/08/23 23:59 23:59 23:59 23:59 Intake Total 570 / 570 2773.25 / 3281.25 2768.688 / 2768.688 1092 / 1092 Output Total 0 / 0 950 / 990 1420 / 1520 500 / 500 Balance 570 / 570 1823.25 / 2291.25 1348.688 / 1248.688 592 / 592 Weight 65.544 kg 65.555 kg 65.555 kg 65.5 kg Constitutional Constitutional: no acute distress *Routine HEENT Exam Head: Present normocephalic Eye: Present EOMI and PERRL ENT: Present mucous membranes moist *Routine Neck Exam Neck: Present supple; Absent lymphadenopathy *Routine Respiratory Exam Respiratory: Present respiratory distress, rhonchi, distant breath sounds and diminished air movement *Routine Cardiovascular Exam Cardiovascular: Present RRR *Routine Abdominal Exam Abdominal: Present soft and normoactive bowel sounds; Absent tenderness *Routine Extremities Exam Extremities: Absent cyanosis, clubbing or edema *Routine Skin Exam Skin: Present warm; Absent rash *Routine Neurological Exam Neurological: Present alert and oriented X3
[2023-09-08] MEDS: ATORVASTATIN 40MG TABLET 40 MG PO (21:41)
[2023-09-08] MEDS: PANTOPRAZOLE 40MG TABLET 40 MG PO (21:42)
[2023-09-08] MEDS: TRAZODONE 50MG TABLET 25 MG PO (21:42)
[2023-09-08] MEDS: SODIUM CHLORIDE 0.9% 10ML FLUSH SYRINGE 10 ML IV (22:02)
[2023-09-09] VITALS (33 sets, daily range): BP systolic 85–122; BP diastolic 45–66; PULSE 52–108; RESP 15–26; TEMP 36.6–36.8; O2SAT 90–99; BMI 23.1
[2023-09-09] MEDS: IPRATROPIUM/ALBUTEROL 3 ML NEB IH ×4 (00:09→17:32)
[2023-09-09] MEDS: levETIRAcetam 750 MG in 0.9 % SODIUM CHLORIDE 100 ML 215 MG IV ×3 (00:22→23:47)
[2023-09-09 05:10] LABS: Basophils % 0.1 % (0.1-2.0); Eosinophils # 0.1 K/mm3 (0.0-0.4); Eosinophils % 1.2 % (0.1-12.0); Hematocrit 28.5 % (37.0-47.0); Hemoglobin 8.7 g/dL (12.2-16.2); Lymphocytes # 1.2 K/mm3 (0.7-4.5); Lymphocytes % 12.8 % (10-50); Mean Corpuscular HGB Conc 30.5 g/dL (31.8-35.4); Mean Corpuscular Hemoglobin 28.9 pg (27.0-31.2); Mean Corpuscular Volume 94.7 fl (81-99); Mean Platelet Volume 8.2 fl (7.4-10.4); Monocytes # 0.2 K/mm3 (0.1-1.0); Monocytes % 2.6 % (1.7-9.3); Neutrophils # 7.9 K/mm3 (1.8-7.8); Neutrophils % 83.2 % (37.0-80.0); Platelet Count 322 K/mm3 (142-424); Red Blood Count 3.01 M/mm3 (4.20-5.40); Red Cell Distribution Width 15.7 % (11.5-17.5); White Blood Count 9.5 K/mm3 (4.8-10.8)
[2023-09-09 05:20] LABS: Alanine Aminotransferase 41 U/L (12-78); Albumin Level 2.5 g/dl (3.5-5.0); Albumin/Globulin Ratio 0.9 (1.1-1.8); Alkaline Phosphatase 117 U/L (38-126); Anion Gap 9.6 mEq/L (5-15); Aspartate Amino Transferase 51 U/L (14-36); Bilirubin,Total 0.3 mg/dl (0.2-1.3); Blood Urea Nitrogen 38 mg/dl (7-17); Calcium 8.7 mg/dl (8.4-10.2); Carbon Dioxide 23 mmol/L (22.0-30.0); Chloride 112 mmol/L (98-107); Creatinine Clearance Estimated 45 mL/min (50-200); Estimated Glomerular Filt Rate 60 ml/min (>60); GFR (African American) 73 ML/MIN (>60); Globulin 2.9 g/dL (1.3-3.2); Glucose 96 mg/dl (74-100); Potassium 3.6 mmoL/L (3.5-5.1); Sodium 141 mmol/L (136-145); Total Protein,Serum 5.4 g/dl (6.3-8.2)
--- NOTE | 2023-09-09 05:38 | PC.NURSE ---
No acute changes throughout this shift for patient. Remains on Vapotherm at 25L/40% FiO2. With several attempts she was able to take her oral medications crushed and with pudding. No s/sx of aspiration, but the patient is quite resistive to care. Her GCS remains 11-10 as E4, V1-2 at times, M 5. She remains in Afib on tele with rates ranging 80-100. NAD otherwise. Subpar urinary output via brand cath.
[2023-09-09] MEDS: DOCUSATE SODIUM 100 MG CAPSULE PO (10:28)
[2023-09-09] MEDS: QUETIAPINE 25MG TABLET 25 MG PO (10:28)
[2023-09-09] MEDS: GABAPENTIN 400MG CAPSULE 400 MG PO (10:28)
[2023-09-09] MEDS: AMIODARONE 200MG TABLET 400 MG PO ×2 (10:28→20:28)
[2023-09-09] MEDS: AZITHROMYCIN 250MG TABLET 500 MG PO (10:28)
[2023-09-09] MEDS: AMANTADINE 100MG CAPSULE 100 MG PO (10:28)
[2023-09-09] MEDS: METOPROLOL TARTRATE 50MG TABLET 75 MG PO ×2 (10:28→20:28)
[2023-09-09] MEDS: METHYLPREDNISOLONE SOD SUCC 40MG VIAL 40 MG IV (10:43)
[2023-09-09] MEDS: ENOXAPARIN 80MG/0.8ML SYRINGE 65 MG SQ ×2 (10:43→20:28)
[2023-09-09] MEDS: CEFEPIME HCL 2 GM in 0.9 % SODIUM CHLORIDE 100 ML IV ×2 (10:48→23:08)
[2023-09-09] MEDS: LINEZOLID 600 MG/300 ML IV.SOLN 300 MG IV ×2 (11:33→20:27)
--- NOTE | 2023-09-09 16:35 | PC.NURSE ---
pt is and has been able to open her eyes this shift. pt does not follow commands/requests. pt is unable/unwilling to squeeze hands when asked, but when attempting to give pt meds and she is not agreeable she is noted to move her left arm up around her head and face.
--- NOTE | 2023-09-09 17:02 | EXP.PN ---
Subjective *Date: 09/09/23 *Time: 17:02 Interval history: patient is seen at bedside, appears confused, not actively following commands, weaned off. Exam Data for Last 24 hours Vital signs and Labs for Last 24 Hours: Temp Pulse Resp BP Pulse Ox O2 Del Method O2 Flow Rate 97.9 F 75 20 115/47 L 97 Vapotherm 25 09/09/23 15:04 09/09/23 16:00 09/09/23 16:00 09/09/23 16:00 09/09/23 16:00 09/09/23 16:00 09/09/23 16:00 FiO2 40 09/09/23 16:00 Laboratory Results - last 24 hr 09/09/23 05:04: WBC 9.5, RBC 3.01 L, Hgb 8.7 L, Hct 28.5 L, MCV 94.7, MCH 28.9, MCHC 30.5 L, RDW 15.7, Plt Count 322, MPV 8.2, Neut % (Auto) 83.2 H, Lymph % (Auto) 12.8, [place] % (Auto) 2.6, Eos % (Auto) 1.2, Baso % (Auto) 0.1, Neut # (Auto) 7.9 H, Lymph # (Auto) 1.2, [place] # (Auto) 0.2, Eos # (Auto) 0.1, Baso # (Auto) 0.0, Sodium 141, Potassium 3.6, Chloride 112 H, Carbon Dioxide 23, Anion Gap 9.6, BUN 38 H, Creatinine 0.90, Estimated Creat Clear 45, Estimated GFR 60, Est GFR ( Amer) 73, Glucose 96, Calcium 8.7, Total Bilirubin 0.3, AST 51 H, ALT 41, Alkaline Phosphatase 117, Total Protein 5.4 L, Albumin 2.5 L, Globulin 2.9, Albumin/Globulin Ratio 0.9 L I & O for Last 24 hours: Intake & Output 09/06/23 09/07/23 09/08/23 09/09/23 23:59 23:59 23:59 23:59 Intake Total 2773.25 / 3281.25 2768.688 / 2768.688 1991 / 1991 500 / 500 Output Total 950 / 990 1420 / 1520 800 / 825 125 / 125 Balance 1823.25 / 2291.25 1348.688 / 0796.965 7795 / 1167 375 / 375 Weight 65.555 kg 65.555 kg 65.5 kg 65.3 kg Microbiology Reports for the Last 24 Hours: Microbiology 09/07/23 11:00 Urine,Catheterized Urine Culture - Final Constitutional Constitutional: no acute distress *Routine HEENT Exam Head: Present normocephalic Eye: Present EOMI and PERRL ENT: Present mucous membranes moist *Routine Neck Exam Neck: Present supple; Absent lymphadenopathy *Routine Respiratory Exam Respiratory: Present CTA bilaterally *Routine Cardiovascular Exam Cardiovascular: Present RRR *Routine Abdominal Exam Abdominal: Present soft and normoactive bowel sounds; Absent tenderness *Routine Extremities Exam Extremities: Absent cyanosis, clubbing or edema *Routine Skin Exam Skin: Present warm; Absent rash *Routine Neurological Exam Neurological: Present alert and oriented X3 Assessment and Plan *Assessment and plan (1) Pneumonia: Status: Acute Qualifiers: Pneumonia type: due to unspecified organism Laterality: unspecified laterality Lung location: unspecified part of lung Qualified Code(s): J18.9 - Pneumonia, unspecified organism Category: Medical Code(s): J18.9 - Pneumonia, unspecified organism (2) Encephalopathy: Status: Acute Category: Medical Code(s): G93.40 - Encephalopathy, unspecified (3) Acute kidney injury: Status: Acute Category: Medical Code(s): N17.9 - Acute kidney failure, unspecified (4) Afib: Status: Acute Qualifiers: Atrial fibrillation type: unspecified Qualified Code(s): I48.91 - Unspecified atrial fibrillation Category: Medical Code(s): I48.91 - Unspecified atrial fibrillation (5) CVA (cerebral vascular accident): Status: Acute Qualifiers: CVA mechanism: embolism Precerebral and cerebral artery: middle cerebral artery Laterality of affected vessel: left Qualified Code(s): I63.412 - Cerebral infarction due to embolism of left middle cerebral artery Category: Medical Code(s): I63.9 - Cerebral infarction, unspecified (6) HTN (hypertension), benign: Status: Acute Category: Medical Code(s): I10 - Essential (primary) hypertension (7) Unspecified dementia, unspecified severity, without behavioral disturbance, psychotic disturbance, mood disturbance, and anxiety: Status: Acute Qualifiers: Dementia type: unspecified type Dementia severity: unspecified severity Qualified Code(s): F03.90 - Unspecified dementia, unspecified severity, without behavioral disturbance, psychotic disturbance, mood disturbance, and anxiety Category: Medical Code(s): F03.90 - Unspecified dementia, unspecified severity, without behavioral disturbance, psychotic disturbance, mood disturbance, and anxiety (8) CHF (congestive heart failure): Status: Acute Qualifiers: Heart failure type: unspecified Heart failure chronicity: acute on chronic Qualified Code(s): I50.9 - Heart failure, unspecified Category: Medical Code(s): I50.9 - Heart failure, unspecified Plan 83-year-old female halfway resident with PMHx with 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 initial ER stroke work up is negative. Patient on arrival found hypoxic, on 3L NC apparently as a new oxygen requirement. CXR and neck CTA, concerning for air space disease. labs are grossly unremarkable. Findings discussed with ER for admission. In the setting of new oxygen demand and lung opacity, concerned for pneumonia. Patient continues to require admission for treatment of pneumonia. Continuing IV antibiotics. Pulmonology consulted today. Continues to necessitate oxygen. Problems addressed as follows: Encephalopathy: Unclear baseline - Pneumonia with hypoxia - worsening - currently on vaportherm, continue O2 support - Chest x-ray concerning for extensive bilateral patchy airspace disease - on Azithromycin and cefepime Echo results - Normal LV systolic function. Severe RV dilation with mild reduction in RV function. Biatrial dilation. Of note, the patient Mild AI. Mild MR. Moderate TR. Elevated RVSP 40-45 mmHg, EF 55% Normal LV systolic function Severe RV dilation with mild reduction in RV function. Biatrial dilation. Elevated BNP on admission status post lasix yesterday -NORMA: likely prerenal , secondary to dehydration - improved Hypertension Atrial fibrillation with RVR - started on IV amio - Lovenox therpautic dosing Switch PO to IV meds until able to swallow/ patient is refusing to take PO start on PO amiodarone Hyperlipidemia Continue metoprolol tartrate 75 mg twice daily, continue lisinopril 5 mg daily, Xarelto 15 mg daily, amiodarone 200 mg daily, Lipitor 40 mg nightly History of unspecified dementia: History of seizure disorder History of CVA with right-sided deficits and aphasia History of Parkinson's disease -CT of head and neck ruled out acute stroke, unsure of patient's baseline. Will reach out to family and halfway to evaluate baseline. -PT OT and speech consulted to evaluate patient History of depression/anxiety as result of CVA - continue Seroquel 25 mg twice daily, continue trazodone 25 mg nightly, continue Zoloft 150 g daily Neuropathy: Continue gabapentin decrease dose to 400 mg twice daily due to concern for sedation Full code Xarelto Mechanical diet Continue IV abx, weaned off of vapotherm, continue on linezolid, wean o2 as tolerated , gaurded prognosis, discussed with RN
[2023-09-09] MEDS: MORPHINE 2MG/ML SYRINGE 2 MG IV (20:48)
--- NOTE | 2023-09-09 21:01 | DIET.NUTRFU ---
meal intake continues to be poor, may need to consider patient and family wishes for enteral nutrition. She has not had BM since 09/01, colace ordered. Having trouble swallowing pills at times. Continues to trigger for PCM. Will report to provider
[2023-09-10] VITALS (22 sets, daily range): BP systolic 92–134; BP diastolic 49–96; PULSE 76–122; RESP 18–25; TEMP 36.7–38.3; O2SAT 87–95; BMI 23.1
[2023-09-10] MEDS: MORPHINE 2MG/ML SYRINGE 2 MG IV ×6 (00:33→21:46)
[2023-09-10] MEDS: IPRATROPIUM/ALBUTEROL 3 ML NEB IH ×5 (00:42→23:46)
[2023-09-10] MEDS: RINGERS SOLUTION,LACTATED 500 ML 250 ML IV (05:08)
[2023-09-10] MEDS: LINEZOLID 600 MG/300 ML IV.SOLN 300 MG IV ×2 (08:45→21:17)
[2023-09-10] MEDS: ENOXAPARIN 80MG/0.8ML SYRINGE 65 MG SQ ×2 (08:45→21:17)
[2023-09-10] MEDS: METHYLPREDNISOLONE SOD SUCC 40MG VIAL 40 MG IV ×2 (08:46→16:35)
[2023-09-10] MEDS: AZITHROMYCIN 250MG TABLET 500 MG PO (08:47)
[2023-09-10] MEDS: CEFEPIME HCL 2 GM in 0.9 % SODIUM CHLORIDE 100 ML IV ×2 (10:00→22:34)
--- NOTE | 2023-09-10 10:04 | XR_ITS ---
FINAL REPORT TECHNIQUE: Single view chest CLINICAL HISTORY: Hypoxia COMPARISON: 09/07/2023 FINDINGS: A single view of the chest was obtained. The heart and mediastinum are within normal limits. There are worsening bilateral opacities consistent with worsening bilateral pneumonia or ARDS. There is no pneumothorax. Osseous structures demonstrate degenerative changes of the shoulders with loose bodies. IMPRESSION: Worsening bilateral opacities consistent with bilateral pneumonia or ARDS. Reviewed, Interpreted and Dictated by Malick Lucas III, MD Transcribed by Cindy Argueta Authenticated and [facility]
--- NOTE | 2023-09-10 10:04 | EXP.PULM.PN ---
Subjective *Date: 09/10/23 *Time: 11:42 Interval history: Patient in severe respiratory distress. Pulmonology Exam Inpatient Vital signs and Labs for Last 24 Hours: Temp Pulse Resp BP Pulse Ox O2 Del Method O2 Flow Rate 98.6 F 88 20 113/59 L 92 L Vapotherm 25 09/10/23 08:36 09/10/23 09:00 09/10/23 09:00 09/10/23 09:00 09/10/23 09:00 09/10/23 09:00 09/10/23 09:00 FiO2 40 09/10/23 06:41 I & O for Labs for Last 24 Hours: Intake & Output 09/07/23 09/08/23 09/09/23 09/10/23 23:59 23:59 23:59 23:59 Intake Total 2768.688 / 2768.688 1991 / 1991 800 / 1009 209 / 209 Output Total 1420 / 1520 800 / 825 375 / 405 80 / 80 Balance 1348.688 / 0790.346 0182 / 1167 425 / 604 129 / 129 Weight 144 lb 8.384 oz 144 lb 6.444 oz 143 lb 15.39 oz 143 lb 15.39 oz Microbiology Reports for the Last 24 Hours: Microbiology 09/07/23 11:00 Urine,Catheterized Urine Culture - Final Constitutional: Present severe distress Head: Present normocephalic and atraumatic ENT: Present normal exam, normal oropharynx and mucous membranes moist Neck: Present normal inspection and full ROM Respiratory: Present respiratory distress and rhonchi; Absent wheezes or able to speak in complete sentences Cardiac: Present S1/S2, Tachycardia and radial pulses present GI: Present soft and distention; Absent tenderness or guarding Rectal (female): Present deferred (female): Present deferred Skin: Present intact; Absent cyanosis or jaundice Neuro: Present alert and awake Extremities: Present normal inspection; Absent clubbing or cyanosis Psychiatric: Present normal affect and cooperative Assessment and Plan *Assessment and plan (1) Acute respiratory failure with hypoxia: Status: Acute Category: Medical Code(s): J96.01 - Acute respiratory failure with hypoxia (2) Pneumonia: Status: Acute Qualifiers: Laterality: unspecified laterality Lung location: unspecified part of lung Pneumonia type: due to unspecified organism Qualified Code(s): J18.9 - Pneumonia, unspecified organism Category: Medical Code(s): J18.9 - Pneumonia, unspecified organism Plan Ms. 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 Patient on admission along with evaluation for possible stroke was initiated levofloxacin for possible aspiration pneumonia. Febrile upon admission. Mild neutrophilic leukocytosis. ABG upon admission 40% FiO2 did not change in the hypoxic and hypercarbic respiratory failure. Respiratory alkalosis noted. Chest x-ray upon admission concerning for bilateral extensive patchy airspace disease along with nodular component of the left upper lobe. Chest x-ray from this and personally reviewed, worsening right airspace disease. Improving left lower lobe airspace disease per left upper lobe remained stable. CTA no evidence of pulmonary embolism. Bilateral diffuse groundglass opacities. Comprehensive respiratory viral PCR panel negative. Nasal MRSA PCR negative. Sputum cultures finalized normal respiratory victorino. SAMIRA Screen Negative. Interval update: Improving leukocytosis. Afebrile. Clinically stable. Urine culture negative. Repeat blood cultures pending so far. Continue to receive linezolid cefepime and azithromycin. No significant improvement in her oxygen requirements. Chest x-ray from this morning no significant improvement. Cardiology following. Continue to receive diuretics. Plan: Increase methylprednisolone to 40mg IV every 8 hours. Follow with repeat CRP. Aspiration precautions Continue oxygen supplementation to maintain O2 saturation goal of 90 to 95% Continue linezolid, Azithromycin and cefepime pending clinical improvement and repeat culture results and urine strep and Legionella antigen DuoNebs every 6 hours on scheduled basis
[2023-09-10] MEDS: levETIRAcetam 750 MG in 0.9 % SODIUM CHLORIDE 100 ML 215 MG IV ×2 (10:15→22:34)
[2023-09-10 10:19] LABS: Basophils % 0.1 % (0.1-2.0); Eosinophils # 0.1 K/mm3 (0.0-0.4); Eosinophils % 1.3 % (0.1-12.0); Hematocrit 29.5 % (37.0-47.0); Lymphocytes # 0.8 K/mm3 (0.7-4.5); Lymphocytes % 8.7 % (10-50); Mean Corpuscular HGB Conc 30.6 g/dL (31.8-35.4); Mean Corpuscular Hemoglobin 28.4 pg (27.0-31.2); Mean Corpuscular Volume 92.8 fl (81-99); Monocytes # 0.2 K/mm3 (0.1-1.0); Monocytes % 1.7 % (1.7-9.3); Neutrophils # 8.4 K/mm3 (1.8-7.8); Neutrophils % 88.3 % (37.0-80.0); Platelet Count 302 K/mm3 (142-424); Red Blood Count 3.17 M/mm3 (4.20-5.40); Red Cell Distribution Width 15.7 % (11.5-17.5); White Blood Count 9.5 K/mm3 (4.8-10.8)
[2023-09-10 10:23] LABS: MANUAL DIFFERENTIAL MANUAL DIFFERENTIAL (MANUAL DIFF)
[2023-09-10 10:28] LABS: Anion Gap 7.6 mEq/L (5-15); Blood Urea Nitrogen 32 mg/dl (7-17); Calcium 8.5 mg/dl (8.4-10.2); Carbon Dioxide 23 mmol/L (22.0-30.0); Chloride 112 mmol/L (98-107); Creatinine Clearance Estimated 45 mL/min (50-200); Estimated Glomerular Filt Rate 69 ml/min (>60); GFR (African American) 83 ML/MIN (>60); Glucose 167 mg/dl (74-100); Potassium 3.6 mmoL/L (3.5-5.1); Sodium 139 mmol/L (136-145)
[2023-09-10 10:38] LABS: NT Pro Brain Natriuretic Pep. 5140 pg/mL (0-450)
[2023-09-10] MEDS: ONDANSETRON 4MG/2ML VIAL 4 MG IV (11:07)
[2023-09-10 11:18] LABS: Lymphocytes % 6 % (10-50); Monocytes % 1 % (2-9); Neutrophils % 93 % (42-76); Total Cells Counted 100
[2023-09-10 11:19] LABS: Platelet Estimate Normal; RBC Morphology Normal
--- NOTE | 2023-09-10 11:31 | PC.NURSE ---
RESP CARE NOTE: Vapotherm weaned to 25L/40% FIO2 per Dr Ramirez. Keep SPO2 above 88%.
[2023-09-10 14:25] LABS: Body Fluid Culture, Sterile Not indicated. (.); Organism ID Not indicated. (.); Specimen Source Urine (.); Streptococcus pneumoniae Ag Negative (Negative)
--- NOTE | 2023-09-10 15:22 | PC.NURSE ---
Patient remained on 25L 40% vapother. Lung sounds diminished. Patient will not attempt to speak and does not follow commands. Erazo in place, clear yellow urine. IV antibiotics given. PRN pain medication given as patient moans and grimaces with relief noted.
--- NOTE | 2023-09-10 16:12 | EXP.PN ---
Subjective *Date: 09/10/23 *Time: 16:12 Exam Data for Last 24 hours Vital signs and Labs for Last 24 Hours: Temp Pulse Resp BP Pulse Ox O2 Del Method O2 Flow Rate 98.0 F 90 20 111/55 L 95 Vapotherm 25 09/10/23 12:34 09/10/23 14:00 09/10/23 14:00 09/10/23 14:00 09/10/23 14:00 09/10/23 15:00 09/10/23 15:00 FiO2 40 09/10/23 10:40 Laboratory Results - last 24 hr 09/06/23 11:15: Fluid Culture Not indicated., S. pneumoniae Antigen Negative, S. pneumoniae Ag Source Urine, Organism ID Not indicated. 09/10/23 10:09: WBC 9.5, RBC 3.17 L, Hgb 9.0 L, Hct 29.5 L, MCV 92.8, MCH 28.4, MCHC 30.6 L, RDW 15.7, Plt Count 302, MPV 8.0, Neut % (Auto) 88.3 H, Lymph % (Auto) 8.7 L, [place] % (Auto) 1.7, Eos % (Auto) 1.3, Baso % (Auto) 0.1, Neut # (Auto) 8.4 H, Lymph # (Auto) 0.8, [place] # (Auto) 0.2, Eos # (Auto) 0.1, Baso # (Auto) 0.0, Total Counted 100, Neutrophils % (Manual) 93 H, Lymphocytes % (Manual) 6 L, Monocytes % (Manual) 1 L, Platelet Estimate Normal, RBC Morphology Normal, Sodium 139, Potassium 3.6, Chloride 112 H, Carbon Dioxide 23, Anion Gap 7.6, BUN 32 H, Creatinine 0.80, Estimated Creat Clear 45, Estimated GFR 69, Est GFR ( Amer) 83, Glucose 167 H, Calcium 8.5, NT-Pro-B Natriuret Pep 5140 H I & O for Last 24 hours: Intake & Output 09/07/23 09/08/23 09/09/23 09/10/23 23:59 23:59 23:59 23:59 Intake Total 2768.688 / 2768.688 1991 / 1991 800 / 1009 709 / 709 Output Total 1420 / 1520 800 / 825 375 / 405 80 / 80 Balance 1348.688 / 6290.825 1889 / 1167 425 / 604 629 / 629 Weight 65.555 kg 65.5 kg 65.3 kg 65.3 kg Microbiology Reports for the Last 24 Hours: Microbiology 09/07/23 12:35 Blood Blood Culture - Preliminary 09/07/23 12:35 Blood Blood Culture - Preliminary Assessment and Plan *Assessment and plan (1) Acute respiratory failure with hypoxia: Status: Acute Category: Medical Code(s): J96.01 - Acute respiratory failure with hypoxia Plan Diagnosis - PNA, Sepsis, AHRF Discussion - Discussed with patient son at bedside, updated on plan of care and past events during the hospitalization. patient's son is DPOA and patient has living will as well, per son he wants his mother to be DNR/DNI and this is also mentioned in her living will. He also wants to explore hospice and is considering comfort care/ Hospice route, will consult hospice. Consult placed. Patient son mentioned he can be in the hospital tomorrow, he lives in [place], [place]. Code status - DNR/DNI Time spent - 19 mins
--- NOTE | 2023-09-10 16:19 | P.EN_ITS ---
Diagnosis - PNA, Sepsis, AHRF Discussion - Discussed with patient son at bedside, updated on plan of care and past events during the hospitalization. patient's son is DPOA and patient has living will as well, per son he wants his mother to be DNR/DNI and this is also mentioned in her living will. He also wants to explore hospice and is considering comfort care/ Hospice route, will consult hospice. Consult placed. Patient son mentioned he can be in the hospital tomorrow, he lives in [place], [place]. Code status - DNR/DNI Time spent - 19 mins
--- NOTE | 2023-09-10 16:28 | P.PN_ITS ---
Subjective Subjective Date: 09/10/23 Time: 10:30 Principal diagnosis: Pneumonia, A. fib Interval history: The patient is short of breath upon entering the room. However when I do talk to the patient she does not answer any of my questions and she really does not follow any of my commands. She is alert and awake when I walk in but she is unable to answer any of my questions today. As mentioned above she does appear to be short of breath and using accessory muscles while she is breathing. Her vital signs are stable except for some slight tachycardia. Exam Data for Last 24 hours Vital signs and Labs for Last 24 Hours: Temp Pulse Resp BP Pulse Ox O2 Del Method O2 Flow Rate 98.5 F 90 21 132/61 87 L Vapotherm 25 09/10/23 16:00 09/10/23 16:00 09/10/23 16:00 09/10/23 16:00 09/10/23 16:00 09/10/23 16:00 09/10/23 16:00 FiO2 40 09/10/23 10:40 Laboratory Results - last 24 hr 09/06/23 11:15: Fluid Culture Not indicated., S. pneumoniae Antigen Negative, S. pneumoniae Ag Source Urine, Organism ID Not indicated. 09/10/23 10:09: WBC 9.5, RBC 3.17 L, Hgb 9.0 L, Hct 29.5 L, MCV 92.8, MCH 28.4, MCHC 30.6 L, RDW 15.7, Plt Count 302, MPV 8.0, Neut % (Auto) 88.3 H, Lymph % (Auto) 8.7 L, [place] % (Auto) 1.7, Eos % (Auto) 1.3, Baso % (Auto) 0.1, Neut # (Auto) 8.4 H, Lymph # (Auto) 0.8, [place] # (Auto) 0.2, Eos # (Auto) 0.1, Baso # (Auto) 0.0, Total Counted 100, Neutrophils % (Manual) 93 H, Lymphocytes % (Manual) 6 L, Monocytes % (Manual) 1 L, Platelet Estimate Normal, RBC Morphology Normal, Sodium 139, Potassium 3.6, Chloride 112 H, Carbon Dioxide 23, Anion Gap 7.6, BUN 32 H, Creatinine 0.80, Estimated Creat Clear 45, Estimated GFR 69, Est GFR ( Amer) 83, Glucose 167 H, Calcium 8.5, NT-Pro-B Natriuret Pep 5140 H I & O for Last 24 hours: Intake & Output 09/07/23 09/08/23 09/09/23 09/10/23 23:59 23:59 23:59 23:59 Intake Total 2768.688 / 2768.688 1991 / 1991 800 / 1009 709 / 709 Output Total 1420 / 1520 800 / 825 375 / 405 80 / 80 Balance 1348.688 / 2999.822 6004 / 1167 425 / 604 629 / 629 Weight 144 lb 8.384 oz 144 lb 6.444 oz 143 lb 15.39 oz 143 lb 15.39 oz Microbiology Reports for the Last 24 Hours: Microbiology 09/07/23 12:35 Blood Blood Culture - Preliminary 09/07/23 12:35 Blood Blood Culture - Preliminary Constitutional Constitutional: average body habitus *Routine HEENT Exam Head: Present normocephalic and atraumatic ENT: Present mucous membranes moist *Routine Neck Exam Neck: Present supple, full ROM and normal carotid upstroke; Absent JVD, carotid bruit or lymphadenopathy *Routine Respiratory Exam Respiratory: Present rales, wheezes and diminished air movement *Routine Cardiovascular Exam Cardiovascular: Present RRR, Normal S1, Normal S2 and tachycardia; Absent murmur or gallop *Routine Abdominal Exam Abdominal: Present soft and normoactive bowel sounds; Absent tenderness, distended or organomegaly *Routine Extremities Exam Extremities: Present full ROM, pulses intact and normal capillary refill; Absent cyanosis, clubbing or edema *Routine Skin Exam Skin: Present intact and warm; Absent erythema Progress Note: A&P Assessment and plan (1) Acute respiratory failure with hypoxia: Status: Acute (2) Acute on chronic heart failure with preserved ejection fraction (HFpEF): Status: Acute (3) CVA, old, cognitive deficits: Status: Acute (4) HTN (hypertension), benign: Status: Acute (5) Hyperlipidemia: Status: Acute Assessment and Plan Assessment and Plan for All Diagnoses:: Plan: 1. Patient was admitted to the hospital and cardiology was consulted for atrial fibrillation with RVR. She remains on amiodarone today in sinus rhythm but she is slightly tachycardic. Will increase her metoprolol to 100 mg p.o. twice daily for better heart rate control. However her tachycardia may be a compensatory mechanism for her shortness of breath so we will not be too aggressive in treating her tachycardia at this time. 2. The patient also had pneumonia with respiratory failure and hypoxia on admission. She is getting IV antibiotics. Will defer to pulmonology and the hospitalist. 3. The patient does have HFpEF. She does have worsening of her BNP. We do recommend diuresis. Will put her on Lasix 40 mg IV twice daily for diuresis. 4. The patient ruled out for an LA on admission. No plans for invasive left cardiac catheterization at this time. 5. Her blood pressure is well-controlled. 6. Her LDL goal is less than 100. 7. Further recommendations be made pending the patient's response to treatment. Thank you for the opportunity to participate in the care of this patient. All recommendations and orders are per Dr. Samuels.
[2023-09-10] MEDS: FUROSEMIDE 40MG/4ML VIAL 40 MG IV (16:34)
[2023-09-10] MEDS: METOPROLOL TARTRATE 5MG/5ML VIAL 5 MG IV (21:17)
[2023-09-11] VITALS (14 sets, daily range): BP systolic 108–144; BP diastolic 56–85; PULSE 73–120; RESP 13–25; TEMP 36.5–38; O2SAT 88–98; BMI 23.1
[2023-09-11] MEDS: METOPROLOL TARTRATE 5MG/5ML VIAL 5 MG IV (01:19)
[2023-09-11] MEDS: METHYLPREDNISOLONE SOD SUCC 40MG VIAL 40 MG IV ×3 (01:19→18:04)
[2023-09-11] MEDS: MORPHINE 2MG/ML SYRINGE 2 MG IV ×2 (06:04→18:03)
[2023-09-11] MEDS: IPRATROPIUM/ALBUTEROL 3 ML NEB IH ×4 (06:15→23:51)
[2023-09-11 06:46] LABS: Anion Gap 10.5 mEq/L (5-15); Blood Urea Nitrogen 34 mg/dl (7-17); Calcium 8.8 mg/dl (8.4-10.2); Carbon Dioxide 25 mmol/L (22.0-30.0); Chloride 109 mmol/L (98-107); Creatinine Clearance Estimated 45 mL/min (50-200); Estimated Glomerular Filt Rate 69 ml/min (>60); GFR (African American) 83 ML/MIN (>60); Glucose 147 mg/dl (74-100); Potassium 3.5 mmoL/L (3.5-5.1); Sodium 141 mmol/L (136-145)
--- NOTE | 2023-09-11 07:03 | PC.NURSE ---
SHIFT SUMMARY: PT WILL NOT ANSWER ANY QUESTIONS OR FOLLOW ANY COMMANDS. PT CONTINUES TO REQUIRE VAPOTHERM 25L/40%. PT BECAME TACHYCARDIC 2X DURING SHIFT WITH HR IN 120S. PRN METOPROLOL ADMINISTERED. PT HAS BEEN Q2 TURNED AND ORAL CARE PERFORMED.
[2023-09-11] MEDS: ENOXAPARIN 80MG/0.8ML SYRINGE 65 MG SQ (08:17)
[2023-09-11] MEDS: FUROSEMIDE 40MG/4ML VIAL 40 MG IV ×2 (08:18→15:25)
[2023-09-11] MEDS: LINEZOLID 600 MG/300 ML IV.SOLN 300 MG IV ×2 (08:19→22:05)
[2023-09-11] MEDS: levETIRAcetam 750 MG in 0.9 % SODIUM CHLORIDE 100 ML 215 MG IV ×2 (09:20→20:40)
--- NOTE | 2023-09-11 09:43 | P.PN_ITS ---
Subjective *Date: 09/11/23 *Time: 10:55 Interval history: Patient denies any new respiratory complaints. More awake compared to yesterday. Pulmonology Exam Inpatient Vital signs and Labs for Last 24 Hours: Temp Pulse Resp BP Pulse Ox O2 Del Method O2 Flow Rate 100.4 F H 82 17 126/65 92 L Vapotherm 25 09/11/23 08:00 09/11/23 08:00 09/11/23 08:00 09/11/23 08:00 09/11/23 08:00 09/11/23 09:00 09/11/23 08:00 FiO2 40 09/11/23 08:00 Laboratory Results - last 24 hr 09/06/23 11:15: Fluid Culture Not indicated., S. pneumoniae Antigen Negative, S. pneumoniae Ag Source Urine, Organism ID Not indicated. 09/10/23 10:09: WBC 9.5, RBC 3.17 L, Hgb 9.0 L, Hct 29.5 L, MCV 92.8, MCH 28.4, MCHC 30.6 L, RDW 15.7, Plt Count 302, MPV 8.0, Neut % (Auto) 88.3 H, Lymph % (Auto) 8.7 L, [place] % (Auto) 1.7, Eos % (Auto) 1.3, Baso % (Auto) 0.1, Neut # (Auto) 8.4 H, Lymph # (Auto) 0.8, [place] # (Auto) 0.2, Eos # (Auto) 0.1, Baso # (Auto) 0.0, Total Counted 100, Neutrophils % (Manual) 93 H, Lymphocytes % (Manual) 6 L, Monocytes % (Manual) 1 L, Platelet Estimate Normal, RBC Morphology Normal, Sodium 139, Potassium 3.6, Chloride 112 H, Carbon Dioxide 23, Anion Gap 7.6, BUN 32 H, Creatinine 0.80, Estimated Creat Clear 45, Estimated GFR 69, Est GFR ( Amer) 83, Glucose 167 H, Calcium 8.5, NT-Pro-B Natriuret Pep 5140 H 09/11/23 06:11: Sodium 141, Potassium 3.5, Chloride 109 H, Carbon Dioxide 25, Anion Gap 10.5, BUN 34 H, Creatinine 0.80, Estimated Creat Clear 45, Estimated GFR 69, Est GFR ( Amer) 83, Glucose 147 H, Calcium 8.8 I & O for Labs for Last 24 Hours: Intake & Output 09/08/23 09/09/23 09/10/23 09/11/23 23:59 23:59 23:59 23:59 Intake Total 1991 800 / 1009 709 / 1217 508 / 508 Output Total 800 / 825 375 / 405 1355 / 2155 800 / 800 Balance 1192 / 1167 425 / 604 -646 / -938 -292 / -292 Weight 144 lb 6.444 oz 143 lb 15.39 oz 143 lb 15.39 oz 143 lb 15.39 oz Microbiology Reports for the Last 24 Hours: Microbiology 09/07/23 12:35 Blood Blood Culture - Preliminary 09/07/23 12:35 Blood Blood Culture - Preliminary Constitutional: Present severe distress Head: Present normocephalic and atraumatic ENT: Present normal exam, normal oropharynx and mucous membranes moist Neck: Present normal inspection and full ROM Respiratory: Present respiratory distress and rhonchi; Absent wheezes or able to speak in complete sentences Cardiac: Present S1/S2, Tachycardia and radial pulses present GI: Present soft and distention; Absent tenderness or guarding Rectal (female): Present deferred (female): Present deferred Skin: Present intact; Absent cyanosis or jaundice Neuro: Present awake; Absent alert or oriented x 3 Extremities: Present normal inspection; Absent clubbing or cyanosis Psychiatric: Present normal affect and cooperative Assessment and Plan *Assessment and plan (1) Acute respiratory failure with hypoxia: Status: Acute Category: Medical Code(s): J96.01 - Acute respiratory failure with hypoxia (2) Pneumonia: Status: Acute Qualifiers: Laterality: unspecified laterality Lung location: unspecified part of lung Pneumonia type: due to unspecified organism Qualified Code(s): J18.9 - Pneumonia, unspecified organism Category: Medical Code(s): J18.9 - Pneumonia, unspecified organism Plan Ms. 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 Patient on admission along with evaluation for possible stroke was initiated levofloxacin for possible aspiration pneumonia. Febrile upon admission. Mild neutrophilic leukocytosis. ABG upon admission 40% FiO2 did not change in the hypoxic and hypercarbic respiratory failure. Respiratory alkalosis noted. Chest x-ray upon admission concerning for bilateral extensive patchy airspace disease along with nodular component of the left upper lobe. Chest x-ray from this and personally reviewed, worsening right airspace disease. Improving left lower lobe airspace disease per left upper lobe remained stable. CTA no evidence of pulmonary embolism. Bilateral diffuse groundglass opacities. Comprehensive respiratory viral PCR panel negative. Nasal MRSA PCR negative. Sputum cultures finalized normal respiratory victorino. SAMIRA Screen Negative. Interval update: No acute respiratory events overnight. Improving ox requirements. Weaned to 20 L 40%. Will continue to wean as tolerated to nasal cannula. Discontinue linezolid and continue cefepime for a total of 14 days Continue methylprednisolone 40mg Q8 hours. Plan: Methylprednisolone to 40mg IV every 8 hours. Follow with repeat CRP. Aspiration precautions. Patient currently n.p.o. following speech recommendations. Primary evaluating nutrition. Also to have the family goals of care as today and patient was made DNR and hospice was consulted. Continue oxygen supplementation to maintain O2 saturation goal of 90 to 95% Continue cefepime x 14 days. Continue azithromycin pending urine Legionella antigen. DuoNebs every 6 hours on scheduled basis # Thank you for involving pulmonary in this patient care. Will continue to follow.
[2023-09-11] MEDS: CEFEPIME HCL 2 GM in 0.9 % SODIUM CHLORIDE 100 ML IV ×2 (10:23→21:26)
--- NOTE | 2023-09-11 13:48 | EXP.CARD.PN ---
Subjective Subjective Date: 09/11/23 Time: 12:00 Principal diagnosis: Pneumonia, A. fib Interval history: The patient's vital signs are stable this morning. She does not answer any of my questions or follow any of my commands. She is lethargic upon entering the room. She remains on a Vapotherm mask. Exam Data for Last 24 hours Vital signs and Labs for Last 24 Hours: Temp Pulse Resp BP Pulse Ox O2 Del Method O2 Flow Rate 100.4 F H 90 15 119/58 L 93 L Vapotherm 20 09/11/23 08:00 09/11/23 12:00 09/11/23 12:00 09/11/23 12:00 09/11/23 12:00 09/11/23 12:45 09/11/23 10:55 FiO2 40 09/11/23 10:55 Laboratory Results - last 24 hr 09/06/23 11:15: Fluid Culture Not indicated., S. pneumoniae Antigen Negative, S. pneumoniae Ag Source Urine, Organism ID Not indicated. 09/11/23 06:11: Sodium 141, Potassium 3.5, Chloride 109 H, Carbon Dioxide 25, Anion Gap 10.5, BUN 34 H, Creatinine 0.80, Estimated Creat Clear 45, Estimated GFR 69, Est GFR ( Amer) 83, Glucose 147 H, Calcium 8.8 I & O for Last 24 hours: Intake & Output 09/08/23 09/09/23 09/10/23 09/11/23 23:59 23:59 23:59 23:59 Intake Total 1991 / 1991 800 / 1009 709 / 1217 508 / 508 Output Total 800 / 825 375 / 405 1355 / 2155 800 / 800 Balance 1192 / 1167 425 / 604 -646 / -938 -292 / -292 Weight 144 lb 6.444 oz 143 lb 15.39 oz 143 lb 15.39 oz 143 lb 15.39 oz Microbiology Reports for the Last 24 Hours: Microbiology 09/07/23 12:35 Blood Blood Culture - Preliminary 09/07/23 12:35 Blood Blood Culture - Preliminary Constitutional Constitutional: mild distress and average body habitus *Routine HEENT Exam Head: Present normocephalic and atraumatic ENT: Present mucous membranes moist *Routine Neck Exam Neck: Present supple and normal carotid upstroke; Absent JVD, carotid bruit or lymphadenopathy *Routine Respiratory Exam Respiratory: Present rales and rhonchi *Routine Cardiovascular Exam Cardiovascular: Present RRR, Normal S1 and Normal S2; Absent murmur or gallop *Routine Abdominal Exam Abdominal: Present soft and normoactive bowel sounds; Absent tenderness, distended or organomegaly *Routine Extremities Exam Extremities: Present pulses intact and normal capillary refill; Absent cyanosis, clubbing or edema *Routine Skin Exam Skin: Present intact and warm; Absent erythema *Routine Neurological Exam Neurological: Present altered mental status Routine Psychiatric Exam Psychiatric: Present unable to assess Progress Note: A&P Assessment and plan (1) Acute respiratory failure with hypoxia: Status: Acute (2) Pneumonia: Status: Acute (3) Afib: Status: Acute (4) CVA, old, cognitive deficits: Status: Acute (5) Acute on chronic heart failure with preserved ejection fraction (HFpEF): Status: Acute (6) Hyperlipidemia: Status: Acute (7) HTN, goal below 140/80: Status: Acute Assessment and Plan Assessment and Plan for All Diagnoses:: Plan: 1. Patient was admitted to the hospital and cardiology was consulted for atrial fibrillation with RVR. She remains on amiodarone and in sinus rhythm. Her heart rate has improved. 2. The patient also had pneumonia with respiratory failure and hypoxia on admission. She is getting IV antibiotics. Will defer to pulmonology and the hospitalist. 3. The patient does have HFpEF. Continue IV Lasix at this time. Once she is more arousable then consider switching her IV Lasix over to oral. 4. The patient ruled out for an MD on admission. No plans for invasive left cardiac catheterization at this time. 5. Her blood pressure is well-controlled. 6. Her LDL goal is less than 100. 7. No further recommendations at this time from a cardiac standpoint. If any other cardiac issues arise throughout the patient's hospitalization please feel free to contact cardiology again. Thank you for the opportunity to participate in the care of this patient. All recommendations and orders are per Dr. Samuels.
[2023-09-11 15:11] LABS: Legionella pneumophila Urinary Negative (Negative)
[2023-09-11] MEDS: LORazepam 2MG/ML VIAL 0.5 MG IV (15:25)
[2023-09-11] MEDS: SODIUM CHLORIDE 0.9% 10ML VIAL 10 ML IV ×2 (15:26→21:52)
--- NOTE | 2023-09-11 16:00 | P.DS_ITS ---
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 Patient poor historian. Data collected from ED report. EMS and nursing staff. 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 On arrival stroke alert was called. Later on, patient's son stated that patient had been found to have an oxygen saturation of 84% in the skilled nursing so was brought to the emergency department for evaluation for hypoxia. He also noted that she had been weaker and quieter than usual for the past few days. At the time of this interview, patient alert and oriented by person only. Unclear baseline, however, appears to be close to her baseline. No focal neuro deficit. Patient follow command. denied any others symp toms. Admitted for treatment and management. 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 initial ER stroke work up is negative. Patient on arrival found hypoxic, on 3L NC apparently as a new oxygen requirement. CXR and neck CTA, concerning for air space disease. labs are grossly unremarkable. Findings discussed with ER for admission. In the setting of new oxygen demand and lung opacity, concerned for pneumonia. Will treatment for pneumonia. Pulmonology and cardiology both consulted to assist with care given component of heart failure. Over course of admission, patient's condition unfortunately deteriorated. Condition failed to respond to antibiotics and treatment for heart failure. After goals of care discussion with family, decision made to transition to hospice care. Patient on 6 L nasal cannula oxygen at time of transfer. Will be transferred to hospice inpatient facility at for worsening heart failure and respiratory failure secondary to pneumonia. Problems addressed as follows: Encephalopathy: Unclear baseline -Patient appeared confused initially on admission. Unclear patient's baseline. Had slow improvement and was able to answer simple yes/no questions. Has an expressive aphasia and was having difficult time communicating but appeared to have good receptive skills. Unfortunately as her pneumonia progressed and failed to respond, patient became more confused and was unable to interact effectively. Patient more confused on day of transfer to hospice. Acute hypoxemic respiratory failure Heart failure with preserved ejection fraction -Found to have pneumonia on initial workup. Started on antibiotics. Showed jackelyn ef response with improvement but then gradually had worsening respiratory failure. Pulmonology assisting with care, had gradual increase in oxygen requirement. Concern for failure to respond to antibiotics. Also concern for CHF component. Echo obtained during admission showing the following: Normal LV systolic function. Severe RV dilation with mild reduction in RV function. Biatrial dilation. Of note, the patient Mild AI. Mild MR. Moderate TR. Elevated RVSP 40-45 mmHg, EF 55% Patient with elevated BNP. Cardiology assisted with care. Attempts to diuresis were unsuccessful. Patient showed continued decline. Given her worsening p.o. tolerance, unable to tolerate medications for her A-fib, hypertension, heart failure. History of unspecified dementia: History of seizure disorder History of CVA with right-sided deficits and aphasia History of Parkinson's disease -CT of head and neck ruled out acute stroke, unsure of patient's baseline. PT, OT, speech evaluated. Patient exhibiting signs of aspiration. Patient not a good candidate for feeding tube. Given goals of care discussion, family request to proceed with hospice. Transition to DNR CODE STATUS. Stable to transfer to hospice care center at on 6 L nasal cannula oxygen. Continuing with Ativan for agitation, morphine for pain and air hunger. Exam Data for Last 24 hours Vital signs and Labs for Last 24 Hours: Temp Pulse Resp BP Pulse Ox O2 Del Method O2 Flow Rate 100.4 F H 75 14 110/62 96 Vapotherm 20 09/11/23 08:00 09/11/23 14:00 09/11/23 14:00 09/11/23 14:00 09/11/23 14:00 09/11/23 14:31 09/11/23 10:55 FiO2 40 09/11/23 10:55 Laboratory Results - last 24 hr 09/06/23 11:15: Ur L.pneumophila Ag Negative 09/11/23 06:11: Sodium 141, Potassium 3.5, Chloride 109 H, Carbon Dioxide 25, Anion Gap 10.5, BUN 34 H, Creatinine 0.80, Estimated Creat Clear 45, Estimated GFR 69, Est GFR ( Amer) 83, Glucose 147 H, Calcium 8.8 I & O for Last 24 hours: Intake & Output 09/08/23 09/09/23 09/10/23 09/11/23 23:59 23:59 23:59 23:59 Intake Total 1991 800 / 1009 709 / 1217 508 / 508 Output Total 800 / 825 375 / 405 1355 / 2155 800 / 800 Balance 1192 / 1167 425 / 604 -646 / -938 -292 / -292 Weight 65.5 kg 65.3 kg 65.3 kg 65.3 kg Microbiology Reports for the Last 24 Hours: Microbiology 09/07/23 12:35 Blood Blood Culture - Preliminary 09/07/23 12:35 Blood Blood Culture - Preliminary Constitutional Constitutional: mild distress, average body habitus, chronically ill appearing and somnolent *Routine HEENT Exam Head: Present normocephalic and atraumatic ENT: Present mucous membranes moist *Routine Neck Exam Neck: Present supple and normal carotid upstroke; Absent JVD, carotid bruit or lymphadenopathy *Routine Respiratory Exam Respiratory: Present accessory muscle use, rales, rhonchi and crackles; Absent respiratory distress or wheezes *Routine Cardiovascular Exam Cardiovascular: Present RRR, Normal S1 and Normal S2; Absent murmur or gallop *Routine Abdominal Exam Abdominal: Present soft and normoactive bowel sounds; Absent tenderness, distended or organomegaly *Routine Rectal Exam Patient deferred: visual exam *Routine Exam Patient deferred: external exam *Routine Extremities Exam Extremities: Present edema (trace), pulses intact and normal capillary refill; Absent cyanosis or clubbing *Routine Skin Exam Skin: Present intact and warm; Absent erythema *Routine Neurological Exam Neurological: Present alert and altered mental status Comments: tearful, no meaningful response to questions, confused, makes eye contact Routine Psychiatric Exam Psychiatric: Present anxious and agitated Results Data Completed and Pending Labs on day of discharge: Labs from last 24 hours 09/11/23 09/06/23 06:11 11:15 Sodium 141 Potassium 3.5 Chloride 109 H Carbon Dioxide 25 Anion Gap 10.5 BUN 34 H Creatinine 0.80 Estimated Creat Clear 45 Estimated GFR 69 Est GFR ( Amer) 83 Glucose 147 H Calcium 8.8 Ur L.pneumophila Ag Negative Preliminary micro results at discharge 09/07/23 12:35 Blood Culture - Preliminary Blood 09/07/23 12:35 Blood Culture - Preliminary Blood DS: Diagnosis Discharge Diagnosis (1) Acute respiratory failure with hypoxia: Status: Acute Code(s): J96.01 - Acute respiratory failure with hypoxia (2) Pneumonia: Status: Acute Code(s): J18.9 - Pneumonia, unspecified organism Qualifiers: Pneumonia type: due to unspecified organism Laterality: unspecified laterality Lung location: unspecified part of lung Qualified Code(s): J18.9 - Pneumonia, unspecified organism (3) Afib: Status: Acute Code(s): I48.91 - Unspecified atrial fibrillation Qualifiers: Atrial fibrillation type: unspecified Qualified Code(s): I48.91 - Unspecified atrial fibrillation (4) CVA, old, cognitive deficits: Status: Acute Code(s): I69.319 - Unspecified symptoms and signs involving cognitive functions following cerebral infarction (5) Acute on chronic heart failure with preserved ejection fraction (HFpEF): Status: Acute Code(s): I50.33 - Acute on chronic diastolic (congestive) heart failure (6) Hyperlipidemia: Status: Acute Code(s): E78.5 - Hyperlipidemia, unspecified Qualifiers: Hyperlipidemia type: mixed hyperlipidemia Qualified Code(s): E78.2 - Mixed hyperlipidemia (7) HTN, goal below 140/80: Status: Acute Code(s): I10 - Essential (primary) hypertension Meds Home Medications and Allergies Home Medications Medication Instructions Recorded Confirmed Type acetaminophen 500 mg tablet 500 mg PO Q4HP PRN Mild Pain 06/18/23 09/01/23 History (Scale Score 1-4) quetiapine 25 mg tablet 25 mg PO BID 06/18/23 09/01/23 History trazodone 50 mg tablet 25 mg PO HS 06/18/23 08/31/23 History amiodarone 200 mg tablet 400 mg PO DAILY #0 tabs 09/11/23 Rx docusate sodium 100 mg capsule 100 mg PO DAILY #0 caps 09/11/23 Rx gabapentin 400 mg capsule 400 mg PO BID #0 caps 09/11/23 Rx ipratropium 0.5 mg-albuterol 3 mg 3 ml inhalation Q6RT #0 mL 09/11/23 Rx (2.5 mg base)/3 mL nebulization soln levETIRAcetam [Keppra 500mg/5mL 215 mls/hr IV Q12 09/11/23 Rx vial] 750 mg lorazepam 2 mg/mL injection 0.5 mg (0.25 mL) IV Q4HP PRN 09/11/23 Rx solution Agitation #0 mL metoprolol tartrate 5 mg/5 mL 5 mg (5 mL) IV Q6HP PRN Heart Rate 09/11/23 Rx intravenous solution >110 BPM #0 mL morphine 2 mg/mL intravenous 2 mg IV Q2HP PRN Severe Pain 09/11/23 Rx syringe (7-10) #0 mL ondansetron HCl (PF) 4 mg/2 mL 4 mg (2 mL) IV Q8HP PRN Nausea #0 09/11/23 Rx injection solution mL New Prescriptions to Start Prescriptions: levETIRAcetam [Keppra 500mg/5mL vial] 750 mg 0.9 % Sodium Chloride [Sod Chlor 0.9% 100mL Bag] 100 ml 215 mls/hr IV Q12 Allergies Allergy/AdvReac Type Severity Reaction Status Date / Time Penicillins Allergy Hives Verified 07/20/23 15:50 Discharge Plan Disposition Patient Disposition: Hospice - Medical Facility Condition: Serious Discharge Order Discharge Orders: Discharge Order (Routine); Ordered 09/11/23 Ordered By: Mike Arellano Follow up Plan Prescriptions/Medication Reconciliation: New ipratropium-albuterol 0.5 mg-3 mg(2.5 mg base)/3 mL Solution For Nebulization 3 ml inhalation Q6RT Qty: 0 0RF amiodarone 200 mg Tablet 400 mg PO DAILY Qty: 0 0RF lorazepam 2 mg/mL Solution 0.5 mg IV Q4HP PRN (Reason: Agitation) Qty: 0 0RF gabapentin 400 mg Capsule 400 mg PO BID Qty: 0 0RF docusate sodium 100 mg Capsule 100 mg PO DAILY Qty: 0 0RF levETIRAcetam [Keppra 500mg/5mL vial] 750 MG 0.9 % Sodium Chloride [Sod Chlor 0.9% 100mL Bag] 100 ML 215 mls/hr IV Q12 Ordered By: Mike Arellano MD Last Taken: 09/11/23 09:20 215 mls/hr metoprolol tartrate 5 mg/5 mL Solution 5 mg IV Q6HP PRN (Reason: Heart Rate >110 BPM) Qty: 0 0RF morphine 2 mg/mL Syringe 2 mg IV Q2HP PRN (Reason: Severe Pain (7-10)) Qty: 0 0RF ondansetron HCl (PF) 4 mg/2 mL Solution 4 mg IV Q8HP PRN (Reason: Nausea) Qty: 0 0RF Continued acetaminophen 500 mg tablet 500 mg PO Q4HP PRN (Reason: Mild Pain (Scale Score 1-4)) quetiapine 25 mg tablet 25 mg PO BID trazodone 50 mg tablet 25 mg PO HS Discontinued gabapentin 600 mg tablet 600 mg PO BID Qty: 60 4RF lactulose 10 gram/15 mL solution 20 g PO DAILYP PRN (Reason: Constipation) atorvastatin 40 mg tablet 40 mg PO HS amantadine HCl 100 mg capsule 100 mg PO 0800,1200 lisinopril 5 mg tablet 5 mg PO DAILY Xarelto 15 mg tablet 15 mg PO DAILY sennosides [Senokot] 8.6 mg Tablet 8.6 mg PO DAILYP PRN (Reason: Constipation) loperamide 2 mg Capsule 2 mg PO QIDP PRN (Reason: Diarrhea) amiodarone 200 mg Tablet 200 mg PO DAILY promethazine 12.5 mg Tablet 12.5 mg PO Q4HP PRN (Reason: nausea/vomiting) levetiracetam [Keppra] 750 mg Tablet 750 mg PO BID metoprolol tartrate 75 mg Tablet 75 mg PO BID sertraline 150 mg Capsule 150 mg PO DAILY Problem Reconciliation Problems Reviewed?: Yes Patient Discharge Instructions ACTIVITY: Continue current activity and Bed rest DIET: continue same diet Patient Instructions: DI for Heart Failure, DI for Pneumonia -- Adult, DI for Atrial Fibrillation, DI for Respiratory Failure, DI for Acute Kidney Injury, Catheter-Associated Urinary Tract Infection Providers Primary Care Provider: Horace Knight Admit Provider: Mike Arellano Attending Provider: Mike Arellano
--- NOTE | 2023-09-11 16:06 | PC.NURSE ---
A&OX4. HAS BEEN TOLERATING VAPOTHERM WELL T/O MAJORITY OF SHIFT. HOSPICE, FAMILY AND MD JUST HAD DISCUSSION TOGETHER. PT MOVED TO 6LNC, TOLERATING WELL AT 98%. PT ACCEPTED TO HOSPICE CENTER. HAS HAD NO VERBAL RESPONSES, BUT DOES MOAN AND WITHDRAW TO PAIN. F/C IN PLACE DRAINING YELLOW URINE. NO BM THIS SHIFT. REMAINS NPO. FAMILY AT BEDSIDE AT THIS TIME. VSS.
--- NOTE | 2023-09-11 18:14 | PC.NURSE ---
BEFORE FAMILY LEFT, TOLD ME THAT PT SEEMED TO BE IN PAIN. WENT TO ROOM TO ASK PT AND SHE ABLE TO TELL ME THAT SHE WAS IN PAIN, BUT COULDN'T TELL ME WHERE. TX PER MAR. WILL REASSESS.
--- NOTE | 2023-09-11 19:48 | EXP.ACUTE.PN ---
Subjective *Date: 09/11/23 *Time: 17:45 Interval history: Family at bedside on exam today. Multiple visits to the patient. Appeared upset and distressed on initial exam. Had discussion with patient, family, hospice. Initially plan to transition to hospice. Switched oxygen delivery from Vapotherm to nasal cannula. Showed clinical improvement with her saturations. Decision made not to transition to hospice. No p.o. intake. Tearful and agitated at times with family. Afebrile. Blood pressure stable. Medical Exam Vital signs and Labs for Last 24 Hours: Vital Signs Temp Pulse Pulse Resp BP Pulse Ox O2 Del Method 09/11/23 18:49 Nasal Cannula 09/11/23 16:00 79 09/11/23 12:00 77 09/11/23 18:26 Nasal Cannula 09/11/23 18:26 83 09/11/23 18:25 83 09/11/23 17:00 Non-Rebreather 09/11/23 16:00 98.4 F 85 22 116/68 98 Vapotherm 09/11/23 12:00 98.0 F 09/11/23 14:31 Vapotherm 09/11/23 14:00 75 14 110/62 96 Vapotherm 09/11/23 12:45 Vapotherm 09/11/23 12:00 90 15 119/58 L 93 L Vapotherm 09/11/23 10:55 85 09/11/23 10:55 82 09/11/23 10:55 91 L Vapotherm 09/11/23 10:39 Vapotherm 09/11/23 10:00 73 17 108/60 L 92 L Vapotherm 09/11/23 09:00 Vapotherm 09/11/23 08:00 90 09/11/23 08:00 Vapotherm 09/11/23 08:00 100.4 F H 09/11/23 08:00 82 17 126/65 92 L Vapotherm 09/11/23 06:00 90 19 144/85 H 93 L Vapotherm 09/11/23 06:56 Vapotherm 09/11/23 06:15 101 H 09/11/23 06:15 106 H 09/11/23 06:15 91 L Vapotherm 09/11/23 04:00 91 H 09/11/23 04:00 107 H 88 L Vapotherm 09/11/23 04:47 Vapotherm 09/11/23 04:00 99.9 F H 92 H 13 126/74 93 L Vapotherm 09/10/23 20:00 92 L Vapotherm 09/11/23 02:00 98 H 18 134/71 92 L Vapotherm 09/11/23 03:00 Vapotherm 09/11/23 00:00 93 H 09/10/23 20:00 114 H 09/11/23 00:00 98.7 F 09/11/23 01:00 Vapotherm 09/11/23 00:00 93 H 15 123/62 90 L Vapotherm 09/10/23 23:47 90 09/10/23 23:47 93 H 09/10/23 20:00 122 H 93 L Vapotherm 09/10/23 22:44 Vapotherm 09/10/23 21:00 Vapotherm 09/10/23 22:00 82 18 130/73 93 L Vapotherm 09/10/23 20:00 99.0 F 121 H 19 134/72 92 L Vapotherm O2 Flow Rate FiO2 09/11/23 18:49 6 09/11/23 16:00 09/11/23 12:00 09/11/23 18:26 6 09/11/23 18:26 09/11/23 18:25 09/11/23 17:00 6 09/11/23 16:00 09/11/23 12:00 09/11/23 14:31 09/11/23 14:00 09/11/23 12:45 09/11/23 12:00 09/11/23 10:55 09/11/23 10:55 09/11/23 10:55 20 40 09/11/23 10:39 09/11/23 10:00 09/11/23 09:00 09/11/23 08:00 09/11/23 08:00 25 40 09/11/23 08:00 09/11/23 08:00 25 40 09/11/23 06:00 25 40 09/11/23 06:56 25 09/11/23 06:15 09/11/23 06:15 09/11/23 06:15 25 40 09/11/23 04:00 09/11/23 04:00 25 40 09/11/23 04:47 25 09/11/23 04:00 25 40 09/10/23 20:00 25 40 09/11/23 02:00 25 40 09/11/23 03:00 25 09/11/23 00:00 09/10/23 20:00 09/11/23 00:00 09/11/23 01:00 25 09/11/23 00:00 25 40 09/10/23 23:47 09/10/23 23:47 09/10/23 20:00 25 40 09/10/23 22:44 25 09/10/23 21:00 25 09/10/23 22:00 25 40 09/10/23 20:00 25 40 Intake and Output 09/11/23 09/11/23 09/11/23 07:59 15:59 23:59 Intake Total 508 / 508 Output Total 800 / 2400 0 / 2400 1600 / 2400 Balance -292 / -1892 0 / -1892 -1600 / -1892 Intake: Intake, Total IV Amount 508 / 508 Cefepime HCl 2 gm In 0.9 % 100 / 100 Sodium Chloride 100 ml @ 200 mls/hr IV 1100,2300 [facility] Rx#: [id number] Linezolid 600 mg In 300 ml @ 300 / 300 300 mls/hr IV 0900,2100 [facility] Rx# :[id number] levETIRAcetam 750 mg In 0.9 % 108 / 108 Sodium Chloride 100 ml @ 215 mls/hr IV Q12H [facility] Rx#:[id number] Output: Output, Urine Amount 0 / 1600 1600 / 1600 Output, Urine Amount (Catheter) 800 / 800 Erazo 800 / 800 Other: Number of Unmeasured Voids 0 0 Weight 65.3 kg Patient Weight 09/11/23 23:59 Weight 65.3 kg Laboratory Results - last 24 hr 09/06/23 11:15: Ur L.pneumophila Ag Negative 09/11/23 06:11: Sodium 141, Potassium 3.5, Chloride 109 H, Carbon Dioxide 25, Anion Gap 10.5, BUN 34 H, Creatinine 0.80, Estimated Creat Clear 45, Estimated GFR 69, Est GFR ( Amer) 83, Glucose 147 H, Calcium 8.8 I & O for Labs for Last 24 Hours: Intake & Output 03/0209/09/23 09/10/23 09/11/23 23:59 23:59 23:59 23:59 Intake Total 1991 800 / 1009 709 / 1217 508 / 508 Output Total 800 / 825 375 / 405 1355 / 2155 2400 / 2400 Balance 1192 / 1167 425 / 604 -646 / -938 -1892 / -1892 Weight 65.5 kg 65.3 kg 65.3 kg 65.3 kg Microbiology Reports for the Last 24 Hours: Microbiology 09/07/23 12:35 Blood Blood Culture - Preliminary 09/07/23 12:35 Blood Blood Culture - Preliminary Constitutional: Present mild distress, average body habitus, chronically ill appearing and cooperative Head: Present atraumatic and normocephalic ENT: Present normal exam Neck: Present normal inspection Respiratory: Present crackles (Bilateral, diffuse) and normal respiratory effort; Absent rhonchi or wheezes Cardiac: Present Irregularly Regular GI: Present soft and normal bowel sounds; Absent distention or tenderness Extremities: Present normal inspection and full ROM Skin: Present intact; Absent erythema Neuro: Present Grossly Intact, alert, awake and moves all extremities (Does have spontaneous movement and moves both feet equally.) Comment:: makes eye contact, appears to understand when spoken to. no verbal response to examiner, but reportedly responds to family with head nod and yes/no answers Assessment and Plan *Assessment and plan (1) Pneumonia: Status: Acute Qualifiers: Pneumonia type: due to unspecified organism Laterality: unspecified laterality Lung location: unspecified part of lung Qualified Code(s): J18.9 - Pneumonia, unspecified organism Category: Medical Code(s): J18.9 - Pneumonia, unspecified organism (2) Encephalopathy: Status: Acute Category: Medical Code(s): G93.40 - Encephalopathy, unspecified (3) Acute kidney injury: Status: Acute Category: Medical Code(s): N17.9 - Acute kidney failure, unspecified (4) Afib: Status: Acute Qualifiers: Atrial fibrillation type: unspecified Qualified Code(s): I48.91 - Unspecified atrial fibrillation Category: Medical Code(s): I48.91 - Unspecified atrial fibrillation (5) CVA (cerebral vascular accident): Status: Acute Qualifiers: CVA mechanism: embolism Precerebral and cerebral artery: middle cerebral artery Laterality of affected vessel: left Qualified Code(s): I63.412 - Cerebral infarction due to embolism of left middle cerebral artery Category: Medical Code(s): I63.9 - Cerebral infarction, unspecified (6) HTN (hypertension), benign: Status: Acute Category: Medical Code(s): I10 - Essential (primary) hypertension (7) Unspecified dementia, unspecified severity, without behavioral disturbance, psychotic disturbance, mood disturbance, and anxiety: Status: Acute Qualifiers: Dementia type: unspecified type Dementia severity: unspecified severity Qualified Code(s): F03.90 - Unspecified dementia, unspecified severity, without behavioral disturbance, psychotic disturbance, mood disturbance, and anxiety Category: Medical Code(s): F03.90 - Unspecified dementia, unspecified severity, without behavioral disturbance, psychotic disturbance, mood disturbance, and anxiety (8) CHF (congestive heart failure): Status: Acute Qualifiers: Heart failure type: unspecified Heart failure chronicity: acute on chronic Qualified Code(s): I50.9 - Heart failure, unspecified Category: Medical Code(s): I50.9 - Heart failure, unspecified Plan 83-year-old female detention resident with PMHx with 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 initial ER stroke work up is negative. Patient on arrival found hypoxic, on 3L NC apparently as a new oxygen requirement. CXR and neck CTA, concerning for air space disease. labs are grossly unremarkable. Findings discussed with ER for admission. In the setting of new oxygen demand and lung opacity, concerned for pneumonia. Patient continues to require admission for treatment of pneumonia. Continuing IV antibiotics. Pulmonology consulted today. Continues to necessitate oxygen. Initial plan was to transition to hospice today. After making adjustments to oxygen delivery method, patient appeared more alert and interactive with family. O2 sats improved. Family decided to pause on transition to hospice. Continues to require inpatient management. Continuing treatment as below. Will monitor for those 24 to 48 hours and reevaluate need for hospice versus continued curative treatments. Problems addressed as follows: -Encephalopathy: Unclear baseline. Appears to be oriented today with family at bedside. Pneumonia with hypoxia - worsening ARDS - Patient with respiratory failure and ARDS. Was transitioned to nasal cannula oxygen from Vapotherm and attempt to wean to oxygen for transport to inpatient hospice at . Patient had surprising response with improvement in her oxygenation. Family had second thoughts about transitioning to hospice. Would like to give patient another 24 to 48 hours to see if she responds to treatment for pneumonia and respiratory failure -Pulmonology consulted and assisting with care. Will continue methylprednisolone 40 mg IV every 8 hours. Repeat CRP pending. -Aspiration precautions. Speech eval in the morning to assess for aspiration risk. -Continue supplemental oxygen, wean as tolerated. Goal saturation greater 90%. Currently on nasal cannula 6 L. -Continue cefepime 2 g twice daily for 14 days. Has completed azithromycin course. Urine Legionella pending -Continue Zyvox twice daily -DuoNebs every 6 hours -Repeat chest x-ray ordered for the morning. Heart failure with preserved ejection fraction. Hypertension Atrial fibrillation -Echo reviewed, shows severe RV dilation, normal LV function. Elevated RVSP of 40 to 45% with EF of 55%. -Continue Lasix 40 mg twice daily IV for diuresis -Continue p.o. amiodarone 4 mg twice daily -Lovenox 1 mg/kg twice daily. - Continue metoprolol tartrate 75 mg twice daily History of unspecified dementia: History of seizure disorder History of CVA with right-sided deficits and aphasia History of Parkinson's disease -PT, OT, speech working with patient. Speech reevaluation placed for tomorrow based on goals of care discussion with family. History of depression/anxiety as result of CVA - continue Seroquel 25 mg twice daily, continue trazodone 25 mg nightly, continue Zoloft 150 g daily Neuropathy: Continue gabapentin decrease dose to 400 mg twice daily due to concern for sedation DNR N.p.o. pending speech reeval Lovenox therapeutic dosing
--- NOTE | 2023-09-11 19:48 | EXP.EVENT.NO ---
Advance care planning note: Active diagnosis: Stroke, progressive aphasia, respiratory failure, heart failure, risk for aspiration, progressive decline the result from stroke, depression, worsening oxygen requirement. The patient's active diagnoses are of sufficient risk that focused discussion on advanced care planning is indicated in order to allow the patient to thoughtfully consider personal goals of care; and, if situations arise that prevent the ability to personally give input, to ensure appropriate representation of their personal desires through documentation or informed surrogate decision makers. Discussion: Persons present and participating in discussion: Patient, son and daughter Discussion: Extensive discussion about goals of care and patient's progression. Her worsening pneumonia and ARDS leading to respiratory failure in conjunction with heart failure preserved ejection fraction. Not showing meaningful recovery, condition has plateaued. In discussion with family, they would like for her to be DNR. Discussed with methods of nutrition administration. They are very clear that they do not want to proceed with a feeding tube if she is unable to tolerate p.o. intake. Recognize risk of aspiration, request continuing to eat if tolerated by patient. Initial plan was to transition to hospice, given marginal improvement with changing oxygen delivery methods, would like to continue with curative treatment and give her a few more days to see if she improves. Will continue to support family with their treatment requests. Express strong concern that patient's condition is progressive and she will continue to have worsening respiratory status given her failure to significantly improve with prolonged course of antibiotics and steroids. Family states understanding. Time spent: Total time spent [id number] in education and discussion directly related to advance care plannin minutes Mike Arellano 09/11/2023 4 to 4:40 PM
[2023-09-11] MEDS: PANTOPRAZOLE 40MG VIAL 40 MG IV (21:52)
[2023-09-11] MEDS: ENOXAPARIN 100MG/ML SYRINGE 65 MG SQ (21:54)
[2023-09-12] VITALS (13 sets, daily range): BP systolic 109–134; BP diastolic 55–78; PULSE 70–120; RESP 16–22; TEMP 36.6–37.1; O2SAT 91–100; BMI 39.4
[2023-09-12] MEDS: METOPROLOL TARTRATE 5MG/5ML VIAL 5 MG IV (00:23)
--- NOTE | 2023-09-12 00:29 | ECG_ITS ---
APPROVED REPORT Exam: Resting ECG HR:123 bpm ECG Measurements Heart Rate 123 AXES QRSd 92 QRS 9 QT 319 T 180 QTc 392 Conclusion ATRIAL FIBRILLATION WITH RAPID VENTRICULAR RESPONSE WITH ABERRANT CONDUCTION OR VENTRICULAR PREMATURE COMPLEXES NONSPECIFIC ST & T-WAVE ABNORMALITY ABNORMAL ECG UNCONFIRMED REPORT Electronically signed by : TOMASA ROJO, 09/12/2023 06:17:25
--- NOTE | 2023-09-12 00:34 | PC.NURSE ---
0020: patient went into AFIB w/ RVR per EKG (120's) - 0030: administered 5mg metoprolol IVP - 0035: patient sustaining HR 80-90 currently
[2023-09-12] MEDS: METHYLPREDNISOLONE SOD SUCC 40MG VIAL 40 MG IV ×3 (02:40→18:46)
--- NOTE | 2023-09-12 06:00 | XR_ITS ---
FINAL REPORT CLINICAL HISTORY: dyspnea COMPARISON: 09/10/2023 FINDINGS: SINGLE-VIEW CHEST The heart size is normal. The mediastinum is normal. There are persistent bilateral pulmonary opacities, may represent pneumonia or edema. There is no pneumothorax. There is severe degenerative changes of the shoulders. IMPRESSION: Persistent bilateral opacities, may represent pneumonia or edema. Reviewed, Interpreted and Dictated by Malick Lucas III, MD Transcribed by Viky Alvarez Authenticated and . [facility]
--- NOTE | 2023-09-12 06:50 | PC.NURSE ---
patient didn't rest t/o the night, was awake mostly. remained on 6LNC with sat >90. turned q2h with heels elevated.
[2023-09-12 07:43] LABS: Basophils % 0.2 % (0.1-2.0); Eosinophils # 0.1 K/mm3 (0.0-0.4); Eosinophils % 1.1 % (0.1-12.0); Hematocrit 33.1 % (37.0-47.0); Hemoglobin 10.5 g/dL (12.2-16.2); Lymphocytes # 0.7 K/mm3 (0.7-4.5); Lymphocytes % 6.3 % (10-50); Mean Corpuscular HGB Conc 31.7 g/dL (31.8-35.4); Mean Corpuscular Hemoglobin 28.7 pg (27.0-31.2); Mean Corpuscular Volume 90.6 fl (81-99); Mean Platelet Volume 8.6 fl (7.4-10.4); Monocytes # 0.1 K/mm3 (0.1-1.0); Monocytes % 1.2 % (1.7-9.3); Neutrophils # 9.7 K/mm3 (1.8-7.8); Neutrophils % 91.2 % (37.0-80.0); Platelet Count 252 K/mm3 (142-424); Red Blood Count 3.65 M/mm3 (4.20-5.40); Red Cell Distribution Width 15.7 % (11.5-17.5); White Blood Count 10.6 K/mm3 (4.8-10.8)
[2023-09-12 07:47] LABS: MANUAL DIFFERENTIAL MANUAL DIFFERENTIAL (MANUAL DIFF)
[2023-09-12 07:48] LABS: Alanine Aminotransferase 44 U/L (12-78); Albumin Level 3.1 g/dl (3.5-5.0); Alkaline Phosphatase 126 U/L (38-126); Anion Gap 10.4 mEq/L (5-15); Aspartate Amino Transferase 41 U/L (14-36); Bilirubin,Total 0.5 mg/dl (0.2-1.3); Blood Urea Nitrogen 40 mg/dl (7-17); Calcium 8.8 mg/dl (8.4-10.2); Carbon Dioxide 26 mmol/L (22.0-30.0); Chloride 108 mmol/L (98-107); Creatinine Clearance Estimated 77 mL/min (50-200); Estimated Glomerular Filt Rate 69 ml/min (>60); GFR (African American) 83 ML/MIN (>60); Glucose 157 mg/dl (74-100); Magnesium 2.3 mg/dl (1.6-2.3); Potassium 3.4 mmoL/L (3.5-5.1); Sodium 141 mmol/L (136-145); Total Protein,Serum 6.1 g/dl (6.3-8.2)
[2023-09-12 07:53] LABS: C-Reactive Protein 30.8 mg/L (0-4)
[2023-09-12 09:08] LABS: Lymphocytes % 8 % (10-50); Monocytes % 1 % (2-9); Neutrophils % 91 % (42-76); Nucleated Red Blood Cells 1; Platelet Estimate Normal; RBC Morphology Normal; Total Cells Counted 100
[2023-09-12] MEDS: levETIRAcetam 750 MG in 0.9 % SODIUM CHLORIDE 100 ML 215 MG IV ×2 (09:19→21:11)
[2023-09-12] MEDS: LINEZOLID 600 MG/300 ML IV.SOLN 300 MG IV (09:20)
[2023-09-12] MEDS: ENOXAPARIN 120MG/0.8ML SYRINGE 110 MG SQ ×2 (09:21→21:11)
[2023-09-12] MEDS: NYSTATIN CREAM 30GM/TUBE TP ×4 (09:21→21:11)
[2023-09-12] MEDS: CEFEPIME HCL 2 GM in 0.9 % SODIUM CHLORIDE 100 ML IV ×2 (09:22→22:04)
[2023-09-12] MEDS: FUROSEMIDE 40MG/4ML VIAL 40 MG IV ×2 (09:22→16:10)
--- NOTE | 2023-09-12 09:23 | P.PN_ITS ---
Subjective *Date: 09/12/23 *Time: 10:56 Interval history: No acute respiratory events overnight. Continued improvement in her oxygen requirements. Pulmonology Exam Inpatient Vital signs and Labs for Last 24 Hours: Temp Pulse Resp BP Pulse Ox O2 Del Method O2 Flow Rate 97.9 F 98 H 19 122/61 92 L Nasal Cannula 6 09/12/23 08:00 09/12/23 08:00 09/12/23 08:00 09/12/23 08:00 09/12/23 08:00 09/12/23 08:00 09/12/23 08:00 FiO2 40 09/11/23 10:55 Laboratory Results - last 24 hr 09/06/23 11:15: Ur L.pneumophila Ag Negative 09/12/23 07:05: WBC 10.6, RBC 3.65 L, Hgb 10.5 L, Hct 33.1 L, MCV 90.6, MCH 28.7, MCHC 31.7 L, RDW 15.7, Plt Count 252, MPV 8.6, Neut % (Auto) 91.2 H, Lymph % (Auto) 6.3 L, [place] % (Auto) 1.2 L, Eos % (Auto) 1.1, Baso % (Auto) 0.2, Neut # (Auto) 9.7 H, Lymph # (Auto) 0.7, [place] # (Auto) 0.1, Eos # (Auto) 0.1, Baso # (Auto) 0.0, Total Counted 100, Neutrophils % (Manual) 91 H, Lymphocytes % (Manual) 8 L, Monocytes % (Manual) 1 L, Nucleated RBCs 1, Platelet Estimate Normal, RBC Morphology Normal, Sodium 141, Potassium 3.4 L, Chloride 108 H, Carbon Dioxide 26, Anion Gap 10.4, BUN 40 H, Creatinine 0.80, Estimated Creat Clear 77, Estimated GFR 69, Est GFR ( Amer) 83, Glucose 157 H, Calcium 8.8, Magnesium 2.3, Total Bilirubin 0.5, AST 41 H, ALT 44, Alkaline Phosphatase 126, C-Reactive Protein 30.8 H, Total Protein 6.1 L, Albumin 3.1 L, Globulin 3.0, Albumin/Globulin Ratio 1.0 L I & O for Labs for Last 24 Hours: Intake & Output 09/09/23 09/10/23 09/11/2309/11/24 23:59 23:59 23:59 23:59 Intake Total 800 / 1009 709 / 1217 508 / 1008 740 / 740 Output Total 375 / 405 1355 / 2155 2400 / 2800 400 / 400 Balance 425 / 604 -646 / -938 -1892 / -1792 340 / 340 Weight 143 lb 15.39 oz 143 lb 15.39 oz 143 lb 15.39 oz 245 lb 3.2 oz Microbiology Reports for the Last 24 Hours: Microbiology 09/07/23 12:35 Blood Blood Culture - Preliminary 09/07/23 12:35 Blood Blood Culture - Preliminary Constitutional: Present severe distress Head: Present normocephalic and atraumatic ENT: Present normal exam, normal oropharynx and mucous membranes moist Neck: Present normal inspection and full ROM Respiratory: Present respiratory distress, rhonchi and able to speak in complete sentences; Absent wheezes Cardiac: Present S1/S2, Tachycardia and radial pulses present GI: Present soft and distention; Absent tenderness or guarding Rectal (female): Present deferred (female): Present deferred Skin: Present intact; Absent cyanosis or jaundice Neuro: Present alert and awake; Absent oriented x 3 Extremities: Present normal inspection; Absent clubbing or cyanosis Psychiatric: Present normal affect and cooperative Assessment and Plan *Assessment and plan (1) Acute respiratory failure with hypoxia: Status: Acute Category: Medical Code(s): J96.01 - Acute respiratory failure with hypoxia (2) Pneumonia: Status: Acute Qualifiers: Laterality: unspecified laterality Lung location: unspecified part of lung Pneumonia type: due to unspecified organism Qualified Code(s): J18.9 - Pneumonia, unspecified organism Category: Medical Code(s): J18.9 - Pneumonia, unspecified organism Plan Ms. 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 Patient on admission along with evaluation for possible stroke was initiated levofloxacin for possible aspiration pneumonia. Febrile upon admission. Mild neutrophilic leukocytosis. ABG upon admission 40% FiO2 did not change in the hypoxic and hypercarbic respiratory failure. Respiratory alkalosis noted. Chest x-ray upon admission concerning for bilateral extensive patchy airspace disease along with nodular component of the left upper lobe. Chest x-ray from this and personally reviewed, worsening right airspace disease. Improving left lower lobe airspace disease per left upper lobe remained stable. CTA no evidence of pulmonary embolism. Bilateral diffuse groundglass opacities. Comprehensive respiratory viral PCR panel negative. Nasal MRSA PCR negative. Sputum cultures finalized normal respiratory victorino. Urine strep and Legionella antigen negative SAMIRA Screen Negative. Interval update: Continue to receive cefepime for total of 14 days. Continue to receive methylprednisolone every 8 hours Continued improvement in oxygen, weaned to nasal cannula 4 L this morning. Will continue to wean as tolerated. CRP improving. Plan: Methylprednisolone to 40mg IV every 8 hours. Follow with repeat CRP. Aspiration precautions. Continue oxygen supplementation to maintain O2 saturation goal of 90 to 95% Continue cefepime x 14 days. DuoNebs every 6 hours on scheduled basis # Thank you for involving pulmonary in this patient care. Will continue to follow.
[2023-09-12 10:00] LABS: Erythrocyte Sedimentation Rate > 140 mm/hr (0-30)
--- NOTE | 2023-09-12 10:37 | PC.NURSE ---
pulm weaned o2 to 3l nc around 1020
[2023-09-12] MEDS: IPRATROPIUM/ALBUTEROL 3 ML NEB IH ×3 (11:01→23:44)
--- NOTE | 2023-09-12 11:59 | DIET.NUTRFU ---
Addendum entered by Diana Bradley RD, LD 09/12/23 14:10: Spoke to nursing, they were able to complete bedside swallow. Ordered a pureed with thin liquids. Nursing reported she seemed hungry wanted to feed self but had trouble getting it to mouth. Will need assistance with meals. Previous she had been too lethargic to participate with meals, seroquel and gabapentin were held and then adjusted dose may help her to be more alert. Last BM 09/09. Added ensure BID to provide additional calories and protein. Original Note: Patient was reviewed in rounds today, she was originally going to sign onto hospice yesterday but patient became slightly more alert and family decided they what to continue treatment here at hospital. ALARM INSTALLATION TECHNICIAN saw patient on Saturday 09/09 and made her NPO secondary to cognitive decline over weekend, prior to that she was MSOFT prior to 09/09 but intake was very poor. Family has declined tube feeding. Based on cognitive change yesterday and today, swallow will be reevaluated to determine if able to consume nutrition
[2023-09-12] MEDS: QUETIAPINE 25MG TABLET 25 MG PO (12:14)
[2023-09-12] MEDS: DOCUSATE SODIUM 100 MG CAPSULE PO (12:14)
[2023-09-12] MEDS: GABAPENTIN 400MG CAPSULE 400 MG PO (12:14)
--- NOTE | 2023-09-12 14:05 | EXP.EVENT.NO ---
Advance care planning note: Active diagnosis:: Stroke, progressive aphasia, respiratory failure, heart failure, risk for aspiration, progressive decline the result from stroke, depression, worsening oxygen requirement. The patient's active diagnoses are of sufficient risk that focused discussion on advanced care planning is indicated in order to allow the patient to thoughtfully consider personal goals of care; and, if situations arise that prevent the ability to personally give input, to ensure appropriate representation of their personal desires through documentation or informed surrogate decision makers. Discussion: Persons present and participating in discussion: Patient, son and daughter Discussion: Readdressed discussion about hospice and transitioning to palliative care. Patient's condition has shown slight change. She is no longer improving with any treatment. Still responsive today but more fatigued. Family understanding that she continues to have progression of her disease. If no improvement by tomorrow, discussed transitioning to hospice care. Family expressed comfort with this plan. Goals of care include no intention of escalating to intubation or feeding tubes. Family expressed appreciation for having extra time with their mother in a more alert state. I do not want her to be in pain or agitated. Family states understanding. Time spent: Total time spent [id number] in education and discussion directly related to advance care plannin minutes Mike Arellano
--- NOTE | 2023-09-12 14:42 | EXP.ACUTE.PN ---
Subjective *Date: 09/12/23 *Time: 14:42 Interval history: Patient in bedside chair on exam this morning. Alert and makes good eye contact, unsure her understanding of questions today. Answers yes to all simple questions, even when this is not the appropriate answer. Afebrile. No nausea or vomiting. Continues to require nasal cannula oxygen, weaned to 3 L today. Complaining of her mouth being sore. No visible thrush on exam. Medical Exam Vital signs and Labs for Last 24 Hours: Vital Signs Temp Pulse Pulse Resp BP Pulse Ox O2 Del Method 09/12/23 13:00 Nasal Cannula 09/12/23 12:00 105 H 09/12/23 11:58 98.3 F 87 19 134/78 91 L Nasal Cannula 09/12/23 11:01 82 09/12/23 11:01 78 09/12/23 11:00 Nasal Cannula 09/12/23 10:00 Nasal Cannula 09/12/23 09:00 Nasal Cannula 09/12/23 08:00 85 09/12/23 08:00 Non-Rebreather 09/12/23 08:00 97.9 F 98 H 19 122/61 92 L Nasal Cannula 09/12/23 07:08 91 L Nasal Cannula 09/12/23 07:00 Nasal Cannula 09/12/23 04:01 Nasal Cannula 09/12/23 04:00 70 09/12/23 03:54 98.5 F 81 22 113/73 97 09/12/23 03:00 Nasal Cannula 09/12/23 01:21 83 09/12/23 01:21 87 09/12/23 01:00 Nasal Cannula 09/12/23 00:00 120 H 09/12/23 00:00 98.8 F 104 H 22 128/56 L 100 Nasal Cannula 09/11/23 23:00 Nasal Cannula 09/11/23 21:00 Nasal Cannula 09/11/23 20:00 120 H 09/11/23 20:00 Nasal Cannula 09/11/23 20:00 97.7 F 102 H 25 H 118/56 L 96 Nasal Cannula 09/11/23 18:49 Nasal Cannula 09/11/23 18:26 Nasal Cannula 09/11/23 18:26 83 09/11/23 18:25 83 09/11/23 17:00 Non-Rebreather 09/11/23 16:00 79 09/11/23 16:00 98.4 F 85 22 116/68 98 Vapotherm O2 Flow Rate 09/12/23 13:00 3 09/12/23 12:00 09/12/23 11:58 3 09/12/23 11:01 09/12/23 11:01 09/12/23 11:00 3 09/12/23 10:00 3 09/12/23 09:00 3 09/12/23 08:00 09/12/23 08:00 6 09/12/23 08:00 6 09/12/23 07:08 6 09/12/23 07:00 09/12/23 04:01 6 09/12/23 04:00 09/12/23 03:54 09/12/23 03:00 6 09/12/23 01:21 09/12/23 01:21 09/12/23 01:00 6 09/12/23 00:00 09/12/23 00:00 6 09/11/23 23:00 6 09/11/23 21:00 6 09/11/23 20:00 09/11/23 20:00 6 09/11/23 20:00 6 09/11/23 18:49 6 09/11/23 18:26 6 09/11/23 18:26 09/11/23 18:25 09/11/23 17:00 6 09/11/23 16:00 09/11/23 16:00 Intake and Output 09/11/23 09/12/23 09/12/23 23:59 07:59 15:59 Intake Total 500 / 980 480 / 980 Output Total 1600 / 2800 400 / 400 Balance -1600 / -1792 100 / 580 480 / 580 Intake: Intake, Oral Amount 480 / 480 Intake, Total IV Amount 500 / 500 Cefepime HCl 2 gm In 0.9 % 100 / 100 Sodium Chloride 100 ml @ 200 mls/hr IV 1100,2300 [facility] Rx#: [id number] Linezolid 600 mg In 300 ml @ 300 / 300 300 mls/hr IV 0900,2100 ALEX[facility]ER Rx# :[id number] levETIRAcetam 750 mg In 0.9 % 100 / 100 Sodium Chloride 100 ml @ 215 mls/hr IV Q12H ALEXANDER Rx#:[id number] Output: Output, Urine Amount 1600 / 2000 400 / 400 Other: Number of Unmeasured Voids 0 0 Number of Bowel Movements 0 Weight 111.221 kg Patient Weight 09/12/23 23:59 Weight 111.221 kg Laboratory Results - last 24 hr 09/06/23 11:15: Ur L.pneumophila Ag Negative 09/12/23 07:05: WBC 10.6, RBC 3.65 L, Hgb 10.5 L, Hct 33.1 L, MCV 90.6, MCH 28.7, MCHC 31.7 L, RDW 15.7, Plt Count 252, MPV 8.6, Neut % (Auto) 91.2 H, Lymph % (Auto) 6.3 L, [place] % (Auto) 1.2 L, Eos % (Auto) 1.1, Baso % (Auto) 0.2, Neut # (Auto) 9.7 H, Lymph # (Auto) 0.7, [place] # (Auto) 0.1, Eos # (Auto) 0.1, Baso # (Auto) 0.0, Total Counted 100, Neutrophils % (Manual) 91 H, Lymphocytes % (Manual) 8 L, Monocytes % (Manual) 1 L, Nucleated RBCs 1, Platelet Estimate Normal, RBC Morphology Normal, Sodium 141, Potassium 3.4 L, Chloride 108 H, Carbon Dioxide 26, Anion Gap 10.4, BUN 40 H, Creatinine 0.80, Estimated Creat Clear 77, Estimated GFR 69, Est GFR ( Amer) 83, Glucose 157 H, Calcium 8.8, Magnesium 2.3, Total Bilirubin 0.5, AST 41 H, ALT 44, Alkaline Phosphatase 126, C-Reactive Protein 30.8 H, Total Protein 6.1 L, Albumin 3.1 L, Globulin 3.0, Albumin/Globulin Ratio 1.0 L 09/12/23 08:50: ESR > 140 H I & O for Labs for Last 24 Hours: Intake & Output 09/09/23 09/10/23 09/11/23 09/12/23 23:59 23:59 23:59 23:59 Intake Total 800 / 1009 709 / 1217 508 / 1008 980 / 980 Output Total 375 / 405 1355 / 2155 2400 / 2800 400 / 400 Balance 425 / 604 -646 / -938 -1892 / -1792 580 / 580 Weight 65.3 kg 65.3 kg 65.3 kg 111.221 kg Constitutional: Present mild distress, average body habitus, chronically ill appearing and cooperative Head: Present atraumatic and normocephalic ENT: Present normal exam Comment:: No thrush or white patchy lesions Neck: Present normal inspection Respiratory: Present crackles (Bilateral, diffuse) and normal respiratory effort; Absent rhonchi or wheezes Cardiac: Present Irregularly Regular GI: Present soft and normal bowel sounds; Absent distention or tenderness Extremities: Present normal inspection and full ROM Skin: Present intact; Absent erythema Neuro: Present Grossly Intact, alert, awake and moves all extremities (Does have spontaneous movement and moves both feet equally.) Comment:: makes eye contact, answers yes to questions even when not appropriate. Expressive aphasia present. Assessment and Plan *Assessment and plan (1) Pneumonia: Status: Acute Qualifiers: Pneumonia type: due to unspecified organism Laterality: unspecified laterality Lung location: unspecified part of lung Qualified Code(s): J18.9 - Pneumonia, unspecified organism Category: Medical Code(s): J18.9 - Pneumonia, unspecified organism (2) Encephalopathy: Status: Acute Category: Medical Code(s): G93.40 - Encephalopathy, unspecified (3) Acute kidney injury: Status: Acute Category: Medical Code(s): N17.9 - Acute kidney failure, unspecified (4) Afib: Status: Acute Qualifiers: Atrial fibrillation type: unspecified Qualified Code(s): I48.91 - Unspecified atrial fibrillation Category: Medical Code(s): I48.91 - Unspecified atrial fibrillation (5) CVA (cerebral vascular accident): Status: Acute Qualifiers: CVA mechanism: embolism Precerebral and cerebral artery: middle cerebral artery Laterality of affected vessel: left Qualified Code(s): I63.412 - Cerebral infarction due to embolism of left middle cerebral artery Category: Medical Code(s): I63.9 - Cerebral infarction, unspecified (6) HTN (hypertension), benign: Status: Acute Category: Medical Code(s): I10 - Essential (primary) hypertension (7) Unspecified dementia, unspecified severity, without behavioral disturbance, psychotic disturbance, mood disturbance, and anxiety: Status: Acute Qualifiers: Dementia type: unspecified type Dementia severity: unspecified severity Qualified Code(s): F03.90 - Unspecified dementia, unspecified severity, without behavioral disturbance, psychotic disturbance, mood disturbance, and anxiety Category: Medical Code(s): F03.90 - Unspecified dementia, unspecified severity, without behavioral disturbance, psychotic disturbance, mood disturbance, and anxiety (8) CHF (congestive heart failure): Status: Acute Qualifiers: Heart failure type: unspecified Heart failure chronicity: acute on chronic Qualified Code(s): I50.9 - Heart failure, unspecified Category: Medical Code(s): I50.9 - Heart failure, unspecified Plan 83-year-old female skilled nursing resident with PMHx with 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 initial ER stroke work up is negative. Patient on arrival found hypoxic, on 3L NC apparently as a new oxygen requirement. CXR and neck CTA, concerning for air space disease. labs are grossly unremarkable. Findings discussed with ER for admission. In the setting of new oxygen demand and lung opacity, concerned for pneumonia. Patient continues to require admission for treatment of pneumonia. Continuing IV antibiotics. Pulmonology consulted today. Continues to necessitate oxygen. Showing marginal improvement from yesterday. Working with therapy. Nurse evaluating for ability to swallow today. Continues to require inpatient management. Problems addressed as follows: Appears alert and awake, difficulty evaluating encephalopathy or confusion. Answering appropriately to questions but does answer yes to simple questions. Pneumonia with hypoxia - worsening ARDS - Patient with respiratory failure and ARDS. Was transitioned to nasal cannula oxygen from Vapotherm and attempt to wean to oxygen for transport to inpatient hospice at . Patient had surprising response with improvement in her oxygenation. Family had second thoughts about transitioning to hospice. Would like to give patient another 24 to 48 hours to see if she responds to treatment for pneumonia and respiratory failure -Discussed case with pulmonology, recommend continuing antibiotics for 14 days total with IV cefepime - Continue DuoNebs every 6 hours. Continue supplemental oxygen for goal sats greater 90%. Currently on 3 L. - Continuing prednisone 40 mg IV every 8 hours, will consider weaning over the next day or 2. - Repeat CRP improved at 30. White cell count normal at 10.6. Repeat CRP, CMP, CBC, magnesium ordered for the morning. - Chest x-ray personally reviewed, showing diffuse reticular pattern concerning for scarring or fibrosis. No improvement from previous image 2 days ago. - Speech consult placed to reevaluate swallowing and aspiration risk. Has tolerated meds this morning however without difficulty. Previous n.p.o. was recommended due to noncompliance with speech eval and not following direction. Heart failure with preserved ejection fraction. Hypertension Atrial fibrillation -Echo reviewed, shows severe RV dilation, normal LV function. Elevated RVSP of 40 to 45% with EF of 55%. -Continue Lasix 40 mg twice daily IV for diuresis -Continue p.o. amiodarone 4 mg twice daily - Lovenox 1 mg/kg twice daily. -Transition to metoprolol succinate 100 mg daily. Monitor for improvement in heart rate control. History of unspecified dementia: History of seizure disorder History of CVA with right-sided deficits and aphasia History of Parkinson's disease -PT, OT, speech working with patient. Speech reevaluation placed for tomorrow based on goals of care discussion with family. History of depression/anxiety as result of CVA - continue Seroquel 25 mg twice daily, continue trazodone 25 mg nightly, continue Zoloft 150 g daily Neuropathy: Continue gabapentin decrease dose to 400 mg twice daily due to concern for sedation DNR Pur?ed diet, speech eval pending Lovenox therapeutic dosing
--- NOTE | 2023-09-12 16:40 | PC.NURSE ---
1630, pt has been back in bed for a couple of hrs now resting well, went in to wake pt and give po meds. pt arousable and will make eye contact but will not follow commands, open mouth or talk. pts son and daughter at wanting to speak with md regarding cxr. rylie notified.
[2023-09-12] MEDS: SODIUM CHLORIDE 0.9% 10ML VIAL 10 ML IV (21:11)
[2023-09-12] MEDS: PANTOPRAZOLE 40MG VIAL 40 MG IV (21:11)
[2023-09-13] VITALS (9 sets, daily range): BP systolic 97–129; BP diastolic 49–72; PULSE 76–105; RESP 16–19; TEMP 36.4–36.9; O2SAT 90–95; BMI 22.3
[2023-09-13] MEDS: METHYLPREDNISOLONE SOD SUCC 40MG VIAL 40 MG IV ×2 (01:52→09:11)
[2023-09-13] MEDS: KETOROLAC 30MG/ML VIAL 15 MG IV (02:10)
--- NOTE | 2023-09-13 05:17 | PC.NURSE ---
Pt is alert to name. Since earlier shift assessment, pt did become more alert, expressed she was in pain, treated per mar. Pt expressed she wanted water, gave pt water, pt could not suck out of straw, so had to give small sips. Pt has been turned to make comfortable. Remains on 4L NC, O2 >90%. Lung sounds wheezing. Abdomen soft, bowel sounds active. Trace edema to bilateral legs and right arm. Call light in reach.
[2023-09-13] MEDS: IPRATROPIUM/ALBUTEROL 3 ML NEB IH ×4 (06:46→23:41)
[2023-09-13 07:17] LABS: Basophils % 0.1 % (0.1-2.0); Eosinophils % 0.2 % (0.1-12.0); Hematocrit 32.7 % (37.0-47.0); Hemoglobin 10.1 g/dL (12.2-16.2); Lymphocytes # 0.9 K/mm3 (0.7-4.5); Lymphocytes % 9.8 % (10-50); Mean Corpuscular HGB Conc 30.8 g/dL (31.8-35.4); Mean Corpuscular Hemoglobin 28.2 pg (27.0-31.2); Mean Corpuscular Volume 91.7 fl (81-99); Mean Platelet Volume 8.4 fl (7.4-10.4); Monocytes # 0.2 K/mm3 (0.1-1.0); Monocytes % 1.8 % (1.7-9.3); Neutrophils # 7.7 K/mm3 (1.8-7.8); Neutrophils % 88.1 % (37.0-80.0); Platelet Count 215 K/mm3 (142-424); Red Blood Count 3.57 M/mm3 (4.20-5.40); Red Cell Distribution Width 15.9 % (11.5-17.5); White Blood Count 8.8 K/mm3 (4.8-10.8)
[2023-09-13 07:29] LABS: Alanine Aminotransferase 40 U/L (12-78); Albumin Level 3.1 g/dl (3.5-5.0); Albumin/Globulin Ratio 1.1 (1.1-1.8); Alkaline Phosphatase 118 U/L (38-126); Anion Gap 8.3 mEq/L (5-15); Aspartate Amino Transferase 34 U/L (14-36); Bilirubin,Total 0.4 mg/dl (0.2-1.3); Blood Urea Nitrogen 48 mg/dl (7-17); Calcium 8.8 mg/dl (8.4-10.2); Carbon Dioxide 31 mmol/L (22.0-30.0); Chloride 106 mmol/L (98-107); Creatinine Clearance Estimated 40 mL/min (50-200); Estimated Glomerular Filt Rate 48 ml/min (>60); GFR (African American) 58 ML/MIN (>60); Globulin 2.9 g/dL (1.3-3.2); Glucose 161 mg/dl (74-100); Potassium 3.3 mmoL/L (3.5-5.1); Sodium 142 mmol/L (136-145)
[2023-09-13 07:39] LABS: MANUAL DIFFERENTIAL MANUAL DIFFERENTIAL (MANUAL DIFF)
[2023-09-13 07:48] LABS: Magnesium 2.4 mg/dl (1.6-2.3)
[2023-09-13 08:19] LABS: Lymphocytes % 10 % (10-50); Monocytes % 3 % (2-9); Neutrophils % 87 % (42-76); Platelet Estimate Normal; RBC Morphology Normal; Total Cells Counted 100
[2023-09-13] MEDS: CEFEPIME HCL 2 GM in 0.9 % SODIUM CHLORIDE 100 ML IV ×2 (09:09→15:25)
[2023-09-13] MEDS: levETIRAcetam 750 MG in 0.9 % SODIUM CHLORIDE 100 ML 215 MG IV ×2 (09:10→21:00)
[2023-09-13] MEDS: FUROSEMIDE 40MG/4ML VIAL 40 MG IV (09:10)
[2023-09-13] MEDS: AMIODARONE 200MG TABLET 400 MG PO (09:11)
[2023-09-13] MEDS: DOCUSATE SODIUM 100 MG CAPSULE PO (09:12)
[2023-09-13] MEDS: METOPROLOL SUCCINATE XL 100MG TABLET 100 MG PO (09:16)
[2023-09-13] MEDS: NYSTATIN CREAM 30GM/TUBE TP ×4 (09:20→21:41)
[2023-09-13] MEDS: ENOXAPARIN 80MG/0.8ML SYRINGE 65 MG SQ (09:27)
[2023-09-13] MEDS: ONDANSETRON 4MG/2ML VIAL 4 MG IV (09:29)
--- NOTE | 2023-09-13 10:04 | EXP.PULM.PN ---
Subjective *Date: 09/13/23 *Time: 12:26 Interval history: No acute respiratory events overnight. Continued improvement in oxygen requirements. Pulmonology Exam Inpatient Vital signs and Labs for Last 24 Hours: Temp Pulse Resp BP Pulse Ox O2 Del Method O2 Flow Rate 97.5 F L 91 H 16 102/54 L 95 Nasal Cannula 4 09/13/23 08:00 09/13/23 08:00 09/13/23 08:00 09/13/23 08:00 09/13/23 08:00 09/13/23 08:00 09/13/23 08:00 FiO2 40 09/11/23 10:55 Laboratory Results - last 24 hr 09/13/23 06:47: WBC 8.8, RBC 3.57 L, Hgb 10.1 L, Hct 32.7 L, MCV 91.7, MCH 28.2, MCHC 30.8 L, RDW 15.9, Plt Count 215, MPV 8.4, Neut % (Auto) 88.1 H, Lymph % (Auto) 9.8 L, [place] % (Auto) 1.8, Eos % (Auto) 0.2, Baso % (Auto) 0.1, Neut # (Auto) 7.7, Lymph # (Auto) 0.9, [place] # (Auto) 0.2, Eos # (Auto) 0.0, Baso # (Auto) 0.0, Total Counted 100, Neutrophils % (Manual) 87 H, Lymphocytes % (Manual) 10, Monocytes % (Manual) 3, Platelet Estimate Normal, RBC Morphology Normal, Sodium 142, Potassium 3.3 L, Chloride 106, Carbon Dioxide 31 H, Anion Gap 8.3, BUN 48 H, Creatinine 1.10 H D, Estimated Creat Clear 40, Estimated GFR 48 L, Est GFR ( Amer) 58 L D, Glucose 161 H, Calcium 8.8, Magnesium 2.4 H, Total Bilirubin 0.4, AST 34, ALT 40, Alkaline Phosphatase 118, Total Protein 6.0 L, Albumin 3.1 L, Globulin 2.9, Albumin/Globulin Ratio 1.1 I & O for Labs for Last 24 Hours: Intake & Output 09/10/23 09/11/23 09/12/23 09/13/23 23:59 23:59 23:59 23:59 Intake Total 709 / 1217 508 / 1008 1428 / 1428 Output Total 1355 / 2155 2400 / 2800 1900 / 1900 800 / 800 Balance -646 / -938 -1892 / -1792 -472 / -472 -800 / -800 Weight 143 lb 15.39 oz 143 lb 15.39 oz 245 lb 3.2 oz 138 lb 12.8 oz Microbiology Reports for the Last 24 Hours: Microbiology 09/07/23 12:35 Blood Blood Culture - Preliminary 09/07/23 12:35 Blood Blood Culture - Preliminary Constitutional: Present severe distress Head: Present normocephalic and atraumatic ENT: Present normal exam, normal oropharynx and mucous membranes moist Neck: Present normal inspection and full ROM Respiratory: Present respiratory distress, rhonchi and able to speak in complete sentences; Absent wheezes Cardiac: Present S1/S2, Tachycardia and radial pulses present GI: Present soft and distention; Absent tenderness or guarding Rectal (female): Present deferred (female): Present deferred Skin: Present intact; Absent cyanosis or jaundice Neuro: Present alert and awake; Absent oriented x 3 Extremities: Present normal inspection; Absent clubbing or cyanosis Psychiatric: Present normal affect and cooperative Assessment and Plan *Assessment and plan (1) Acute respiratory failure with hypoxia: Status: Acute Category: Medical Code(s): J96.01 - Acute respiratory failure with hypoxia (2) Pneumonia: Status: Acute Qualifiers: Laterality: unspecified laterality Lung location: unspecified part of lung Pneumonia type: due to unspecified organism Qualified Code(s): J18.9 - Pneumonia, unspecified organism Category: Medical Code(s): J18.9 - Pneumonia, unspecified organism Plan Ms. 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 Patient on admission along with evaluation for possible stroke was initiated levofloxacin for possible aspiration pneumonia. Febrile upon admission. Mild neutrophilic leukocytosis. ABG upon admission 40% FiO2 did not change in the hypoxic and hypercarbic respiratory failure. Respiratory alkalosis noted. Chest x-ray upon admission concerning for bilateral extensive patchy airspace disease along with nodular component of the left upper lobe. Chest x-ray from this and personally reviewed, worsening right airspace disease. Improving left lower lobe airspace disease per left upper lobe remained stable. CTA no evidence of pulmonary embolism. Bilateral diffuse groundglass opacities. Comprehensive respiratory viral PCR panel negative. Nasal MRSA PCR negative. Sputum cultures finalized normal respiratory victorino. Urine strep and Legionella antigen negative SAMIRA Screen Negative. Interval update: No acute respiratory events overnight. Improved after meds, this morning on 4 L saturating 92%. Continue to receive cefepime.. Plan: Wean steroids to prednisone oral 80 mg daily. Speech following, able to take oral medications. Aspiration precautions. Continue oxygen supplementation to maintain O2 saturation goal of 90 to 95% Continue cefepime x 14 days. DuoNebs every 6 hours on scheduled basis # Thank you for involving pulmonary in this patient care. Will continue to follow.
[2023-09-13] MEDS: GABAPENTIN 100MG CAPSULE 200 MG PO ×2 (13:18→21:00)
[2023-09-13] MEDS: predniSONE 20MG TAB 80 MG PO (13:18)
--- NOTE | 2023-09-13 13:54 | EXP.ACUTE.PN ---
Subjective *Date: 09/13/23 *Time: 13:54 Interval history: Patient in bedside chair on exam this morning. Appears to be understanding questions, answers difficult to understand given her expressive aphasia. Consistent for jumble. Afebrile, on 3 L nasal cannula this morning. Tolerating Ensure shake, did not eat much breakfast. Took morning meds. Medical Exam Vital signs and Labs for Last 24 Hours: Vital Signs Temp Pulse Pulse Resp BP Pulse Ox O2 Del Method 09/13/23 11:29 78 09/13/23 11:29 80 09/13/23 09:00 Nasal Cannula 09/13/23 08:00 80 09/13/23 08:00 Nasal Cannula 09/13/23 08:00 97.5 F L 91 H 16 102/54 L 95 Nasal Cannula 09/13/23 06:50 Nasal Cannula 09/13/23 06:46 80 09/13/23 06:46 76 09/13/23 06:46 94 L Nasal Cannula 09/13/23 05:00 Nasal Cannula 09/13/23 04:00 97.9 F 76 16 124/72 95 Nasal Cannula 09/13/23 04:00 80 09/13/23 03:00 Nasal Cannula 09/13/23 01:00 Nasal Cannula 09/13/23 00:00 80 09/13/23 00:00 98.5 F 93 H 19 104/57 L 95 Nasal Cannula 09/12/23 23:00 Nasal Cannula 09/12/23 21:00 Nasal Cannula 09/12/23 20:00 Nasal Cannula 09/12/23 20:00 90 09/12/23 20:00 98.0 F 87 16 109/55 L 94 L 09/12/23 18:52 78 09/12/23 18:52 78 09/12/23 18:52 92 L Nasal Cannula 09/12/23 17:58 Nasal Cannula 09/12/23 17:00 Nasal Cannula 09/12/23 16:00 90 09/12/23 15:57 98.1 F 77 20 117/62 92 L Nasal Cannula 09/12/23 15:00 Nasal Cannula O2 Flow Rate 09/13/23 11:29 09/13/23 11:29 09/13/23 09:00 3 09/13/23 08:00 09/13/23 08:00 3 03/07/24 08:00 4 09/13/23 06:50 4 09/13/23 06:46 09/13/23 06:46 09/13/23 06:46 4 09/13/23 05:00 4 09/13/23 04:00 09/13/23 04:00 09/13/23 03:00 4 09/13/23 01:00 4 09/13/23 00:00 09/13/23 00:00 09/12/23 23:00 4 09/12/23 21:00 4 09/12/23 20:00 4 09/12/23 20:00 09/12/23 20:00 09/12/23 18:52 09/12/23 18:52 09/12/23 18:52 3 09/12/23 17:58 4 09/12/23 17:00 4 09/12/23 16:00 09/12/23 15:57 4 09/12/23 15:00 3 Intake and Output 09/12/23 09/13/23 09/13/23 23:59 07:59 15:59 Intake Total 448 / 1428 Output Total 800 / 800 Balance 448 / -472 -800 / -800 Intake: Intake, Oral Amount 240 / 720 Intake, Total IV Amount 208 / 708 Cefepime HCl 2 gm In 0.9 % 100 / 100 Sodium Chloride 100 ml @ 200 mls/hr IV Q12H [facility] Rx#:[id number] levETIRAcetam 750 mg In 0.9 % 108 / 108 Sodium Chloride 100 ml @ 215 mls/hr IV Q12 [facility] Rx#:[id number] Output: Output, Urine Amount 800 / 800 Other: Number of Unmeasured Voids 1 Weight 62.959 kg Patient Weight 09/13/23 23:59 Weight 62.959 kg Laboratory Results - last 24 hr 09/13/23 06:47: WBC 8.8, RBC 3.57 L, Hgb 10.1 L, Hct 32.7 L, MCV 91.7, MCH 28.2, MCHC 30.8 L, RDW 15.9, Plt Count 215, MPV 8.4, Neut % (Auto) 88.1 H, Lymph % (Auto) 9.8 L, [place] % (Auto) 1.8, Eos % (Auto) 0.2, Baso % (Auto) 0.1, Neut # (Auto) 7.7, Lymph # (Auto) 0.9, [place] # (Auto) 0.2, Eos # (Auto) 0.0, Baso # (Auto) 0.0, Total Counted 100, Neutrophils % (Manual) 87 H, Lymphocytes % (Manual) 10, Monocytes % (Manual) 3, Platelet Estimate Normal, RBC Morphology Normal, Sodium 142, Potassium 3.3 L, Chloride 106, Carbon Dioxide 31 H, Anion Gap 8.3, BUN 48 H, Creatinine 1.10 H D, Estimated Creat Clear 40, Estimated GFR 48 L, Est GFR ( Amer) 58 L D, Glucose 161 H, Calcium 8.8, Magnesium 2.4 H, Total Bilirubin 0.4, AST 34, ALT 40, Alkaline Phosphatase 118, Total Protein 6.0 L, Albumin 3.1 L, Globulin 2.9, Albumin/Globulin Ratio 1.1 I & O for Labs for Last 24 Hours: Intake & Output 09/10/23 09/11/23 09/12/23 09/13/23 23:59 23:59 23:59 23:59 Intake Total 709 / 1217 508 / 1008 1428 / 1428 Output Total 1355 / 2155 2400 / 2800 1900 / 1900 800 / 800 Balance -646 / -938 -1892 / -1792 -472 / -472 -800 / -800 Weight 65.3 kg 65.3 kg 111.221 kg 62.959 kg Constitutional: Present no acute distress, average body habitus, chronically ill appearing and cooperative Head: Present atraumatic and normocephalic ENT: Present normal exam Neck: Present normal inspection Respiratory: Present prolonged expiratory phase, rhonchi, crackles and normal respiratory effort; Absent wheezes Cardiac: Present Reg Rate and Rhythm GI: Present soft and normal bowel sounds; Absent distention or tenderness Extremities: Present normal inspection and full ROM Skin: Present intact; Absent erythema Neuro: Present Grossly Intact, alert, awake and moves all extremities Comment:: Expressive aphasia, good eye contact. Assessment and Plan *Assessment and plan (1) Pneumonia: Status: Acute Qualifiers: Pneumonia type: due to unspecified organism Laterality: unspecified laterality Lung location: unspecified part of lung Qualified Code(s): J18.9 - Pneumonia, unspecified organism Category: Medical Code(s): J18.9 - Pneumonia, unspecified organism (2) Encephalopathy: Status: Acute Category: Medical Code(s): G93.40 - Encephalopathy, unspecified (3) Acute kidney injury: Status: Acute Category: Medical Code(s): N17.9 - Acute kidney failure, unspecified (4) Afib: Status: Acute Qualifiers: Atrial fibrillation type: unspecified Qualified Code(s): I48.91 - Unspecified atrial fibrillation Category: Medical Code(s): I48.91 - Unspecified atrial fibrillation (5) CVA (cerebral vascular accident): Status: Acute Qualifiers: CVA mechanism: embolism Precerebral and cerebral artery: middle cerebral artery Laterality of affected vessel: left Qualified Code(s): I63.412 - Cerebral infarction due to embolism of left middle cerebral artery Category: Medical Code(s): I63.9 - Cerebral infarction, unspecified (6) HTN (hypertension), benign: Status: Acute Category: Medical Code(s): I10 - Essential (primary) hypertension (7) Unspecified dementia, unspecified severity, without behavioral disturbance, psychotic disturbance, mood disturbance, and anxiety: Status: Acute Qualifiers: Dementia type: unspecified type Dementia severity: unspecified severity Qualified Code(s): F03.90 - Unspecified dementia, unspecified severity, without behavioral disturbance, psychotic disturbance, mood disturbance, and anxiety Category: Medical Code(s): F03.90 - Unspecified dementia, unspecified severity, without behavioral disturbance, psychotic disturbance, mood disturbance, and anxiety (8) CHF (congestive heart failure): Status: Acute Qualifiers: Heart failure type: unspecified Heart failure chronicity: acute on chronic Qualified Code(s): I50.9 - Heart failure, unspecified Category: Medical Code(s): I50.9 - Heart failure, unspecified Plan 83-year-old female detention resident with PMHx with 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 initial ER stroke work up is negative. Patient on arrival found hypoxic, on 3L NC apparently as a new oxygen requirement. CXR and neck CTA, concerning for air space disease. labs are grossly unremarkable. Findings discussed with ER for admission. In the setting of new oxygen demand and lung opacity, concerned for pneumonia. Patient continues to require admission for treatment of pneumonia. Continuing IV antibiotics. Pulmonology consulted today. Continues to necessitate oxygen. Showing marginal improvement from yesterday. Working with therapy. Patient tolerating p.o. intake without choking or coughing. Continues to require inpatient management. Problems addressed as follows: Appears alert and awake, difficulty evaluating encephalopathy or confusion. Answering appropriately to questions but does answer yes to simple questions. word jumble to other questions Pneumonia with hypoxia - worsening ARDS - Patient with respiratory failure and ARDS. Was transitioned to nasal cannula oxygen from [facility] and attempt to wean to oxygen for transport to inpatient hospice at . Patient had surprising response with improvement in her oxygenation. Family had second thoughts about transitioning to hospice. Patient showing improvement over the past 48 hours. Anticipate discharge to her detention in the next day or 2. - Discussed case with pulmonology, patient showing slow improvement. Continue supplemental oxygen for goal sats greater than 90%, currently on 3 to 4 L. Plan to complete antibiotics for 14 days with cefepime. - DuoNebs every 6 hours scheduled. Transition to p.o. prednisone 80 mg daily. Aspiration precautions. . - Repeat CRP ordered for the morning. White cell count remains normal at 8.8. Repeat CRP, CMP, CBC, magnesium ordered for the morning. - Speech consult placed to reevaluate swallowing and aspiration risk in the next day or 2. Passed bedside swallow, does not have any overt signs of aspiration or choking at this time. Heart failure with preserved ejection fraction. Hypertension Atrial fibrillation -Echo reviewed, shows severe RV dilation, normal LV function. Elevated RVSP of 40 to 45% with EF of 55%. -Continue Lasix 40 mg IV, decrease to once daily. -Continue p.o. amiodarone 400 mg twice daily - DC Lovenox 1 mg/kg twice daily. initiate Xarelto daily - metoprolol succinate 100 mg daily. Monitor for improvement in heart rate control. History of unspecified dementia: History of seizure disorder History of CVA with right-sided deficits and aphasia History of Parkinson's disease -PT, OT, speech working with patient. History of depression/anxiety as result of CVA - continue Seroquel 25 mg HS, continue trazodone 25 mg nightly, continue Zoloft 150 g daily Neuropathy: Continue gabapentin decrease dose to 200mg TID due to concern for sedation DNR Pur?ed diet, speech eval pending Lovenox therapeutic dosing
[2023-09-13] MEDS: RIVAROXABAN 15MG TABLET 15 MG PO (17:00)
--- NOTE | 2023-09-13 18:57 | PC.NURSE ---
held am gabapentin and seroquel per md and pt has done very well, remained alert t/o shift. sitting up in bed/chair , worked well with therapy. able to communicating better, pt even asked tech so whats the plan . assist with meals. takes po meds whole in applesauce. vss. pt currently on 4l nc with humidification. pts c/o pain at rt nare, bloody on initial assessment. x1 c/o nausea this morning treating per sep with relief. pt sitting up in bed watching tv, bed alarm on for pt safety, cb and personal items within reach. no concerns at this time.
--- NOTE | 2023-09-13 20:30 | PC.NURSE ---
left arm edematous and firm around IV - Iv removed
[2023-09-13] MEDS: SODIUM CHLORIDE 0.9% 10ML VIAL 10 ML IV (21:00)
[2023-09-13] MEDS: POTASSIUM CHLORIDE 20MEQ TAB 20 MEQ PO (21:00)
[2023-09-13] MEDS: PANTOPRAZOLE 40MG VIAL 40 MG IV (21:00)
[2023-09-13] MEDS: QUETIAPINE 25MG TABLET 25 MG PO (21:00)
[2023-09-13] MEDS: TRAZODONE 50MG TABLET 25 MG PO (22:10)
--- NOTE | 2023-09-13 22:17 | PC.NURSE ---
patient tolerated PO meds well and drank 120ml of thickened water and Gatorade. responsive to questions and answered appropriately. shearing and redness noted to coccyx
[2023-09-14] VITALS (7 sets, daily range): BP systolic 65–93; BP diastolic 35–67; PULSE 59–95; RESP 14–20; TEMP 36.2–36.9; O2SAT 90–94; BMI 22.3
[2023-09-14] MEDS: CEFEPIME HCL 2 GM in 0.9 % SODIUM CHLORIDE 100 ML IV (02:41)
--- NOTE | 2023-09-14 06:45 | PC.NURSE ---
only peed once (0500) since catheter removal at 09/12 1600. Poor PO intake. alert and aware.
[2023-09-14] MEDS: IPRATROPIUM/ALBUTEROL 3 ML NEB IH ×3 (06:48→18:51)
[2023-09-14 06:54] LABS: Eosinophils % 0.1 % (0.1-12.0); Red Blood Count 3.06 M/mm3 (4.20-5.40)
[2023-09-14 07:00] LABS: Basophils % 0.1 % (0.1-2.0); Hematocrit 27.8 % (37.0-47.0); Lymphocytes # 2.2 K/mm3 (0.7-4.5); Lymphocytes % 11.6 % (10-50); Mean Corpuscular HGB Conc 31.7 g/dL (31.8-35.4); Mean Corpuscular Hemoglobin 28.8 pg (27.0-31.2); Mean Corpuscular Volume 90.8 fl (81-99); Mean Platelet Volume 9.4 fl (7.4-10.4); Monocytes # 0.6 K/mm3 (0.1-1.0); Neutrophils # 16.2 K/mm3 (1.8-7.8); Neutrophils % 85.3 % (37.0-80.0); Platelet Count 234 K/mm3 (142-424); Red Cell Distribution Width 15.9 % (11.5-17.5)
[2023-09-14 07:06] LABS: Hemoglobin 8.8 g/dL (12.2-16.2)
[2023-09-14 07:08] LABS: MANUAL DIFFERENTIAL MANUAL DIFFERENTIAL (MANUAL DIFF)
[2023-09-14 07:22] LABS: Alanine Aminotransferase 36 U/L (12-78); Albumin Level 2.7 g/dl (3.5-5.0); Alkaline Phosphatase 97 U/L (38-126); Anion Gap 9.6 mEq/L (5-15); Aspartate Amino Transferase 26 U/L (14-36); Bilirubin,Total 0.5 mg/dl (0.2-1.3); Blood Urea Nitrogen 67 mg/dl (7-17); Calcium 8.7 mg/dl (8.4-10.2); Carbon Dioxide 27 mmol/L (22.0-30.0); Chloride 107 mmol/L (98-107); Creatinine Clearance Estimated 24 mL/min (50-200); Estimated Glomerular Filt Rate 27 ml/min (>60); GFR (African American) 33 ML/MIN (>60); Globulin 2.6 g/dL (1.3-3.2); Glucose 164 mg/dl (74-100); Potassium 3.6 mmoL/L (3.5-5.1); Sodium 140 mmol/L (136-145); Total Protein,Serum 5.3 g/dl (6.3-8.2)
[2023-09-14 07:25] LABS: Magnesium 2.5 mg/dl (1.6-2.3)
[2023-09-14 08:12] LABS: Hypersegmented Neutrophils 1+; Lymphocytes % 9 % (10-50); Monocytes % 4 % (2-9); Neutrophils % 87 % (42-76); Total Cells Counted 100
[2023-09-14 08:17] LABS: Anisocytosis 1+; Hypochromasia 1+; Macrocytosis 1+; Platelet Estimate Normal
[2023-09-14 08:18] LABS: Poikilocytosis 1+
--- NOTE | 2023-09-14 09:29 | EXP.PULM.PN ---
Subjective *Date: 09/14/23 *Time: 12:31 Interval history: No acute respiratory events overnight. Pulmonology Exam Inpatient Vital signs and Labs for Last 24 Hours: Temp Pulse Resp BP Pulse Ox O2 Del Method O2 Flow Rate 98.3 F 59 L 18 93/58 L 92 L Nasal Cannula 4 09/14/23 07:34 09/14/23 07:34 09/14/23 07:34 09/14/23 07:34 09/14/23 07:34 09/14/23 07:34 09/14/23 07:34 FiO2 40 09/11/23 10:55 Laboratory Results - last 24 hr 09/14/23 06:29: WBC 19.0 H D, RBC 3.06 L, Hgb 8.8 L D, Hct 27.8 L, MCV 90.8, MCH 28.8, MCHC 31.7 L, RDW 15.9, Plt Count 234, MPV 9.4, Neut % (Auto) 85.3 H, Lymph % (Auto) 11.6, [place] % (Auto) 3.0, Eos % (Auto) 0.1, Baso % (Auto) 0.1, Neut # (Auto) 16.2 H, Lymph # (Auto) 2.2, [place] # (Auto) 0.6, Eos # (Auto) 0.0, Baso # (Auto) 0.0, Total Counted 100, Neutrophils % (Manual) 87 H, Lymphocytes % (Manual) 9 L, Monocytes % (Manual) 4, Hypersegmented Neuts 1+, Platelet Estimate Normal, Hypochromasia 1+, Poikilocytosis 1+, Anisocytosis 1+, Macrocytosis 1+, Ovalocytes , Sodium 140, Potassium 3.6, Chloride 107, Carbon Dioxide 27, Anion Gap 9.6, BUN 67 H D, Creatinine 1.80 H D, Estimated Creat Clear 24, Estimated GFR 27 L, Est GFR ( Amer) 33 L D, Glucose 164 H, Calcium 8.7, Magnesium 2.5 H, Total Bilirubin 0.5, AST 26, ALT 36, Alkaline Phosphatase 97, C-Reactive Protein 10.0 H D, Total Protein 5.3 L, Albumin 2.7 L D, Globulin 2.6, Albumin/Globulin Ratio 1.0 L I & O for Labs for Last 24 Hours: Intake & Output 09/11/23 09/12/23 09/13/23 09/14/23 23:59 23:59 23:59 23:59 Intake Total 508 / 1008 1428 / 1428 505 / 665 190 / 190 Output Total 2400 / 2800 1900 / 1900 800 / 800 0 / 0 Balance -1892 / -1792 -472 / -472 -295 / -135 190 / 190 Weight 143 lb 15.39 oz 245 lb 3.2 oz 138 lb 12.8 oz 139 lb Microbiology Reports for the Last 24 Hours: Microbiology 09/07/23 12:35 Blood Blood Culture - Final 09/07/23 12:35 Blood Blood Culture - Final Constitutional: Present severe distress Head: Present normocephalic and atraumatic ENT: Present normal exam, normal oropharynx and mucous membranes moist Neck: Present normal inspection and full ROM Respiratory: Present respiratory distress, rhonchi and able to speak in complete sentences; Absent wheezes Comment:: Patient is aphasic however trying to make sentences. Cardiac: Present S1/S2, Tachycardia and radial pulses present GI: Present soft and distention; Absent tenderness or guarding Rectal (female): Present deferred (female): Present deferred Skin: Present intact; Absent cyanosis or jaundice Neuro: Present alert and awake; Absent oriented x 3 Extremities: Present normal inspection; Absent clubbing or cyanosis Psychiatric: Present normal affect and cooperative Assessment and Plan *Assessment and plan (1) Acute respiratory failure with hypoxia: Status: Acute Category: Medical Code(s): J96.01 - Acute respiratory failure with hypoxia (2) Pneumonia: Status: Acute Qualifiers: Laterality: unspecified laterality Lung location: unspecified part of lung Pneumonia type: due to unspecified organism Qualified Code(s): J18.9 - Pneumonia, unspecified organism Category: Medical Code(s): J18.9 - Pneumonia, unspecified organism Plan Ms. 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 Patient on admission along with evaluation for possible stroke was initiated levofloxacin for possible aspiration pneumonia. Febrile upon admission. Mild neutrophilic leukocytosis. ABG upon admission 40% FiO2 did not change in the hypoxic and hypercarbic respiratory failure. Respiratory alkalosis noted. Chest x-ray upon admission concerning for bilateral extensive patchy airspace disease along with nodular component of the left upper lobe. Chest x-ray from this and personally reviewed, worsening right airspace disease. Improving left lower lobe airspace disease per left upper lobe remained stable. CTA no evidence of pulmonary embolism. Bilateral diffuse groundglass opacities. Comprehensive respiratory viral PCR panel negative. Nasal MRSA PCR negative. Sputum cultures finalized normal respiratory victorino. Urine strep and Legionella antigen negative SAMIRA Screen Negative. Interval update: No acute respiratory events overnight. Steroids weaned to 80 mg oral daily yesterday, CRP continued to improve. Chest x-ray from this morning continue to show significant improvement in her bilateral airspace disease. Will continue steroids at current dose. No significant worsening of symptoms overnight. Afebrile. Hemodynamically stable. No need for changing antibiotics from pulmonary standpoint for the noted worsening leukocytosis. Worsening leukocytosis now at 19.0, neutrophilic predominant. Worsening renal function, BUN/creatinine at 1.8. Will closely monitor. Follow with repeat labs and chest x-ray. Plan: Continue prednisone oral 80 mg daily. Speech following, able to take oral medications. Aspiration precautions. Continue oxygen supplementation to maintain O2 saturation goal of 90 to 95% Continue cefepime x 14 days. DuoNebs every 6 hours on scheduled basis # Thank you for involving pulmonary in this patient care. Will continue to follow.
--- NOTE | 2023-09-14 09:30 | XR_ITS ---
FINAL REPORT CLINICAL HISTORY: Hypoxia COMPARISON: 09/12/2023 FINDINGS: A single portable view of the chest was obtained. The heart size is within normal limits. The mediastinum is within normal limits. There are persistent diffuse pulmonary opacities that remain present, edema or pneumonia. These are partially improved since the prior exam of September 11. There is marked degenerative change of the shoulders bilaterally, on the right side with loose bodies in the glenohumeral joint, measuring up to 15 mm in size. The bony thorax is intact. IMPRESSION: Persistent diffuse pulmonary opacities, edema or pneumonia. These are partially improved since prior exam of September 11. Reviewed, Interpreted and Dictated by Malick Lucas III, MD Transcribed by Laurel Esparza Authenticated and [facility]
[2023-09-14] MEDS: NYSTATIN CREAM 30GM/TUBE TP ×3 (09:46→22:00)
[2023-09-14] MEDS: levETIRAcetam 750 MG in 0.9 % SODIUM CHLORIDE 100 ML 215 MG IV ×2 (09:46→21:25)
[2023-09-14] MEDS: METOPROLOL SUCCINATE XL 100MG TABLET 100 MG PO (09:46)
[2023-09-14] MEDS: GABAPENTIN 100MG CAPSULE 200 MG PO (09:47)
[2023-09-14] MEDS: predniSONE 20MG TAB 80 MG PO (09:47)
[2023-09-14] MEDS: AMIODARONE 200MG TABLET 400 MG PO (09:47)
[2023-09-14] MEDS: DOCUSATE SODIUM 100 MG CAPSULE PO (09:47)
--- NOTE | 2023-09-14 14:59 | DIET.NUTRFU ---
during rounds reported last BM was 3/4, colace in place and meal intake has been poor. Plan is go back to [place] and possible hospice care there
--- NOTE | 2023-09-14 18:48 | P.PN_ITS ---
Subjective *Date: 09/14/23 *Time: 18:48 Interval history: Change in patient's mentation. Less interactive today. Will make eye contact but not responding verbally or following commands. Coughing and choking when attempts to swallow. Not eating. Discussed abrupt change with family, strong concern for clinical worsening. Will transition to hospice care. Hospice to reevaluate today. Medical Exam Vital signs and Labs for Last 24 Hours: Vital Signs Temp Pulse Pulse Resp BP Pulse Ox O2 Del Method 09/14/23 17:06 Room Air 09/14/23 15:24 98.4 F 90 20 90/67 L 92 L Nasal Cannula 09/14/23 15:06 Nasal Cannula 09/14/23 13:00 Nasal Cannula 09/14/23 11:00 Nasal Cannula 09/14/23 09:45 Nasal Cannula 09/14/23 09:40 Nasal Cannula 09/14/23 07:34 98.3 F 59 L 18 93/58 L 92 L Nasal Cannula 09/14/23 06:47 81 09/14/23 06:47 84 09/14/23 06:47 94 L Nasal Cannula 09/14/23 06:08 Nasal Cannula 09/14/23 05:00 Nasal Cannula 09/14/23 04:00 97.2 F L 94 H 18 84/50 L 93 L Nasal Cannula 09/14/23 03:00 Nasal Cannula 09/14/23 01:00 Nasal Cannula 09/13/23 23:50 103 H 09/13/23 23:50 105 H 09/13/23 23:00 Nasal Cannula 09/13/23 21:00 Nasal Cannula 09/13/23 20:00 Nasal Cannula 09/13/23 20:00 97.9 F 93 H 16 97/49 L 94 L Nasal Cannula 09/13/23 19:09 92 H 09/13/23 19:09 93 H 09/13/23 19:09 90 L Nasal Cannula O2 Flow Rate 09/14/23 17:06 09/14/23 15:24 4 09/14/23 15:06 4 09/14/23 13:00 4 09/14/23 11:00 3 09/14/23 09:45 3 09/14/23 09:40 09/14/23 07:34 4 09/14/23 06:47 09/14/23 06:47 09/14/23 06:47 4 09/14/23 06:08 4 09/14/23 05:00 4 09/14/23 04:00 09/14/23 03:00 4 09/14/23 01:00 4 09/13/23 23:50 09/13/23 23:50 09/13/23 23:00 4 09/13/23 21:00 4 09/13/23 20:00 4 09/13/23 20:00 09/13/23 19:09 09/13/23 19:09 09/13/23 19:09 4 Intake and Output 09/14/23 09/14/23 09/14/23 07:59 15:59 23:59 Intake Total 160 / 290 130 / 290 Output Total 0 / 0 0 / 0 Balance 160 / 290 130 / 290 Intake: Intake, Oral Amount 60 / 190 130 / 190 Intake, Total IV Amount 100 / 100 Cefepime HCl 2 gm In 0.9 % 100 / 100 Sodium Chloride 100 ml @ 200 mls/hr IV Q12H [facility] Rx#:[id number] Output: Output, Urine Amount 0 / 0 0 / 0 Other: Number of Unmeasured Voids 1 Number of Bowel Movements 1 Weight 63.049 kg Patient Weight 09/14/23 23:59 Weight 63.049 kg Laboratory Results - last 24 hr 09/14/23 06:29: WBC 19.0 H D, RBC 3.06 L, Hgb 8.8 L D, Hct 27.8 L, MCV 90.8, MCH 28.8, MCHC 31.7 L, RDW 15.9, Plt Count 234, MPV 9.4, Neut % (Auto) 85.3 H, Lymph % (Auto) 11.6, [place] % (Auto) 3.0, Eos % (Auto) 0.1, Baso % (Auto) 0.1, Neut # (Auto) 16.2 H, Lymph # (Auto) 2.2, [place] # (Auto) 0.6, Eos # (Auto) 0.0, Baso # (Auto) 0.0, Total Counted 100, Neutrophils % (Manual) 87 H, Lymphocytes % (Manual) 9 L, Monocytes % (Manual) 4, Hypersegmented Neuts 1+, Platelet Estimate Normal, Hypochromasia 1+, Poikilocytosis 1+, Anisocytosis 1+, Macrocytosis 1+, Ovalocytes , Sodium 140, Potassium 3.6, Chloride 107, Carbon Dioxide 27, Anion Gap 9.6, BUN 67 H D, Creatinine 1.80 H D, Estimated Creat Clear 24, Estimated GFR 27 L, Est GFR ( Amer) 33 L D, Glucose 164 H, Calcium 8.7, Magnesium 2.5 H, Total Bilirubin 0.5, AST 26, ALT 36, Alkaline Phosphatase 97, C-Reactive Protein 10.0 H D, Total Protein 5.3 L, Albumin 2.7 L D, Globulin 2.6, Albumin/Globulin Ratio 1.0 L I & O for Labs for Last 24 Hours: Intake & Output 09/11/23 09/12/23 09/13/23 09/14/23 23:59 23:59 23:59 23:59 Intake Total 508 / 1008 1428 / 1428 505 / 665 290 / 290 Output Total 2400 / 2800 1900 / 1900 800 / 800 0 / 0 Balance -1892 / -1792 -472 / -472 -295 / -135 290 / 290 Weight 65.3 kg 111.221 kg 62.959 kg 63.049 kg Microbiology Reports for the Last 24 Hours: Microbiology 09/07/23 12:35 Blood Blood Culture - Final 09/07/23 12:35 Blood Blood Culture - Final Constitutional: Present mild distress, average body habitus, chronically ill appearing and somnolent Head: Present atraumatic and normocephalic ENT: Present normal exam Neck: Present normal inspection Respiratory: Present prolonged expiratory phase, rhonchi, crackles and normal respiratory effort; Absent wheezes Cardiac: Present Reg Rate and Rhythm GI: Present soft and normal bowel sounds; Absent distention or tenderness Extremities: Present normal inspection and full ROM Skin: Present intact; Absent erythema Neuro: Present awake Comment:: Does not respond to verbal stimuli. Not following commands. Opens eyes spontaneously and will look toward interviewer. Globally weak, slumping in bed today. Assessment and Plan *Assessment and plan (1) Pneumonia: Status: Acute Qualifiers: Pneumonia type: due to unspecified organism Laterality: unspecified laterality Lung location: unspecified part of lung Qualified Code(s): J18.9 - Pneumonia, unspecified organism Category: Medical Code(s): J18.9 - Pneumonia, unspecified organism (2) Encephalopathy: Status: Acute Category: Medical Code(s): G93.40 - Encephalopathy, unspecified (3) Acute kidney injury: Status: Acute Category: Medical Code(s): N17.9 - Acute kidney failure, unspecified (4) Afib: Status: Acute Qualifiers: Atrial fibrillation type: unspecified Qualified Code(s): I48.91 - U nspecified atrial fibrillation Category: Medical Code(s): I48.91 - Unspecified atrial fibrillation (5) CVA (cerebral vascular accident): Status: Acute Qualifiers: CVA mechanism: embolism Precerebral and cerebral artery: middle cerebral artery Laterality of affected vessel: left Qualified Code(s): I63.412 - Cerebral infarction due to embolism of left middle cerebral artery Category: Medical Code(s): I63.9 - Cerebral infarction, unspecified (6) HTN (hypertension), benign: Status: Acute Category: Medical Code(s): I10 - Essential (primary) hypertension (7) Unspecified dementia, unspecified severity, without behavioral disturbance, psychotic disturbance, mood disturbance, and anxiety: Status: Acute Qualifiers: Dementia type: unspecified type Dementia severity: unspecified severity Qualified Code(s): F03.90 - Unspecified dementia, unspecified severity, without behavioral disturbance, psychotic disturbance, mood disturbance, and anxiety Category: Medical Code(s): F03.90 - Unspecified dementia, unspecified severity, without behavioral disturbance, psychotic disturbance, mood disturbance, and anxiety (8) CHF (congestive heart failure): Status: Acute Qualifiers: Heart failure type: unspecified Heart failure chronicity: acute on chronic Qualified Code(s): I50.9 - Heart failure, unspecified Category: Medical Code(s): I50.9 - Heart failure, unspecified Plan 83-year-old female prison resident with PMHx with 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 initial ER stroke work up is negative. Patient on arrival found hypoxic, on 3L NC apparently as a new oxygen requirement. CXR and neck CTA, concerning for air space disease. labs are grossly unremarkable. Findings discussed with ER for admission. In the setting of new oxygen demand and lung opacity, concerned for pneumonia. Patient continues to require admission for treatment of pneumonia. Continuing IV antibiotics. Pulmonology consulted today. Continues to necessitate oxygen. Big change today from yesterday. No longer following commands. Intolerant of p.o. intake. Difficulty getting patient to take her medications. Oxygen requirement remains at 4 L. Given clinical change, had goals of care discussion with family. Will transition to hospice care. Hospice to reevaluate today for possible inpatient versus transition back to her [facility]. Coughing with eating. Continues to require inpatient management. Problems addressed as follows: Pneumonia with hypoxia - worsening ARDS -Continue supplemental oxygen, goal sats greater 90%. Has finished 14 days of antibiotics. Continue breathing treatments. Continue steroids 80 mg a day p.o. prednisone. White cell count jumped to 19. Concern for worsening infection Heart failure with preserved ejection fraction. Hypertension Atrial fibrillation -Discontinue diuretics due to jump in creatinine with BUN 67, creatinine 1.8. Developing organ dysfunction with NORMA. -Continue p.o. amiodarone 400 mg twice daily; Xarelto daily - metoprolol succinate 100 mg daily. Monitor for improvement in heart rate control. History of unspecified dementia: History of seizure disorder History of CVA with right-sided deficits and aphasia History of Parkinson's disease -PT, OT, speech working with patient. Not following directions, did not participate in therapy today. History of depression/anxiety as result of CVA - continue Seroquel 25 mg HS, continue trazodone 25 mg nightly, continue Zoloft 150 g daily Neuropathy: Continue gabapentin decrease dose to 200mg TID due to concern for sedation DNR Pur?ed diet, speech eval pending
[2023-09-14] MEDS: 0.9 % SODIUM CHLORIDE 500 ML IV (20:03)
[2023-09-14] MEDS: SODIUM CHLORIDE 0.9% 10ML VIAL 10 ML IV (21:34)
[2023-09-14] MEDS: PANTOPRAZOLE 40MG VIAL 40 MG IV (21:34)
[2023-09-15] VITALS (7 sets, daily range): BP systolic 56–86; BP diastolic 37–43; PULSE 69–136; RESP 10–28; TEMP 36.6–37.5; O2SAT 90–94; BMI 52.2
[2023-09-15] MEDS: IPRATROPIUM/ALBUTEROL 3 ML NEB IH ×4 (00:27→18:06)
--- NOTE | 2023-09-15 00:53 | PC.NURSE ---
attempted to call pt. son again, no answer
--- NOTE | 2023-09-15 04:55 | PC.NURSE ---
pt. lethargic and only responsive to pain, breathing is labored, pt. has been hypotensive BP 65/35-75/38, EELER is aware, call button is in reach
[2023-09-15] MEDS: GLYCOPYRROLATE 0.2 MG/ML 1ML VIAL IV ×2 (09:09→18:23)
[2023-09-15] MEDS: MORPHINE 2MG/ML SYRINGE 2 MG IV ×3 (09:09→20:21)
[2023-09-15] MEDS: levETIRAcetam 750 MG in 0.9 % SODIUM CHLORIDE 100 ML 215 MG IV ×2 (09:09→20:21)
[2023-09-15] MEDS: NYSTATIN CREAM 30GM/TUBE TP ×3 (09:10→22:41)
[2023-09-15] MEDS: LORazepam 2MG/ML VIAL 0.5 MG IV ×3 (15:09→22:56)
--- NOTE | 2023-09-15 15:36 | EXP.ACUTE.PN ---
Subjective *Date: 09/15/23 *Time: 15:36 Interval history: Patient unresponsive on exam this morning. Became hypotensive overnight. Actively dying. Hospice reconsulted. Spoke with family, at bedside on afternoon rounds. Medical Exam Vital signs and Labs for Last 24 Hours: Vital Signs Temp Pulse Pulse Resp BP Pulse Ox O2 Del Method 09/15/23 12:05 113 H 09/15/23 12:05 108 H 09/15/23 12:05 92 L Nasal Cannula 09/15/23 11:05 Nasal Cannula 09/15/23 09:00 Nasal Cannula 09/15/23 08:00 Nasal Cannula 09/15/23 08:00 99 F 103 H 18 86/37 L 90 L Nasal Cannula 09/15/23 07:00 Nasal Cannula 09/15/23 06:49 75 09/15/23 06:49 69 09/15/23 06:49 93 L Nasal Cannula 09/15/23 05:00 Nasal Cannula 09/15/23 03:00 Nasal Cannula 09/15/23 01:00 Nasal Cannula 09/15/23 00:00 97.8 F 90 18 75/38 L 92 L Nasal Cannula 09/14/23 23:00 Nasal Cannula 09/14/23 21:28 65/35 L 09/14/23 21:00 Nasal Cannula 09/14/23 20:00 Nasal Cannula 09/14/23 20:00 98.5 F 80 14 65/38 L 93 L Nasal Cannula 09/14/23 19:03 95 H 09/14/23 19:03 94 H 09/14/23 19:03 90 L Nasal Cannula 09/14/23 19:00 Nasal Cannula 09/14/23 17:06 Room Air O2 Flow Rate 09/15/23 12:05 09/15/23 12:05 09/15/23 12:05 4 09/15/23 11:05 4 09/15/23 09:00 2 09/15/23 08:00 2 09/15/23 08:00 4 09/15/23 07:00 4 09/15/23 06:49 09/15/23 06:49 09/15/23 06:49 4 09/15/23 05:00 4 09/15/23 03:00 4 09/15/23 01:00 4 09/15/23 00:00 4 09/14/23 23:00 4 09/14/23 21:28 09/14/23 21:00 4 09/14/23 20:00 4 09/14/23 20:00 4 09/14/23 19:03 09/14/23 19:03 09/14/23 19:03 4 09/14/23 19:00 4 09/14/23 17:06 Intake and Output 09/14/23 09/15/23 09/15/23 23:59 07:59 15:59 Intake Total 600 / 890 0 / 0 Output Total 0 / 0 Balance 600 / 890 0 / 0 Intake: Intake, Oral Amount 0 / 0 Intake, Total IV Amount 600 / 700 0.9 % Sodium Chloride 500 ml @ 500 / 500 500 mls/hr IV .Q1H [facility] Rx#: [id number] levETIRAcetam 750 mg In 0.9 % 100 / 100 Sodium Chloride 100 ml @ 215 mls/hr IV Q12 [facility] Rx#:[id number] Output: Output, Urine Amount 0 / 0 Other: Number of Bowel Movements 0 1 Weight 147.6 kg Patient Weight 09/15/23 23:59 Weight 147.6 kg I & O for Labs for Last 24 Hours: Intake & Output 09/12/23 09/13/23 09/14/23 09/15/23 23:59 23:59 23:59 23:59 Intake Total 1428 / 1428 505 / 665 890 / 890 0 / 0 Output Total 1900 / 1900 800 / 800 0 / 0 0 / 0 Balance -472 / -472 -295 / -135 890 / 890 0 / 0 Weight 111.221 kg 62.959 kg 63.049 kg 147.6 kg Constitutional: Present moderate distress, chronically ill appearing and obtunded Head: Present atraumatic and normocephalic ENT: Present mucous membranes dry Comment:: Slow deep breathing Comment:: Irregularly irregular, tachycardic Comment:: No response to verbal or physical stimuli. Occasional 15-second episodes of tremor that then pause, concerning for seizure-like activity. Assessment and Plan *Assessment and plan (1) Pneumonia: Status: Acute Qualifiers: Pneumonia type: due to unspecified organism Laterality: unspecified laterality Lung location: unspecified part of lung Qualified Code(s): J18.9 - Pneumonia, unspecified organism Category: Medical Code(s): J18.9 - Pneumonia, unspecified organism (2) Encephalopathy: Status: Acute Category: Medical Code(s): G93.40 - Encephalopathy, unspecified (3) Acute kidney injury: Status: Acute Category: Medical Code(s): N17.9 - Acute kidney failure, unspecified (4) Afib: Status: Acute Qualifiers: Atrial fibrillation type: unspecified Qualified Code(s): I48.91 - Unspecified atrial fibrillation Category: Medical Code(s): I48.91 - Unspecified atrial fibrillation (5) CVA (cerebral vascular accident): Status: Acute Qualifiers: CVA mechanism: embolism Precerebral and cerebral artery: middle cerebral artery Laterality of affected vessel: left Qualified Code(s): I63.412 - Cerebral infarction due to embolism of left middle cerebral artery Category: Medical Code(s): I63.9 - Cerebral infarction, unspecified (6) HTN (hypertension), benign: Status: Acute Category: Medical Code(s): I10 - Essential (primary) hypertension (7) Unspecified dementia, unspecified severity, without behavioral disturbance, psychotic disturbance, mood disturbance, and anxiety: Status: Acute Qualifiers: Dementia type: unspecified type Dementia severity: unspecified severity Qualified Code(s): F03.90 - Unspecified dementia, unspecified severity, without behavioral disturbance, psychotic disturbance, mood disturbance, and anxiety Category: Medical Code(s): F03.90 - Unspecified dementia, unspecified severity, without behavioral disturbance, psychotic disturbance, mood disturbance, and anxiety (8) CHF (congestive heart failure): Status: Acute Qualifiers: Heart failure type: unspecified Heart failure chronicity: acute on chronic Qualified Code(s): I50.9 - Heart failure, unspecified Category: Medical Code(s): I50.9 - Heart failure, unspecified Plan 83-year-old female half-way resident with PMHx with 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 initial ER stroke work up is negative. Patient on arrival found hypoxic, on 3L NC apparently as a new oxygen requirement. CXR and neck CTA, concerning for air space disease. Patient is completed 2 weeks of antibiotics. Was having slow progression of her pneumonia/ARDS. Over the past 48 hours however she has taken a significant downturn. This morning she is unresponsive, was hypotensive overnight. Decision made to consult hospice for inpatient management. Patient transitioned to hospice care. Family at bedside, discussed case and they are comfortable with this process. She is currently DNR. Continue with morphine IV 2 mg every 2 hours as needed for pain, Ativan 0.5 mg every 4 hours as needed for agitation. Glycopyrrolate 0.2 mg every 6 hours as needed for secretion management. Will continue Keppra 750 mg twice daily IV given seizure disorder and appearance of seizure-like activity that is short-lived of approximately 15 to 20 seconds. imminent. Continue palliative measures.
--- NOTE | 2023-09-15 16:52 | PC.NURSE ---
Blood pressure low but MD aware. Patient admitted to hospice. Patient remains on 4LNC. Patient verbally unresponsive, able to move eyes and focus on someone who is talking but not able to follow commands. PRN medications given to keep patient comfortable from secretions and air hunger. Family at bedside.
--- NOTE | 2023-09-15 18:58 | PC.NURSE ---
NEB TREATMENTS STOPPED PER FAMILY REQUEST
[2023-09-16] MEDS: MORPHINE 2MG/ML SYRINGE 2 MG IV ×4 (00:43→20:55)
--- NOTE | 2023-09-16 01:11 | PC.NURSE ---
Pt daughter asked to turn pt, RR 10 at this time, pt O2 increased to 5L for comfort.
[2023-09-16 04:00] VITALS: BMI 52.2
[2023-09-16] MEDS: LORazepam 2MG/ML VIAL 0.5 MG IV (04:19)
--- NOTE | 2023-09-16 06:48 | PC.NURSE ---
Pt has rested well this shift with minimal distress. Pt has been treated per mar for anxiety and pain. Pt RR 10 and currently on 5L of O2.
[2023-09-16 08:00] VITALS: BP 93/36; PULSE 66; RESP 16; TEMP 36.7; O2SAT 92
[2023-09-16] MEDS: levETIRAcetam 750 MG in 0.9 % SODIUM CHLORIDE 100 ML 215 MG IV ×2 (10:09→20:55)
--- NOTE | 2023-09-16 17:18 | P.PN_ITS ---
Subjective *Date: 09/16/23 *Time: 17:18 Interval history: Patient again more hypotensive. No response to verbal or physical stimuli today. Slow deep breathing with episodes of apnea. Family at bedside. Does not appear in pain or agitation Medical Exam Vital signs and Labs for Last 24 Hours: Vital Signs Temp Pulse Pulse Resp BP Pulse Ox O2 Del Method 09/16/23 13:00 Nasal Cannula 09/16/23 10:50 Nasal Cannula 09/16/23 09:00 Nasal Cannula 09/16/23 08:15 Nasal Cannula 09/16/23 08:00 98.1 F 66 16 93/36 L 92 L Nasal Cannula 09/16/23 06:47 Nasal Cannula 09/16/23 04:55 Nasal Cannula 09/16/23 03:00 Nasal Cannula 09/16/23 01:00 Nasal Cannula 09/15/23 23:00 Nasal Cannula 09/15/23 21:50 99.5 F 136 H 28 H 56/43 L 90 L Nasal Cannula 09/15/23 21:00 Nasal Cannula 09/15/23 20:00 10 L 94 L Nasal Cannula 09/15/23 18:40 Nasal Cannula 09/15/23 18:05 91 H 09/15/23 18:05 87 09/15/23 18:05 90 L Nasal Cannula 09/15/23 17:05 Nasal Cannula O2 Flow Rate 09/16/23 13:00 4 09/16/23 10:50 4 09/16/23 09:00 4 09/16/23 08:15 4 09/16/23 08:00 4 09/16/23 06:47 5 09/16/23 04:55 5 09/16/23 03:00 5 09/16/23 01:00 5 09/15/23 23:00 4 09/15/23 21:50 4 09/15/23 21:00 4 09/15/23 20:00 4 09/15/23 18:40 4 09/15/23 18:05 09/15/23 18:05 09/15/23 18:05 4 09/15/23 17:05 4 Intake and Output 09/16/23 09/16/23 09/16/23 07:59 15:59 23:59 Intake Total 100 / 100 Output Total 0 / 0 Balance 100 / 100 Intake: Intake, Oral Amount 0 / 0 Intake, Total IV Amount 100 / 100 levETIRAcetam 750 mg In 0.9 % 100 / 100 Sodium Chloride 100 ml @ 215 mls/hr IV Q12 [facility] Rx#:[id number] Output: Output, Urine Amount 0 / 0 Other: Weight Patient Weight 09/17/23 00:59 Weight 147.6 kg I & O for Labs for Last 24 Hours: Intake & Output 09/13/23 09/14/23 09/15/23 09/17/23 23:59 23:59 23:59 00:59 Intake Total 505 / 665 890 / 890 100 / 100 100 / 100 Output Total 800 / 800 0 / 0 0 / 0 0 / 0 Balance -295 / -135 890 / 890 100 / 100 100 / 100 Weight 62.959 kg 63.049 kg 147.6 kg 147.6 kg Constitutional: Present mild distress Respiratory: Present rhonchi and crackles; Absent wheezes Cardiac: Present Tachycardia Comment:: Irregularly irregular Neuro: Absent moves all extremities Comment:: Altered mental status, obtunded Assessment and Plan *Assessment and plan (1) Pneumonia: Status: Acute Qualifiers: Pneumonia type: due to unspecified organism Laterality: unspecified laterality Lung location: unspecified part of lung Qualified Code(s): J18.9 - Pneumonia, unspecified organism Category: Medical Code(s): J18.9 - Pneumonia, unspecified organism (2) Encephalopathy: Status: Acute Category: Medical Code(s): G93.40 - Encephalopathy, unspecified (3) Acute kidney injury: Status: Acute Category: Medical Code(s): N17.9 - Acute kidney failure, unspecified (4) Afib: Status: Acute Qualifiers: Atrial fibrillation type: unspecified Qualified Code(s): I48.91 - Unspecified atrial fibrillation Category: Medical Code(s): I48.91 - Unspecified atrial fibrillation (5) CVA (cerebral vascular accident): Status: Acute Qualifiers: CVA mechanism: embolism Precerebral and cerebral artery: middle cerebral artery Laterality of affected vessel: left Qualified Code(s): I63.412 - Cerebral infarction due to embolism of left middle cerebral artery Category: Medical Code(s): I63.9 - Cerebral infarction, unspecified (6) HTN (hypertension), benign: Status: Acute Category: Medical Code(s): I10 - Essential (primary) hypertension (7) Unspecified dementia, unspecified severity, without behavioral disturbance, psychotic disturbance, mood disturbance, and anxiety: Status: Acute Qualifiers: Dementia type: unspecified type Dementia severity: unspecified severity Qualified Code(s): F03.90 - Unspecified dementia, unspecified severity, without behavioral disturbance, psychotic disturbance, mood disturbance, and anxiety Category: Medical Code(s): F03.90 - Unspecified dementia, unspecified severity, without behavioral disturbance, psychotic disturbance, mood disturbance, and anxiety (8) CHF (congestive heart failure): Status: Acute Qualifiers: Heart failure type: unspecified Heart failure chronicity: acute on chronic Qualified Code(s): I50.9 - Heart failure, unspecified Category: Medical Code(s): I50.9 - Heart failure, unspecified Plan 83-year-old female custodial resident with PMHx with 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 initial ER stroke work up is negative. Patient on arrival found hypoxic, on 3L NC apparently as a new oxygen requirement. CXR and neck CTA, concerning for air space disease. Patient has completed 2 weeks of antibiotics. Was having slow progression of her pneumonia/ARDS. Transitioned to inpatient hospice yesterday. Vitals showing changes with tachycardia and worsening A-fib, breathing slowing and more deep. Patient obtunded nonresponsive. Appears comfortable at this time. Family at bedside. Continue with hospice care including the following: - Continue with morphine IV 2 mg every 2 hours as needed for pain - Ativan 0.5 mg every 4 hours as needed for agitation - Glycopyrrolate 0.2 mg every 6 hours as needed for secretion management - Will continue Keppra 750 mg twice daily IV given seizure disorder and appearance of seizure-like activity that is short-lived of approximately 15 to 20 seconds. -Will continue 4 L nasal cannula oxygen, will not escalate any further discontinued breathing treatments as they appear to cause agitation and discomfort; DNR
--- NOTE | 2023-09-16 18:12 | PC.NURSE ---
Patient unresponsive this shift. Morphine given to keep patient comfortable. Respirations deep but no apnea observed. VS stable and patient turned back to 4LNC.
[2023-09-16 19:51] VITALS: BP 102/56; PULSE 110; RESP 20; TEMP 36.7; O2SAT 94
[2023-09-16 20:00] VITALS: RESP 10
[2023-09-16] MEDS: NYSTATIN CREAM 30GM/TUBE TP (20:57)
[2023-09-17] MEDS: MORPHINE 2MG/ML SYRINGE 2 MG IV ×3 (01:03→09:17)
--- NOTE | 2023-09-17 03:14 | PC.NURSE ---
Pt remains unresponsive and eyes are fixed. Pt is currently on 4L of O2 and sating in mid to low 90s. Daughter at bedside. Pt has had morphine for comfort and pain. Pt breathing has slowed but no other signs of distress. daughter denies needs at this time
[2023-09-17 04:00] VITALS: BMI 23.3
[2023-09-17 05:22] VITALS: BMI 22.9
[2023-09-17] MEDS: NYSTATIN CREAM 30GM/TUBE TP ×3 (09:18→17:08)
[2023-09-17] MEDS: levETIRAcetam 750 MG in 0.9 % SODIUM CHLORIDE 100 ML 215 MG IV ×2 (09:18→20:30)
[2023-09-17] MEDS: LORazepam 2MG/ML VIAL 0.5 MG IV (10:03)
--- NOTE | 2023-09-17 10:10 | SW/DCPLANNER ---
Patient was admitted Hospice inpatient on 09/15/23 at 10:43AM per Louise bryant/ [facility]. I have also updated Antonia bryant/ [facility] regarding situation.
[2023-09-17] MEDS: MORPHINE 2MG/ML SYRINGE 4 MG IV ×4 (12:14→20:07)
[2023-09-17] MEDS: LORazepam 2MG/ML VIAL 1 MG IV ×2 (13:24→17:08)
[2023-09-17] MEDS: SODIUM CHLORIDE 0.9% 10ML VIAL 10 ML IV ×2 (13:24→17:08)
--- NOTE | 2023-09-17 16:50 | PC.NURSE ---
PT HAS REMAINED UNRESPONSIVE THROUGHOUT SHIFT. PT IS IN COMFORT CARE. SON AND DAUGHTER HAVE REMAINED AT BEDSIDE THROUGHOUT SHIFT. HOSPICE NURSE CAME TO SEE PT RECENTLY AND JUST LEFT. RHONCHI NOTED THROUGHOUT. ORAL CARE AND POSITION CHANGING PERFORMED WHEN FAMILY IS OK WITH IT. GENERALIZED EDEMA NOTED THROUGHOUT. FLAT, SOFT ABDOMEN NOTED. PT HASN'T VOIDED THIS SHIFT. MORPHINE AND ATIVAN GIVEN PER MAR. ON REASSESSMENT, PT WAS MORE COMFORTABLE. NO QUESTIONS OR CONCERNS VOICED BY FAMILY. COURTESY CART IN ROOM FOR FAMILY MEMBERS. BED IN LOWEST POSITION. CALL LIGHT WITHIN REACH. PT TOLERATING 4L NC.
--- NOTE | 2023-09-17 19:56 | EXP.ACUTE.PN ---
Subjective *Date: 09/17/23 *Time: 19:56 Interval history: Obtunded, comfortable, not agitated. Family at bedside. Medical Exam Vital signs and Labs for Last 24 Hours: Vital Signs Resp O2 Del Method O2 Flow Rate 09/17/23 18:29 Nasal Cannula 4 09/17/23 17:15 Nasal Cannula 4 09/17/23 15:15 Nasal Cannula 4 09/17/23 13:00 Nasal Cannula 4 09/17/23 11:00 Nasal Cannula 4 09/17/23 09:15 Nasal Cannula 4 09/17/23 09:00 Nasal Cannula 4 09/17/23 06:51 Nasal Cannula 4 09/17/23 04:35 Nasal Cannula 4 09/17/23 02:36 Nasal Cannula 4 09/17/23 00:38 Nasal Cannula 4 09/16/23 22:52 Nasal Cannula 4.5 09/16/23 21:00 Nasal Cannula 4.5 09/16/23 20:00 10 L Nasal Cannula 4 Intake and Output 09/17/23 09/17/23 09/17/23 07:59 15:59 23:59 Intake Total 100 / 200 100 / 200 Output Total 0 / 0 Balance 100 / 200 100 / 200 Intake: Intake, Oral Amount 0 / 0 Intake, Total IV Amount 100 / 200 100 / 200 levETIRAcetam 750 mg In 0.9 % 100 / 200 100 / 200 Sodium Chloride 100 ml @ 215 mls/hr IV Q12 [facility] Rx#:[id number] Output: Output, Urine Amount 0 / 0 Other: Number of Unmeasured Voids 1 Weight 64.728 kg Patient Weight 09/17/23 23:59 Weight 64.728 kg I & O for Labs for Last 24 Hours: Intake & Output 09/14/23 09/15/23 09/16/23 09/17/23 22:59 22:59 23:59 23:59 Intake Total 200 / 200 Output Total 0 / 0 Balance 200 / 200 Weight 64.728 kg Constitutional: Present moderate distress and obtunded Respiratory: Present rhonchi and crackles Comment:: Deep breathing with episodes of apnea Cardiac: Present Irregularly Regular and Tachycardia Neuro: Absent alert, awake or oriented x 3 Assessment and Plan *Assessment and plan (1) Pneumonia: Status: Acute Qualifiers: Pneumonia type: due to unspecified organism Laterality: unspecified laterality Lung location: unspecified part of lung Qualified Code(s): J18.9 - Pneumonia, unspecified organism Category: Medical Code(s): J18.9 - Pneumonia, unspecified organism (2) Encephalopathy: Status: Acute Category: Medical Code(s): G93.40 - Encephalopathy, unspecified (3) Acute kidney injury: Status: Acute Category: Medical Code(s): N17.9 - Acute kidney failure, unspecified (4) Afib: Status: Acute Qualifiers: Atrial fibrillation type: unspecified Qualified Code(s): I48.91 - Unspecified atrial fibrillation Category: Medical Code(s): I48.91 - Unspecified atrial fibrillation (5) CVA (cerebral vascular accident): Status: Acute Qualifiers: CVA mechanism: embolism Precerebral and cerebral artery: middle cerebral artery Laterality of affected vessel: left Qualified Code(s): I63.412 - Cerebral infarction due to embolism of left middle cerebral artery Category: Medical Code(s): I63.9 - Cerebral infarction, unspecified (6) HTN (hypertension), benign: Status: Acute Category: Medical Code(s): I10 - Essential (primary) hypertension (7) Unspecified dementia, unspecified severity, without behavioral disturbance, psychotic disturbance, mood disturbance, and anxiety: Status: Acute Qualifiers: Dementia type: unspecified type Dementia severity: unspecified severity Qualified Code(s): F03.90 - Unspecified dementia, unspecified severity, without behavioral disturbance, psychotic disturbance, mood disturbance, and anxiety Category: Medical Code(s): F03.90 - Unspecified dementia, unspecified severity, without behavioral disturbance, psychotic disturbance, mood disturbance, and anxiety (8) CHF (congestive heart failure): Status: Acute Qualifiers: Heart failure type: unspecified Heart failure chronicity: acute on chronic Qualified Code(s): I50.9 - Heart failure, unspecified Category: Medical Code(s): I50.9 - Heart failure, unspecified Plan 83-year-old female intermediate resident with PMHx with 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 initial ER stroke work up is negative. Patient on arrival found hypoxic, on 3L NC apparently as a new oxygen requirement. CXR and neck CTA, concerning for air space disease. Patient has completed 2 weeks of antibiotics. Was having slow progression of her pneumonia/ARDS. Transitioned to inpatient hospice 09/14. Or hypoxia today. Tachycardic. Worsening A-fib. Obtunded. Was agitated overnight. Appears comfortable at this time. Family at bedside. Continue with hospice care including the following: - Continue with morphine IV increased to 4 mg every 2 hours as needed for pain -Schedule Ativan 0.5 mg every 4 hours for agitation - Glycopyrrolate 0.2 mg every 6 hours as needed for secretion management - Will continue Keppra 750 mg twice daily IV given seizure disorder and appearance of seizure-like activity that is short-lived of approximately 15 to 20 seconds. - Will continue 4 L nasal cannula oxygen, will not escalate any further discontinued breathing treatments as they appear to cause agitation and discomfort; DNR
[2023-09-17 20:00] VITALS: BP 70/40; PULSE 55; RESP 14; RESP 16; TEMP 37.8; O2SAT 76
[2023-09-17] MEDS: GLYCOPYRROLATE 0.2 MG/ML 1ML VIAL IV (20:35)
--- NOTE | 2023-09-17 21:03 | EXP.DEATH.DS ---
Documented by User: Giovanni Hernández APRN 09/17/23 21:31 Discharge Sum: Prov Provider Primary care physician: Horace Knight DO Visit Care Team Role Provider Type Horace Knight DO Primary Care Provider Staff Physician Noah Samuels MD Other Providers Staff Physician Tiara Ramirez MD Other Providers Staff Physician Ave Garcia MD Other Providers Consulting Physician Horace Del Toro MD Other Providers Staff Physician THI Smiley Other Providers Physician Burr Picker Bo Ware MD Other Providers Consulting Physician Vamshi Gonzalez MD Other Providers Consulting Physician THI Brumfield Other Providers Physician Burr Picker Mustapha Oviedo MD Other Providers Staff Physician Michelle Hough APRN Other Providers Nurse Practitioner Faith Frederick APRN Other Providers Nurse Practitioner Mariluz Hicks MD Emergency Provider ER Physician Mike Arellano MD Admit Provider Staff Physician Attending Provider Consults: 09/03/23 08:03 Pulmonology Consult [Consult to Pulmonology] [CONS] Routine Consulting Provider: Tiara Ramirez Reason For Consult: pneumonia, worsening CXR and persistent O2 requirement 09/05/23 08:44 Consult to Cardiology [CONS] Routine Consulting Provider: Cardiology Reason For Consult: Afib/Tachycardia 09/10/23 16:11 Consult to Hospice [CONS] Routine Comment: patient son wants to look into Hospice option Consulting Provider: Discharge Sum: Diag PCOD Cause of : Respiratory failure Contributing Factors (1) Acute respiratory failure with hypoxia: (2) Acute on chronic heart failure with preserved ejection fraction (HFpEF): (3) Encephalopathy: (4) Acute kidney injury: (5) Afib: (6) CVA (cerebral vascular accident): (7) HTN (hypertension), benign: (8) Unspecified dementia, unspecified severity, without behavioral disturbance, psychotic disturbance, mood disturbance, and anxiety: (9) CHF (congestive heart failure): (10) CVA, old, cognitive deficits: (11) Seizure: Discharge Sum: Summary Date and Time Date of admission: 08/31/23 20:12 Date of : 09/17/23 Time of : 20:50 Hospital Course prior to Hospital Course Information: 08/31 This is a 83-year-old female long-term resident with PMHx with 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 admitted for AMS. Febrile upon admission. Mild neutrophilic leukocytosis. ABG upon admission 40% FiO2 did not change in the hypoxic and hypercarbic respiratory failure. Found to have acute respiratory failure secondary to pneumonia. 09/03 Seen by pulmonology. Respiratory alkalosis noted. Chest x-ray upon admission concerning for bilateral extensive patchy airspace disease along with nodular component of the left upper lobe.Recommend change antibiotics to cefepime pending nasal MRSA PCR and sputum culture results. DuoNebs every 6 hours on scheduled basis Continue oxygen supplementation to maintain O2 saturation goal of 90% above, increased to 5 L this morning as patient only saturating 87% on 3 L nasal cannula. Will follow the echocardiogram report and response to diuretics. 09/05 Continue to receive cefepime and levofloxacin. Worsening oxygen requirements. Chest x-ray from this morning stable right send worsening left-sided pulmonary infiltrates. Sputum culture gram-positive cocci and rods. Nasal MRSA PCR pending. Echocardiogram EF estimated 55%. Systolic function indeterminate secondary to atrial fibrillation. Continue to receive amiodarone. Mild TR with RVSP at 40-45. Cardiology consulted, following. Continue to receive IV Bumex ABG from this morning on VM 50% reviewed, no evidence of hypercarbic respiratory failure. No evidence of hypoxic respiratory failure with PaO2 of 92.8. pH is 7.36. Lactate within normal limits at 1.58. Patient had a significant desaturation with minimal exertion on Ventimask needing MRM 100% FiO2. 09/05 Went into A. fib with RVR. Seen by cardiology started on amiodarone, Xarelto and metoprolol chronically but refusing meds at this time. switched to amiodarone IV with loading dose -use lopressor 5 mg IV [id number] as needed for rate control until taking oral meds -use lovenox 1 mg/kg subcutaneously BID 09/09 CTA no evidence of pulmonary embolism. Bilateral diffuse groundglass opacities. Comprehensive respiratory viral PCR panel negative. Nasal MRSA PCR negative. Sputum cultures finalized normal respiratory victorino. SAMIRA Screen Negative. Improving leukocytosis. Afebrile. Clinically stable. Urine culture negative. Repeat blood cultures pending so far. Continue to receive linezolid cefepime and azithromycin. No significant improvement in her oxygen requirements. Chest x-ray from this morning no significant improvement. Cardiology following. Continue to receive diuretics. Echo results: - Normal LV systolic function. Severe RV dilation with mild reduction in RV function. Biatrial dilation. Of note, the patient Mild AI. Mild MR. Moderate TR. Elevated RVSP 40-45 mmHg, EF 55% Normal LV systolic function Severe RV dilation with mild reduction in RV function. Biatrial dilation. 09/09 Discussed with patient son at bedside, updated on plan of care and past events during the hospitalization. patient's son is POA and patient has living will as well, per son he wants his mother to be DNR/DNI and this is also mentioned in her living will. He also wants to explore hospice and is considering comfort care/ Hospice route, will consult hospice. Consult placed. Patient son mentioned he can be in the hospital tomorrow, he lives in [place], [place]. Code status - DNR/DNI 09/11 Advance care planning note: Active diagnosis: Stroke, progressive aphasia, respiratory failure, heart failure, risk for aspiration, progressive decline the result from stroke, depression, worsening oxygen requirement. The patient's active diagnoses are of sufficient risk that focused discussion on advanced care planning is indicated in order to allow the patient to thoughtfully consider personal goals of care; and, if situations arise that prevent the ability to personally give input, to ensure appropriate representation of their personal desires through documentation or informed surrogate decision makers. Discussion: Persons present and participating in discussion: Patient, son and daughter Discussion: Extensive discussion about goals of care and patient's progression. Her worsening pneumonia and ARDS leading to respiratory failure in conjunction with heart failure preserved ejection fraction. Not showing meaningful recovery, condition has plateaued. In discussion with family, they would like for her to be DNR. Discussed with methods of nutrition administration. They are very clear that they do not want to proceed with a feeding tube if she is unable to tolerate p.o. intake. Recognize risk of aspiration, request continuing to eat if tolerated by patient. Initial plan was to transition to hospice, given marginal improvement with changing oxygen delivery methods, would like to continue with curative treatment and give her a few more days to see if she improves. Will continue to support family with their treatment requests. Express strong concern that patient's condition is progressive and she will continue to have worsening respiratory status given her failure to significantly improve with prolonged course of antibiotics and steroids. Family states understanding. Summary Details: patient DNR/DNI inpatient hospice. been on comfort measure only. marine underwriter called by [facility] nurse. patient found no pulse, no respiration, fixed pupils. no heart sound. TOD: 2049 Additional Data Confirmation of as documented by pronouncing clinician: no pulse, no respirations, no heart sounds and pupils fixed and dilated Family: at bedside Additional persons at bedside: other Attending/PCP notified?: Yes Attending physician: Mike Arellano MD Was code activated?: No Autopsy requested?: No home office claims examiner notified?: Yes Organ bank notified?: Yes Advance directives: Yes Hospice patient?: Yes Documented by User: Mike Arellano MD 09/18/23 09:28 Discharge Sum: Prov Provider Admitting clinician: Mike Arellano Attending physician on admission: Mike Arellano Pronouncing clinician: Mike Arellano Discharge Sum: Diag PCOD Cause of : Bilateral pneumonia Contributing Factors (1) Acute respiratory failure with hypoxia: (2) Acute on chronic heart failure with preserved ejection fraction (HFpEF): (3) Encephalopathy: (4) Acute kidney injury: (5) Afib: (6) CVA (cerebral vascular accident): (7) HTN (hypertension), benign: (8) Unspecified dementia, unspecified severity, without behavioral disturbance, psychotic disturbance, mood disturbance, and anxiety: (9) CHF (congestive heart failure): (10) CVA, old, cognitive deficits: (11) Seizure:
--- NOTE | 2023-09-17 22:51 | PC.NURSE ---
Banda Amory was contacted at 22:47. Spoke with
--- NOTE | 2023-09-17 23:25 | PC.NURSE ---
[facility]anda home here at 23:26 to transfer.
== END 2023-09-17 23:32 | disposition expired | DRG 193 ==
LOC: ER 18:31 → 2ND 09-01 01:10
PROVIDERS: Internal Medicine; Internal Medicine Pulmonary Disease; Nurse Practitioner Family; Admitting Provider Internal Medicine Adolescent Medicine; Emergency Provider Emergency Medicine; PCP Internal Medicine; Visit Provider Internal Medicine Adolescent Medicine
DX: J18.9 Pneumonia, unspecified organism (principal); E43 Unspecified severe protein-calorie malnutrition; I63.412 Cerebral infarction due to embolism of left middle cerebral artery; J96.01 Acute respiratory failure with hypoxia; I50.33 Acute on chronic diastolic (congestive) heart failure; G93.40 Encephalopathy, unspecified; N17.9 Acute kidney failure, unspecified; Z51.5 Encounter for palliative care; F03.90 Unspecified dementia, unspecified severity, without behavioral disturbance, psychotic disturbance, mood disturbance, and anxiety; I48.91 Unspecified atrial fibrillation; Z68.22 Body mass index [BMI] 22.0-22.9, adult; I69.320 Aphasia following cerebral infarction; I25.10 Atherosclerotic heart disease of native coronary artery without angina pectoris; Z66 Do not resuscitate; I69.998 Other sequelae following unspecified cerebrovascular disease; F32.A Depression, unspecified; F41.9 Anxiety disorder, unspecified; G20.A1 Parkinson's disease without dyskinesia, without mention of fluctuations; E78.2 Mixed hyperlipidemia; I08.3 Combined rheumatic disorders of mitral, aortic and tricuspid valves; I95.9 Hypotension, unspecified; I11.0 Hypertensive heart disease with heart failure; E86.0 Dehydration
CPT/HCPCS: 36410; 36415; 36569; 70450; 70496; 70498; 71045; 71275; 80048; 80053; 81001; 82803; 83605; 83735; 83880; 84145; 85007; 85025; 85610; 85651; 85730; 86038; 86140; 87040; 87070; 87081; 87086; 87205; 87632; 87635; 87899; 92507; 92526; 92610; 93005; 93306; 94640; 94760; 94761; 97110; 97163; 97166; 97530; 99285; J0282; J0456; J1953; J1956; J2020; J2405; J7060; Q9967